=== PATIENT | male | born 1945 | race Caucasian/White ===

== ENCOUNTER 2019-07-22 08:51 | Outpatient (RCR) | payer MEDICARE, SELFPAY ==
[2019-07-22 08:59] VITALS: BP 160/81; PULSE 59; RESP 18; TEMP 37; BMI 25.6
--- NOTE | 2019-07-22 11:23 | PCM.WC.HP ---
(1) Peripheral vascular occlusive disease Status: Acute Current Visit: Yes Code(s): I73.9 - Peripheral vascular disease, unspecified (2) Nonhealing nonsurgical wound with fat layer exposed Status: Acute Current Visit: Yes Code(s): T14.8XXA - Other injury of unspecified body region, initial encounter (3) Pain of right leg Status: Acute Current Visit: Yes Code(s): M79.604 - Pain in right leg History of Present Illness Date of Service: 07/22/19 Chief Complaint: Follow-up on a chronic open area since April right lower leg at the ankle History of Wound: 73-year-old white male who is his chronic smoker with no other basic history of anything. Has been followed by vascular surgery at the [facility] was sent here to close his ankle wound has been using [id number] antibiotic ointment on it. Complains of severe pain in the area and is been receiving [place] from his family doctor. I believe he was referred from his family doctor here. Past Medical History Past Medical History: Peripheral vascular occlusive disease. Longtime smoker addiction Lives: Alone Smoking Status: Heavy Smoker (>10/day) Review of Systems Constitutional: Denies: Chills, Fever Eyes: Denies: Blurred vision, Drainage, Pain HEENT: Denies: Difficulty Hearing, Difficulty Swallowing, Sore Throat, Visual Changes Cardiovascular: Denies: Chest Pain, Palpitations, Syncope Respiratory: Denies: Cough, Shortness of Breath Gastrointestinal: Denies: Abdominal Pain, Nausea, Vomiting Genitourinary: Denies: Dysuria, Frequency Musculoskeletal: Denies: Joint Pain, Muscle pain Skin: Reports: - - Ulcer in the medial ankle area. Denies: Jaundice, Rash Neurological: Denies: Balance problems, Change in Speech, Difficulty swallowing, Focal weakness Psychiatric: Denies: Anxiety, Depression Endocrine: Denies: Change in Body Habitus Hematologic/ Lymphatic: Denies: Adenopathy - Physical Exam Vital Signs Temp Pulse Resp BP 98.6 F 59 L 18 160/81 H 07/22/19 08:59 07/22/19 08:59 07/22/19 08:59 07/22/19 08:59 General: Oriented x3, Cooperative, Well developed HEENT: Atraumatic, PERRLA Oral: Moist Mucosa Neck: Supple, No JVD Lungs: Clear to auscultation, Normal air movement Cardiovascular: Regular rate, Regular Rhythm Abdomen: Bowel Sounds Present, Soft, Non Tender, No Hepato-splenomegaly Extremities: No clubbing, No edema Skin: Ulcer/ Wound - Ulcer right medial ankle cobblestone edging irregularity Wound Measurements and Assessment WC - Nurse 1 - General Ulcer Measurement Start: 07/22/19 08:58 Freq: Status: Active Protocol: Activity Type Activity Date Activity User E-Sign Co-Sign Detail Recorded Client Recorded Date Recorded By Document 07/22/19 08:59 DL [id number] 07/22/19 09:26 DL 07/22/19 08:59 Wound Center Nurse 1 [Ulcer Assessment] #1 R Med Ankle -Current Size (cm) - Length 0.7 -Current Size (cm) - Width 1 -Current Size (cm) - Depth 0.5 -Total Square Cm 0.7 -Photo Taken Yes -Exudate Amt Small -Exudate Type Serosanguineous -Wound Margin Thickened & Rolled Under -Granulation Amt None Present (0 %) -Necrosis Amt Large (67-100%) -Necrotic Tissue Type Adherent Slough -Structure Exposed N/A -Texture (Sharmin-wound Skin Appearance) Localized Edema ,Scarring -Moisture (Sharmin-wound Skin Appearance Dry/Scaly ) -Color (Sharmin-wound Skin Appearance) Hemosiderin Staining -Temperature (Sharmin-wound Skin No Abnormality Appearance) (Pt Warm) -Tenderness on Palpation (Sharmin-wound Yes Skin Appearance) -Ulcer Cleansing Rinsed/ Irrigated with Saline -Foul Odor after Cleansing No -Anesthetic Used 5% Lidocaine Gel WC - Nurse 2 - General Ulcer CM Notes Start: 07/22/19 08:58 Freq: Status: Active Protocol: Activity Type Activity Date Activity User E-Sign Co-Sign Detail Recorded Client Recorded Date Recorded By Document 07/22/19 09:49 MW [id number] 07/22/19 09:54 MW 07/22/19 09:49 Wound Center Nurse 2 [Procedure/Treatment] -Time 09:50 -Correct Patient Yes -Correct Side, Site, Position Yes -Correct Procedure Yes -Procedure Performed Yes -Type of Procedure Debridement -Clinical Debridement Subcutaneous -Post Debridement Size (cm) - Length 1.0 -Post Debridement Size (cm) - Width 1.2 -Post Debridement Size (cm) - Depth 0.4 -Total Square Cm 1.20 -Wound/Ulcer Outcome Not Healed -Ulcer Cleansing Rinsed/ Irrigated with Saline -Foul Odor after Cleansing No -Bioengineered Tissue No -Bleeding Controlled with Pressure -Offloading No -Treatment Response Procedure Tolerated Well [See Physician Procedure note for Specifics] Pain Scale: 0-10 Numeric [Pain] -Is Patient Pain Free? Yes Musculoskeletal: No Tenderness to Palpation of Joints or Extremities Lymphatic: No Cervical, Supraclavicular, or Inguinal Adenopathy Neurological: Cranial nerves II-XII grossly intact, Neuro grossly intact Psych/Mental Status: Normal Affect, Appropriate Debridement Note Post-Debridement Measurements/Treatment WC - Nurse 2 - General Ulcer CM Notes Start: 07/22/19 08:58 Freq: Status: Active Protocol: Activity Type Activity Date Activity User E-Sign Co-Sign Detail Recorded Client Recorded Date Recorded By Document 07/22/19 09:49 MW [id number] 07/22/19 09:54 MW 07/22/19 09:49 Wound Center Nurse 2 #1 R Med Ankle -Time 09:50 -Correct Patient Yes -Correct Side, Site, Position Yes -Correct Procedure Yes -Procedure Performed Yes -Type of Procedure Debridement -Clinical Debridement Subcutaneous -Post Debridement Size (cm) - Length 1.0 -Post Debridement Size (cm) - Width 1.2 -Post Debridement Size (cm) - Depth 0.4 -Total Square Cm 1.20 -Wound/Ulcer Outcome Not Healed -Ulcer Cleansing Rinsed/ Irrigated with Saline -Foul Odor after Cleansing No -Bioengineered Tissue No -Bleeding Controlled with Pressure -Offloading No -Treatment Response Procedure Tolerated Well Pain Scale: 0-10 Numeric Is Patient Pain Free? Yes Wound debrided: Right medial ankle Type of Debridement: Excisional debridement Anesthesia Used: 5% Lidocaine Gel Depth: Down to and including healthy tissue, in the subcutaneous layer Percentage of wound debrided: 100 Instrument Used: 5mm curette Tissue Removed: Devitalized tissue and slough Severity: Fat Layer Exposed Amount of bleeding with debridement: None Bleeding Controlled with: Compression and gauze Patient tolerated procedure well Assessment/Plan Active Problems Peripheral vascular occlusive disease (Acute) Nonhealing nonsurgical wound with fat layer exposed (Acute) Pain of right leg (Acute) Assessment: Peripheral vascular occlusive disease. Smoking addiction. Stasis dermatitis Plan: Wash leg with an antibacterial soap. Apply Santyl nickel thickness to base of ulcer on right ankle cover with Adaptic gauze tape. Single layer Tubigrip. Up in 1 week
== END 2019-07-25 23:59 ==
LOC: WC 08:51
PROVIDERS: Family Provider Family Medicine; PCP Family Medicine; Visit Provider Nurse Practitioner
DX: I73.9 Peripheral vascular disease, unspecified (principal); M79.604 Pain in right leg; F17.200 Nicotine dependence, unspecified, uncomplicated; L97.312 Non-pressure chronic ulcer of right ankle with fat layer exposed
CPT/HCPCS: 11042; 99203; G0463

== ENCOUNTER 2019-08-12 08:30 | Outpatient (RCR) | payer MEDICARE, SELFPAY ==
[2019-07-26 01:23] VITALS: BP 160/81; PULSE 59; RESP 18; TEMP 37
[2019-07-29 09:11] VITALS: BP 148/80; PULSE 69; RESP 16; TEMP 36.9; BMI 25.6
--- NOTE | 2019-07-29 11:10 | PN.PCM_ITS ---
(1) Nonhealing nonsurgical wound with fat layer exposed Status: Acute Current Visit: Yes Code(s): T14.8XXA - Other injury of unspecified body region, initial encounter (2) Pain of right leg Status: Acute Current Visit: Yes Code(s): M79.604 - Pain in right leg (3) Peripheral vascular occlusive disease Status: Acute Current Visit: Yes Code(s): I73.9 - Peripheral vascular disease, unspecified Type of Wound Date of Service: 07/29/19 Chief Complaint: Follow-up on a chronic open area since April right lower leg at the ankle History of Wound: 73-year-old white male who is his chronic smoker with no other basic history of anything. Has been followed by vascular surgery at the [facility] was sent here to close his ankle wound has been using [id number] antibiotic ointment on it. Complains of severe pain in the area and is been receiving [place] from his family doctor. I believe he was referred from his family doctor here. Progress of Wound: The wound today using Santyl is actually improved dramatically smaller. Patient is happy with the outcome still has slough and base though will use 1 more week of Santyl. They need to inject with lidocaine to numb the area to get a good debridement next week patient has been approved for skin subset epi fix. - Physical Exam Vital Signs Temp Pulse Resp BP 98.4 F 69 16 148/80 H 07/29/19 09:11 07/29/19 09:11 07/29/19 09:11 07/29/19 09:11 General: Oriented x3, Cooperative, Well developed HEENT: Atraumatic, PERRLA Oral: Moist Mucosa Neck: Supple, No JVD Lungs: Clear to auscultation, Normal air movement Cardiovascular: Regular rate, Regular Rhythm Abdomen: Bowel Sounds Present, Soft, Non Tender, No Hepato-splenomegaly Extremities: No clubbing, No edema Skin: Ulcer/ Wound - Right medial ankle Wound Measurements and Assessment WC - Nurse 1 - General Ulcer Measurement Start: 07/29/19 09:10 Freq: Status: Active Protocol: Activity Type Activity Date Activity User E-Sign Co-Sign Detail Recorded Client Recorded Date Recorded By Document 07/29/19 09:11 [email or web address] [id number] 07/29/19 09:16 [email or web address] 07/29/19 09:11 Wound Center Nurse 1 [Ulcer Assessment] #1 R Med Ankle -Combined with other wound No -Current Size (cm) - Length 0.5 -Current Size (cm) - Width 1.2 -Current Size (cm) - Depth 0.4 -Total Square Cm 0.60 -Photo Taken No -Epithelialization None Present -Tunneling No -Undermining/Tunneling No -Circular Undermining No -Exudate Amt Small -Exudate Type Serous -Wound Margin Distinct, Outline Attached -Granulation Amt None Present (0 %) -Slough/Fibrin Yes -Necrosis Amt Large (67-100%) -Necrotic Tissue Type Adherent Slough -Texture (Sharmin-wound Skin Appearance) Assessed, Scarring -Moisture (Sharmin-wound Skin Appearance Assessed,Dry/ ) Scaly -Color (Shamrin-wound Skin Appearance) Assessed -Temperature (Sharmin-wound Skin No Abnormality Appearance) (Pt Warm) -Tenderness on Palpation (Sharmin-wound Yes Skin Appearance) -Ulcer Cleansing Rinsed/ Irrigated with Saline -Foul Odor after Cleansing No -Anesthetic Used 5% Lidocaine Gel [Edema Assessment] -Lower Limb Edema Present Yes -Right Calf (cm) 38.4 -Right Ankle (cm) 23.6 WC - Nurse 2 - General Ulcer CM Notes Start: 07/29/19 09:10 Freq: Status: Active Protocol: Activity Type Activity Date Activity User E-Sign Co-Sign Detail Recorded Client Recorded Date Recorded By Document 07/29/19 09:40 MW [id number] 07/29/19 09:45 MW 07/29/19 09:40 Wound Center Nurse 2 [Procedure/Treatment] #1 R [place] Ankle -Time 09:40 -Correct Patient Yes -Correct Side, Site, Position Yes -Correct Procedure Yes -Procedure Performed Yes -Type of Procedure Debridement -Clinical Debridement Subcutaneous -Post Debridement Size (cm) - Length 0.4 -Post Debridement Size (cm) - Width 0.9 -Post Debridement Size (cm) - Depth 0.3 -Total Square Cm 0.36 -Wound/Ulcer Outcome Not Healed -Ulcer Cleansing Rinsed/ Irrigated with Saline -Foul Odor after Cleansing No -Bioengineered Tissue No -Bleeding Controlled with Pressure -Offloading No -Treatment Response Procedure Tolerated Well [See Physician Procedure note for Specifics] Pain Scale: 0-10 Numeric [Pain] -Is Patient Pain Free? Yes Musculoskeletal: No Tenderness to Palpation of Joints or Extremities Lymphatic: No Cervical, Supraclavicular, or Inguinal Adenopathy Neurological: Cranial nerves II-XII grossly intact, Neuro grossly intact Psych/Mental Status: Normal Affect, Appropriate Debridement Note Post-Debridement Measurements/Treatment WC - Nurse 2 - General Ulcer CM Notes Start: 07/29/19 09:10 Freq: Status: Active Protocol: Activity Type Activity Date Activity User E-Sign Co-Sign Detail Recorded Client Recorded Date Recorded By Document 07/29/19 09:40 MW [id number] 07/29/19 09:45 MW 07/29/19 09:40 Wound Center Nurse 2 #1 R Med Ankle -Time 09:40 -Correct Patient Yes -Correct Side, Site, Position Yes -Correct Procedure Yes -Procedure Performed Yes -Type of Procedure Debridement -Clinical Debridement Subcutaneous -Post Debridement Size (cm) - Length 0.4 -Post Debridement Size (cm) - Width 0.9 -Post Debridement Size (cm) - Depth 0.3 -Total Square Cm 0.36 -Wound/Ulcer Outcome Not Healed -Ulcer Cleansing Rinsed/ Irrigated with Saline -Foul Odor after Cleansing No -Bioengineered Tissue No -Bleeding Controlled with Pressure -Offloading No -Treatment Response Procedure Tolerated Well Pain Scale: 0-10 Numeric Is Patient Pain Free? Yes Wound debrided: Right medial ankle Type of Debridement: Excisional debridement Anesthesia Used: 4% Lidocaine Solution Depth: Down to and including healthy tissue, in the subcutaneous layer Percentage of wound debrided: 100 Instrument Used: 3mm curette Tissue Removed: Slough Severity: Limited To Skin Breakdown Amount of bleeding with debridement: None Bleeding Controlled with: Compression and gauze Patient tolerated procedure well Assessment/Plan Active Problems Peripheral vascular occlusive disease (Acute) Nonhealing nonsurgical wound with fat layer exposed (Acute) Pain of right leg (Acute) Assessment: Peripheral vascular occlusive disease. Smoking addiction. Stasis dermatitis Plan: Wash leg with an antibacterial soap. Apply Santyl nickel thickness to base of ulcer on right ankle cover with Adaptic gauze tape. Single layer Tubigrip. Up in 1 week
[2019-08-05 08:34] VITALS: BP 140/86; PULSE 62; RESP 18; TEMP 36.7; BMI 25.6
--- NOTE | 2019-08-05 09:17 | PCM.WC.PN ---
(1) Nonhealing nonsurgical wound with fat layer exposed Status: Acute Current Visit: Yes Code(s): T14.8XXA - Other injury of unspecified body region, initial encounter (2) Pain of right leg Status: Acute Current Visit: Yes Code(s): M79.604 - Pain in right leg (3) Peripheral vascular occlusive disease Status: Acute Current Visit: Yes Code(s): I73.9 - Peripheral vascular disease, unspecified Type of Wound Date of Service: 08/05/19 Chief Complaint: Follow-up on a chronic open area since April right lower leg at the ankle History of Wound: 73-year-old white male who is his chronic smoker with no other basic history of anything. Has been followed by vascular surgery at the [facility] was sent here to close his ankle wound has been using [id number] antibiotic ointment on it. Complains of severe pain in the area and is been receiving [place] from his family doctor. I believe he was referred from his family doctor here. Progress of Wound: The wound today we injected lidocaine with epi to numb the area to do some aggressive debridement today. I was able to get all of the slough and clean it up pretty good make it bleed. We will stop the Santyl and start Promogran this week and follow-up next week and see how he is doing patient is to call his insurance company and find out if he has met his deductible or not. Has been approved for skin substitute but there is a co-pay. - Physical Exam Vital Signs Temp Pulse Resp BP 98.0 F 62 18 140/86 H 08/05/19 08:34 08/05/19 08:34 08/05/19 08:34 08/05/19 08:34 General: Oriented x3, Cooperative, Well developed HEENT: Atraumatic, PERRLA Oral: Moist Mucosa Neck: Supple, No JVD Lungs: Clear to auscultation, Normal air movement Cardiovascular: Regular rate, Regular Rhythm Abdomen: Bowel Sounds Present, Soft, Non Tender, No Hepato-splenomegaly Extremities: No clubbing, No edema Skin: Ulcer/ Wound Wound Measurements and Assessment WC - Nurse 1 - General Ulcer Measurement Start: 07/29/19 09:10 Freq: Status: Active Protocol: Activity Type Activity Date Activity User E-Sign Co-Sign Detail Recorded Client Recorded Date Recorded By Document 08/05/19 08:34 DV [id number] 08/05/19 08:36 DV 08/05/19 08:34 Wound Center Nurse 1 [Ulcer Assessment] #1 R Med Ankle -Combined with other wound No -Current Size (cm) - Length 0.6 -Current Size (cm) - Width 1.0 -Current Size (cm) - Depth 0.3 -Total Square Cm 0.60 -Photo Taken No -Epithelialization None Present -Tunneling No -Undermining/Tunneling No -Circular Undermining No -Classification - Thickness Full Thickness without Exposed Support Structure -Exudate Amt Medium -Exudate Type Yellow/Green -Wound Margin Thickened -Granulation Amt None Present (0 %) -Granulation Quality N/A -Slough/Fibrin Yes -Necrosis Amt Large (67-100%) -Necrotic Tissue Type Adherent Slough -Structure Exposed None/Limited to Skin Breakdown -Texture (Sharmin-wound Skin Appearance) Assessed, Scarring -Moisture (Sharmin-wound Skin Appearance Assessed, ) Weeping -Color (Sharmin-wound Skin Appearance) Assessed, Mottled,Palor -Temperature (Sharmin-wound Skin No Abnormality Appearance) (Pt Warm) -Tenderness on Palpation (Sharmin-wound No Skin Appearance) -Ulcer Cleansing Rinsed/ Irrigated with Saline -Foul Odor after Cleansing No -Anesthetic Used 4% Lidocaine Solution WC - Nurse 2 - General Ulcer CM Notes Start: 07/29/19 09:10 Freq: Status: Active Protocol: Activity Type Activity Date Activity User E-Sign Co-Sign Detail Recorded Client Recorded Date Recorded By Document 08/05/19 08:54 MW [id number] 08/05/19 09:04 MW 08/05/19 08:54 Wound Center Nurse 2 [Procedure/Treatment] -Time 08:54 -Correct Patient Yes -Correct Side, Site, Position Yes -Correct Procedure Yes -Procedure Performed Yes -Type of Procedure Debridement -Clinical Debridement Subcutaneous -Post Debridement Size (cm) - Length 0.5 -Post Debridement Size (cm) - Width 1.0 -Post Debridement Size (cm) - Depth 0.3 -Total Square Cm 0.50 -Wound/Ulcer Outcome Not Healed -Ulcer Cleansing Rinsed/ Irrigated with Saline -Foul Odor after Cleansing No -Bioengineered Tissue No -Injectable Lidocaine w/ Epi (%) 1 -Injectable Lidocaine w/ Epi (mls) 6 -Bleeding Controlled with Pressure -Offloading No -Treatment Response Procedure Tolerated Well [See Physician Procedure note for Specifics] Pain Scale: 0-10 Numeric [Pain] -Is Patient Pain Free? Yes Musculoskeletal: No Tenderness to Palpation of Joints or Extremities Lymphatic: No Cervical, Supraclavicular, or Inguinal Adenopathy Neurological: Cranial nerves II-XII grossly intact, Neuro grossly intact Psych/Mental Status: Normal Affect, Appropriate, Alert and oriented to time, place, person, mood and affect Debridement Note Post-Debridement Measurements/Treatment WC - Nurse 2 - General Ulcer CM Notes Start: 07/29/19 09:10 Freq: Status: Active Protocol: Activity Type Activity Date Activity User E-Sign Co-Sign Detail Recorded Client Recorded Date Recorded By Document 07/29/19 09:40 MW [id number] 07/29/19 09:45 MW Document 08/05/19 08:54 MW [id number] 08/05/19 09:04 MW 07/29/19 08/05/19 09:40 08:54 Wound Center Nurse 2 #1 R Med Ankle -Time 09:40 08:54 -Correct Patient Yes Yes -Correct Side, Site, Position Yes Yes -Correct Procedure Yes Yes -Procedure Performed Yes Yes -Type of Procedure Debridement Debridement -Clinical Debridement Subcutaneous Subcutaneous -Post Debridement Size (cm) - Length 0.4 0.5 -Post Debridement Size (cm) - Width 0.9 1.0 -Post Debridement Size (cm) - Depth 0.3 0.3 -Total Square Cm 0.36 0.50 -Wound/Ulcer Outcome Not Healed Not Healed -Ulcer Cleansing Rinsed/ Rinsed/ Irrigated with Irrigated with Saline Saline -Foul Odor after Cleansing No No -Bioengineered Tissue No No -Injectable Lidocaine w/ Epi (%) 1 -Injectable Lidocaine w/ Epi (mls) 6 -Bleeding Controlled with Pressure Pressure -Offloading No No -Treatment Response Procedure Procedure Tolerated Well Tolerated Well Pain Scale: 0-10 Numeric Is Patient Pain Free? Yes Yes Wound debrided: Right medial ankle ulcer Type of Debridement: Excisional debridement Anesthesia Used: 5% Lidocaine Gel, - - 1% lidocaine with epi Depth: Down to and including healthy tissue, in the subcutaneous layer Percentage of wound debrided: 100 Instrument Used: 3mm curette Tissue Removed: Slough Severity: Fat Layer Exposed Amount of bleeding with debridement: Mild Bleeding Controlled with: Compression and gauze Patient tolerated procedure well Assessment/Plan Active Problems Peripheral vascular occlusive disease (Acute) Nonhealing nonsurgical wound with fat layer exposed (Acute) Pain of right leg (Acute) Assessment: Peripheral vascular occlusive disease. Smoking addiction. Stasis dermatitis Plan: Wash leg with an antibacterial soap. Apply Promogran to base of ulcer on right ankle cover with Adaptic gauze tape. Single layer Tubigrip. Up in 1 week
[2019-08-12 08:49] VITALS: BP 145/87; PULSE 67; RESP 18; TEMP 36.3; BMI 25.6
--- NOTE | 2019-08-12 09:35 | PN.PCM_ITS ---
(1) Nonhealing nonsurgical wound with fat layer exposed Status: Acute Current Visit: Yes Code(s): T14.8XXA - Other injury of unspecified body region, initial encounter (2) Pain of right leg Status: Acute Current Visit: Yes Code(s): M79.604 - Pain in right leg (3) Peripheral vascular occlusive disease Status: Acute Current Visit: Yes Code(s): I73.9 - Peripheral vascular disease, unspecified Type of Wound Date of Service: 08/12/19 Chief Complaint: Follow-up on a chronic open area since April right lower leg at the ankle History of Wound: 73-year-old white male who is his chronic smoker with no other basic history of anything. Has been followed by vascular surgery at the [facility] was sent here to close his ankle wound has been using [id number] antibiotic ointment on it. Complains of severe pain in the area and is been receiving [place] from his family doctor. I believe he was referred from his family doctor here. Progress of Wound: The wound today is smaller and seems to be improving on the Promogran. Has been approved for skin substitute but there is a co-pay. Patient has refused skin substitute because of the co-pay. Pain in the posterior ankle area behind the wound. Obtained cultures today and start him on metronidazole 250 3 times daily x10 days to we get results. - Physical Exam Vital Signs Temp Pulse Resp BP 97.3 F L 67 18 145/87 H 08/12/19 08:49 08/12/19 08:49 08/12/19 08:49 08/12/19 08:49 General: Oriented x3, Cooperative, Well developed HEENT: Atraumatic, PERRLA Oral: Moist Mucosa Neck: Supple, No JVD Lungs: Clear to auscultation, Normal air movement Cardiovascular: Regular rate, Regular Rhythm Abdomen: Bowel Sounds Present, Soft, Non Tender, No Hepato-splenomegaly Extremities: No clubbing, No edema Skin: Ulcer/ Wound - Right medial ankle Wound Measurements and Assessment WC - Nurse 1 - General Ulcer Measurement Start: 07/29/19 09:10 Freq: Status: Active Protocol: Activity Type Activity Date Activity User E-Sign Co-Sign Detail Recorded Client Recorded Date Recorded By Document 08/12/19 08:49 RB [id number] 08/12/19 08:51 RB 08/12/19 08:49 Wound Center Nurse 1 [Ulcer Assessment] #1 R Med Ankle -Combined with other wound No -Current Size (cm) - Length 0.7 -Current Size (cm) - Width 1.2 -Current Size (cm) - Depth 0.5 -Total Square Cm 0.84 -Tunneling No -Undermining/Tunneling No -Circular Undermining No -Exudate Amt Medium -Exudate Type Serosanguineous -Wound Margin Thickened & Rolled Under -Granulation Amt Medium (34-66%) -Granulation Quality [place] -Slough/Fibrin Yes -Necrosis Amt Small (1-33%) -Structure Exposed N/A -Texture (Sharmin-wound Skin Appearance) Assessed, Scarring -Moisture (Sharmin-wound Skin Appearance Assessed ) -Color (Sharmin-wound Skin Appearance) Hemosiderin Staining -Temperature (Sharmin-wound Skin No Abnormality Appearance) (Pt Warm) -Ulcer Cleansing Wound Cleanser -Foul Odor after Cleansing No -Anesthetic Used 5% Lidocaine Gel WC - Nurse 2 - General Ulcer CM Notes Start: 07/29/19 09:10 Freq: Status: Active Protocol: Activity Type Activity Date Activity User E-Sign Co-Sign Detail Recorded Client Recorded Date Recorded By Document 08/12/19 09:09 MW [id number] 08/12/19 09:17 MW 08/12/19 09:09 Wound Center Nurse 2 [Procedure/Treatment] -Time 09:09 -Correct Patient Yes -Correct Side, Site, Position Yes -Correct Procedure Yes -Procedure Performed Yes -Type of Procedure Debridement -Clinical Debridement Subcutaneous -Post Debridement Size (cm) - Length 0.4 -Post Debridement Size (cm) - Width 0.8 -Post Debridement Size (cm) - Depth 0.3 -Total Square Cm 0.32 -Wound/Ulcer Outcome Not Healed -Ulcer Cleansing Rinsed/ Irrigated with Saline -Foul Odor after Cleansing No -Bioengineered Tissue No -Bleeding Controlled with Pressure -Offloading No -Treatment Response Procedure Tolerated Well [See Physician Procedure note for Specifics] Pain Scale: 0-10 Numeric [Pain] -Is Patient Pain Free? Yes Musculoskeletal: No Tenderness to Palpation of Joints or Extremities Lymphatic: No Cervical, Supraclavicular, or Inguinal Adenopathy Neurological: Cranial nerves II-XII grossly intact, Neuro grossly intact Psych/Mental Status: Normal Affect, Appropriate Debridement Note Post-Debridement Measurements/Treatment WC - Nurse 2 - General Ulcer CM Notes Start: 07/29/19 09:10 Freq: Status: Active Protocol: Activity Type Activity Date Activity User E-Sign Co-Sign Detail Recorded Client Recorded Date Recorded By Document 07/29/19 09:40 MW [id number] 07/29/19 09:45 MW Document 08/05/19 08:54 MW [id number] 08/05/19 09:04 MW Document 08/12/19 09:09 MW [id number] 08/12/19 09:17 MW 07/29/19 08/05/19 08/12/19 09:40 08:54 09:09 Wound Center Nurse 2 #1 R Med Ankle -Time 09:40 08:54 09:09 -Correct Patient Yes Yes Yes -Correct Side, Site, Position Yes Yes Yes -Correct Procedure Yes Yes Yes -Procedure Performed Yes Yes Yes -Type of Procedure Debridement Debridement Debridement -Clinical Debridement Subcutaneous Subcutaneous Subcutaneous -Post Debridement Size (cm) - Length 0.4 0.5 0.4 -Post Debridement Size (cm) - Width 0.9 1.0 0.8 -Post Debridement Size (cm) - Depth 0.3 0.3 0.3 -Total Square Cm 0.36 0.50 0.32 -Wound/Ulcer Outcome Not Healed Not Healed Not Healed -Ulcer Cleansing Rinsed/ Rinsed/ Rinsed/ Irrigated with Irrigated with Irrigated with Saline Saline Saline -Foul Odor after Cleansing No No No -Bioengineered Tissue No No No -Injectable Lidocaine w/ Epi (%) 1 -Injectable Lidocaine w/ Epi (mls) 6 -Bleeding Controlled with Pressure Pressure Pressure -Offloading No No No -Treatment Response Procedure Procedure Procedure Tolerated Well Tolerated Well Tolerated Well Pain Scale: 0-10 Numeric Is Patient Pain Free? Yes Yes Yes Wound debrided: Medial ankle Laterality: Right Type of Debridement: Excisional debridement Anesthesia Used: 5% Lidocaine Gel Depth: Down to and including healthy tissue, in the subcutaneous layer Percentage of wound debrided: 100 Instrument Used: 3mm curette Tissue Removed: Slough and fibrin Severity: Limited To Skin Breakdown Amount of bleeding with debridement: None Bleeding Controlled with: Compression and gauze Patient tolerated procedure well Assessment/Plan Active Problems Peripheral vascular occlusive disease (Acute) Nonhealing nonsurgical wound with fat layer exposed (Acute) Pain of right leg (Acute) Assessment: Peripheral vascular occlusive disease. Smoking addiction. Stasis dermatitis Plan: Wash leg with an antibacterial soap. Apply Promogran to base of ulcer on right ankle cover with Adaptic gauze tape. Single layer Tubigrip. Follow-up August 27
== END 2019-08-25 23:59 ==
LOC: WC 08:30
PROVIDERS: Family Provider Family Medicine; PCP Family Medicine; Referring Provider Nurse Practitioner; Visit Provider Nurse Practitioner
DX: I73.9 Peripheral vascular disease, unspecified (principal); L97.311 Non-pressure chronic ulcer of right ankle limited to breakdown of skin; I87.2 Venous insufficiency (chronic) (peripheral); L97.312 Non-pressure chronic ulcer of right ankle with fat layer exposed; F17.200 Nicotine dependence, unspecified, uncomplicated
CPT/HCPCS: 11042; 87070; 87075; 87077; 87186; 87205

== ENCOUNTER 2019-09-09 10:48 | Emergency (ER) | payer MEDICARE, SELFPAY ==
[2019-09-09 08:34] VITALS: BMI 25.6
[2019-09-09 10:52] VITALS: BP 143/88; PULSE 70; RESP 18; TEMP 36.6; O2SAT 96; BMI 25.2
--- NOTE | 2019-09-09 11:05 | ED.DCSUM_ITS ---
- ER Visit Summary Date of Service: 09/09/19 Chief Complaint: Right leg DVT History of Present Illness: The patient is a 73 M who presents with right leg DVT. He went to the wound clinic today and had a dressing change. He was complaining of some pain in his right calf so the provider at the wound clinic ordered an outpatient ultrasound. It returned with a DVT in the right leg. He has a history of a DVT in the left leg about 20 years ago. He is not on any blood thinning medications now. He denies any shortness of breath or chest pain at this time. Physical Examination: Vital signs are reviewed. Right leg exam reveals tenderness of the right medial calf. There is no swelling. No erythema. He has a bandage on the right ankle from a chronic wound. His strength and sensation are normal throughout. Test Results: Patient ultrasound reveals acute DVT in the right peroneal, right posterior tibial and right soleus vein. He has a superficial vein thrombosis in the right [facility] Emergency Department Course and Treatment: Patient will be treated with Xarelto. I discussed with Ashlie Corona at the wound clinic. She will follow with this patient. She did note that he did have some bleeding during the de bridement today. The bleeding is now controlled. I feel that this is not a contraindication to anticoagulation at this time. Treatment Plan: [] Disposition: Discharge Impression: Leg DVT, right This note was generated with Portable Internet dictation software. It may contain incorrect words, spelling, and punctuation that were not noted in review of the chart prior to signing ED Disposition - Plan for ED Patient: Disposition: Home or Assisted Living Instructions: Dvt Prescriptions: Rivaroxaban [Xarelto] 15 mg PO BID #42 tab Prescription Printed Referrals: Christopher Sebastian MD [Primary Care Provider] -
[2019-09-09 11:23] LABS: Absolute Lymphocyte Count 1.13 X10^3/uL (0.83-4.51); Basophil# 0.08 X10^3/uL; Basophil% 1.6 % (0-1); Eosinophil# 0.34 X10^3/uL; Eosinophils% 6.9 % (0-5); Hematocrit 45.7 % (40-54); Lymphocyte # 1.13 X10^3/ul (4.0); Lymphocyte % 22.9 % (19-41); Mean Corp Hgb Conc 32.8 g/dL (32-36); Mean Corpuscular Hgb 32.8 pg (27.0-32.0); Mean Corpuscular Volume 99.8 fL (80-94); Mean Platelet Vol. 9.8 fl (6.2-12.0); Monocyte# 0.37 X10^3/uL; Monocyte% 7.5 % (0-10); NRBC Flagged by Analyzer 0 % (0-5); Neutrophil # 2.98 X10^3/uL (2.7-7.7); Neutrophil % 60.5 % (47-70); Platelet Count 159 K/mm3 (150-450); RBC Distribution Width CV 13.4 % (11.6-14.6); RBC Distribution Width SD 49.8 fl (35.1-43.9); Red Blood Count 4.58 M/mm3 (4.6-6.2); White Blood Count 4.9 K/mm3 (4.4-11.0)
[2019-09-09 11:41] LABS: Prealbumin 22.5 mg/dL (20.0-40.0)
[2019-09-09] MEDS: Rivaroxaban 15 MG Tablet PO (11:59)
--- NOTE | 2019-09-09 12:03 | ED.RN ---
DISCHARGE INSTRUCTIONS GIVEN TO AND REVIEWED WITH PATIENT, PATIENT DENIES QUESTIONS OR CONCERNS AND VOICES UNDERSTANDING OF DISCHARGE INSTRUCTIONS. PT AMBULATES OUT OF ROOM WITHOUT ISSUE.
== END 2019-09-09 12:04 | disposition home or self-care (01) ==
LOC: ED 11:27
PROVIDERS: Emergency Provider Emergency Medicine; Family Provider Family Medicine; PCP Family Medicine
DX: I82.451 Acute embolism and thrombosis of right peroneal vein (principal); I82.441 Acute embolism and thrombosis of right tibial vein; I82.461 Acute embolism and thrombosis of right calf muscular vein; Z86.718 Personal history of other venous thrombosis and embolism; I73.9 Peripheral vascular disease, unspecified; F17.200 Nicotine dependence, unspecified, uncomplicated; I87.2 Venous insufficiency (chronic) (peripheral); I82.491 Acute embolism and thrombosis of other specified deep vein of right lower extremity; L08.9 Local infection of the skin and subcutaneous tissue, unspecified; T14.8XXA Other injury of unspecified body region, initial encounter; Y83.8 Other surgical procedures as the cause of abnormal reaction of the patient, or of later complication, without mention of misadventure at the time of the procedure; R60.0 Localized edema; L97.312 Non-pressure chronic ulcer of right ankle with fat layer exposed
CPT/HCPCS: 11042; 84134; 85025; 93971; 99283

== ENCOUNTER 2019-09-23 08:00 | Outpatient (RCR) | payer MEDICARE, SELFPAY ==
[2019-08-26 00:58] VITALS: BP 145/87; PULSE 67; RESP 18; TEMP 36.3
[2019-08-27 08:30] VITALS: BP 153/79; PULSE 70; RESP 18; TEMP 36.4; BMI 25.6
--- NOTE | 2019-08-27 09:01 | PCM.WC.PN ---
(1) Infected open wound Status: Acute Current Visit: Yes Code(s): T14.8XXA - Other injury of unspecified body region, initial encounter; L08.9 - Local infection of the skin and subcutaneous tissue, unspecified (2) Nonhealing nonsurgical wound with fat layer exposed Status: Acute Current Visit: No Code(s): T14.8XXA - Other injury of unspecified body region, initial encounter (3) Pain of right leg Status: Acute Current Visit: No Code(s): M79.604 - Pain in right leg (4) Peripheral vascular occlusive disease Status: Acute Current Visit: No Code(s): I73.9 - Peripheral vascular disease, unspecified Type of Wound Date of Service: 08/27/19 Chief Complaint: Follow-up on a chronic open area since April right lower leg at the ankle History of Wound: 73-year-old white male who is his chronic smoker with no other basic history of anything. Has been followed by vascular surgery at the [facility] was sent here to close his ankle wound has been using [id number] antibiotic ointment on it. Complains of severe pain in the area and is been receiving [place] from his family doctor. I believe he was referred from his family doctor here. Progress of Wound: The wound, grew 5 bacteria with 2 anaerobic bugs. The wound still grows a lot of slough patient states pain is much improved since being on all the antibiotic and metronidazole. Has been approved for skin substitute but there is a co-pay. Patient has refused skin substitute because of the co-pay. Pain in the posterior ankle area behind the wound. We will continue with the [place] to the wound base follow-up in 2 weeks. Obtained cultures today and start him on metronidazole 250 3 times daily x10 days to we get results. - Physical Exam Vital Signs Temp Pulse Resp BP 97.5 F L 70 18 153/79 H 08/27/19 08:30 08/27/19 08:30 08/27/19 08:30 08/27/19 08:30 General: Oriented x3, Cooperative, Well developed HEENT: Atraumatic, PERRLA Oral: Moist Mucosa Neck: Supple, No JVD Lungs: Clear to auscultation, Normal air movement Cardiovascular: Regular rate, Regular Rhythm Abdomen: Bowel Sounds Present, Soft, Non Tender, No Hepato-splenomegaly Extremities: No clubbing, No edema Skin: Ulcer/ Wound - Right medial ankle Wound Measurements and Assessment WC - Nurse 1 - General Ulcer Measurement Start: 08/27/19 08:29 Freq: Status: Active Protocol: Activity Type Activity Date Activity User E-Sign Co-Sign Detail Recorded Client Recorded Date Recorded By Document 08/27/19 08:30 RB [id number] 08/27/19 08:32 RB 08/27/19 08:30 Wound Center Nurse 1 [Ulcer Assessment] #1 R Med Ankle -Combined with other wound No -Current Size (cm) - Length 0.5 -Current Size (cm) - Width 1 -Current Size (cm) - Depth 0.3 -Total Square Cm 0.5 -Tunneling No -Undermining/Tunneling No -Circular Undermining No -Exudate Amt Small -Exudate Type Serosanguineous -Wound Margin Thickened & Rolled Under -Granulation Amt Medium (34-66%) -Granulation Quality [place] -Slough/Fibrin Yes -Necrosis Amt Small (1-33%) -Necrotic Tissue Type Adherent Slough -Structure Exposed N/A -Texture (Sharmin-wound Skin Appearance) Assessed -Moisture (Sharmin-wound Skin Appearance Assessed ) -Color (Sharmin-wound Skin Appearance) Assessed, Hemosiderin Staining -Temperature (Sharmin-wound Skin No Abnormality Appearance) (Pt Warm) -Tenderness on Palpation (Sharmin-wound No Skin Appearance) -Ulcer Cleansing Wound Cleanser -Foul Odor after Cleansing No -Anesthetic Used 5% Lidocaine Gel WC - Nurse 2 - General Ulcer CM Notes Start: 08/27/19 08:29 Freq: Status: Active Protocol: Activity Type Activity Date Activity User E-Sign Co-Sign Detail Recorded Client Recorded Date Recorded By Document 08/27/19 08:47 MW [id number] 08/27/19 08:51 MW 08/27/19 08:47 Wound Center Nurse 2 [Procedure/Treatment] -Time 08:47 -Correct Patient Yes -Correct Side, Site, Position Yes -Correct Procedure Yes -Procedure Performed Yes -Type of Procedure Debridement -Clinical Debridement Subcutaneous -Post Debridement Size (cm) - Length 0.4 -Post Debridement Size (cm) - Width 1.0 -Post Debridement Size (cm) - Depth 0.3 -Total Square Cm 0.40 -Wound/Ulcer Outcome Not Healed -Ulcer Cleansing Rinsed/ Irrigated with Saline -Foul Odor after Cleansing No -Bioengineered Tissue No -Bleeding Controlled with Pressure -Offloading No -Treatment Response Procedure Tolerated Well [See Physician Procedure note for Specifics] Pain Scale: 0-10 Numeric [Pain] -Is Patient Pain Free? Yes Musculoskeletal: No Tenderness to Palpation of Joints or Extremities Lymphatic: No Cervical, Supraclavicular, or Inguinal Adenopathy Neurological: Cranial nerves II-XII grossly intact, Neuro grossly intact Psych/Mental Status: Normal Affect, Appropriate Debridement Note Post-Debridement Measurements/Treatment WC - Nurse 2 - General Ulcer CM Notes Start: 08/27/19 08:29 Freq: Status: Active Protocol: Activity Type Activity Date Activity User E-Sign Co-Sign Detail Recorded Client Recorded Date Recorded By Document 08/27/19 08:47 MW [id number] 08/27/19 08:51 MW 08/27/19 08:47 Wound Center Nurse 2 #1 R Med Ankle -Time 08:47 -Correct Patient Yes -Correct Side, Site, Position Yes -Correct Procedure Yes -Procedure Performed Yes -Type of Procedure Debridement -Clinical Debridement Subcutaneous -Post Debridement Size (cm) - Length 0.4 -Post Debridement Size (cm) - Width 1.0 -Post Debridement Size (cm) - Depth 0.3 -Total Square Cm 0.40 -Wound/Ulcer Outcome Not Healed -Ulcer Cleansing Rinsed/ Irrigated with Saline -Foul Odor after Cleansing No -Bioengineered Tissue No -Bleeding Controlled with Pressure -Offloading No -Treatment Response Procedure Tolerated Well Pain Scale: 0-10 Numeric Is Patient Pain Free? Yes Wound debrided: Medial ankle Type of Debridement: Excisional debridement Anesthesia Used: 5% Lidocaine Gel Depth: Down to and including healthy tissue, in the subcutaneous layer Percentage of wound debrided: 100 Instrument Used: 3mm curette Tissue Removed: Slough and fibrin Severity: Limited To Skin Breakdown Amount of bleeding with debridement: Mild Bleeding Controlled with: Compression and gauze Patient tolerated procedure well Assessment/Plan Active Problems Infected open wound (Acute) Assessment: Peripheral vascular occlusive disease. Smoking addiction. Stasis dermatitis Plan: Wash leg with an antibacterial soap. Apply Promogran to base of ulcer on right ankle cover with Adaptic gauze tape. Single layer Tubigrip. Follow-up 2 weeks
[2019-09-09 08:34] VITALS: BP 142/74; PULSE 62; RESP 16; TEMP 36.1
--- NOTE | 2019-09-09 09:52 | PCM.WC.PN ---
(1) Infected open wound Status: Acute Current Visit: Yes Code(s): T14.8XXA - Other injury of unspecified body region, initial encounter; L08.9 - Local infection of the skin and subcutaneous tissue, unspecified (2) Nonhealing nonsurgical wound with fat layer exposed Status: Acute Current Visit: Yes Code(s): T14.8XXA - Other injury of unspecified body region, initial encounter (3) Pain of right leg Status: Acute Current Visit: Yes Code(s): M79.604 - Pain in right leg (4) Peripheral vascular occlusive disease Status: Acute Current Visit: Yes Code(s): I73.9 - Peripheral vascular disease, unspecified (5) Leg edema, right Status: Acute Current Visit: Yes Code(s): R60.0 - Localized edema (6) Acute deep vein thrombosis (DVT) of calf muscle vein of right lower extremity Status: Acute Current Visit: Yes Code(s): I82.461 - Acute embolism and thrombosis of right calf muscular vein Type of Wound Date of Service: 09/09/19 Chief Complaint: Follow-up on a chronic open area since April right lower leg at the ankle History of Wound: 73-year-old white male who is his chronic smoker with no other basic history of anything. Has been followed by vascular surgery at the [facility] was sent here to close his ankle wound has been using [id number] antibiotic ointment on it. Complains of severe pain in the area and is been receiving [place] from his family doctor. I believe he was referred from his family doctor here. Progress of Wound: The wound, grew 5 bacteria with 2 anaerobic bugs. The slough has improved did get down to good new skin still extremely painful but on this last debridement had a major bleeder had to use surgical foam to stop the bleeding and hold pressure for 5 minutes to 10 minutes. He is currently finishing his antibiotics and antimicrobials has been approved for skin substitute but there is a co-pay. Patient has refused skin substitute because of the co-pay. Will try getting a pre-albumin on him to see what is the causing us to slow up on his progression I will have him not start his wound care till tomorrow and leave the pressure dressing with the Surgifoam and for 24 hours. He is also complaining of a lump on his right calf medial side and some redness so we will get an ultrasound stat today and see if that is just a superficial thrombophlebitis or if it is actually something more. - Physical Exam Vital Signs Temp Pulse Resp BP 97.0 F L 62 16 142/74 H 09/09/19 08:34 09/09/19 08:34 09/09/19 08:34 09/09/19 08:34 General: Oriented x3, Cooperative, Well developed HEENT: Atraumatic, PERRLA Oral: Moist Mucosa Neck: Supple, No JVD Lungs: Clear to auscultation, Normal air movement Cardiovascular: Regular rate, Regular Rhythm Abdomen: Bowel Sounds Present, Soft, Non Tender, No Hepato-splenomegaly Extremities: No clubbing, Edema, - - Open nonhealing area on the right medial ankle Skin: Rash Present - Redness and lump on right medial calf Wound Measurements and Assessment WC - Nurse 1 - General Ulcer Measurement Start: 08/27/19 08:29 Freq: Status: Active Protocol: Activity Type Activity Date Activity User E-Sign Co-Sign Detail Recorded Client Recorded Date Recorded By Document 09/09/19 08:34 MW [id number] 09/09/19 08:38 MW 09/09/19 08:34 Wound Center Nurse 1 [Ulcer Assessment] #1 R Med Ankle -Combined with other wound No -Current Size (cm) - Length 0.7 -Current Size (cm) - Width 0.8 -Current Size (cm) - Depth 0.2 -Total Square Cm 0.56 -Photo Taken No -Epithelialization None Present -Tunneling No -Undermining/Tunneling No -Circular Undermining No -Exudate Amt None Present -Wound Margin Flat & Intact -Granulation Amt None Present (0 %) -Granulation Quality N/A -Slough/Fibrin Yes -Necrosis Amt Large (67-100%) -Necrotic Tissue Type Adherent Slough -Structure Exposed N/A -Texture (Sharmin-wound Skin Appearance) Assessed, Localized Edema -Moisture (Sharmin-wound Skin Appearance No Abnormality, ) Assessed -Color (Sharmin-wound Skin Appearance) Assessed, Hemosiderin Staining -Temperature (Sharmin-wound Skin No Abnormality Appearance) (Pt Warm) -Tenderness on Palpation (Sharmin-wound Yes Skin Appearance) -Ulcer Cleansing Rinsed/ Irrigated with Saline -Foul Odor after Cleansing No -Anesthetic Used 4% Lidocaine Solution [Edema Assessment] -Lower Limb Edema Present Yes -Right Calf (cm) 39.0 -Right Ankle (cm) 24.6 - Nurse 2 - General Ulcer CM Notes Start: 08/27/19 08:29 Freq: Status: Active Protocol: Activity Type Activity Date Activity User E-Sign Co-Sign Detail Recorded Client Recorded Date Recorded By Document 09/09/19 08:43 MW [id number] 09/09/19 08:55 MW 09/09/19 08:43 Wound Center Nurse 2 [Procedure/Treatment] #1 R Med Ankle -Time 08:44 -Correct Patient Yes -Correct Side, Site, Position Yes -Correct Procedure Yes -Procedure Performed Yes -Type of Procedure Debridement -Clinical Debridement Subcutaneous -Post Debridement Size (cm) - Length 0.8 -Post Debridement Size (cm) - Width 0.8 -Post Debridement Size (cm) - Depth 0.2 -Total Square Cm 0.64 -Wound/Ulcer Outcome Not Healed -Ulcer Cleansing Rinsed/ Irrigated with Saline -Foul Odor after Cleansing No -Bioengineered Tissue No -Bleeding Controlled with Pressure, SURGIFOAM -Offloading No -Treatment Response Procedure Tolerated Well [See Physician Procedure note for Specifics] Pain Scale: 0-10 Numeric [Pain] -Is Patient Pain Free? Yes Musculoskeletal: No Tenderness to Palpation of Joints or Extremities Lymphatic: No Cervical, Supraclavicular, or Inguinal Adenopathy Neurological: Cranial nerves II-XII grossly intact, Neuro grossly intact Psych/Mental Status: Normal Affect, Appropriate Debridement Note Post-Debridement Measurements/Treatment - Nurse 2 - General Ulcer CM Notes Start: 08/27/19 08:29 Freq: Status: Active Protocol: Activity Type Activity Date Activity User E-Sign Co-Sign Detail Recorded Client Recorded Date Recorded By Document 08/27/19 08:47 MW [id number] 08/27/19 08:51 MW Document 09/09/19 08:43 MW [id number] 09/09/19 08:55 MW 08/27/19 09/09/19 08:47 08:43 Wound Center Nurse 2 #1 R Med Ankle -Time 08:47 08:44 -Correct Patient Yes Yes -Correct Side, Site, Position Yes Yes -Correct Procedure Yes Yes -Procedure Performed Yes Yes -Type of Procedure Debridement Debridement -Clinical Debridement Subcutaneous Subcutaneous -Post Debridement Size (cm) - Length 0.4 0.8 -Post Debridement Size (cm) - Width 1.0 0.8 -Post Debridement Size (cm) - Depth 0.3 0.2 -Total Square Cm 0.40 0.64 -Wound/Ulcer Outcome Not Healed Not Healed -Ulcer Cleansing Rinsed/ Rinsed/ Irrigated with Irrigated with Saline Saline -Foul Odor after Cleansing No No -Bioengineered Tissue No No -Bleeding Controlled with Pressure Pressure, SURGIFOAM -Offloading No No -Treatment Response Procedure Procedure Tolerated Well Tolerated Well Pain Scale: 0-10 Numeric Is Patient Pain Free? Yes Yes Wound debrided: Right medial ankle Type of Debridement: Excisional debridement Anesthesia Used: 5% Lidocaine Gel Depth: Down to and including healthy tissue, in the subcutaneous layer Percentage of wound debrided: 100 Instrument Used: 3mm curette Tissue Removed: Fibrin and some slough Severity: Fat Layer Exposed Amount of bleeding with debridement: Moderate Bleeding Controlled with: Pressure, Gel Foam Patient tolerated procedure well Assessment/Plan Ultrasound right lower extremity for DVT and also checking for CBC and a prealbumin Active Problems Peripheral vascular occlusive disease (Acute) Nonhealing nonsurgical wound with fat layer exposed (Acute) Pain of right leg (Acute) Infected open wound (Acute) Leg edema, right (Acute) Acute deep vein thrombosis (DVT) of calf muscle vein of right lower extremity (Acute) Assessment: Peripheral vascular occlusive disease. Smoking addiction. Stasis dermatitis Plan: Leave the Surgifoam in for 24 hours then start dressing changes as before. Stat DVT. Will call with the lab work results. Wash leg with an antibacterial soap. Apply Promogran to base of ulcer on right ankle cover with Adaptic gauze tape. Single layer Tubigrip. Follow-up 2 weeks
--- NOTE | 2019-09-09 10:04 | VDLE_ITS ---
Reason For Study: Edema RIGHT LEFT CFV is compressible, spontaneous, phasic, CFV is compressible, spontaneous, phasic, competent and demonstrates normal competent, and demonstrates normal augmentation. augmentation. FV is compressible, spontaneous, phasic, competent and demonstrates normal augmentation. POP V is compressible, spontaneous, phasic, competent and demonstrates normal augmentation. T/P Trunk is compressible. Acute deep vein thrombosis is noted in the right peroneal vein. Acute deep vein thrombosis is noted in the right posterior tibial vein. Acute deep vein thrombosis is noted in the right soleus vein. Acute superficial vein thrombosis is noted in the right GSV from distal thigh to ankle. Thrombus filled varicose veins noted in the mid medial calf. Procedure Exam performed in department. A preliminary report was called and/or faxed to Ashlie. Pt sent to ED. Interpretation Summary Acute deep vein thrombosis is noted in the right peroneal vein. Acute deep vein thrombosis is noted in the right posterior tibial vein. Acute deep vein thrombosis is noted in the right soleus vein. The remainder of the right lower extremity deep venous system is patent and compressible. Valvular competence appears intact within the proximal deep venous system on the right . Acute superficial thrombophlebitis is noted in the right great saphenous vein from the right distal thigh to the ankle, and involving superficial varicosities in the right mid-medial calf. Ordering Physician: Ashlie Corona Referring Physician: Christopher Sebastian Performed By: Renetta Pozo RVT
[2019-09-16 08:06] VITALS: BP 139/60; PULSE 58; RESP 18; TEMP 36.3
--- NOTE | 2019-09-16 09:01 | PN.PCM_ITS ---
(1) Infected open wound Status: Acute Current Visit: Yes Code(s): T14.8XXA - Other injury of un specified body region, initial encounter; L08.9 - Local infection of the skin and subcutaneous tissue, unspecified (2) Nonhealing nonsurgical wound with fat layer exposed Status: Acute Current Visit: Yes Code(s): T14.8XXA - Other injury of unspecified body region, initial encounter (3) Pain of right leg Status: Acute Current Visit: Yes Code(s): M79.604 - Pain in right leg (4) Peripheral vascular occlusive disease Status: Acute Current Visit: Yes Code(s): I73.9 - Peripheral vascular disease, unspecified (5) Leg edema, right Status: Acute Current Visit: Yes Code(s): R60.0 - Localized edema (6) Acute deep vein thrombosis (DVT) of calf muscle vein of right lower extremity Status: Acute Current Visit: Yes Code(s): I82.461 - Acute embolism and thrombosis of right calf muscular vein Type of Wound Date of Service: 09/16/19 Chief Complaint: Follow-up on a chronic open area since April right lower leg at the ankle History of Wound: 73-year-old white male who is his chronic smoker with no other basic history of anything. Has been followed by vascular surgery at the [facility] was sent here to close his ankle wound has been using [id number] antibiotic ointment on it. Complains of severe pain in the are a and is been receiving [place] from his family doctor. I believe he was referred from his family doctor here. Progress of Wound: The wound, grew 5 bacteria with 2 anaerobic bugs. His antibiotic and antimicrobial therapy is done. The slough has improved and is easily debrided out now. His prealbumin was 22.5 which is good. He is also complaining of a lump on his right calf medial side and some redness so we will get an ultrasound stat today and see if that is just a superficial thrombophlebitis or if it is actually something more. He ended up with 3 blood clots in the right leg and is on Xarelto at this point and needs to follow-up with his vascular or get a new family physician that he can get a hold of. - Physical Exam Vital Signs Temp Pulse Resp BP 97.4 F L 58 L 18 139/60 H 09/16/19 08:06 09/16/19 08:06 09/16/19 08:06 09/16/19 08:06 General: Oriented x3, Cooperative, Well developed HEENT: Atraumatic, PERRLA Oral: Moist Mucosa Neck: Supple, No JVD Lungs: Clear to auscultation, Normal air movement Cardiovascular: Regular rate, Regular Rhythm Abdomen: Bowel Sounds Present, Soft, Non Tender, No Hepato-splenomegaly Extremities: No clubbing, No edema Skin: Ulcer/ Wound - Right medial ankle Wound Measurements and Assessment WC - Nurse 1 - General Ulcer Measurement Start: 08/27/19 08:29 Freq: Status: Active Protocol: Activity Type Activity Date Activity User E-Sign Co-Sign Detail Recorded Client Recorded Date Recorded By Document 09/16/19 08:06 DL [id number] 09/16/19 08:08 DL 09/16/19 08:06 Wound Center Nurse 1 [Ulcer Assessment] #1 R Med Ankle -Current Size (cm) - Length 0.4 -Current Size (cm) - Width 0.8 -Current Size (cm) - Depth 0.3 -Total Square Cm 0.32 -Photo Taken No -Exudate Amt Small -Exudate Type Serosanguineous -Wound Margin Distinct, Outline Attached -Granulation Amt Small (1-33%) -Granulation Quality [place] -Necrosis Amt Large (67-100%) -Necrotic Tissue Type Adherent Slough -Structure Exposed N/A -Texture (Sharmin-wound Skin Appearance) Scarring -Moisture (Sharmin-wound Skin Appearance No Abnormality ) -Color (Sharmin-wound Skin Appearance) Hemosiderin Staining -Temperature (Sharmin-wound Skin No Abnormality Appearance) (Pt Warm) -Tenderness on Palpation (Sharmin-wound No Skin Appearance) -Ulcer Cleansing Rinsed/ Irrigated with Saline -Foul Odor after Cleansing No -Anesthetic Used 5% Lidocaine Gel WC - Nurse 2 - General Ulcer CM Notes Start: 08/27/19 08:29 Freq: Status: Active Protocol: Activity Type Activity Date Activity User E-Sign Co-Sign Detail Recorded Client Recorded Date Recorded By Document 09/16/19 08:19 MW [id number] 09/16/19 08:24 MW 09/16/19 08:19 Wound Center Nurse 2 [Procedure/Treatment] -Time 08:20 -Correct Patient Yes -Correct Side, Site, Position Yes -Correct Procedure Yes -Procedure Performed Yes -Type of Procedure Debridement -Clinical Debridement Subcutaneous -Post Debridement Size (cm) - Length 0.4 -Post Debridement Size (cm) - Width 0.8 -Post Debridement Size (cm) - Depth 0.3 -Total Square Cm 0.32 -Wound/Ulcer Outcome Not Healed -Ulcer Cleansing Rinsed/ Irrigated with Saline -Foul Odor after Cleansing No -Bioengineered Tissue No -Bleeding Controlled with Pressure -Offloading No -Treatment Response Procedure Tolerated Well [See Physician Procedure note for Specifics] Pain Scale: 0-10 Numeric [Pain] -Is Patient Pain Free? Yes Musculoskeletal: No Tenderness to Palpation of Joints or Extremities Lymphatic: No Cervical, Supraclavicular, or Inguinal Adenopathy Neurological: Cranial nerves II-XII grossly intact, Neuro grossly intact Psych/Mental Status: Normal Affect, Appropriate, Alert and oriented to time, place, person, mood and affect Debridement Note Post-Debridement Measurements/Treatment WC - Nurse 2 - General Ulcer CM Notes Start: 08/27/19 08:29 Freq: Status: Active Protocol: Activity Type Activity Date Activity User E-Sign Co-Sign Detail Recorded Client Recorded Date Recorded By Document 08/27/19 08:47 MW [id number] 08/27/19 08:51 MW Document 09/09/19 08:43 MW [id number] 09/09/19 08:55 MW Document 09/16/19 08:19 MW [id number] 09/16/19 08:24 MW 08/27/19 09/09/19 09/16/19 08:47 08:43 08:19 Wound Center Nurse 2 #1 R Med Ankle -Time 08:47 08:44 08:20 -Correct Patient Yes Yes Yes -Correct Side, Site, Position Yes Yes Yes -Correct Procedure Yes Yes Yes -Procedure Performed Yes Yes Yes -Type of Procedure Debridement Debridement Debridement -Clinical Debridement Subcutaneous Subcutaneous Subcutaneous -Post Debridement Size (cm) - Length 0.4 0.8 0.4 -Post Debridement Size (cm) - Width 1.0 0.8 0.8 -Post Debridement Size (cm) - Depth 0.3 0.2 0.3 -Total Square Cm 0.40 0.64 0.32 -Wound/Ulcer Outcome Not Healed Not Healed Not Healed -Ulcer Cleansing Rinsed/ Rinsed/ Rinsed/ Irrigated with Irrigated with Irrigated with Saline Saline Saline -Foul Odor after Cleansing No No No -Bioengineered Tissue No No No -Bleeding Controlled with Pressure Pressure, Pressure SURGIFOAM -Offloading No No No -Treatment Response Procedure Procedure Procedure Tolerated Well Tolerated Well Tolerated Well Pain Scale: 0-10 Numeric Is Patient Pain Free? Yes Yes Yes Wound debrided: Right medial ankle Type of Debridement: Excisional debridement Anesthesia Used: 5% Lidocaine Gel Depth: Down to and including healthy tissue, in the subcutaneous layer Percentage of wound debrided: 100 Instrument Used: 3mm curette Tissue Removed: Slough and fibrin Severity: Limited To Skin Breakdown Amount of bleeding with debridement: Mild Bleeding Controlled with: Compression and gauze Patient tolerated procedure well Assessment/Plan Active Problems Peripheral vascular occlusive disease (Acute) Nonhealing nonsurgical wound with fat layer exposed (Acute) Pain of right leg (Acute) Infected open wound (Acute) Leg edema, right (Acute) Acute deep vein thrombosis (DVT) of calf muscle vein of right lower extremity (Acute) Assessment: Peripheral vascular occlusive disease. Smoking addiction. Stasis dermatitis. DVT x3 right leg Plan: Wash leg with Hibiclens. Apply Promogran to base of ulcer on right ankle cover with Adaptic gauze tape. Single layer Tubigrip. Follow-up 1 weeks. Needs to follow-up with his regular doctor or find a new doctor gave him a list of [facility] practices to follow-up on the [place]
[2019-09-23 08:32] VITALS: BP 128/77; PULSE 64; RESP 18; TEMP 36.1; BMI 25.6
--- NOTE | 2019-09-23 08:43 | PCM.WC.PN ---
(1) Infected open wound Status: Acute Current Visit: Yes Code(s): T14.8XXA - Other injury of unspecified body region, initial encounter; L08.9 - Local infection of the skin and subcutaneous tissue, unspecified (2) Nonhealing nonsurgical wound with fat layer exposed Status: Acute Current Visit: Yes Code(s): T14.8XXA - Other injury of unspecified body region, initial encounter (3) Pain of right leg Status: Acute Current Visit: Yes Code(s): M79.604 - Pain in right leg (4) Peripheral vascular occlusive disease Status: Acute Current Visit: Yes Code(s): I73.9 - Peripheral vascular disease, unspecified (5) Leg edema, right Status: Acute Current Visit: Yes Code(s): R60.0 - Localized edema (6) Acute deep vein thrombosis (DVT) of calf muscle vein of right lower extremity Status: Acute Current Visit: Yes Code(s): I82.461 - Acute embolism and thrombosis of right calf muscular vein (7) Peripheral vascular disease of lower extremity with ulceration Status: Acute Current Visit: Yes Code(s): I73.9 - Peripheral vascular disease, unspecified; L97.909 - Non-pressure chronic ulcer of unspecified part of unspecified lower leg with unspecified severity Type of Wound Date of Service: 09/23/19 Chief Complaint: Follow-up on a chronic open area since April right lower leg at the ankle History of Wound: 73-year-old white male who is his chronic smoker with no other basic history of anything. Has been followed by vascular surgery at the [facility] was sent here to close his ankle ulcer has been using [id number] antibiotic ointment on it. Complains of severe pain in the area and is been receiving [place] from his family doctor. I believe he was referred from his family doctor here. Progress of Wound: The ulcer , grew 5 bacteria with 2 anaerobic bugs. His antibiotic and antimicrobial therapy is done. The slough has improved and is easily debrided out now. His prealbumin was 22.5 which is good. He is also complaining of a lump on his right calf medial side and some redness so we will get an ultrasound stat today and see if that is just a superficial thrombophlebitis or if it is actually something more. He ended up with 3 blood clots in the right leg and is on Xarelto at this point and needs to follow-up with his vascular or get a new family physician that he can get a hold of. Today the ulcer is not moving will re-culture the area . He still has some pain during the night around the ulcer area - Physical Exam Vital Signs Temp Pulse Resp BP 97.0 F L 64 18 128/77 H 09/23/19 08:32 09/23/19 08:32 09/23/19 08:32 09/23/19 08:32 General: Oriented x3, Cooperative, Well developed HEENT: Atraumatic, PERRLA Oral: Moist Mucosa Neck: Supple, No JVD Lungs: Clear to auscultation, Normal air movement Cardiovascular: Regular rate, Regular Rhythm Abdomen: Bowel Sounds Present, Soft, Non Tender, No Hepato-splenomegaly Extremities: No clubbing, No edema Skin: Ulcer/ Wound - Right ankle ulcer Wound Measurements and Assessment WC - Nurse 1 - General Ulcer Measurement Start: 08/27/19 08:29 Freq: Status: Active Protocol: Activity Type Activity Date Activity User E-Sign Co-Sign Detail Recorded Client Recorded Date Recorded By Document 09/23/19 08:32 DV [id number] 09/23/19 08:34 DV 09/23/19 08:32 Wound Center Nurse 1 [Ulcer Assessment] #1 R Med Ankle -Combined with other wound No -Current Size (cm) - Length 0.4 -Current Size (cm) - Width 0.7 -Current Size (cm) - Depth 0.2 -Total Square Cm 0.28 -Date of Last Picture (Recall this 09/23/19 field) -Photo Taken Yes -Epithelialization None Present -Tunneling No -Undermining/Tunneling No -Circular Undermining No -Classification - Thickness Full Thickness without Exposed Support Structure -Wound Margin Flat & Intact -Granulation Amt None Present (0 %) -Granulation Quality N/A -Slough/Fibrin Yes -Necrosis Amt Large (67-100%) -Necrotic Tissue Type Adherent Slough -Structure Exposed None/Limited to Skin Breakdown -Texture (Sharmin-wound Skin Appearance) Assessed, Scarring -Moisture (Sharmin-wound Skin Appearance No Abnormality, ) Assessed -Color (Sharmin-wound Skin Appearance) Assessed, Erythema -Temperature (Sharmin-wound Skin No Abnormality Appearance) (Pt Warm) -Tenderness on Palpation (Sharmin-wound Yes Skin Appearance) -Ulcer Cleansing Rinsed/ Irrigated with Saline -Foul Odor after Cleansing No -Anesthetic Used 4% Lidocaine Solution WC - Nurse 2 - General Ulcer CM Notes Start: 08/27/19 08:29 Freq: Status: Active Protocol: Activity Type Activity Date Activity User E-Sign Co-Sign Detail Recorded Client Recorded Date Recorded By Document 09/23/19 08:32 MW [id number] 09/23/19 08:35 MW 09/23/19 08:32 Wound Center Nurse 2 [Procedure/Treatment] -Time 08:32 -Correct Patient Yes -Correct Side, Site, Position Yes -Correct Procedure Yes -Procedure Performed Yes -Type of Procedure Debridement -Clinical Debridement Subcutaneous -Post Debridement Size (cm) - Length 0.4 -Post Debridement Size (cm) - Width 1.0 -Post Debridement Size (cm) - Depth 0.3 -Total Square Cm 0.40 -Wound/Ulcer Outcome Not Healed -Ulcer Cleansing Rinsed/ Irrigated with Saline -Foul Odor after Cleansing No -Bioengineered Tissue No -Bleeding Controlled with Pressure -Offloading No -Treatment Response Procedure Tolerated Well [See Physician Procedure note for Specifics] Pain Scale: 0-10 Numeric [Pain] -Is Patient Pain Free? Yes Musculoskeletal: No Tenderness to Palpation of Joints or Extremities Lymphatic: No Cervical, Supraclavicular, or Inguinal Adenopathy Neurological: Cranial nerves II-XII grossly intact, Neuro grossly intact Psych/Mental Status: Normal Affect, Appropriate Debridement Note Post-Debridement Measurements/Treatment WC - Nurse 2 - General Ulcer CM Notes Start: 08/27/19 08:29 Freq: Status: Active Protocol: Activity Type Activity Date Activity User E-Sign Co-Sign Detail Recorded Client Recorded Date Recorded By Document 08/27/19 08:47 MW [id number] 08/27/19 08:51 MW Document 09/09/19 08:43 MW [id number] 09/09/19 08:55 MW Document 09/16/19 08:19 MW [id number] 09/16/19 08:24 MW Document 09/23/19 08:32 MW [id number] 09/23/19 08:35 MW 08/27/19 09/09/19 09/16/19 08:47 08:43 08:19 Wound Center Nurse 2 #1 R Med Ankle -Time 08:47 08:44 08:20 -Correct Patient Yes Yes Yes -Correct Side, Site, Position Yes Yes Yes -Correct Procedure Yes Yes Yes -Procedure Performed Yes Yes Yes -Type of Procedure Debridement Debridement Debridement -Clinical Debridement Subcutaneous Subcutaneous Subcutaneous -Post Debridement Size (cm) - Length 0.4 0.8 0.4 -Post Debridement Size (cm) - Width 1.0 0.8 0.8 -Post Debridement Size (cm) - Depth 0.3 0.2 0.3 -Total Square Cm 0.40 0.64 0.32 -Wound/Ulcer Outcome Not Healed Not Healed Not Healed -Ulcer Cleansing Rinsed/ Rinsed/ Rinsed/ Irrigated with Irrigated with Irrigated with Saline Saline Saline -Foul Odor after Cleansing No No No -Bioengineered Tissue No No No -Bleeding Controlled with Pressure Pressure, Pressure SURGIFOAM -Offloading No No No -Treatment Response Procedure Procedure Procedure Tolerated Well Tolerated Well Tolerated Well Pain Scale: 0-10 Numeric Is Patient Pain Free? Yes Yes Yes 09/23/19 08:32 Wound Center Nurse 2 #1 R Med Ankle -Time 08:32 -Correct Patient Yes -Correct Side, Site, Position Yes -Correct Procedure Yes -Procedure Performed Yes -Type of Procedure Debridement -Clinical Debridement Subcutaneous -Post Debridement Size (cm) - Length 0.4 -Post Debridement Size (cm) - Width 1.0 -Post Debridement Size (cm) - Depth 0.3 -Total Square Cm 0.40 -Wound/Ulcer Outcome Not Healed -Ulcer Cleansing Rinsed/ Irrigated with Saline -Foul Odor after Cleansing No -Bioengineered Tissue No -Bleeding Controlled with Pressure -Offloading No -Treatment Response Procedure Tolerated Well Pain Scale: 0-10 Numeric Is Patient Pain Free? Yes Wound debrided: Right ankle ulcer Type of Debridement: Excisional debridement Anesthesia Used: 5% Lidocaine Gel Depth: Down to and including healthy tissue Percentage of wound debrided: 100 Instrument Used: 3mm curette Tissue Removed: Fibrin Severity: Limited To Skin Breakdown Amount of bleeding with debridement: None Bleeding Controlled with: Pressure Patient tolerated procedure well Assessment/Plan Aerobic and anaerobic cultures obtained Active Problems Peripheral vascular occlusive disease (Acute) Nonhealing nonsurgical wound with fat layer exposed (Acute) Pain of right leg (Acute) Infected open wound (Acute) Leg edema, right (Acute) Acute deep vein thrombosis (DVT) of calf muscle vein of right lower extremity (Acute) Peripheral vascular disease of lower extremity with ulceration (Acute) Assessment: Peripheral vascular occlusive disease. Peripheral vascular disease with ulcer. Smoking addiction. Stasis dermatitis. DVT x3 right leg Plan: Wash leg with Hibiclens. Apply Promogran to base of ulcer on right ankle cover with Adaptic gauze tape. Single layer Tubigrip. Follow-up 1 weeks. Needs to follow-up with his regular doctor or find a new doctor [facility] to follow-up on the Xarelto. Has an appointment not till October 10 with new doctor. Patient will run out of Xarelto rewritten Xarelto 15 mg twice daily for 30 days 1 refill
== END 2019-09-25 23:59 ==
LOC: WC 08:00
PROVIDERS: Family Provider Family Medicine; PCP Family Medicine; Referring Provider Nurse Practitioner; Visit Provider Nurse Practitioner
DX: I73.9 Peripheral vascular disease, unspecified (principal); F17.200 Nicotine dependence, unspecified, uncomplicated; I87.2 Venous insufficiency (chronic) (peripheral); I82.451 Acute embolism and thrombosis of right peroneal vein; I82.441 Acute embolism and thrombosis of right tibial vein; I82.491 Acute embolism and thrombosis of other specified deep vein of right lower extremity; L08.9 Local infection of the skin and subcutaneous tissue, unspecified; T14.8XXA Other injury of unspecified body region, initial encounter; Y83.8 Other surgical procedures as the cause of abnormal reaction of the patient, or of later complication, without mention of misadventure at the time of the procedure; R60.0 Localized edema; L97.312 Non-pressure chronic ulcer of right ankle with fat layer exposed
CPT/HCPCS: 11042; 87070; 87075; 87077; 87186; 87205; 93971

== ENCOUNTER 2019-10-21 08:00 | Outpatient (RCR) | payer MEDICARE, SELFPAY ==
[2019-09-26 00:52] VITALS: BP 128/77; PULSE 64; RESP 18; TEMP 36.1; BMI 25.2
[2019-09-30 08:18] VITALS: BP 116/83; PULSE 67; RESP 18; TEMP 37; BMI 25.2
--- NOTE | 2019-09-30 08:39 | PN.PCM_ITS ---
(1) Acute deep vein thrombosis (DVT) of calf muscle vein of right lower extremity Status: Acute Current Visit: No Code(s): I82.461 - Acute embolism and thrombosis of right calf muscular vein (2) Infected open wound Status: Acute Current Visit: No Code(s): T14.8XXA - Other injury of unspecified body region, initial encounter; L08.9 - Local infection of the skin and subcutaneous tissue, unspecified (3) Leg edema, right Status: Acute Current Visit: No Code(s): R60.0 - Localized edema (4) Pain of right leg Status: Acute Current Visit: No Code(s): M79.604 - Pain in right leg (5) Peripheral vascular disease of lower extremity with ulceration Status: Acute Current Visit: No Code(s): I73.9 - Peripheral vascular disease, unspecified; L97.909 - Non-pressure chronic ulcer of unspecified part of unspecified lower leg with unspecified severity (6) Peripheral vascular occlusive disease Status: Acute Current Visit: No Code(s): I73.9 - Peripheral vascular disease, unspecified Type of Wound Date of Service: 09/30/19 Chief Complaint: Follow-up on a chronic open area since April right lower leg at the ankle History of Wound: 73-year-old white male who is his chronic smoker with no other basic history of anything. Has been followed by vascular surgery at the [facility] was sent here to close his ankle ulcer has been using [id number] antibiotic ointment on it. Complains of severe pain in the area and is been receiving [place] from his family doctor. I believe he was referred from his family doctor here. Progress of Wound: The ulcer , grew 5 bacteria with 2 anaerobic bugs. His antibiotic and antimicrobial therapy is done. The slough has improved and is easily debrided out now. His prealbumin was 22.5 which is good. He is also complaining of a lump on his right calf medial side and some redness so we will get an ultrasound stat found 3 blood clots in his right calf area. Finding his ulcer not healing again we recultured him for 2 more bugs and an anaerobe bug now on antibiotics again and antimicrobial currently. Ulcer is stagnant until the antibiotic started to kick in we will continue Promogran it seems to be working the best to keeping it clean. Today the ulcer is not moving will re- culture the area . He still has some pain during the night around the ulcer area - Physical Exam Vital Signs Temp Pulse Resp BP 98.6 F 67 18 116/83 H 09/30/19 08:18 09/30/19 08:18 09/30/19 08:18 09/30/19 08:18 General: Oriented x3, Cooperative, Well developed HEENT: Atraumatic, PERRLA Oral: Moist Mucosa Neck: Supple, No JVD Lungs: Clear to auscultation, Normal air movement Cardiovascular: Regular rate, Regular Rhythm Abdomen: Bowel Sounds Present, Soft, Non Tender, No Hepato-splenomegaly Extremities: No clubbing, No edema Skin: Ulcer/ Wound - Right medial ankle ulcer Wound Measurements and Assessment WC - Nurse 1 - General Ulcer Measurement Start: 09/30/19 08:18 Freq: Status: Active Protocol: Activity Type Activity Date Activity User E-Sign Co-Sign Detail Recorded Client Recorded Date Recorded By Document 09/30/19 08:18 DL [id number] 09/30/19 08:23 DL 09/30/19 08:18 Wound Center Nurse 1 [Ulcer Assessment] #1 R Med Ankle -Current Size (cm) - Length 0.7 -Current Size (cm) - Width 1.1 -Current Size (cm) - Depth 0.3 -Total Square Cm 0.77 -Photo Taken No -Exudate Amt Small -Exudate Type Serosanguineous -Wound Margin Distinct, Outline Attached -Granulation Amt Small (1-33%) -Granulation Quality [place] -Necrosis Amt Small (1-33%) -Necrotic Tissue Type Adherent Slough -Structure Exposed N/A -Texture (Sharmin-wound Skin Appearance) Localized Edema ,Scarring -Moisture (Sharmin-wound Skin Appearance No Abnormality ) -Color (Sharmin-wound Skin Appearance) Hemosiderin Staining -Temperature (Sharmin-wound Skin No Abnormality Appearance) (Pt Warm) -Tenderness on Palpation (Sharmin-wound No Skin Appearance) -Ulcer Cleansing Rinsed/ Irrigated with Saline -Foul Odor after Cleansing No -Anesthetic Used 5% Lidocaine Gel [Edema Assessment] -Right Calf (cm) 36.6 -Right Ankle (cm) 23.7 WC - Nurse 2 - General Ulcer CM Notes Start: 09/30/19 08:18 Freq: Status: Active Protocol: Activity Type Activity Date Activity User E-Sign Co-Sign Detail Recorded Client Recorded Date Recorded By Document 09/30/19 08:35 MW [id number] 09/30/19 08:36 MW 09/30/19 08:35 Wound Center Nurse 2 [Procedure/Treatment] #1 R Med Ankle -Time 08:35 -Correct Patient Yes -Correct Side, Site, Position Yes -Correct Procedure Yes -Procedure Performed Yes -Type of Procedure Debridement -Clinical Debridement Subcutaneous -Post Debridement Size (cm) - Length 0.4 -Post Debridement Size (cm) - Width 0.8 -Post Debridement Size (cm) - Depth 0.3 -Total Square Cm 0.32 -Wound/Ulcer Outcome Not Healed -Ulcer Cleansing Rinsed/ Irrigated with Saline -Foul Odor after Cleansing No -Bioengineered Tissue No -Bleeding Controlled with Pressure -Offloading No -Treatment Response Procedure Tolerated Well [See Physician Procedure note for Specifics] Pain Scale: 0-10 Numeric [Pain] -Is Patient Pain Free? Yes Musculoskeletal: No Tenderness to Palpation of Joints or Extremities Lymphatic: No Cervical, Supraclavicular, or Inguinal Adenopathy Neurological: Cranial nerves II-XII grossly intact, Neuro grossly intact Psych/Mental Status: Normal Affect, Appropriate Debridement Note Post-Debridement Measurements/Treatment WC - Nurse 2 - General Ulcer CM Notes Start: 09/30/19 08:18 Freq: Status: Active Protocol: Activity Type Activity Date Activity User E-Sign Co-Sign Detail Recorded Client Recorded Date Recorded By Document 09/30/19 08:35 MW [id number] 09/30/19 08:36 MW 09/30/19 08:35 Wound Center Nurse 2 #1 R [facility] Ankle -Time 08:35 -Correct Patient Yes -Correct Side, Site, Position Yes -Correct Procedure Yes -Procedure Performed Yes -Type of Procedure Debridement -Clinical Debridement Subcutaneous -Post Debridement Size (cm) - Length 0.4 -Post Debridement Size (cm) - Width 0.8 -Post Debridement Size (cm) - Depth 0.3 -Total Square Cm 0.32 -Wound/Ulcer Outcome Not Healed -Ulcer Cleansing Rinsed/ Irrigated with Saline -Foul Odor after Cleansing No -Bioengineered Tissue No -Bleeding Controlled with Pressure -Offloading No -Treatment Response Procedure Tolerated Well Pain Scale: 0-10 Numeric Is Patient Pain Free? Yes Wound debrided: Right medial ankle ulcer Type of Debridement: Excisional debridement Anesthesia Used: 4% Lidocaine Solution Depth: Down to and including healthy tissue, in the subcutaneous layer Percentage of wound debrided: 100 Instrument Used: 3mm curette Tissue Removed: Slough and fibrin Severity: Fat Layer Exposed Amount of bleeding with debridement: None Bleeding Controlled with: Compression and gauze Patient tolerated procedure well Assessment/Plan Assessment: Peripheral vascular occlusive disease. Peripheral vascular disease with ulcer. Smoking addiction. Stasis dermatitis. DVT x3 right leg Plan: Wash leg with Hibiclens. Apply Promogran to base of ulcer on right ankle cover with Adaptic gauze tape. Single layer Tubigrip. Continue antibiotic therapy and antimicrobial therapy. Follow-up 1 weeks
[2019-10-07 08:31] VITALS: BP 128/73; PULSE 63; RESP 18; TEMP 36.6; BMI 25.2
--- NOTE | 2019-10-07 09:59 | PCM.WC.PN ---
(1) Acute deep vein thrombosis (DVT) of calf muscle vein of right lower extremity Status: Acute Current Visit: Yes Code(s): I82.461 - Acute embolism and thrombosis of right calf muscular vein (2) Infected open wound Status: Acute Current Visit: Yes Code(s): T14.8XXA - Other injury of unspecified body region, initial encounter; L08.9 - Local infection of the skin and subcutaneous tissue, unspecified (3) Leg edema, right Status: Acute Current Visit: Yes Code(s): R60.0 - Localized edema (4) Pain of right leg Status: Acute Current Visit: Yes Code(s): M79.604 - Pain in right leg (5) Peripheral vascular disease of lower extremity with ulceration Status: Acute Current Visit: Yes Code(s): I73.9 - Peripheral vascular disease, unspecified; L97.909 - Non-pressure chronic ulcer of unspecified part of unspecified lower leg with unspecified severity (6) Peripheral vascular occlusive disease Status: Acute Current Visit: Yes Code(s): I73.9 - Peripheral vascular disease, unspecified Type of Wound Date of Service: 10/07/19 Chief Complaint: Follow-up on a chronic open area since April right lower leg at the ankle History of Wound: 73-year-old white male who is his chronic smoker with no other basic history of anything. Has been followed by vascular surgery at the [facility] was sent here to close his ankle ulcer has been using [id number] antibiotic ointment on it. Complains of severe pain in the area and is been receiving [place] from his family doctor. I believe he was referred from his family doctor here. Progress of Wound: The ulcer , grew 5 bacteria with 2 anaerobic bugs. His antibiotic and antimicrobial therapy is done. The slough has improved and is easily debrided out now. His prealbumin was 22.5 which is good. He is also complaining of a lump on his right calf medial side and some redness so we will get an ultrasound stat found 3 blood clots in his right calf area. Finding his ulcer not healing again we recultured him for 2 more bugs and an anaerobe bug now on antibiotics again and antimicrobial currently. Ulcer is stagnant we will try using Aquacel extra this week and see if there is an improvement he is still not moving on his healing base looks clean new cells developing but will not fill in. - Physical Exam Vital Signs Temp Pulse Resp BP 97.8 F 63 18 128/73 H 10/07/19 08:31 10/07/19 08:31 10/07/19 08:31 10/07/19 08:31 General: Oriented x3, Cooperative, Well developed HEENT: Atraumatic, PERRLA Oral: Moist Mucosa Neck: Supple, No JVD Lungs: Clear to auscultation, Normal air movement Cardiovascular: Regular rate, Regular Rhythm Abdomen: Bowel Sounds Present, Soft, Non Tender, No Hepato-splenomegaly Extremities: No clubbing, No edema, Edema Skin: Ulcer/ Wound - Ulcer right medial ankle Wound Measurements and Assessment WC - Nurse 1 - General Ulcer Measurement Start: 09/30/19 08:18 Freq: Status: Active Protocol: Activity Type Activity Date Activity User E-Sign Co-Sign Detail Recorded Client Recorded Date Recorded By Document 10/07/19 08:31 DV [id number] 10/07/19 08:35 DV 10/07/19 08:31 Wound Center Nurse 1 [Ulcer Assessment] #1 R Med Ankle -Combined with other wound No -Current Size (cm) - Length 0.4 -Current Size (cm) - Width 0.8 -Current Size (cm) - Depth 0.2 -Total Square Cm 0.32 -Photo Taken No -Epithelialization None Present -Tunneling No -Undermining/Tunneling No -Circular Undermining No -Classification - Thickness Full Thickness without Exposed Support Structure -Exudate Amt Small -Exudate Type Serosanguineous -Wound Margin Flat & Intact -Granulation Amt None Present (0 %) -Granulation Quality N/A -Slough/Fibrin Yes -Necrosis Amt Large (67-100%) -Necrotic Tissue Type Adherent Slough -Structure Exposed None/Limited to Skin Breakdown -Texture (Sharmin-wound Skin Appearance) Assessed, Scarring,Rash -Moisture (Sharmin-wound Skin Appearance Assessed, ) Weeping -Color (Sharmin-wound Skin Appearance) Assessed,Rubor -Temperature (Sharmin-wound Skin No Abnormality Appearance) (Pt Warm) -Foul Odor after Cleansing No -Anesthetic Used 4% Lidocaine Solution WC - Nurse 2 - General Ulcer CM Notes Start: 09/30/19 08:18 Freq: Status: Active Protocol: Activity Type Activity Date Activity User E-Sign Co-Sign Detail Recorded Client Recorded Date Recorded By Document 10/07/19 08:34 MW [id number] 10/07/19 08:37 MW 10/07/19 08:34 Wound Center Nurse 2 [Procedure/Treatment] -Time 08:36 -Correct Patient Yes -Correct Side, Site, Position Yes -Correct Procedure Yes -Procedure Performed Yes -Type of Procedure Debridement -Clinical Debridement Subcutaneous -Post Debridement Size (cm) - Length 0.4 -Post Debridement Size (cm) - Width 0.8 -Post Debridement Size (cm) - Depth 0.3 -Total Square Cm 0.32 -Wound/Ulcer Outcome Not Healed -Ulcer Cleansing Rinsed/ Irrigated with Saline -Foul Odor after Cleansing No -Bioengineered Tissue No -Bleeding Controlled with Pressure -Offloading No -Treatment Response Procedure Tolerated Well [See Physician Procedure note for Specifics] Pain Scale: 0-10 Numeric [Pain] -Is Patient Pain Free? Yes Musculoskeletal: No Tenderness to Palpation of Joints or Extremities Lymphatic: No Cervical, Supraclavicular, or Inguinal Adenopathy Neurological: Cranial nerves II-XII grossly intact, Neuro grossly intact Psych/Mental Status: Normal Affect, Appropriate Debridement Note Post-Debridement Measurements/Treatment WC - Nurse 2 - General Ulcer CM Notes Start: 09/30/19 08:18 Freq: Status: Active Protocol: Activity Type Activity Date Activity User E-Sign Co-Sign Detail Recorded Client Recorded Date Recorded By Document 09/30/19 08:35 MW [id number] 09/30/19 08:36 MW Document 10/07/19 08:34 MW [id number] 10/07/19 08:37 MW 09/30/19 10/07/19 08:35 08:34 Wound Center Nurse 2 #1 R Med Ankle -Time 08:35 08:36 -Correct Patient Yes Yes -Correct Side, Site, Position Yes Yes -Correct Procedure Yes Yes -Procedure Performed Yes Yes -Type of Procedure Debridement Debridement -Clinical Debridement Subcutaneous Subcutaneous -Post Debridement Size (cm) - Length 0.4 0.4 -Post Debridement Size (cm) - Width 0.8 0.8 -Post Debridement Size (cm) - Depth 0.3 0.3 -Total Square Cm 0.32 0.32 -Wound/Ulcer Outcome Not Healed Not Healed -Ulcer Cleansing Rinsed/ Rinsed/ Irrigated with Irrigated with Saline Saline -Foul Odor after Cleansing No No -Bioengineered Tissue No No -Bleeding Controlled with Pressure Pressure -Offloading No No -Treatment Response Procedure Procedure Tolerated Well Tolerated Well Pain Scale: 0-10 Numeric Is Patient Pain Free? Yes Yes Wound debrided: Medial ankle ulcer Type of Debridement: Excisional debridement Depth: Down to and including healthy tissue Instrument Used: 3mm curette Tissue Removed: Fibrin devitalized tissue Severity: Limited To Skin Breakdown Amount of bleeding with debridement: None Bleeding Controlled with: Compression and gauze Patient tolerated procedure well Assessment/Plan Active Problems (Last Updated 10/02/19 @ 10:48 by Nany David) Peripheral vascular occlusive disease (Acute) Pain of right leg (Acute) Infected open wound (Acute) Leg edema, right (Acute) Acute deep vein thrombosis (DVT) of calf muscle vein of right lower extremity (Acute) Peripheral vascular disease of lower extremity with ulceration (Acute) Assessment: Peripheral vascular occlusive disease. Peripheral vascular disease with ulcer. Smoking addiction. Stasis dermatitis. DVT x3 right leg Plan: Wash leg with Hibiclens. Apply Aquacel extra to base of ulcer on right ankle cover with Adaptic gauze tape. Single layer Tubigrip. Continue antibiotic therapy and antimicrobial therapy. Follow-up 1 weeks
--- NOTE | 2019-10-14 08:59 | PCM.WC.PN ---
(1) Acute deep vein thrombosis (DVT) of calf muscle vein of right lower extremity Status: Acute Current Visit: Yes Code(s): I82.461 - Acute embolism and thrombosis of right calf muscular vein (2) Infected open wound Status: Acute Current Visit: Yes Code(s): T14.8XXA - Other injury of unspecified body region, initial encounter; L08.9 - Local infection of the skin and subcutaneous tissue, unspecified (3) Leg edema, right Status: Acute Current Visit: Yes Code(s): R60.0 - Localized edema (4) Pain of right leg Status: Acute Current Visit: Yes Code(s): M79.604 - Pain in right leg (5) Peripheral vascular disease of lower extremity with ulceration Status: Acute Current Visit: Yes Code(s): I73.9 - Peripheral vascular disease, unspecified; L97.909 - Non-pressure chronic ulcer of unspecified part of unspecified lower leg with unspecified severity (6) Peripheral vascular occlusive disease Status: Acute Current Visit: Yes Code(s): I73.9 - Peripheral vascular disease, unspecified Type of Wound Date of Service: 10/14/19 Chief Complaint: Follow-up on a chronic open area since April right lower leg at the ankle History of Wound: 73-year-old white male who is his chronic smoker with no other basic history of anything. Has been followed by vascular surgery at the [facility] was sent here to close his ankle ulcer has been using [id number] antibiotic ointment on it. Complains of severe pain in the area and is been receiving [place] from his family doctor. I believe he was referred from his family doctor here. Progress of Wound: The ulcer , grew 5 bacteria with 2 anaerobic bugs. His antibiotic and antimicrobial therapy is done. The slough has improved and is easily debrided out now. His prealbumin was 22.5 which is good. He is also complaining of a lump on his right calf medial side and some redness so we will get an ultrasound stat found 3 blood clots in his right calf area. Finding his ulcer not healing again we recultured him for 2 more bugs and an anaerobe bug now on antibiotics again and antimicrobial currently. Ulcer is stagnant we will try using Aquacel extra this week and see if there is an improvement he is still not moving on his healing base looks clean new cells developing but will not fill in. Today is ulcer is actually growing new cell buds and base is actually slightly smaller and he is complaining less of pain but still has shooting pains every once in a while. We will continue with the [employer] extra seems to be working well. - Physical Exam Vital Signs Temp Pulse Resp BP 97.8 F 63 18 128/73 H 10/07/19 08:31 10/07/19 08:31 10/07/19 08:31 10/07/19 08:31 General: Oriented x3, Cooperative, Well developed HEENT: Atraumatic, PERRLA Oral: Moist Mucosa Neck: Supple, No JVD Lungs: Clear to auscultation, Normal air movement Cardiovascular: Regular rate, Regular Rhythm Abdomen: Bowel Sounds Present, Soft, Non Tender, No Hepato-splenomegaly Extremities: No clubbing, No edema Skin: Ulcer/ Wound - Right medial ankle ulcer Wound Measurements and Assessment WC - Nurse 2 - General Ulcer CM Notes Start: 09/30/19 08:18 Freq: Status: Active Protocol: Activity Type Activity Date Activity User E-Sign Co-Sign Detail Recorded Client Recorded Date Recorded By Document 10/14/19 08:31 MW [id number] 10/14/19 08:32 MW 10/14/19 08:31 Wound Center Nurse 2 [Procedure/Treatment] #1 R Med Ankle -Time 08:31 -Correct Patient Yes -Correct Side, Site, Position Yes -Correct Procedure Yes -Procedure Performed Yes -Type of Procedure Debridement -Clinical Debridement Subcutaneous -Post Debridement Size (cm) - Length 0.3 -Post Debridement Size (cm) - Width 0.8 -Post Debridement Size (cm) - Depth 0.2 -Total Square Cm 0.24 -Wound/Ulcer Outcome Not Healed -Ulcer Cleansing Rinsed/ Irrigated with Saline -Foul Odor after Cleansing No -Bioengineered Tissue No -Bleeding Controlled with Pressure -Offloading No -Treatment Response Procedure Tolerated Well [See Physician Procedure note for Specifics] Pain Scale: 0-10 Numeric [Pain] -Is Patient Pain Free? Yes Musculoskeletal: No Tenderness to Palpation of Joints or Extremities Lymphatic: No Cervical, Supraclavicular, or Inguinal Adenopathy Neurological: Cranial nerves II-XII grossly intact, Neuro grossly intact Psych/Mental Status: Normal Affect, Appropriate Debridement Note Post-Debridement Measurements/Treatment WC - Nurse 2 - General Ulcer CM Notes Start: 09/30/19 08:18 Freq: Status: Active Protocol: Activity Type Activity Date Activity User E-Sign Co-Sign Detail Recorded Client Recorded Date Recorded By Document 09/30/19 08:35 MW [id number] 09/30/19 08:36 MW Document 10/07/19 08:34 MW [id number] 10/07/19 08:37 MW Document 10/14/19 08:31 MW [id number] 10/14/19 08:32 MW 09/30/19 10/07/19 10/14/19 08:35 08:34 08:31 Wound Center Nurse 2 #1 R Med Ankle -Time 08:35 08:36 08:31 -Correct Patient Yes Yes Yes -Correct Side, Site, Position Yes Yes Yes -Correct Procedure Yes Yes Yes -Procedure Performed Yes Yes Yes -Type of Procedure Debridement Debridement Debridement -Clinical Debridement Subcutaneous Subcutaneous Subcutaneous -Post Debridement Size (cm) - Length 0.4 0.4 0.3 -Post Debridement Size (cm) - Width 0.8 0.8 0.8 -Post Debridement Size (cm) - Depth 0.3 0.3 0.2 -Total Square Cm 0.32 0.32 0.24 -Wound/Ulcer Outcome Not Healed Not Healed Not Healed -Ulcer Cleansing Rinsed/ Rinsed/ Rinsed/ Irrigated with Irrigated with Irrigated with Saline Saline Saline -Foul Odor after Cleansing No No No -Bioengineered Tissue No No No -Bleeding Controlled with Pressure Pressure Pressure -Offloading No No No -Treatment Response Procedure Procedure Procedure Tolerated Well Tolerated Well Tolerated Well Pain Scale: 0-10 Numeric Is Patient Pain Free? Yes Yes Yes Wound debrided: Medial ankle ulcer Laterality: Right Type of Debridement: Excisional debridement Anesthesia Used: 5% Lidocaine Gel Depth: Down to and including healthy tissue, in the subcutaneous layer Percentage of wound debrided: 100 Instrument Used: 3mm curette Tissue Removed: Slough and fibrin Severity: Limited To Skin Breakdown Amount of bleeding with debridement: None Bleeding Controlled with: Compression and gauze Patient tolerated procedure well Assessment/Plan Active Problems (Last Updated 10/02/19 @ 10:48 by Nany David) Peripheral vascular occlusive disease (Acute) Pain of right leg (Acute) Infected open wound (Acute) Leg edema, right (Acute) Acute deep vein thrombosis (DVT) of calf muscle vein of right lower extremity (Acute) Peripheral vascular disease of lower extremity with ulceration (Acute) Assessment: Peripheral vascular occlusive disease. Peripheral vascular disease with ulcer. Smoking addiction. Stasis dermatitis. DVT x3 right leg Plan: Wash leg with Hibiclens. Apply Aquacel extra to base of ulcer on right ankle cover with Adaptic gauze tape. Single layer Tubigrip. Continue antibiotic therapy and antimicrobial therapy. Follow-up 1 weeks
[2019-10-21 08:17] VITALS: BP 132/55; PULSE 74; RESP 18; TEMP 36.4; BMI 25.2
--- NOTE | 2019-10-21 08:40 | PCM.WC.PN ---
(1) Acute deep vein thrombosis (DVT) of calf muscle vein of right lower extremity Status: Acute Current Visit: Yes Code(s): I82.461 - Acute embolism and thrombosis of right calf muscular vein (2) Infected open wound Status: Acute Current Visit: Yes Code(s): T14.8XXA - Other injury of unspecified body region, initial encounter; L08.9 - Local infection of the skin and subcutaneous tissue, unspecified (3) Leg edema, right Status: Acute Current Visit: Yes Code(s): R60.0 - Localized edema (4) Pain of right leg Status: Acute Current Visit: Yes Code(s): M79.604 - Pain in right leg (5) Peripheral vascular disease of lower extremity with ulceration Status: Acute Current Visit: Yes Code(s): I73.9 - Peripheral vascular disease, unspecified; L97.909 - Non-pressure chronic ulcer of unspecified part of unspecified lower leg with unspecified severity (6) Peripheral vascular occlusive disease Status: Acute Current Visit: Yes Code(s): I73.9 - Peripheral vascular disease, unspecified Type of Wound Date of Service: 10/21/19 Chief Complaint: Follow-up on a chronic open area since April right lower leg at the ankle History of Wound: 73-year-old white male who is his chronic smoker with no other basic history of anything. Has been followed by vascular surgery at the [facility] was sent here to close his ankle ulcer has been using [id number] antibiotic ointment on it. Complains of severe pain in the area and is been receiving [place] from his family doctor. I believe he was referred from his family doctor here. Progress of Wound: The ulcer , grew 5 bacteria with 2 anaerobic bugs. His antibiotic and antimicrobial therapy is done. The slough has improved and is easily debrided out now. His prealbumin was 22.5 which is good. He is also complaining of a lump on his right calf medial side and some redness so we will get an ultrasound stat found 3 blood clots in his right calf area. Finding his ulcer not healing again we recultured him for 2 more bugs and an anaerobe bug now on antibiotics again and antimicrobial currently. Ulcer is stagnant we will try using Aquacel extra this week and see if there is an improvement he is still not moving on his healing base looks clean new cells developing but will not fill in. Today is ulcer is actually growing new cell buds and base is actually slightly smaller and he is complaining less of pain but still has shooting pains every once in a while. We will continue with the ElasticDot extra seems to be working well. - Physical Exam Vital Signs Temp Pulse Resp BP 97.6 F L 74 18 132/55 H 10/21/19 08:17 10/21/19 08:17 10/21/19 08:17 10/21/19 08:17 General: Oriented x3, Cooperative, Well developed HEENT: Atraumatic, PERRLA Oral: Moist Mucosa Neck: Supple, No JVD Lungs: Clear to auscultation, Normal air movement Cardiovascular: Regular rate, Regular Rhythm Abdomen: Bowel Sounds Present, Soft, Non Tender, No Hepato-splenomegaly Extremities: No clubbing, No edema Skin: Ulcer/ Wound - Right ankle ulcer nonhealing Wound Measurements and Assessment WC - Nurse 1 - General Ulcer Measurement Start: 09/30/19 08:18 Freq: Status: Active Protocol: Activity Type Activity Date Activity User E-Sign Co-Sign Detail Recorded Client Recorded Date Recorded By Document 10/21/19 08:17 RB [id number] 10/21/19 08:18 RB 10/21/19 08:17 Wound Center Nurse 1 [Ulcer Assessment] #1 R Med Ankle -Combined with other wound No -Current Size (cm) - Length 0.4 -Current Size (cm) - Width 0.8 -Current Size (cm) - Depth 0.2 -Total Square Cm 0.32 -Tunneling No -Undermining/Tunneling No -Circular Undermining No -Exudate Amt Small -Exudate Type Serosanguineous -Wound Margin Thickened & Rolled Under -Granulation Amt Medium (34-66%) -Granulation Quality [place] -Slough/Fibrin Yes -Necrosis Amt Small (1-33%) -Necrotic Tissue Type Adherent Slough -Structure Exposed N/A -Texture (Sharmin-wound Skin Appearance) Assessed, Scarring -Moisture (Sharmin-wound Skin Appearance Assessed ) -Color (Sharmin-wound Skin Appearance) Hemosiderin Staining -Temperature (Sharmin-wound Skin No Abnormality Appearance) (Pt Warm) -Tenderness on Palpation (Sharmin-wound No Skin Appearance) -Ulcer Cleansing Wound Cleanser -Foul Odor after Cleansing No -Anesthetic Used 5% Lidocaine Gel - Nurse 2 - General Ulcer CM Notes Start: 09/30/19 08:18 Freq: Status: Active Protocol: Activity Type Activity Date Activity User E-Sign Co-Sign Detail Recorded Client Recorded Date Recorded By Document 10/21/19 08:32 MW [id number] 10/21/19 08:33 MW 10/21/19 08:32 Wound Center Nurse 2 [Procedure/Treatment] -Time 08:33 -Correct Patient Yes -Correct Side, Site, Position Yes -Correct Procedure Yes -Procedure Performed Yes -Type of Procedure Debridement -Clinical Debridement Subcutaneous -Post Debridement Size (cm) - Length 0.3 -Post Debridement Size (cm) - Width 0.5 -Post Debridement Size (cm) - Depth 0.2 -Total Square Cm 0.15 -Wound/Ulcer Outcome Not Healed -Ulcer Cleansing Rinsed/ Irrigated with Saline -Foul Odor after Cleansing No -Bioengineered Tissue No -Bleeding Controlled with Pressure -Offloading No -Treatment Response Procedure Tolerated Well [See Physician Procedure note for Specifics] Pain Scale: 0-10 Numeric [Pain] -Is Patient Pain Free? Yes Musculoskeletal: No Tenderness to Palpation of Joints or Extremities Lymphatic: No Cervical, Supraclavicular, or Inguinal Adenopathy Neurological: Cranial nerves II-XII grossly intact, Neuro grossly intact Psych/Mental Status: Normal Affect, Appropriate, Alert and oriented to time, place, person, mood and affect Debridement Note Post-Debridement Measurements/Treatment - Nurse 2 - General Ulcer CM Notes Start: 09/30/19 08:18 Freq: Status: Active Protocol: Activity Type Activity Date Activity User E-Sign Co-Sign Detail Recorded Client Recorded Date Recorded By Document 09/30/19 08:35 MW [id number] 09/30/19 08:36 MW Document 10/07/19 08:34 MW [id number] 10/07/19 08:37 MW Document 10/14/19 08:31 MW [id number] 10/14/19 08:32 MW Document 10/21/19 08:32 MW [id number] 10/21/19 08:33 MW 09/30/19 10/07/19 10/14/19 08:35 08:34 08:31 Wound Center Nurse 2 #1 R Med Ankle -Time 08:35 08:36 08:31 -Correct Patient Yes Yes Yes -Correct Side, Site, Position Yes Yes Yes -Correct Procedure Yes Yes Yes -Procedure Performed Yes Yes Yes -Type of Procedure Debridement Debridement Debridement -Clinical Debridement Subcutaneous Subcutaneous Subcutaneous -Post Debridement Size (cm) - Length 0.4 0.4 0.3 -Post Debridement Size (cm) - Width 0.8 0.8 0.8 -Post Debridement Size (cm) - Depth 0.3 0.3 0.2 -Total Square Cm 0.32 0.32 0.24 -Wound/Ulcer Outcome Not Healed Not Healed Not Healed -Ulcer Cleansing Rinsed/ Rinsed/ Rinsed/ Irrigated with Irrigated with Irrigated with Saline Saline Saline -Foul Odor after Cleansing No No No -Bioengineered Tissue No No No -Bleeding Controlled with Pressure Pressure Pressure -Offloading No No No -Treatment Response Procedure Procedure Procedure Tolerated Well Tolerated Well Tolerated Well Pain Scale: 0-10 Numeric Is Patient Pain Free? Yes Yes Yes 10/21/19 08:32 Wound Center Nurse 2 #1 R Med Ankle -Time 08:33 -Correct Patient Yes -Correct Side, Site, Position Yes -Correct Procedure Yes -Procedure Performed Yes -Type of Procedure Debridement -Clinical Debridement Subcutaneous -Post Debridement Size (cm) - Length 0.3 -Post Debridement Size (cm) - Width 0.5 -Post Debridement Size (cm) - Depth 0.2 -Total Square Cm 0.15 -Wound/Ulcer Outcome Not Healed -Ulcer Cleansing Rinsed/ Irrigated with Saline -Foul Odor after Cleansing No -Bioengineered Tissue No -Bleeding Controlled with Pressure -Offloading No -Treatment Response Procedure Tolerated Well Pain Scale: 0-10 Numeric Is Patient Pain Free? Yes Wound debrided: Right medial ankle ulcer Laterality: Right Type of Debridement: Excisional debridement Anesthesia Used: 5% Lidocaine Gel Depth: Down to and including healthy tissue, in the subcutaneous layer Percentage of wound debrided: 100 Instrument Used: 3mm curette Tissue Removed: Fibrin and slough Severity: Limited To Skin Breakdown Amount of bleeding with debridement: None Bleeding Controlled with: Compression and gauze Patient tolerated procedure well Assessment/Plan Active Problems (Last Reviewed 10/14/19 @ 09:14 by Jenise Timmons) Peripheral vascular occlusive disease (Acute) Pain of right leg (Acute) Infected open wound (Acute) Leg edema, right (Acute) Acute deep vein thrombosis (DVT) of calf muscle vein of right lower extremity (Acute) Peripheral vascular disease of lower extremity with ulceration (Acute) Assessment: Peripheral vascular occlusive disease. Peripheral vascular disease with ulcer. Smoking addiction. Stasis dermatitis. DVT x3 right leg Plan: Wash leg with Hibiclens. Apply Aquacel extra to base of ulcer on right ankle cover with Adaptic gauze tape. Single layer Tubigrip. Continue antibiotic therapy and antimicrobial therapy. Follow-up 1 weeks
== END 2019-10-24 23:59 ==
LOC: WC 08:00
PROVIDERS: Family Provider Family Medicine; PCP Family Medicine; Referring Provider Nurse Practitioner; Visit Provider Nurse Practitioner
DX: I73.9 Peripheral vascular disease, unspecified (principal); F17.200 Nicotine dependence, unspecified, uncomplicated; I87.2 Venous insufficiency (chronic) (peripheral); I82.451 Acute embolism and thrombosis of right peroneal vein; I82.441 Acute embolism and thrombosis of right tibial vein; I82.491 Acute embolism and thrombosis of other specified deep vein of right lower extremity; L08.9 Local infection of the skin and subcutaneous tissue, unspecified; T14.8XXA Other injury of unspecified body region, initial encounter; Y83.8 Other surgical procedures as the cause of abnormal reaction of the patient, or of later complication, without mention of misadventure at the time of the procedure; L97.312 Non-pressure chronic ulcer of right ankle with fat layer exposed; L97.311 Non-pressure chronic ulcer of right ankle limited to breakdown of skin
CPT/HCPCS: 11042; 11045

== ENCOUNTER 2019-11-04 08:00 | Outpatient (RCR) | payer MEDICARE, SELFPAY ==
[2019-10-25 00:39] VITALS: BP 132/55; PULSE 74; RESP 18; TEMP 36.4
[2019-10-28 08:10] VITALS: BP 145/88; PULSE 74; RESP 18; TEMP 36.1; BMI 25.2
--- NOTE | 2019-10-28 08:30 | PN.PCM_ITS ---
(1) Acute deep vein thrombosis (DVT) of calf muscle vein of right lower extremity Status: Acute Current Visit: Yes Code(s): I82.461 - Acute embolism and thrombosis of right calf muscular vein (2) Infected open wound Status: Acute Current Visit: No Code(s): T14.8XXA - Other injury of unspecified body region, initial encounter; L08.9 - Local infection of the skin and subcutaneous tissue, unspecified (3) Leg edema, right Status: Acute Current Visit: Yes Code(s): R60.0 - Localized edema (4) Nonhealing nonsurgical wound with fat layer exposed Status: Acute Current Visit: Yes Code(s): T14.8XXA - Other injury of unspecified body region, initial encounter (5) Pain of right leg Status: Acute Current Visit: Yes Code(s): M79.604 - Pain in right leg (6) Peripheral vascular disease of lower extremity with ulceration Status: Acute Current Visit: Yes Code(s): I73.9 - Peripheral vascular disease, unspecified; L97.909 - Non-pressure chronic ulcer of unspecified part of unspecified lower leg with unspecified severity (7) Peripheral vascular occlusive disease Status: Acute Current Visit: Yes Code(s): I73.9 - Peripheral vascular disease, unspecified Type of Wound Date of Service: 10/28/19 Chief Complaint: Follow-up on a chronic open area since April right lower leg at the ankle History of Wound: 73-year-old white male who is his chronic smoker with no other basic history of anything. Has been followed by vascular surgery at the [facility] was sent here to close his ankle ulcer has been using [id number] antibiotic ointment on it. Complains of severe pain in the area and is been receiving [place] from his family doctor. I believe he was referred from his family doctor here. Progress of Wound: The ulcer , grew 5 bacteria with 2 anaerobic bugs. His antibiotic and antimicrobial therapy is done. The slough has improved and is easily debrided out now. His prealbumin was 22.5 which is good. He is also complaining of a lump on his right calf medial side and some redness so we will get an ultrasound stat found 3 blood clots in his right calf area. Finding his ulcer not healing again we recultured him for 2 more bugs and an anaerobe bug now on antibiotics again and antimicrobial currently. Ulcer is stagnant we will try using Aquacel extra this week and see if there is an improvement he is still not moving on his healing base looks clean new cells developing but will not fill in. Today is ulcer is actually growing new cell buds check a pre-albumin and see if there is an issue with his protein intake. We will continue with the Aquacel extra seems to be working well. Patient stated he had an incident on 22 October lying in bed during the night that he felt itching and went down it was squirting blood so he is a very surface vessel in the right lateral wound base that bleeds easily. - Physical Exam Vital Signs Temp Pulse Resp BP 97 F L 74 18 145/88 H 10/28/19 08:10 10/28/19 08:10 10/28/19 08:10 10/28/19 08:10 General: Oriented x3, Cooperative, Well developed HEENT: Atraumatic, PERRLA Oral: Moist Mucosa Neck: Supple, No JVD Lungs: Clear to auscultation, Normal air movement Cardiovascular: Regular rate, Regular Rhythm Abdomen: Bowel Sounds Present, Soft, Non Tender, No Hepato-splenomegaly Extremities: No clubbing, No edema Wound Measurements and Assessment WC - Nurse 1 - General Ulcer Measurement Start: 10/28/19 08:09 Freq: Status: Active Protocol: Activity Type Activity Date Activity User E-Sign Co-Sign Detail Recorded Client Recorded Date Recorded By Document 10/28/19 08:10 RB [id number] 10/28/19 08:12 RB 10/28/19 08:10 Wound Center Nurse 1 [Ulcer Assessment] #1 R Med Ankle -Combined with other wound No -Current Size (cm) - Length 0.5 -Current Size (cm) - Width 1 -Current Size (cm) - Depth 0.2 -Total Square Cm 0.5 -Tunneling No -Undermining/Tunneling No -Circular Undermining No -Exudate Amt Small -Exudate Type Serosanguineous -Wound Margin Thickened & Rolled Under -Granulation Amt Medium (34-66%) -Granulation Quality [place] -Slough/Fibrin Yes -Necrosis Amt Small (1-33%) -Necrotic Tissue Type Adherent Slough -Structure Exposed N/A -Texture (Sharmin-wound Skin Appearance) Scarring -Moisture (Sharmin-wound Skin Appearance Assessed ) -Color (Sharmin-wound Skin Appearance) Assessed -Temperature (Sharmin-wound Skin No Abnormality Appearance) (Pt Warm) -Tenderness on Palpation (Sharmin-wound No Skin Appearance) -Ulcer Cleansing Wound Cleanser -Foul Odor after Cleansing No -Anesthetic Used 4% Lidocaine Solution [Edema Assessment] -Lower Limb Edema Present Yes -Right Calf (cm) 37 -Right Ankle (cm) 24.5 WC - Nurse 2 - General Ulcer CM Notes Start: 10/28/19 08:09 Freq: Status: Active Protocol: Activity Type Activity Date Activity User E-Sign Co-Sign Detail Recorded Client Recorded Date Recorded By Document 10/28/19 08:21 MW [id number] 10/28/19 08:23 MW 10/28/19 08:21 Wound Center Nurse 2 [Procedure/Treatment] #1 R Med Ankle -Time 08:22 -Correct Patient Yes -Correct Side, Site, Position Yes -Correct Procedure Yes -Procedure Performed Yes -Type of Procedure Debridement -Clinical Debridement Subcutaneous -Post Debridement Size (cm) - Length 0.3 -Post Debridement Size (cm) - Width 0.8 -Post Debridement Size (cm) - Depth 0.2 -Total Square Cm 0.24 -Wound/Ulcer Outcome Not Healed -Ulcer Cleansing Rinsed/ Irrigated with Saline -Foul Odor after Cleansing No -Bioengineered Tissue No -Bleeding Controlled with Pressure -Offloading No -Treatment Response Procedure Tolerated Well [See Physician Procedure note for Specifics] Pain Scale: 0-10 Numeric [Pain] -Is Patient Pain Free? Yes Musculoskeletal: No Tenderness to Palpation of Joints or Extremities Lymphatic: No Cervical, Supraclavicular, or Inguinal Adenopathy Neurological: Cranial nerves II-XII grossly intact, Neuro grossly intact Psych/Mental Status: Normal Affect, Appropriate, Alert and oriented to time, place, person, mood and affect Debridement Note Post-Debridement Measurements/Treatment WC - Nurse 2 - General Ulcer CM Notes Start: 10/28/19 08:09 Freq: Status: Active Protocol: Activity Type Activity Date Activity User E-Sign Co-Sign Detail Recorded Client Recorded Date Recorded By Document 10/28/19 08:21 MW [id number] 10/28/19 08:23 MW 10/28/19 08:21 Wound Center Nurse 2 #1 R Med Ankle -Time 08:22 -Correct Patient Yes -Correct Side, Site, Position Yes -Correct Procedure Yes -Procedure Performed Yes -Type of Procedure Debridement -Clinical Debridement Subcutaneous -Post Debridement Size (cm) - Length 0.3 -Post Debridement Size (cm) - Width 0.8 -Post Debridement Size (cm) - Depth 0.2 -Total Square Cm 0.24 -Wound/Ulcer Outcome Not Healed -Ulcer Cleansing Rinsed/ Irrigated with Saline -Foul Odor after Cleansing No -Bioengineered Tissue No -Bleeding Controlled with Pressure -Offloading No -Treatment Response Procedure Tolerated Well Pain Scale: 0-10 Numeric Is Patient Pain Free? Yes Wound debrided: Right lateral medial ankle ulcer Type of Debridement: Excisional debridement Anesthesia Used: 5% Lidocaine Gel Depth: Down to and including healthy tissue Percentage of wound debrided: 100 Instrument Used: 3mm curette Tissue Removed: Fibrin Severity: Limited To Skin Breakdown Amount of bleeding with debridement: None Bleeding Controlled with: Pressure Patient tolerated procedure well Assessment/Plan Active Problems (Last Reviewed 10/14/19 @ 09:14 by Jenise Timmons) Peripheral vascular occlusive disease (Acute) Nonhealing nonsurgical wound with fat layer exposed (Acute) Pain of right leg (Acute) Leg edema, right (Acute) Acute deep vein thrombosis (DVT) of calf muscle vein of right lower extremity (Acute) Peripheral vascular disease of lower extremity with ulceration (Acute) Assessment: Peripheral vascular occlusive disease. Peripheral vascular disease with ulcer. Smoking addiction. Stasis dermatitis. DVT x3 right leg Plan: Wash leg with Hibiclens. Apply Aquacel extra to base of ulcer on right ankle cover with Adaptic gauze tape developing a allergy to paper tape. Single layer Tubigrip. Follow-up 1 weeks
[2019-11-02 11:47] LABS: Prealbumin 23.3 mg/dL (20.0-40.0)
[2019-11-04 08:20] VITALS: BP 146/71; PULSE 64; RESP 18; TEMP 37; BMI 25.2
--- NOTE | 2019-11-04 09:07 | PCM.WC.PN ---
(1) Acute deep vein thrombosis (DVT) of calf muscle vein of right lower extremity Status: Acute Current Visit: Yes Code(s): I82.461 - Acute embolism and thrombosis of right calf muscular vein (2) Infected open wound Status: Acute Current Visit: No Code(s): T14.8XXA - Other injury of unspecified body region, initial encounter; L08.9 - Local infection of the skin and subcutaneous tissue, unspecified (3) Leg edema, right Status: Acute Current Visit: Yes Code(s): R60.0 - Localized edema (4) Nonhealing nonsurgical wound with fat layer exposed Status: Acute Current Visit: Yes Code(s): T14.8XXA - Other injury of unspecified body region, initial encounter (5) Pain of right leg Status: Acute Current Visit: Yes Code(s): M79.604 - Pain in right leg (6) Peripheral vascular disease of lower extremity with ulceration Status: Acute Current Visit: Yes Code(s): I73.9 - Peripheral vascular disease, unspecified; L97.909 - Non-pressure chronic ulcer of unspecified part of unspecified lower leg with unspecified severity (7) Peripheral vascular occlusive disease Status: Acute Current Visit: Yes Code(s): I73.9 - Peripheral vascular disease, unspecified (8) Venous bleed Status: Acute Current Visit: Yes Code(s): R58 - Hemorrhage, not elsewhere classified Type of Wound Date of Service: 11/04/19 Chief Complaint: Follow-up on a chronic open area since April right lower leg at the ankle History of Wound: 73-year-old white male who is his chronic smoker with no other basic history of anything. Has been followed by vascular surgery at the [facility] was sent here to close his ankle ulcer has been using [id number] antibiotic ointment on it. Complains of severe pain in the area and is been receiving [place] from his family doctor. I believe he was referred from his family doctor here. Progress of Wound: Since the start of taking care of Mr. Estrada's right ankle in July the wound size has not been changing. He has had several anaerobic and aerobic bugs that have been treated well.He has a pre-albumin that is now 23.3 that is normal. He complains that he gets weekly bleeds where the blood just squirts out of the ulcer for no reason about 4 feet he is wearing his compression sock and he is having severe pain around the area of the ulcer .he has become intolerant to debridement even with topical pain meds. We will reculture him but needed is a vascular surgeon to evaluate right ankle for possible cauterization. This will make it possible to close the wound. An ultrasound stat found 3 blood clots in his right calf area. Finding his ulcer not healing again we recultured him for 2 more bugs and an anaerobe bug now on antibiotics again and antimicrobial currently. Ulcer is stagnant we will try using Aquacel extra this week and see if there is an improvement he is still not moving on his healing base looks clean new cells developing but will not fill in. Today is ulcer is actually growing new cell buds We will continue with the Aquacel extra seems to be working well. - Physical Exam Vital Signs Temp Pulse Resp BP 98.6 F 64 18 146/71 H 11/04/19 08:20 11/04/19 08:20 11/04/19 08:20 11/04/19 08:20 General: Oriented x3, Cooperative, Well developed HEENT: Atraumatic, PERRLA Oral: Moist Mucosa Neck: Supple, No JVD Lungs: Clear to auscultation, Normal air movement Cardiovascular: Regular rate, Regular Rhythm Abdomen: Bowel Sounds Present, Soft, Non Tender, No Hepato-splenomegaly Extremities: No clubbing, No edema Skin: No breakdown - Right ankle ulcer, Ulcer/ Wound Wound Measurements and Assessment WC - Nurse 1 - General Ulcer Measurement Start: 10/28/19 08:09 Freq: Status: Active Protocol: Activity Type Activity Date Activity User E-Sign Co-Sign Detail Recorded Client Recorded Date Recorded By Document 11/04/19 08:20 [id number] 11/04/19 08:22 RB 11/04/19 08:20 Wound Center Nurse 1 [Ulcer Assessment] #1 R Med Ankle -Combined with other wound No -Current Size (cm) - Length 0.7 -Current Size (cm) - Width 1.3 -Current Size (cm) - Depth 0.2 -Total Square Cm 0.91 -Photo Taken Yes -Tunneling No -Undermining/Tunneling No -Circular Undermining No -Exudate Amt Small -Exudate Type Serosanguineous -Wound Margin Thickened & Rolled Under -Granulation Amt Medium (34-66%) -Granulation Quality [place] -Slough/Fibrin Yes -Necrosis Amt Small (1-33%) -Necrotic Tissue Type Adherent Slough -Structure Exposed N/A -Texture (Sharmin-wound Skin Appearance) Assessed, Scarring -Moisture (Sharmin-wound Skin Appearance Assessed ) -Color (Sharmin-wound Skin Appearance) Assessed -Temperature (Sharmin-wound Skin No Abnormality Appearance) (Pt Warm) -Tenderness on Palpation (Sharmin-wound No Skin Appearance) -Ulcer Cleansing Wound Cleanser -Foul Odor after Cleansing No -Anesthetic Used 5% Lidocaine Gel - Nurse 2 - General Ulcer CM Notes Start: 10/28/19 08:09 Freq: Status: Active Protocol: Activity Type Activity Date Activity User E-Sign Co-Sign Detail Recorded Client Recorded Date Recorded By Document 11/04/19 08:29 MW [id number] 11/04/19 08:38 MW 11/04/19 08:29 Wound Center Nurse 2 [Procedure/Treatment] -Time 08:30 -Correct Patient Yes -Correct Side, Site, Position Yes -Correct Procedure Yes -Procedure Performed No -Wound/Ulcer Outcome Not Healed -Ulcer Cleansing Rinsed/ Irrigated with Saline -Foul Odor after Cleansing No -Bioengineered Tissue No -Bleeding Controlled with Pressure -Offloading No -Treatment Response Procedure Tolerated Well [See Physician Procedure note for Specifics] Pain Scale: 0-10 Numeric [Pain] -Is Patient Pain Free? Yes Musculoskeletal: No Tenderness to Palpation of Joints or Extremities Lymphatic: No Cervical, Supraclavicular, or Inguinal Adenopathy Neurological: Cranial nerves II-XII grossly intact, Neuro grossly intact Psych/Mental Status: Normal Affect, Appropriate Debridement Note Post-Debridement Measurements/Treatment - Nurse 2 - General Ulcer CM Notes Start: 10/28/19 08:09 Freq: Status: Active Protocol: Activity Type Activity Date Activity User E-Sign Co-Sign Detail Recorded Client Recorded Date Recorded By Document 10/28/19 08:21 MW [id number] 10/28/19 08:23 MW Document 11/04/19 08:29 MW [id number] 11/04/19 08:38 MW 10/28/19 11/04/19 08:21 08:29 Wound Center Nurse 2 #1 R Med Ankle -Time 08:22 08:30 -Correct Patient Yes Yes -Correct Side, Site, Position Yes Yes -Correct Procedure Yes Yes -Procedure Performed Yes No -Type of Procedure Debridement -Clinical Debridement Subcutaneous -Post Debridement Size (cm) - Length 0.3 -Post Debridement Size (cm) - Width 0.8 -Post Debridement Size (cm) - Depth 0.2 -Total Square Cm 0.24 -Wound/Ulcer Outcome Not Healed Not Healed -Ulcer Cleansing Rinsed/ Rinsed/ Irrigated with Irrigated with Saline Saline -Foul Odor after Cleansing No No -Bioengineered Tissue No No -Bleeding Controlled with Pressure Pressure -Offloading No No -Treatment Response Procedure Procedure Tolerated Well Tolerated Well Pain Scale: 0-10 Numeric Is Patient Pain Free? Yes Yes No debridement was completed today Assessment/Plan Active Problems (Last Reviewed 10/14/19 @ 09:14 by Jenise Timmons) Venous bleed (Acute) Peripheral vascular occlusive disease (Acute) Nonhealing nonsurgical wound with fat layer exposed (Acute) Pain of right leg (Acute) Leg edema, right (Acute) Acute deep vein thrombosis (DVT) of calf muscle vein of right lower extremity (Acute) Peripheral vascular disease of lower extremity with ulceration (Acute) Assessment: Peripheral vascular occlusive disease. Peripheral vascular disease with ulcer. Smoking addiction. Stasis dermatitis. Venous bleed. DVT x3 right leg Plan: Wash leg with Hibiclens. Apply Aquacel extra to base of ulcer on right ankle cover with Adaptic gauze tape developing a allergy to paper tape. Single layer Tubigrip. Follow-up 2 weeks
== END 2019-11-24 23:59 ==
LOC: WC 08:00
PROVIDERS: Family Provider Family Medicine; PCP Internal Medicine; Referring Provider Nurse Practitioner; Visit Provider Nurse Practitioner
DX: I73.9 Peripheral vascular disease, unspecified (principal); F17.200 Nicotine dependence, unspecified, uncomplicated; I87.2 Venous insufficiency (chronic) (peripheral); L97.311 Non-pressure chronic ulcer of right ankle limited to breakdown of skin; R60.0 Localized edema; I82.461 Acute embolism and thrombosis of right calf muscular vein
CPT/HCPCS: 11042; 36415; 84134; 87070; 87075; 87077; 87186; 87205; 99213; G0463

== ENCOUNTER 2019-11-25 06:21 | Day surgery (SDC) | payer MEDICARE, SELFPAY ==
[2019-11-24 09:56] VITALS: BMI 25.0
[2019-11-25 06:41] LABS: Hematocrit 45.7 % (40-54); Hemoglobin 15.3 g/dL (13.0-16.5); Mean Corp Hgb Conc 33.5 g/dL (32-36); Mean Corpuscular Hgb 34.5 pg (27.0-32.0); Mean Corpuscular Volume 102.9 fL (80-94); Mean Platelet Vol. 9.3 fl (6.2-12.0); Platelet Count 180 K/mm3 (150-450); RBC Distribution Width CV 13.4 % (11.6-14.6); RBC Distribution Width SD 51.4 fl (35.1-43.9); Red Blood Count 4.44 M/mm3 (4.6-6.2); White Blood Count 4.7 K/mm3 (4.4-11.0)
[2019-11-25 06:51] LABS: Albumin, Serum 3.8 g/dL (3.2-5.0); BUN 13 mg/dL (7-18); BUN/Creat Ratio 13.6 RATIO (10-20); Calcium,Total 9.2 mg/dL (8.5-10.1); Chloride 108 mmol/L (98-107); Creatinine, Serum 0.96 mg/dL (0.70-1.30); EST Glomerular Filtration Rate 81 mL/min (>60); Est Glom Filt Rate - Afr Amer 98 mL/min (>60); Estimated Creatinine Clearance 63.33 ml/min; Glucose 89 mg/dL (74-106); Phosphorus 3.5 mg/dL (2.5-4.9); Potassium 4.1 mmol/L (3.5-5.1); Sodium Level 140 mmol/L (136-145)
--- NOTE | 2019-11-25 08:42 | PCM.OPRPT ---
Problem List (1) Pain of right leg Status: Acute (2) Infected open wound Status: Acute (3) Peripheral vascular disease of lower extremity with ulceration Status: Acute Report of Operation Date of Procedure: 11/25/19 Pre-Operative Diagnosis: Right leg PAD with nonhealing wound Post-Operative Diagnosis: Same Surgery/Procedure Performed:: 1. Ultrasound-guided access retrograde left common femoral artery. 2. Right lower extremity angiogram with catheter placed into the below-knee popliteal artery. For third order cannulation. 3. Balloon angioplasty entire popliteal with a 5 x 200 balloon. 4. Balloon angioplasty mid popliteal through the adductor with a 5 x 150 drug-coated balloon. 5. Closure with Star close Type of Anesthesia:: Sedation,Conscious Description of Procedure: Patient brought to the [facility]. Underwent the appropriate timeout consent. Underwent sedation. Was prepped and draped in a sterile fashion. We did ultrasound-guided access retrograde in the left common femoral artery put in a 5 [place] sheath. We gave 5000 units of heparin. We got up and over the bifurcation and then imaged from the right external iliac artery. This showed some plaque in the common femoral artery but otherwise this was patent, the profunda and femoral artery were widely patent. Switched to a quick cross that we put to the distal SFA. Did an angiogram from there. This showed just past the adductor the popliteal artery was occluded throughout its length with recanalized flow at the distal popliteal filling all 3 tibials. We brought in a long 6 [place] sheath and using a quick cross got through the occlusion. We confirm that we are back into the craig popliteal artery. We then balloon from the entire popliteal artery through the adductor with a 5 x 200 balloon for over 3-1/2 to 4 minutes. Completion showed some better flow with some irregularities around right behind the knee joint. We then balloon from this again to the adductor with a 5 x 150 drug-coated balloon for 3 minutes. Completion was improved with good flow down through here with some area of the dissection but appeared adequate flow. Wanted to avoid put in a stent in this area at this point. We imaged down from there and it showed all 3 tibials with good flow into the foot with the posterior tibial being the largest. We then removed the sheath and deployed a Star close with good hemostasis. He was brought to recovery in stable condition. Sedation: This 74-year-old gentleman underwent moderate sedation given by Dr. Дмитрий Beatty. He was monitored with EKG blood pressure and pulse ox for over the 30 minutes of the procedure. See the EMR for the complete record.
== END 2019-11-25 12:59 | disposition home or self-care (01) ==
PROVIDERS: PCP Internal Medicine; Referring Provider Surgery Vascular Surgery; Visit Provider Surgery Vascular Surgery
DX: I70.238 Atherosclerosis of native arteries of right leg with ulceration of other part of lower leg (principal); L97.519 Non-pressure chronic ulcer of other part of right foot with unspecified severity; I83.891 Varicose veins of right lower extremity with other complications; Z86.718 Personal history of other venous thrombosis and embolism; Z79.01 Long term (current) use of anticoagulants; F17.200 Nicotine dependence, unspecified, uncomplicated
CPT/HCPCS: 36245; 36415; 37224; 75710; 76937; 80069; 85027; 99152; 99153; J7040; Q9967; C1725; C1760; C1769; C1887; C1894

== ENCOUNTER 2019-12-16 09:00 | Outpatient (RCR) | payer MEDICARE, SELFPAY ==
[2019-11-24 09:56] VITALS: BMI 25.0
[2019-11-25 00:32] VITALS: BP 146/71; PULSE 64; RESP 18; TEMP 37
[2019-12-09 08:34] VITALS: RESP 18; BMI 25.0
[2019-12-09 08:46] VITALS: BP 150/71; PULSE 64; RESP 18; TEMP 36.6; O2SAT 99; BMI 25.0
--- NOTE | 2019-12-09 09:14 | PCM.WC.PN ---
(1) Acute deep vein thrombosis (DVT) of calf muscle vein of right lower extremity Status: Acute Current Visit: Yes Code(s): I82.461 - Acute embolism and thrombosis of right calf muscular vein (2) Infected open wound Status: Acute Current Visit: Yes Code(s): T14.8XXA - Other injury of unspecified body region, initial encounter; L08.9 - Local infection of the skin and subcutaneous tissue, unspecified (3) Leg edema, right Status: Acute Current Visit: Yes Code(s): R60.0 - Localized edema (4) Pain of right leg Status: Acute Current Visit: Yes Code(s): M79.604 - Pain in right leg (5) Peripheral vascular disease of lower extremity with ulceration Status: Acute Current Visit: Yes Code(s): I73.9 - Peripheral vascular disease, unspecified; L97.909 - Non-pressure chronic ulcer of unspecified part of unspecified lower leg with unspecified severity (6) Peripheral vascular occlusive disease Status: Acute Current Visit: Yes Code(s): I73.9 - Peripheral vascular disease, unspecified (7) Venous bleed Status: Acute Current Visit: Yes Code(s): R58 - Hemorrhage, not elsewhere classified Type of Wound Date of Service: 12/09/19 Chief Complaint: Follow-up on a chronic open area since April right lower leg at the ankle History of Wound: 73-year-old white male who is his chronic smoker with no other basic history of anything. Has been followed by vascular surgery at the [facility] was sent here to close his ankle ulcer has been using [id number] antibiotic ointment on it. Complains of severe pain in the area and is been receiving [place] from his family doctor. I believe he was referred from his family doctor here. After unable to close the wound and patient having increased severe pain with vascular bleeding while walking, we sent him to Dr. Beatty early. Dr. Beatty performed November 24 a sclerotherapy on the upper thigh patient states his ankle was almost closed and now has reopened and is in severe pain again. Patient states he thinks he has another infection and would like to have cultures obtained and pain medications. Progress of Wound: Patient has not been seen since early October when he was referred to Dr. Beatty. Patient returns with the ulceration again on the right medial ankle from his peripheral vascular disease with ulceration. The pain is unbearable patient states he cannot lay in bed with his leg out flat he has to lay in a lounge chair with his leg down for comfort. Patient is suffering from claudication of the right lower leg. We will try starting him on gabapentin for the burning pain he complains of 1 million needles being shot into that right ankle. They we had to numb the area before he could even touch it with 1% with epi to the periphery of the ulcer. Debrided it easily with a #3 curette and took cultures no bleeding noted. We will again try aqua cell extra to the wound base. He does have a follow-up appoint with Dr. Beatty December 29 - Physical Exam Vital Signs Temp Pulse Resp BP Pulse Ox 97.9 F 64 18 150/71 H 99 12/09/19 08:46 12/09/19 08:46 12/09/19 08:46 12/09/19 08:46 12/09/19 08:46 General: Oriented x3, Cooperative, Well developed HEENT: Atraumatic, PERRLA Oral: Moist Mucosa Neck: Supple, No JVD Lungs: Clear to auscultation, Normal air movement Cardiovascular: Regular rate, Regular Rhythm Abdomen: Bowel Sounds Present, Soft, Non Tender, No Hepato-splenomegaly Extremities: No clubbing, No edema, - - Right medial ankle ulcer from his peripheral vascular and PAD Wound Measurements and Assessment WC - Nurse 1 - General Ulcer Measurement Start: 12/09/19 08:33 Freq: Status: Active Protocol: Activity Type Activity Date Activity User E-Sign Co-Sign Detail Recorded Client Recorded Date Recorded By Document 12/09/19 08:34 NM [id number] 12/09/19 08:44 NM 12/09/19 08:34 Wound Center Nurse 1 [Ulcer Assessment] #1 R Med Ankle -Current Size (cm) - Length 0.5 -Current Size (cm) - Width 1 -Current Size (cm) - Depth 0.2 -Total Square Cm 0.5 -Photo Taken Yes -Exudate Amt Small -Exudate Type Purulent -Wound Margin Thickened & Rolled Under -Granulation Amt Small (1-33%) -Granulation Quality Pale,[place] -Necrosis Amt Large (67-100%) -Necrotic Tissue Type Adherent Slough -Texture (Sharmin-wound Skin Appearance) Assessed, Localized Edema -Moisture (Sharmin-wound Skin Appearance Assessed ) -Color (Sharmin-wound Skin Appearance) Assessed, Erythema -Temperature (Sharmin-wound Skin No Abnormality Appearance) (Pt Warm) -Tenderness on Palpation (Sharmin-wound Yes Skin Appearance) -Ulcer Cleansing Rinsed/ Irrigated with Saline -Foul Odor after Cleansing No -Anesthetic Used 5% Lidocaine Gel WC - Nurse 2 - General Ulcer CM Notes Start: 12/09/19 08:33 Freq: Status: Active Protocol: Activity Type Activity Date Activity User E-Sign Co-Sign Detail Recorded Client Recorded Date Recorded By Document 12/09/19 08:56 MW [id number] 12/09/19 09:04 MW 12/09/19 08:56 Wound Center Nurse 2 [Procedure/Treatment] -Time 08:57 -Correct Patient Yes -Correct Side, Site, Position Yes -Correct Procedure Yes -Procedure Performed Yes -Type of Procedure Debridement -Clinical Debridement Subcutaneous -Post Debridement Size (cm) - Length 0.6 -Post Debridement Size (cm) - Width 1.0 -Post Debridement Size (cm) - Depth 0.3 -Total Square Cm 0.60 -Wound/Ulcer Outcome Not Healed -Ulcer Cleansing Rinsed/ Irrigated with Saline -Foul Odor after Cleansing No -Bioengineered Tissue No -Injectable Lidocaine w/ Epi (%) 1 -Injectable Lidocaine w/ Epi (mls) 5 -Bleeding Controlled with Pressure -Offloading No -Treatment Response Procedure Tolerated Well [See Physician Procedure note for Specifics] Pain Scale: 0-10 Numeric [Pain] -Is Patient Pain Free? Yes Musculoskeletal: No Tenderness to Palpation of Joints or Extremities Lymphatic: No Cervical, Supraclavicular, or Inguinal Adenopathy Neurological: Cranial nerves II-XII grossly intact, Neuro grossly intact Psych/Mental Status: Normal Affect, Appropriate Debridement Note Post-Debridement Measurements/Treatment WC - Nurse 2 - General Ulcer CM Notes Start: 12/09/19 08:33 Freq: Status: Active Protocol: Activity Type Activity Date Activity User E-Sign Co-Sign Detail Recorded Client Recorded Date Recorded By Document 12/09/19 08:56 MW [id number] 12/09/19 09:04 MW 12/09/19 08:56 Wound Center Nurse 2 #1 R Med Ankle -Time 08:57 -Correct Patient Yes -Correct Side, Site, Position Yes -Correct Procedure Yes -Procedure Performed Yes -Type of Procedure Debridement -Clinical Debridement Subcutaneous -Post Debridement Size (cm) - Length 0.6 -Post Debridement Size (cm) - Width 1.0 -Post Debridement Size (cm) - Depth 0.3 -Total Square Cm 0.60 -Wound/Ulcer Outcome Not Healed -Ulcer Cleansing Rinsed/ Irrigated with Saline -Foul Odor after Cleansing No -Bioengineered Tissue No -Injectable Lidocaine w/ Epi (%) 1 -Injectable Lidocaine w/ Epi (mls) 5 -Bleeding Controlled with Pressure -Offloading No -Treatment Response Procedure Tolerated Well Pain Scale: 0-10 Numeric Is Patient Pain Free? Yes Wound debrided: Right medial ankle ulcer Type of Debridement: Excisional debridement Anesthesia Used: 5% Lidocaine Gel, - - 1% with epi Depth: Down to and including healthy tissue, in the subcutaneous layer Percentage of wound debrided: 100 Instrument Used: 3mm curette Tissue Removed: Slough and fibrin Severity: Limited To Skin Breakdown Amount of bleeding with debridement: None Bleeding Controlled with: Compression and gauze Patient tolerated procedure well Assessment/Plan Aerobic and anaerobic cultures obtained from right ankle Active Problems (Last Reviewed 10/14/19 @ 09:14 by Jenise Timmons) Venous bleed (Acute) Peripheral vascular occlusive disease (Acute) Pain of right leg (Acute) Infected open wound (Acute) Leg edema, right (Acute) Acute deep vein thrombosis (DVT) of calf muscle vein of right lower extremity (Acute) Peripheral vascular disease of lower extremity with ulceration (Acute) Assessment: Peripheral vascular occlusive disease. Peripheral vascular disease with ulcer. Smoking addiction. Stasis dermatitis. Venous bleed. DVT x3 right leg Plan: Wash leg with Hibiclens. Apply Aquacel extra to base of ulcer on right ankle cover with Adaptic gauze tape developing a allergy to paper tape. Double layer Tubigrip. Try gabapentin 300 mg 3 times daily as needed for the pain. Call with results of the cultures this week if need antibiotic therapy. Follow-up 1 weeks
[2019-12-16 09:01] VITALS: BP 130/46; PULSE 64; RESP 16; TEMP 36.3; BMI 25.0
--- NOTE | 2019-12-16 09:28 | PN.PCM_ITS ---
(1) Acute deep vein thrombosis (DVT) of calf muscle vein of right lower extremity Status: Acute Current Visit: Yes Code(s): I82.461 - Acute embolism and thrombosis of right calf muscular vein (2) Infected open wound Status: Acute Current Visit: Yes Code(s): T14.8XXA - Other injury of unspecified body region, initial encounter; L08.9 - Local infection of the skin and subcutaneous tissue, unspecified (3) Leg edema, right Status: Acute Current Visit: Yes Code(s): R60.0 - Localized edema (4) Pain of right leg Status: Acute Current Visit: Yes Code(s): M79.604 - Pain in right leg (5) Peripheral vascular disease of lower extremity with ulceration Status: Acute Current Visit: Yes Code(s): I73.9 - Peripheral vascular disease, unspecified; L97.909 - Non-pressure chronic ulcer of unspecified part of unspecified lower leg with unspecified severity (6) Peripheral vascular occlusive disease Status: Acute Current Visit: Yes Code(s): I73.9 - Peripheral vascular disease, unspecified (7) Venous bleed Status: Acute Current Visit: Yes Code(s): R58 - Hemorrhage, not elsewhere classified Type of Wound Date of Service: 12/16/19 Chief Complaint: Follow-up on a chronic open area since April right lower leg at the ankle History of Wound: 73-year-old white male who is his chronic smoker with no other basic history of anything. Has been followed by vascular surgery at the [facility] was sent here to close his ankle ulcer has been using [id number] antibiotic ointment on it. Complains of severe pain in the area and is been receiving [place] from his family doctor. I believe he was referred from his family doctor here. After unable to close the wound and patient having increased severe pain with vascular bleeding while walking, we sent him to Dr. Beatty early. Dr. Beatty performed November 24 a sclerotherapy on the upper thigh patient states his ankle was almost closed and now has reopened and is in severe pain again. Patient states he thinks he has another infection and would like to have cultures obtained and pain medications. Progress of Wound: Patient is suffering from claudication of the right lower leg. The gabapentin is helping him with the burning pain in his lower leg and his back laying in his bed he is averaging 600 mg at bedtime and 300-600 during the day. e. They we had to numb the area before he could even touch it with 2% lidocaine to the periphery of the ulcer. Debrided it easily with a #3 curette and blood profusely to use Surgifoam to stop and chemical cauterizing to stop the bleeding applied pressure dressing on and patient will start dressing padilla ges tomorrow. Patient will be referred to Dr. Hernandez for a follow-up surgical consult for the friable peripheral vein. There is came back with at least 3 bacteria is we will start him on 2 antibiotics orally this week. He does have a follow-up appoint with Dr. Beatty December 29. And we have an appointment with Dr. Hernandez January 10. We will have the patient continue the Aquacel extra to the wound base. - Physical Exam Vital Signs Temp Pulse Resp BP Pulse Ox 97.3 F L 64 16 130/46 H 99 12/16/19 09:01 12/16/19 09:01 12/16/19 09:01 12/16/19 09:01 12/09/19 08:46 General: Oriented x3, Cooperative, Well developed HEENT: Atraumatic, PERRLA Oral: Moist Mucosa Neck: Supple, No JVD Lungs: Clear to auscultation, Normal air movement Cardiovascular: Regular rate, Regular Rhythm Abdomen: Bowel Sounds Present, Soft, Non Tender, No Hepato-splenomegaly Extremities: No clubbing, Edema Skin: Ulcer/ Wound - Peripheral vascular disease with ulceration pain and bleeding Wound Measurements and Assessment WC - Nurse 1 - General Ulcer Measurement Start: 12/09/19 08:33 Freq: Status: Active Protocol: Activity Type Activity Date Activity User E-Sign Co-Sign Detail Recorded Client Recorded Date Recorded By Document 12/16/19 09:01 CP [id number] 12/16/19 09:03 CP 12/16/19 09:01 Wound Center Nurse 1 [Ulcer Assessment] #1 R Med Ankle -Current Size (cm) - Length 0.8 -Current Size (cm) - Width 1.5 -Current Size (cm) - Depth 0.3 -Total Square Cm 1.20 -Epithelialization None Present -Tunneling No -Undermining/Tunneling No -Circular Undermining No -Classification - Thickness Full Thickness without Exposed Support Structure -Exudate Amt Small -Exudate Type Sanguineous -Wound Margin Flat & Intact -Granulation Amt Small (1-33%) -Granulation Quality Pale -Slough/Fibrin Yes -Necrosis Amt Large (67-100%) -Necrotic Tissue Type Adherent Slough -Structure Exposed N/A -Texture (Sharmin-wound Skin Appearance) No Abnormality -Moisture (Sharmin-wound Skin Appearance No Abnormality ) -Color (Sharmin-wound Skin Appearance) Erythema -Temperature (Sharmin-wound Skin No Abnormality Appearance) (Pt Warm) -Tenderness on Palpation (Sharmin-wound Yes Skin Appearance) -Ulcer Cleansing Rinsed/ Irrigated with Saline -Foul Odor after Cleansing No -Anesthetic Used 4% Lidocaine Solution WC - Nurse 2 - General Ulcer CM Notes Start: 12/09/19 08:33 Freq: Status: Active Protocol: Activity Type Activity Date Activity User E-Sign Co-Sign Detail Recorded Client Recorded Date Recorded By Document 12/16/19 09:14 MW [id number] 12/16/19 09:25 MW 12/16/19 09:14 Wound Center Nurse 2 [Procedure/Treatment] -Time 09:14 -Correct Patient Yes -Correct Side, Site, Position Yes -Correct Procedure Yes -Procedure Performed Yes -Type of Procedure Debridement -Clinical Debridement Subcutaneous -Post Debridement Size (cm) - Length 0.5 -Post Debridement Size (cm) - Width 1.0 -Post Debridement Size (cm) - Depth 0.3 -Total Square Cm 0.50 -Wound/Ulcer Outcome Not Healed -Ulcer Cleansing Rinsed/ Irrigated with Saline -Foul Odor after Cleansing No -Bioengineered Tissue No -Injectable Lidocaine (%) 2 -Lidocaine (ml) 5 -Bleeding Controlled with Pressure,Silver Nitrate, SURGIFOAM -Offloading No -Treatment Response Procedure Tolerated Well [See Physician Procedure note for Specifics] Pain Scale: 0-10 Numeric [Pain] -Is Patient Pain Free? Yes Musculoskeletal: No Tenderness to Palpation of Joints or Extremities Lymphatic: No Cervical, Supraclavicular, or Inguinal Adenopathy Neurological: Cranial nerves II-XII grossly intact, Neuro grossly intact Psych/Mental Status: Normal Affect, Appropriate Debridement Note Post-Debridement Measurements/Treatment WC - Nurse 2 - General Ulcer CM Notes Start: 12/09/19 08:33 Freq: Status: Active Protocol: Activity Type Activity Date Activity User E-Sign Co-Sign Detail Recorded Client Recorded Date Recorded By Document 04/15/20 08:56 MW [id number] 12/09/19 09:04 MW Document 12/16/19 09:14 MW [id number] 12/16/19 09:25 MW 12/09/19 12/16/19 08:56 09:14 Wound Center Nurse 2 #1 R Med Ankle -Time 08:57 09:14 -Correct Patient Yes Yes -Correct Side, Site, Position Yes Yes -Correct Procedure Yes Yes -Procedure Performed Yes Yes -Type of Procedure Debridement Debridement -Clinical Debridement Subcutaneous Subcutaneous -Post Debridement Size (cm) - Length 0.6 0.5 -Post Debridement Size (cm) - Width 1.0 1.0 -Post Debridement Size (cm) - Depth 0.3 0.3 -Total Square Cm 0.60 0.50 -Wound/Ulcer Outcome Not Healed Not Healed -Ulcer Cleansing Rinsed/ Rinsed/ Irrigated with Irrigated with Saline Saline -Foul Odor after Cleansing No No -Bioengineered Tissue No No -Injectable Lidocaine (%) 2 -Lidocaine (ml) 5 -Injectable Lidocaine w/ Epi (%) 1 -Injectable Lidocaine w/ Epi (mls) 5 -Bleeding Controlled with Pressure Pressure,Silver Nitrate, SURGIFOAM -Offloading No No -Treatment Response Procedure Procedure Tolerated Well Tolerated Well Pain Scale: 0-10 Numeric Is Patient Pain Free? Yes Yes Wound debrided: Right medial ankle ulcer Type of Debridement: Excisional debridement Anesthesia Used: 5% Lidocaine Gel, - - 2% lidocaine injected periphery of wound Depth: Down to and including healthy tissue, in the subcutaneous layer Instrument Used: 3mm curette Tissue Removed: Slough and bleeding Severity: Limited To Skin Breakdown Amount of bleeding with debridement: Moderate Bleeding Controlled with: Compression and gauze, Silver Nitrate, Gel Foam Patient tolerated procedure well Assessment/Plan Active Problems (Last Reviewed 10/14/19 @ 09:14 by Jenise Timmons) Venous bleed (Acute) Peripheral vascular occlusive disease (Acute) Pain of right leg (Acute) Infected open wound (Acute) Leg edema, right (Acute) Acute deep vein thrombosis (DVT) of calf muscle vein of right lower extremity (Acute) Peripheral vascular disease of lower extremity with ulceration (Acute) Assessment: Peripheral vascular occlusive disease. Peripheral vascular disease with ulcer. Smoking addiction. Stasis dermatitis. Venous bleed. DVT x3 right leg Plan: Start dressing changes tomorrow today leave compression dressing on with Gelfoam. Wash leg with Hibiclens. Apply Aquacel extra to base of ulcer on right ankle cover with Adaptic gauze tape developing a allergy to paper tape. Double layer Tubigrip. Try gabapentin 300 mg 3 times daily as needed for the pain. Start levofloxacin 500 mg p.o. daily x14 days. Start Augmentin 875 1 p.o. twice daily x14 days. Appointment with Dr. Hernandez January 10. Appointment with Dr. Beatty December 29. Call with results of the cultures this week if need antibiotic therapy. Follow-up 1 weeks
== END 2019-12-24 23:59 ==
LOC: WC 09:00
PROVIDERS: Family Provider Family Medicine; PCP Internal Medicine; Referring Provider Nurse Practitioner; Visit Provider Nurse Practitioner
DX: I73.9 Peripheral vascular disease, unspecified (principal); Z86.718 Personal history of other venous thrombosis and embolism; R60.0 Localized edema; M79.604 Pain in right leg; L97.311 Non-pressure chronic ulcer of right ankle limited to breakdown of skin; F17.200 Nicotine dependence, unspecified, uncomplicated
CPT/HCPCS: 11042; 17250; 87070; 87075; 87077; 87186; 87205; 99213; G0463

== ENCOUNTER 2019-12-20 08:15 | Emergency (ER) | payer MEDICARE, SELFPAY ==
[2019-12-20 08:18] VITALS: BP 137/86; PULSE 89; RESP 18; TEMP 36.8; O2SAT 99; BMI 25.7
--- NOTE | 2019-12-20 08:45 | ED.DCSUM_ITS ---
- ER Visit Summary Date of Service: 12/20/19 Chief Complaint: Bleeding from chronic right medial ankle wound History of Present Illness: The patient is a 74 M 3 of arterial and venous clots in his right leg. Currently on both Plavix and Xarelto. He has had a chronic wound in his right medial ankle for 2 months. He sees the wound care center for this. He has had 2 prior episodes where it bleeds. He denies any trauma. He states that today he was at home and then start pulsatile bleeding again. Para medics applied direct pressure and brought him in the ER. He denies any other complaints. He did have a prior catheter procedure to remove arterial clots done by the vascular surgeon Dr. Beatty. He denies any pain in the leg. Physical Examination: Older male no acute distress vital signs are stable afebrile. H EENT exam unremarkable. Lungs are clear to auscultation bilat erally. Heart regular rhythm rate about 90 no murmur. Abdomen soft nontender normal bowel sounds no peritoneal signs. Patient is moving all 4 extremities. Neurovascularly intact. His right ankle medially is about 2 cm chronic wound. With mild superficial arterial pulsatile bleeding. There is no signs of infection. He has normal touch sensation in his right foot. He has present but delayed capillary refill. He is able to wiggle his toes. He has normal dorsi and plantar flexion. There is no signs of infection. No cellulitis. No red streaks. No pus. Neurologically is awake and alert. He has normal touch sensation to his feet. Test Results: None Emergency Department Course and Treatment: Patient has acute bleeding to his right ankle chronic wound. It will be clean. Let will be applied. A pressure dressing. And reassess. Currently of the bleeding is not too bad. Repeat exam at 9:32 AM he is doing well. Bleeding is resolved. Only with dressed. To be discharged home to follow-up with wound care. Treatment Plan: Wound care follow-up. Return if worse. Disposition: Discharge Impression: Acute bleeding from chronic right ankle wound Anticoagulated on both Plavix and Xarelto History of right lower extremity arterial and venous clots. This note was generated with [employer] dictation software. It may contain incorrect words, spelling, and punctuation that were not noted in review of the chart prior to signing ED Disposition - Plan for ED Patient: Disposition: Home or Assisted Living Instructions: Pressure Ulcer Referrals: Reynold Hernandez MD [Primary Care Provider] - As Needed Additional Instructions: Keep the wound clean and dry. As long as our dressing stays dry and clean I will leave it on the next several days. Obviously if bleeding restarts apply direct pressure. And if you are unable to stop it return to the emergency department. I would hold your Xarelto and Plavix today only. Restart tomorrow. Follow-up with the wound care center on Saturday.
[2019-12-20] MEDS: Lidocaine/Epi/Tetracaine 50 ML 1 APPLIC TOPICAL (08:48)
--- NOTE | 2019-12-20 08:48 | ED.DEP ---
ED Disposition - Plan for ED Patient: Disposition: Home or Assisted Living Instructions: Pressure Ulcer Referrals: Reynold Hernandez MD [Primary Care Provider] - As Needed Additional Instructions: Keep the wound clean and dry. As long as our dressing stays dry and clean I will leave it on the next several days. Obviously if bleeding restarts apply direct pressure. And if you are unable to stop it return to the emergency department. I would hold your Xarelto and Plavix today only. Restart tomorrow. Follow-up with the wound care center on Saturday.
[2019-12-20] MEDS: oxyCODONE 5 MG Tablet PO (09:18)
[2019-12-20 09:19] VITALS: BP 143/77; PULSE 74; RESP 18; O2SAT 99
[2019-12-20 09:52] VITALS: BP 140/76; PULSE 78; RESP 18; O2SAT 100
== END 2019-12-20 09:53 | disposition home or self-care (01) ==
LOC: ED 09:03
PROVIDERS: Emergency Provider Emergency Medicine; PCP Internal Medicine
DX: S91.001A Unspecified open wound, right ankle, initial encounter (principal); R19.7 Diarrhea, unspecified; X58.XXXA Exposure to other specified factors, initial encounter; Y93.9 Activity, unspecified; Y92.9 Unspecified place or not applicable; I73.9 Peripheral vascular disease, unspecified; Z86.718 Personal history of other venous thrombosis and embolism; Z79.02 Long term (current) use of antithrombotics/antiplatelets; Z79.01 Long term (current) use of anticoagulants; Z79.899 Other long term (current) drug therapy; Z72.0 Tobacco use
CPT/HCPCS: 99284; J7030

== ENCOUNTER 2020-01-04 15:55 | Emergency (ER) | payer MEDICARE, SELFPAY ==
[2019-12-24 09:13] VITALS: BMI 25.7
[2020-01-04 15:57] VITALS: BP 146/72; PULSE 81; RESP 18; TEMP 36.9; O2SAT 98; BMI 25.2
--- NOTE | 2020-01-04 16:38 | ED.DCSUM_ITS ---
History of Present Illness Chief Complaint: Wound Check Detail of Chief Complaint: Bleeding right ankle wound Informant: Patient Onset: Today Narrative: Patient presents secondary to bleeding from a chronic right ankle wound. 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 Neal, this morning. He states she did do a slight debridement of the area. Around 10:00 this morning wound started bleeding. EMS was called but they were able to get the bleeding stopped on scene and patient was not transported. Around 330 this afternoon ankle started bleeding again. He was transferred to the ER with ice pack and dressing in place. Patient is on Plavix as well as Xarelto. He is also a drinker. He states he is had problems with his ankle wound bleeding in the past but usually can stop it with pressure and an ice pack. - Past Medical History (1) Peripheral vascular disease of lower extremity with ulceration Status: Chronic (2) Peripheral vascular occlusive disease Status: Chronic Past Medical History - Allergies and Home Meds Allergies/Adverse Reactions: Allergies Penicillins Allergy (Verified 12/24/19 09:11) Anaphylaxis Primary Care Physician: Reynold Hernandez MD [Primary Care Provider] - Doctors: Dr. Neal Prior records reviewed: Yes Smoking Status: Current every day smoker Review of Systems General: Denies: Chills, Fever Eyes: Denies: Visual changes - bilaterally ENT: Denies: Bilateral ear pain Cardiovascular: Denies: Chest pain Respiratory: Denies: Dyspnea, Cough Gastrointestinal: Denies: Abdominal pain, Nausea, Vomiting, Diarrhea Genitourinary: Denies: Dysuria Musculoskeletal: Denies: Extremity Pain Skin: Reports: Wounds Neurological: Denies: Headache Allergy: Denies: Uticaria Physical Exam Vital Signs/Narrative: Vital Signs Temp Pulse Resp BP Pulse Ox 01/04/20 15:57 98.5 F 81 18 146/72 H 98 Inital Vital Signs reviewed: Yes General: Well nourished, Well developed Head: Normocephalic ENT: Moist mucous membranes Neck: Supple Cardiovascular: Regular rate, Regular rhythm Respiratory: No distress, CTA bilaterally Abdomen: Soft, Nontender Extremities: - - Patient has a 4 x 2 cm shallow ulceration to the medial right ankle. No active bleeding at this time. Neurological: Alert, Oriented x3 Psychological: Normal affect Diagnostic/Tx/Re-eval - Medical Decision Making Wound is cleansed. Surgifoam was placed across the wound and a strep dressing is applied. On repeat exam patient had no further bleeding. Surgifoam is still clean. He is complaining of pain through his foot. 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 He also stopped gabapentin 3 or 4 days ago, but states he was not on it very long. He will be given a dose of [place] here and discharged home. ED Disposition - Plan for ED Patient: Disposition: Home or Assisted Living Diagnosis: Visit for wound check Instructions: ED Wound Check Post Op Bleeding Referrals: Reynold Hernandez MD [Primary Care Provider] - Elizabeth Yanes [STAFF PHYSICIAN] -
[2020-01-04] MEDS: HYDROcodone Bitartrate/Apap 5/325 Tablet PO (17:57)
== END 2020-01-04 18:19 | disposition home or self-care (01) ==
PROVIDERS: Emergency Provider Emergency Medicine; PCP Internal Medicine
DX: Z48.00 Encounter for change or removal of nonsurgical wound dressing (principal); L97.319 Non-pressure chronic ulcer of right ankle with unspecified severity; I73.9 Peripheral vascular disease, unspecified; Z79.02 Long term (current) use of antithrombotics/antiplatelets; Z79.01 Long term (current) use of anticoagulants; F10.99 Alcohol use, unspecified with unspecified alcohol-induced disorder; F17.200 Nicotine dependence, unspecified, uncomplicated
CPT/HCPCS: 99284

== ENCOUNTER → 2020-10-20 08:30 | Outpatient (CLI) | payer MEDICARE, SELFPAY ==
--- NOTE | 2020-10-20 08:32 | ART_ITS ---
Reason For Study: atherosclerosis Procedure A bilateral lower extremity continuous wave Doppler with analog waveform analysis and ankle brachial indexes. Left Segmental Pressures Left brachial= 152mmHg. Left posterior tibial artery = 155mmHg. Left dorsalis pedis artery = 161mmHg. The left posterior tibial artery waveforms are triphasic. The left dorsalis pedis waveforms are biphasic. Right Segmental Pressures Right brachial= 157mmHg. Right posterior tibial artery = 70mmHg. Right dorsalis pedis artery = 67mmHg. The right dorsalis pedis waveforms are monophasic. The right posterior tibial artery waveforms are monophasic. Indices The right ankle brachial index by the dorsalis pedis is .43. The right ankle brachial index by the posterior tibial artery is .45. The left ankle brachial index by the dorsalis pedis is 1.03. The left ankle brachial index by the posterior tibial artery is .99. Interpretation Summary Right moderate occlussive disease with EMILE 0.45. Left normal at 1.03 and triphasic flow. Ordering Physician: Дмитрий Beatty Performed By: TIMO COSTELLO RVT
--- NOTE | 2020-10-20 08:32 | ADUL_ITS ---
Reason For Study: atherosclerosis Right Velocities Ext. Iliac Artery, dist = 296.4 cm./sec. Common Femoral Artery, mid = 237.4 cm./sec. Supf Femoral Artery, prox = 123.4 cm./sec. Supf Femoral Artery, mid = 34.7 cm./sec. Unable to demonstrate flow in the Distal SFA or Prox POP Art. Large branch noted coming off of the Distal SFA with a velocity of 92.9 cm/s. Profunda Femoral Artery = 107 cm./sec. Popliteal Artery, mid = 42.4 cm./sec. Popliteal Artery, dist = 32.5 cm./sec. Post. Tibial Artery, prox = 72.0 cm./sec. Post. Tibial Artery, mid = 45.7 cm./sec. Post. Tibial Artery, dist = 44.6 cm./sec. Peroneal Artery, prox = 23.7 cm./sec. Peroneal Artery, mid = 28.1 cm./sec. Peroneal Artery,dist = 32.5 cm./sec. Ant. Tibial Artery, prox = 21.5 cm./sec. Ant. Tibial Artery, mid = 23.7 cm./sec. Ant. Tibial Artery, dist = 27.0 cm./sec. Interpretation Summary Right distal femoral to proximal popliteal occluded with large collateral noted. Ordering Physician: Дмитрий Beatty Performed By: Luis A Gonzalez RVT
== END ==
PROVIDERS: PCP Internal Medicine; Visit Provider Surgery Vascular Surgery
DX: I70.238 Atherosclerosis of native arteries of right leg with ulceration of other part of lower leg (principal); Z48.812 Encounter for surgical aftercare following surgery on the circulatory system; Z72.0 Tobacco use
CPT/HCPCS: 93922; 93926

== ENCOUNTER 2020-12-21 06:56 | Day surgery (SDC) | payer MEDICARE, SELFPAY ==
[2020-12-20 08:42] LABS: Hematocrit 48.4 % (40-54); Hemoglobin 15.7 g/dL (13.0-16.5); Mean Corp Hgb Conc 32.4 g/dL (32-36); Mean Corpuscular Hgb 32.6 pg (27.0-32.0); Mean Corpuscular Volume 100.4 fL (80-94); Mean Platelet Vol. 10.1 fl (6.2-12.0); Platelet Count 179 K/mm3 (150-450); RBC Distribution Width CV 13.6 % (11.6-14.6); RBC Distribution Width SD 50.9 fl (35.1-43.9); Red Blood Count 4.82 M/mm3 (4.6-6.2); White Blood Count 5.3 K/mm3 (4.4-11.0)
[2020-12-20 08:51] VITALS: BMI 25.5
[2020-12-20 09:05] LABS: Albumin, Serum 3.8 g/dL (3.2-5.0); BUN 19 mg/dL (7-18); BUN/Creat Ratio 18.3 RATIO (10-20); Chloride 107 mmol/L (98-107); Creatinine, Serum 1.04 mg/dL (0.70-1.30); EST Glomerular Filtration Rate 74 mL/min (>60); Est Glom Filt Rate - Afr Amer 89 mL/min (>60); Estimated Creatinine Clearance 57.55 ml/min; Glucose 84 mg/dL (74-106); Phosphorus 2.8 mg/dL (2.5-4.9); Sodium Level 139 mmol/L (136-145)
--- NOTE | 2020-12-21 08:33 | PCM.OPRPT ---
Problems Associated Problem List Diagnoses (1) Peripheral vascular occlusive disease: Report of Operation Date of Procedure: 12/21/20 Pre-Operative Diagnosis: pad ulcer Post-Operative Diagnosis: same Surgery/Procedure Performed:: 1. Ultrasound-guided access retrograde left common femoral artery. 2. Right lower extremity angiogram. We did order cannulation into the posterior tibial artery. 3. Balloon angioplasty the right femoral through popliteal artery into the tibial peroneal trunk with a 4 x 3.5 balloon and a 3 x 3.5 balloon. 4. Closure with Star close. Type of Anesthesia: Sedation,Conscious Description of Procedure: Patient brought to the Provider Relations Specialist. Underwent appropriate timeout consent. Underwent sedation. Prepped and draped in a sterile fashion. We did ultrasound access retrograde right common femoral artery. Put a Glidewire up and then 5 [place] sheath. Get 5000 units heparin. Got up and over the bifurcation. Did an angiogram from the right femoral artery. This showed the femoral artery with some plaque noted in the common femoral artery. Otherwise the femoral popliteal widely patent. Area the adductor there is an occlusion throughout the entire popliteal artery and tibial peroneal trunk. Distal collateral filling mostly the posterior tibial artery which is main runoff into the foot. Brought in a long 6 [place] sheath. Using a quick cross catheter and Glidewire got through the occlusion. We got this into the tibioperoneal trunk and did an angiogram from there. This did show some flow in the peroneal and the posterior tibial artery. We got the wire down the posterior tibial artery and switched to an 014 wire. We then ballooned from the tibioperoneal trunk through the popliteal with a 3 x 3.5 balloon for over 3 minutes. We then ballooned this from the popliteal up through the adductor with a 4 x 3.5 balloon for over 3 minutes. Completion was markedly improved with good flow through this. Now also seen some flow to the anterior tibial and peroneal artery. We then removed out the sheath put in a shorter sheath with a Star close deployed with good hemostasis. Patient brought to recovery stable condition. Sedation: This 75-year-old gentleman underwent moderate sedation given by Dr. Дмитрий Beatty. He was monitored with EKG blood pressure and pulse ox for over the 30 minutes of the procedure. See the EMR for the complete record.
== END 2020-12-21 12:45 | disposition home or self-care (01) ==
PROVIDERS: PCP Internal Medicine; Referring Provider Surgery Vascular Surgery; Visit Provider Surgery Vascular Surgery
DX: I70.213 Atherosclerosis of native arteries of extremities with intermittent claudication, bilateral legs (principal); I70.238 Atherosclerosis of native arteries of right leg with ulceration of other part of lower leg; L97.919 Non-pressure chronic ulcer of unspecified part of right lower leg with unspecified severity; I83.891 Varicose veins of right lower extremity with other complications; Z86.718 Personal history of other venous thrombosis and embolism; F17.200 Nicotine dependence, unspecified, uncomplicated
CPT/HCPCS: 36245; 36415; 37224; 75710; 76937; 80069; 85027; 99152; 99153; J7040; Q9967; C1725; C1760; C1769; C1887; C1894

== ENCOUNTER 2024-06-11 09:44 | Emergency (ER) | payer MEDICARE, SELFPAY ==
[2024-06-11 09:45] VITALS: BP 149/77; PULSE 93; RESP 18; TEMP 37; O2SAT 93; BMI 25.3
--- NOTE | 2024-06-11 10:59 | ART_ITS ---
Reason For Study: Pain, Ulceration Procedure A bilateral lower extremity continuous wave Doppler with analog waveform analysis and ankle brachial indexes. Left Segmental Pressures Left brachial= 173mmHg. Left posterior tibial artery = 175mmHg. Left dorsalis pedis artery = 166mmHg. The left dorsalis pedis waveforms are triphasic. The left posterior tibial artery waveforms are triphasic. Right Segmental Pressures Right brachial= 177mmHg. Right posterior tibial artery = 110mmHg. Right dorsalis pedis artery = 109mmHg. The right dorsalis pedis waveforms are monophasic. The right posterior tibial artery waveforms are monophasic. Indices The right ankle brachial index by the dorsalis pedis is 0.62. The right ankle brachial index by the posterior tibial artery is 0.62. The left ankle brachial index by the dorsalis pedis is 0.94. The left ankle brachial index by the posterior tibial artery is 0.99. VL/Ankle Brachial Index Interpretation Summary Monophasic Doppler waveforms are noted at ankle level on the right. Triphasic D oppler waveforms are noted at ankle level on the left. Pulse-volume recordings appear diminished at ankle and digital level on the right, and at digital level on the left. The resting right ankle-b rachial index is moderately diminished. The resting left ankle-brachial index is minimally dimin ished. There is evidence of moderate arterial occlusive disease at ankle level on the right. There is evidence of minimal arterial occlusive disease at ankle level on the left. Ordering Physician: Larry Rosenbaum Referring Physician: Reynold Hernandez Performed By: Renetta Pozo RVT
--- NOTE | 2024-06-11 10:59 | RAD_ITS ---
HISTORY: pain/infection. TECHNIQUE: XR Tibia/Fibula 2 Views. COMPARISON: None. FINDINGS: BONES : No acute fracture identified. No cortical erosion seen. JOINTS: No dislocation. Mild degenerative change. SOFT TISSUES: Peripheral vascular disease present. Soft tissue swelling of the lateral leg and medial ankle with air. RAD/Tibia & Fibula 2 Views IMPRESSION: No acute osseous abnormality identified in the right leg. Soft tissue swelling with mild air from ulceration or necrotizing infection. Electronically Signed: Brandie Gee MD at 12:25 EDT ,
[2024-06-11 11:36] LABS: Erythrocyte Sedimentation Rate 6 mm/hr (0-20)
[2024-06-11 11:38] LABS: Absolute Lymphocyte Count 0.95 X10^3/uL (0.83-4.51); Absolute Neutrophil Count 5.9 X10^3/uL (2.0-7.7); Basophil# 0.05 X10^3/uL; Basophil% 0.7 % (0-1); Eosinophil# 0.19 X10^3/uL; Eosinophils% 2.5 % (0-5); Hematocrit 43.2 % (40-54); Hemoglobin 14.3 g/dL (13.0-16.5); Lymphocyte # 0.95 X10^3/ul (0.83-4.51); Lymphocyte % 12.6 % (19-41); Mean Corp Hgb Conc 33.1 g/dL (32-36); Mean Corpuscular Hgb 32.4 pg (27.0-32.0); Mean Corpuscular Volume 97.7 fL (80-94); Mean Platelet Vol. 9.6 fl (6.2-12.0); Monocyte% 5.3 % (0-10); NRBC Flagged by Analyzer 0 % (0-5); Neutrophil # 5.86 X10^3/uL (2.7-7.7); Platelet Count 239 K/mm3 (150-450); RBC Distribution Width CV 13.9 % (11.6-14.6); RBC Distribution Width SD 50.4 fl (35.1-43.9); Red Blood Count 4.42 M/mm3 (4.6-6.2); White Blood Count 7.5 K/mm3 (4.4-11.0)
[2024-06-11 11:42] LABS: Anion Gap 5 (5-15); BUN 16 mg/dL (7-18); Calcium,Total 9.5 mg/dL (8.5-10.1); Chloride 107 mmol/L (98-107); Creatinine, Serum 0.89 mg/dL (0.70-1.30); EST Glomerular Filtration Rate 87 mL/min (>60); Est Glom Filt Rate - Afr Amer 105 mL/min (>60); Estimated Creatinine Clearance 64.04 ml/min; Glucose 90 mg/dL (74-106); Potassium 4.1 mmol/L (3.5-5.1); Sodium Level 137 mmol/L (136-145)
[2024-06-11 11:44] VITALS: BP 146/81; PULSE 97; O2SAT 99
[2024-06-11] MEDS: Vancomycin HCl 1,250 MG in 0.9% Normal Saline (250mL Bag) 250 ML 167 MG IV (12:03)
--- NOTE | 2024-06-11 12:03 | EDS_ITS ---
HPI History of Present Illness Chief Complaint: Cellulitis Informant: patient Narrative Narrative: 78-year-old male presents saying he has had pain and infection in his right ankle and leg for the past month. He was seen 3 weeks ago at an urgent care and placed on doxycycline, he states it did not do anything he took it for about a week and he has been on nothing for the past 2 weeks and this has been worsening. His next provider encounter was this morning at a different urgent care, which he states he saw the same provider that he saw initially at the other urgent care, and he said there is nothing I can do for you here, go to the ER. The patient denies any systemic symptoms or fevers. States is not a diabetic. He sees Dr. Orellana because of peripheral vascular disease in his legs for which he is on clopidogrel. He states he has had several wounds on the lateral aspect of his right lower leg and at the medial aspect of his right ankle, they have been seeping but the one at the medial aspect of the ankle has been sleeping more. He has no pain or numbness in his foot. He states he saw Dr. Orellana in the past couple weeks while all this was going on, states he had a recurrent ultrasound as an outpatient that he was told was fine it was scheduled as a routine follow-up because he had some arterial clots that were operated on in his right leg by Dr. Orellana in the past. [facility] Medical History Leg wound, left Left leg cellulitis Dermatitis History of skin cancer Hx of blood clots Frequent infections Home Medications ?Medication ?Instructions ?Recorded ?Last Taken ?Type aspirin 81 mg chewable tablet 81 mg PO DAILY 12/21/20 12/20/20 History clopidogrel 75 mg tablet (Plavix) 75 mg PO DAILY 11/06/21 Unknown History cephalexin 500 mg capsule 500 mg PO Q6 #40 CAPSULES 06/11/24 Unknown Rx ciprofloxacin HCl 500 mg tablet 500 mg PO BID #20 TABLETS 06/11/24 Unknown Rx oxycodone-acetaminophen 5 mg-325 1 tab PO Q6H PRN PRN Pain 3 days 06/11/24 Unknown Rx mg tablet #12 TABLETS Allergy/AdvReac Type Severity Reaction Status Date / Time Penicillins Allergy Anaphylaxis Verified 06/11/24 09:45 Surgical History History of appendectomy Social History Smoking Status: Current every day smoker tobacco type: cigarettes alcohol intake: current alcohol intake frequency: a few times a month substance use type: does not use ROS ROS ED Constitutional Constitutional ED: Denies chills or fever(s) Musculoskeletal Musculoskeletal: Reports extremity pain; Denies neck pain Integumentary Reports rash and wounds; Denies Abrasions Neurologic Neurologic: Denies paresthesias or weakness EXAM Physical Exam Const Vital Signs: 06/11/24 09:45 06/11/24 11:44 06/11/24 13:00 Temperature 98.6 F Temperature Source Oral Pulse Rate 93 97 86 Respiratory Rate 18 Blood Pressure 149/77 H 146/81 H 139/75 H Blood Pressure Mean 101 102 96 Pulse Ox 93 99 97 Oxygen Delivery Method Room Air Room Air Room Air Positive well nourished and well developed General Appearance ED: well developed and NAD Neck full ROM and supple Chest Wall inspection of chest normal and palpation of chest normal Resp normal respiratory effort and clear to auscultation bilaterally Cardio regular rate, regular rhythm and no murmurs Rate: Negative for tachycardic Back/Spine normal ROM and normal to inspection Extremity Extremity Narrative: All compartment soft and nondistended, full range of motion throughout all joints, see below for more regarding the right lower extremity. Neuro oriented x3, no focal motor deficits and no sensory deficits noted Sensorium / Orientation: alert Psych mental status grossly normal and thought process normal Skin Skin Narrative: 3 ulcerated relatively superficial wounds without any muscle involvement or beyond fascial planes lateral aspect of the right lower leg, very tender around this with some mild erythema, although the erythema does not extend distally before the ankle all of that area is tender as well. There is no subcutaneous emphysema. There is no active discharge. There is small amount granulation tissue within them. There is erythema around the ankle, he is able to move it without significant difficulty, and there is a wound that has some granulation tissue and is seeping but not with active discharge at the medial malleolus. All of this area is tender. There are more superficial wounds on the lateral aspect of the ankle that are not draining. There is a scab posterior to the medial malleoli are wound without any active bleeding and there is a dry scaly rash and a larger area around the medial aspect of the ankle and lower leg. There is a similar dry scaly rash at the medial aspect of the left ankle but there is no tenderness or wounds on the left lower extremity nor is there any tenderness throughout there or to the right foot. Difficult to palpate both pulses but he has brisk cap refill 2 seconds or less both feet and toes symmetrically. Rashes: no rashes MDM MDM MDM Narrative Medical decision making narrative: I advised the patient that he may benefit from admission. He understands the risks of not being admitted here, but refuses and wants to do antibiotics and pain medication for home. Initially obtained 2 view x-ray of the right tibia- fibula, on my interpretation they are negative for bone involvement or subcutaneous emphysema/fascial plane tracking. Clinically are not concerned about necrotizing fasciitis is much and the supports that. His white count is not elevated, CRP is elevated but his ESR is normal. Clinically he is not septic. I swabbed the medial ankle wound with chlorhexidine and then try to express some fresh seeping discharge, which barely any came out and sent to culture of this and give him a dose of IV vancomycin here. On reevaluation he still wants to be treated as an outpatient. Because I was concerned about the possibility of these being ischemic ulcers, I did ankle-brachial indices. It is 0.99 on the left, and 0.62 on the right. I spoke with Dr. Orellana the patient's vascular surgeon about this. He knows the patient and had his records available, states that he does not need to be admitted for the ABIs, and if the patient chooses to go home, he would see him in follow-up and plan on a repeat angiogram in order to evaluate the patency of the arterial vasculature of his right lower extremity. Patient is comfortable with that plan, and still wants to be treated as an outpatient. He received a dose of IV vancomycin 50 mg/kg here, nurses to do some dressings and teach the patient on home wound care for now, and will prescribe him cephalexin and ciprofloxacin for this apparent i nfection to cover skin organisms in addition to Pseudomonas. Lab Data Attestation: I reviewed the patient's lab results. Labs: Laboratory Results - last 24 hr 06/11/24 11:24 WBC 7.5 RBC 4.42 L Hgb 14.3 Hct 43.2 MCV 97.7 H MCH 32.4 H MCHC 33.1 RDW Std Deviation 50.4 H RDW Coeff of Johanna 13.9 Plt Count 239 MPV 9.6 Immature Gran % (Auto) 0.900 Neut % (Auto) 78.0 H Lymph % (Auto) 12.6 L Barren % (Auto) 5.3 Eos % (Auto) 2.5 Baso % (Auto) 0.7 Absolute Neuts (auto) 5.9 Absolute Lymphs (auto) 0.95 Nucleated RBC % 0 ESR 6 Sodium 137 Potassium 4.1 Chloride 107 Carbon Dioxide 25.0 Anion Gap 5 BUN 16 Creatinine 0.89 Estim Creat Clear Calc 64.04 Est GFR (MDRD) Af Amer 105 Est GFR (MDRD) Non-Af 87 BUN/Creatinine Ratio 18.0 Glucose 90 Calcium 9.5 C-React Prot Ext Range 32.30 H Radiography Diagnostic Testing: Clinical Impression(s) from Imaging Studies Tibia/Fibula X-Ray 06/11/24 10:59 IMPRESSION: No acute osseous abnormality identified in the right leg. Soft tissue swelling with mild air from ulceration or necrotizing infection. Electronically Signed: Brandie Gee MD at 12:25 EDT Reading Location ID and State: [facility] / [place] Tel , Service support , Management Discussion w/another healthcare provider: Credit Manager Discharge Plan Triage Chief Complaint: Cellulitis ED Provider: Larry Rosenbaum Dx/Rx/DC Orders Clinical Impression: Cellulitis of right leg without foot, Peripheral vascular disease of lower extremity with ulceration Instructions: PAD, Cellulitis Dc Prescriptions: New ciprofloxacin HCl 500 mg tablet 500 mg PO BID Qty: 20 0RF oxycodone-acetaminophen 5-325 mg tablet 1 tab PO Q6H PRN PRN (Reason: Pain) 3 Days Qty: 12 0RF cephalexin 500 mg capsule 500 mg PO Q6 Qty: 40 0RF No Action clopidogrel [Plavix] 75 mg tablet 75 mg PO DAILY aspirin 81 mg Tablet,Chewable 81 mg PO DAILY Primary Care Provider: Reynold Hernandez Referrals: Дмитрий Orellana MD [Med Staff - Active Staff] - (office to contact you) Reynold Hernandez MD [Primary Care Provider] - LEONELA ORELLANA NP-C [Non-Staff] - 3-5 Days Activity Restrictions/Additional Instructions: You have a higher chance of having diarrhea and/or C. difficile infection being on 2 antibiotics. To help mitigate this risk, take either a twice daily probiotic or eat yogurt every day while you are on the antibiotics. Print Language: Spanish Disposition Disposition: Home, Self Care
[2024-06-11 13:00] VITALS: BP 139/75; PULSE 86; O2SAT 97
[2024-06-11 13:45] VITALS: BP 139/75; PULSE 86; RESP 17; TEMP 36.6; O2SAT 99
== END 2024-06-11 13:55 | disposition home or self-care (01) ==
PROVIDERS: Emergency Provider Emergency Medicine; PCP Internal Medicine; Visit Provider Emergency Medicine
DX: I70.238 Atherosclerosis of native arteries of right leg with ulceration of other part of lower leg (principal); L97.811 Non-pressure chronic ulcer of other part of right lower leg limited to breakdown of skin; L03.115 Cellulitis of right lower limb; R79.82 Elevated C-reactive protein (CRP); F17.210 Nicotine dependence, cigarettes, uncomplicated; Z79.02 Long term (current) use of antithrombotics/antiplatelets; Z79.82 Long term (current) use of aspirin; Z79.899 Other long term (current) drug therapy
CPT/HCPCS: 73590; 80048; 85025; 85652; 86140; 87070; 87077; 87186; 87205; 93922; 96365; 96366; 99283; J7050; A4216

== ENCOUNTER 2024-07-13 10:56 | Emergency (ER) | payer MEDICARE, SELFPAY ==
[2024-07-13 10:56] VITALS: BP 167/84; PULSE 103; RESP 18; TEMP 36.9; O2SAT 97; BMI 25.1
--- NOTE | 2024-07-13 11:15 | EX.ED.DYSGE1 ---
HPI <MARY Qiu - Last Filed: 07/13/24 13:55> History of Present Illness Chief Complaint: Lower Extremity Injury Narrative Narrative: Patient presenting today with concerns for infection to his right lower extremity. He reports that he has had small ulcerative wounds to the lateral aspect of his right leg over the past 2 months. He reports that he has had worsening pain and swelling to his right leg over the last several days, prompting him to come in. He has been on multiple different antibiotics for these wounds including doxycycline, ciprofloxacin, Keflex, and most recently doxycycline again 2 weeks ago. He reports that none of the antibiotics have improved his symptoms. He does follow with a vascular surgeon at [place] and is scheduled to have a angiography on . He denies any fevers, chills, or history of diabetes. He does have a PMH of PAD. PFSH <MARY Qiu - Last Filed: 07/13/24 13:55> PFSH Medical History Leg wound, left Left leg cellulitis Dermatitis History of skin cancer Hx of blood clots Frequent infections Home Medications ?Medication ?Instructions ?Recorded ?Last Taken ?Type clopidogrel 75 mg tablet (Plavix) 75 mg PO DAILY 11/06/21 Unknown History cephalexin 500 mg capsule 500 mg PO Q6 #40 CAPSULES 06/11/24 Unknown Rx doxycycline hyclate 100 mg capsule 100 mg PO BID #10 caps 06/25/24 Unknown Rx sodium chloride 0.9 % irrigation 1 irrig irrigation QDAY wound care 06/25/24 Unknown Rx solution #8,000 mL Allergy/AdvReac Type Severity Reaction Status Date / Time Penicillins Allergy Anaphylaxis Verified 06/25/24 08:46 Surgical History History of appendectomy Social History Smoking Status: Current every day smoker tobacco type: cigarettes alcohol intake: current alcohol intake frequency: a few times a month substance use type: does not use ROS <MARY Qiu - Last Filed: 07/13/24 13:55> ROS ED Constitutional Constitutional ED: Denies chills or fever(s) Cardiovascular Cardiovascular: Denies chest pain Respiratory/Chest Respiratory/Chest: Denies dyspnea Gastrointestinal Gastrointestinal: Denies abdominal pain, nausea or vomiting Musculoskeletal Musculoskeletal: Reports other Details: RLE pain Integumentary Reports other Details: Chronic leg wounds Neurologic Neurologic: Denies paresthesias or weakness EXAM <MARY Qiu - Last Filed: 07/13/24 13:55> Physical Exam Const Vital Signs: 07/13/24 10:56 07/13/24 11:58 07/13/24 12:48 Temperature 98.4 F 98.4 F Temperature Source Oral Temporal Pulse Rate 103 H 103 H Respiratory Rate 18 18 Blood Pressure 167/84 H 167/84 H 137/78 H Blood Pressure Mean 111 111 97 Pulse Ox 97 97 Oxygen Delivery Method Room Air Positive well nourished, well developed and no apparent distress General Appearance ED: well developed HEENT Reports normocephalic and head/scalp atraumatic Mouth ED: Yes moist mucous membranes normal Eyes PERRL and EOMs intact bilaterally Neck full ROM and supple Chest Wall inspection of chest normal Resp normal respiratory effort and clear to auscultation bilaterally Cardio regular rate and regular rhythm GI soft to palpation, non-tender, non-distended and no masses Back/Spine normal ROM and normal to inspection Extremity full ROM Extremity Narrative: 3 small tender dime sized ulcerative superficial wounds to the lateral right lower extremity with minimal surrounding erythema, no active purulent discharge, chronic venous stasis dermatitis to the bilateral anterior lower extremities. Mild equal peripheral edema to the bilateral feet and ankles. Slight seeping of fluid to the right lower extremity. No crepitus. Monophasic bilateral DP pulses, biphasic bilateral PT pulses using the Doppler. Brisk capillary refill. No leg ischemia bilaterally, compartments are soft, no palpable cords. Neuro oriented x3, CN's II-XII intact bilaterally, moves all extremities, no focal motor deficits and no sensory deficits noted Sensorium / Orientation: awake and alert Psych mental status grossly normal and thought process normal Skin Rashes: No rashes noted <Dr. Kevin Phoenix MD - Last Filed: 07/13/24 14:38> Physical Exam Const Vital Signs: 07/13/24 10:56 07/13/24 11:58 07/13/24 12:48 Temperature 98.4 F 98.4 F Temperature Source Oral Temporal Pulse Rate 103 H 103 H Respiratory Rate 18 18 Blood Pressure 167/84 H 167/84 H 137/78 H Blood Pressure Mean 111 111 97 Pulse Ox 97 97 Oxygen Delivery Method Room Air [facility] <MARY Qiu - Last Filed: 07/13/24 13:55> [facility] Narrative Medical decision making narrative: Patient presenting today with 3 chronic symptoms small superficial ulcerative wounds to his right lower extremity that he has had for over 2 months. He has been seen in the ED previously for these and was treated with vancomycin here and prescriptions for Keflex and ciprofloxacin. He has been on 2 rounds of doxycycline. His symptoms are not improving despite the antibiotics. Low suspicion for acute infection at this time, he does have findings consistent with PAD on exam and has a previous history of this. He has no acute ischemia on exam. Labs were obtained, his CBC and BMP overall are unremarkable. He is following up with his vascular doctor for any angiography. I recommended he follow-up with his PCP as well. I do not feel antibiotics are indicated at this time. He will be discharged home in stable condition. I have personally performed a face to face assessment of the patient and have reviewed the RASHAUN Note. I performed a substantive portion of the visit including all aspects of the following. My flowers findings include: History is remarkable for diagnosis of cellulitis of his leg. He scheduled for arterial studies this coming Saturday. He denies fever, chills night sweats. He was seen in the emergency room approximate month ago. Started on antibiotics. He has since been seen by practitioner urgent care and his PCP. He was placed on doxycycline by the urgent care and the PCP extended the prescription of doxycycline. There is concern he has an infection. Nurse was concerned there was drainage. Exam is is remarkable for bilateral lymphedema. He has venous stasis dermatitis noted. He has nonhealing circular ulcers lateral aspect of the right calf. There is no warmth, induration or fluctuance. He does have pain near the medial malleolus. DP and PT pulse are not palpable. Flow noted DP and PT with Doppler. Flow was monophasic DP biphasic PT. There is no warmth, lymphangitis or popliteal lymphadenopathy. Medical Decision Making patient has a nonhealing wound due to peripheral vascular disease. His pain may be due to neuropathy. Since patient has flow his pain is not due to acute ischemia. Furthermore his foot is not pale and he does not have altered sensation from baseline CBC was obtained to assess white count as well as H&H. BMP to assess glucose, CO2 anion gap and renal function. Prior records were reviewed Other additions or changes: [None] Lab Data Labs: Laboratory Results - last 24 hr 07/13/24 11:16 WBC 6.4 RBC 3.98 L Hgb 12.7 L Hct 39.9 L MCV 100.3 H MCH 31.9 MCHC 31.8 L RDW Std Deviation 55.0 H RDW Coeff of Johanna 14.7 H Plt Count 262 MPV 9.5 Immature Gran % (Auto) 0.800 Neut % (Auto) 71.4 H Lymph % (Auto) 17.3 L Eagle % (Auto) 7.6 Eos % (Auto) 2.0 Baso % (Auto) 0.9 Absolute Neuts (auto) 4.5 Absolute Lymphs (auto) 1.10 Nucleated RBC % 0 Sodium 137 Potassium 4.1 Chloride 106 Carbon Dioxide 20.0 L Anion Gap 11 BUN 16 Creatinine 1.09 Estim Creat Clear Calc 52.29 Est GFR (MDRD) Af Amer 84 Est GFR (MDRD) Non-Af 69 BUN/Creatinine Ratio 14.7 Glucose 86 Calcium 9.3 <Dr. Kevin Phoenix MD - Last Filed: 07/13/24 14:38> MDM MDM Narrative Medical decision making narrative: Patient presenting today with 3 chronic symptoms small superficial ulcerative wounds to his right lower extremity that he has had for over 2 months. He has been seen in the ED previously for these. Treated with vancomycin here and prescriptions for Keflex and ciprofloxacin. He has been on 2 rounds of doxycycline. His symptoms are not improving despite the antibiotics. Low suspicion for acute infection at this time, he does have findings consistent with PAD on exam and has a previous history of this. I have personally performed a face to face assessment of the patient and have reviewed the RASHAUN Note. I performed a substantive portion of the visit including all aspects of the following. My flowers findings include: History is remarkable for diagnosis of cellulitis of his leg. He scheduled for arterial studies this coming Saturday. He denies fever, chills night sweats. He was seen in the emergency room approximate month ago. Started on antibiotics. He has since been seen by practitioner urgent care and his PCP. He was placed on doxycycline by the urgent care and the PCP extended the prescription of doxycycline. There is concern he has an infection. Nurse was concerned there was drainage. Exam is is remarkable for bilateral lymphedema. He has venous stasis dermatitis noted. He has nonhealing circular ulcers lateral aspect of the right calf. There is no warmth, induration or fluctuance. He does have pain near the medial malleolus. DP and PT pulse are not palpable. Flow noted DP and PT with Doppler. Flow was monophasic DP biphasic PT. There is no warmth, lymphangitis or popliteal lymphadenopathy. Medical Decision Making patient has a nonhealing wound due to peripheral vascular disease. His pain may be due to neuropathy. Since patient has flow his pain is not due to acute ischemia. Furthermore his foot is not pale and he does not have altered sensation from baseline CBC was obtained to assess white count as well as H&H. BMP to assess glucose, CO2 anion gap and renal function. Prior records were reviewed Other additions or changes: [None] History & Record Review Additional record(s) reviewed:: Prior ED visit and Prior labs Lab Data Attestation: I reviewed the patient's lab results. Labs: Laboratory Results - last 24 hr 07/13/24 11:16 WBC 6.4 RBC 3.98 L Hgb 12.7 L Hct 39.9 L MCV 100.3 H MCH 31.9 MCHC 31.8 L RDW Std Deviation 55.0 H RDW Coeff of Johanna 14.7 H Plt Count 262 MPV 9.5 Immature Gran % (Auto) 0.800 Neut % (Auto) 71.4 H Lymph % (Auto) 17.3 L Eagle % (Auto) 7.6 Eos % (Auto) 2.0 Baso % (Auto) 0.9 Absolute Neuts (auto) 4.5 Absolute Lymphs (auto) 1.10 Nucleated RBC % 0 Sodium 137 Potassium 4.1 Chloride 106 Carbon Dioxide 20.0 L Anion Gap 11 BUN 16 Creatinine 1.09 Estim Creat Clear Calc 52.29 Est GFR (MDRD) Af Amer 84 Est GFR (MDRD) Non-Af 69 BUN/Creatinine Ratio 14.7 Glucose 86 Calcium 9.3 Discharge Plan Triage Chief Complaint: Lower Extremity Injury ED Midlevel Provider: Meghan Figueroa ED Provider: Kevin Phoenix Dx/Rx/DC Orders Clinical Impression: Peripheral vascular occlusive disease, Leg edema, Chronic wound, Nonhealing nonsurgical wound with fat layer exposed, Elevated blood pressure reading with diagnosis of hypertension Instructions: ED Peripheral Artery Disease (PAD), ED Wound Check (No Infection) Prescriptions: No Action clopidogrel [Plavix] 75 mg tablet 75 mg PO DAILY doxycycline hyclate 100 mg capsule 100 mg PO BID Qty: 10 0RF Rx Instructions: Take with food sodium chloride 0.9 % solution 1 irrig irrigation QDAY Qty: 8000 0RF cephalexin 500 mg capsule 500 mg PO Q6 Qty: 40 0RF Primary Care Provider: Reynold Hernandez Referrals: Reynold Hernandez MD [Primary Care Provider] - 3-5 Days Activity Restrictions/Additional Instructions: Please follow-up with your vascular surgeon and your primary care doctor. Return for any worsening of your symptoms. Start keeping your legs elevated and wearing compression socks. Print Language: Danish Disposition Disposition: Home, Self Care Discharge Date/Time: 07/13/24 12:48
[2024-07-13 11:31] LABS: Absolute Neutrophil Count 4.5 X10^3/uL (2.0-7.7); Basophil# 0.06 X10^3/uL; Basophil% 0.9 % (0-1); Eosinophil# 0.13 X10^3/uL; Hematocrit 39.9 % (40-54); Hemoglobin 12.7 g/dL (13.0-16.5); Lymphocyte % 17.3 % (19-41); Mean Corp Hgb Conc 31.8 g/dL (32-36); Mean Corpuscular Hgb 31.9 pg (27.0-32.0); Mean Corpuscular Volume 100.3 fL (80-94); Mean Platelet Vol. 9.5 fl (6.2-12.0); Monocyte# 0.48 X10^3/uL; Monocyte% 7.6 % (0-10); NRBC Flagged by Analyzer 0 % (0-5); Neutrophil # 4.53 X10^3/uL (2.7-7.7); Neutrophil % 71.4 % (47-70); Platelet Count 262 K/mm3 (150-450); RBC Distribution Width CV 14.7 % (11.6-14.6); Red Blood Count 3.98 M/mm3 (4.6-6.2); White Blood Count 6.4 K/mm3 (4.4-11.0)
[2024-07-13 11:40] LABS: Anion Gap 11 (5-15); BUN 16 mg/dL (7-18); BUN/Creat Ratio 14.7 RATIO (10-20); Calcium,Total 9.3 mg/dL (8.5-10.1); Chloride 106 mmol/L (98-107); Creatinine, Serum 1.09 mg/dL (0.70-1.30); EST Glomerular Filtration Rate 69 mL/min (>60); Est Glom Filt Rate - Afr Amer 84 mL/min (>60); Estimated Creatinine Clearance 52.29 ml/min; Glucose 86 mg/dL (74-106); Potassium 4.1 mmol/L (3.5-5.1); Sodium Level 137 mmol/L (136-145)
[2024-07-13 11:58] VITALS: BP 167/84; PULSE 103; RESP 18; TEMP 36.9; O2SAT 97
[2024-07-13 12:48] VITALS: BP 137/78
== END 2024-07-13 12:48 | disposition home or self-care (01) ==
PROVIDERS: Physician Assistant; Emergency Provider Emergency Medicine; PCP Internal Medicine; Visit Provider Emergency Medicine
DX: I70.232 Atherosclerosis of native arteries of right leg with ulceration of calf (principal); L97.212 Non-pressure chronic ulcer of right calf with fat layer exposed; R60.0 Localized edema; R03.0 Elevated blood-pressure reading, without diagnosis of hypertension; I89.0 Lymphedema, not elsewhere classified; F17.210 Nicotine dependence, cigarettes, uncomplicated; Z79.02 Long term (current) use of antithrombotics/antiplatelets; Z79.899 Other long term (current) drug therapy
CPT/HCPCS: 80048; 85025; 99282; A4216

== ENCOUNTER 2024-07-24 08:28 | Inpatient (IN) | payer MEDICARE, SELFPAY ==
[2024-07-24] VITALS (7 sets, daily range): BP systolic 123–138; BP diastolic 64–100; PULSE 80–95; RESP 14–18; TEMP 36.4–36.8; O2SAT 94–98; BMI 25.0
[2024-07-24] MEDS: levoFLOXacin IV 750 MG/150 ML BAG 100 MG IV (09:23)
[2024-07-24 09:27] LABS: Absolute Lymphocyte Count 0.56 X10^3/uL (0.83-4.51); Absolute Neutrophil Count 4.8 X10^3/uL (2.0-7.7); Basophil# 0.06 X10^3/uL; Eosinophil# 0.14 X10^3/uL; Eosinophils% 2.2 % (0-5); Hematocrit 39.2 % (40-54); Hemoglobin 13.1 g/dL (13.0-16.5); Lymphocyte # 0.56 X10^3/ul (0.83-4.51); Mean Corp Hgb Conc 33.4 g/dL (32-36); Mean Corpuscular Hgb 32.9 pg (27.0-32.0); Mean Corpuscular Volume 98.5 fL (80-94); Monocyte# 0.59 X10^3/uL; Monocyte% 9.5 % (0-10); NRBC Flagged by Analyzer 0 % (0-5); Neutrophil # 4.84 X10^3/uL (2.7-7.7); Neutrophil % 77.5 % (47-70); POSITIVE DIFFERENTIAL YES; Platelet Count 301 K/mm3 (150-450); RBC Distribution Width CV 14.7 % (11.6-14.6); RBC Distribution Width SD 53.5 fl (35.1-43.9); Red Blood Count 3.98 M/mm3 (4.6-6.2); White Blood Count 6.2 K/mm3 (4.4-11.0)
[2024-07-24 09:46] LABS: Lactic Acid 1.7 mmol/L (0.4-1.9)
[2024-07-24] MEDS: Morphine 4 MG/ML Syringe IV ×5 (09:48→22:20)
[2024-07-24] MEDS: Ondansetron 4 MG/2 ML Vial IV (09:48)
[2024-07-24 09:59] LABS: Anion Gap 4 (5-15); BUN 13 mg/dL (7-18); BUN/Creat Ratio 13.8 RATIO (10-20); Calcium,Total 9.2 mg/dL (8.5-10.1); Chloride 103 mmol/L (98-107); Creatinine, Serum 0.94 mg/dL (0.70-1.30); EST Glomerular Filtration Rate 82 mL/min (>60); Est Glom Filt Rate - Afr Amer 99 mL/min (>60); Estimated Creatinine Clearance 60.64 ml/min; Glucose 98 mg/dL (74-106); Potassium 4.6 mmol/L (3.5-5.1); Sodium Level 133 mmol/L (136-145)
[2024-07-24] MEDS: Vancomycin IV 1,000 MG/200 ML BAG 200 MG IV (11:14)
[2024-07-24] MEDS: oxyCODONE 5 MG Tablet PO ×2 (12:36→20:33)
[2024-07-24] MEDS: Furosemide 40 MG/4 ML Vial IV (12:36)
[2024-07-24] MEDS: Acetaminophen 500 MG Tablet 1000 MG PO ×2 (13:51→22:20)
[2024-07-24] MEDS: 0.9% Saline Lock 10 ML Syringe IV ×2 (18:46→20:33)
[2024-07-24] MEDS: Vancomycin IV 500 MG/100 ML BAG 100 MG IV (22:21)
[2024-07-25 02:20] VITALS: BP 128/74; PULSE 83; RESP 16; TEMP 36.5; O2SAT 94
[2024-07-25] MEDS: Morphine 4 MG/ML Syringe IV (02:20)
[2024-07-25] MEDS: 0.9% Saline Lock 10 ML Syringe IV ×2 (02:21→09:39)
[2024-07-25] MEDS: Acetaminophen 500 MG Tablet 1000 MG PO ×3 (05:24→21:34)
[2024-07-25] MEDS: oxyCODONE 5 MG Tablet PO (05:24)
[2024-07-25 07:18] LABS: Absolute Lymphocyte Count 0.65 X10^3/uL (0.83-4.51); Absolute Neutrophil Count 4.7 X10^3/uL (2.0-7.7); Basophil# 0.04 X10^3/uL; Basophil% 0.6 % (0-1); Eosinophil# 0.13 X10^3/uL; Eosinophils% 2.1 % (0-5); Hematocrit 38.1 % (40-54); Hemoglobin 12.3 g/dL (13.0-16.5); Lymphocyte # 0.65 X10^3/ul (0.83-4.51); Lymphocyte % 10.4 % (19-41); Mean Corp Hgb Conc 32.3 g/dL (32-36); Mean Corpuscular Hgb 31.9 pg (27.0-32.0); Mean Platelet Vol. 9.2 fl (6.2-12.0); Monocyte# 0.74 X10^3/uL; Monocyte% 11.8 % (0-10); NRBC Flagged by Analyzer 0 % (0-5); Neutrophil % 74.8 % (47-70); Platelet Count 300 K/mm3 (150-450); RBC Distribution Width CV 14.7 % (11.6-14.6); RBC Distribution Width SD 53.6 fl (35.1-43.9); Red Blood Count 3.85 M/mm3 (4.6-6.2); White Blood Count 6.3 K/mm3 (4.4-11.0)
[2024-07-25 08:11] LABS: Anion Gap 6 (5-15); BUN 12 mg/dL (7-18); BUN/Creat Ratio 15.8 RATIO (10-20); Calcium,Total 9.2 mg/dL (8.5-10.1); Chloride 106 mmol/L (98-107); Creatinine, Serum 0.76 mg/dL (0.70-1.30); EST Glomerular Filtration Rate 105 mL/min (>60); Est Glom Filt Rate - Afr Amer 127 mL/min (>60); Estimated Creatinine Clearance 71.25 ml/min; Glucose 87 mg/dL (74-106); Sodium Level 137 mmol/L (136-145)
[2024-07-25] MEDS: Ondansetron 4 MG/2 ML Vial IV (09:32)
[2024-07-25] MEDS: Enoxaparin 40 MG/0.4 ML Syringe SC (09:34)
[2024-07-25] MEDS: oxyCODONE 5 MG Tablet 10 MG PO ×3 (09:35→21:33)
[2024-07-25] MEDS: Clopidogrel Bisulfate 75 MG Tablet PO (09:35)
[2024-07-25] MEDS: levoFLOXacin IV 750 MG/150 ML BAG 100 MG IV (09:47)
[2024-07-25 10:00] VITALS: BP 137/65; PULSE 99; RESP 16; TEMP 36.5; O2SAT 93
[2024-07-25] MEDS: Vancomycin IV 500 MG/100 ML BAG 100 MG IV (12:28)
[2024-07-25 16:00] VITALS: BP 140/83; PULSE 81; RESP 16; TEMP 36.6; O2SAT 94
[2024-07-25 21:20] VITALS: BP 123/89; PULSE 85; RESP 16; TEMP 36.5; O2SAT 94
[2024-07-25 23:39] LABS: Vancomycin, Trough Level 8.5 ug/mL (5.0-15.0)
[2024-07-26] MEDS: Vancomycin HCl 750 MG in 0.9% Normal Saline (250mL Bag) 250 ML 250 MG IV ×3 (00:08→23:45)
[2024-07-26 03:30] VITALS: BP 141/90; PULSE 90; RESP 16; TEMP 36.5; O2SAT 95
[2024-07-26] MEDS: Acetaminophen 500 MG Tablet 1000 MG PO ×3 (05:07→21:26)
[2024-07-26] MEDS: oxyCODONE 5 MG Tablet 10 MG PO ×3 (05:07→21:26)
[2024-07-26] MEDS: Enoxaparin 40 MG/0.4 ML Syringe SC (09:18)
[2024-07-26] MEDS: levoFLOXacin IV 750 MG/150 ML BAG 100 MG IV (09:18)
[2024-07-26] MEDS: Clopidogrel Bisulfate 75 MG Tablet PO (09:18)
[2024-07-26 09:45] VITALS: BP 119/73; PULSE 83; RESP 16; TEMP 36.7; O2SAT 96
[2024-07-26 15:40] VITALS: BP 136/82; PULSE 81; RESP 16; TEMP 36.8; O2SAT 96
[2024-07-26 21:32] VITALS: BP 151/78; PULSE 65; RESP 16; TEMP 36.4; O2SAT 95
[2024-07-27] MEDS: oxyCODONE 5 MG Tablet 10 MG PO ×3 (02:43→22:18)
[2024-07-27 02:49] VITALS: BP 141/79; PULSE 80; RESP 16; TEMP 36.7; O2SAT 94
[2024-07-27] MEDS: Acetaminophen 500 MG Tablet 1000 MG PO ×3 (05:10→22:16)
[2024-07-27 09:02] VITALS: BP 106/67; PULSE 82; RESP 16; TEMP 36.7; O2SAT 95
[2024-07-27] MEDS: levoFLOXacin IV 750 MG/150 ML BAG 100 MG IV (09:27)
[2024-07-27] MEDS: Enoxaparin 40 MG/0.4 ML Syringe SC (09:30)
[2024-07-27] MEDS: Clopidogrel Bisulfate 75 MG Tablet PO (09:30)
[2024-07-27 11:39] LABS: Vancomycin, Trough Level 12.4 ug/mL (5.0-15.0)
[2024-07-27] MEDS: Vancomycin HCl 750 MG in 0.9% Normal Saline (250mL Bag) 250 ML 250 MG IV ×2 (12:08→22:16)
[2024-07-27] MEDS: Vancomycin Trough/Random Due 1 LAB MC (13:19)
[2024-07-27 14:08] VITALS: BP 132/80; PULSE 80; RESP 16; TEMP 37.2; O2SAT 96
[2024-07-27] MEDS: 0.9% Saline Lock 10 ML Syringe IV (22:16)
[2024-07-27 22:34] VITALS: BP 128/79; PULSE 78; RESP 16; TEMP 36.2; O2SAT 94
[2024-07-28] MEDS: oxyCODONE 5 MG Tablet 10 MG PO ×2 (05:25→09:51)
[2024-07-28] MEDS: Acetaminophen 500 MG Tablet 1000 MG PO (05:26)
[2024-07-28 05:31] VITALS: BP 141/81; PULSE 73; RESP 16; TEMP 36.9; O2SAT 95
[2024-07-28 09:45] VITALS: BP 123/75; PULSE 74; RESP 16; TEMP 36.8; O2SAT 97
[2024-07-28] MEDS: Clopidogrel Bisulfate 75 MG Tablet PO (09:48)
== END 2024-07-28 12:20 | disposition home health service (06) | DRG 603 ==
LOC: ED 11:32 → MS3 11:48
PROVIDERS: Emergency Provider Emergency Medicine; PCP Internal Medicine; Visit Provider Internal Medicine
DX: L03.115 Cellulitis of right lower limb (principal); T82.856A Stenosis of peripheral vascular stent, initial encounter; B95.2 Enterococcus as the cause of diseases classified elsewhere; I73.9 Peripheral vascular disease, unspecified; I87.2 Venous insufficiency (chronic) (peripheral); F17.210 Nicotine dependence, cigarettes, uncomplicated; S80.811A Abrasion, right lower leg, initial encounter; X58.XXXA Exposure to other specified factors, initial encounter; B96.89 Other specified bacterial agents as the cause of diseases classified elsewhere; B95.61 Methicillin susceptible Staphylococcus aureus infection as the cause of diseases classified elsewhere; Y71.2 Prosthetic and other implants, materials and accessory cardiovascular devices associated with adverse incidents; R60.0 Localized edema; Z79.02 Long term (current) use of antithrombotics/antiplatelets; Z86.718 Personal history of other venous thrombosis and embolism; Z95.820 Peripheral vascular angioplasty status with implants and grafts
CPT/HCPCS: 36415; 73701; 80048; 80202; 83605; 85025; 87040; 87070; 87077; 87186; 87205; 87640; 93970; 99285; J7050; Q9967; A4216; J1940; J2405

== ENCOUNTER 2024-08-17 08:00 | Inpatient (IN) | payer MEDICARE, SELFPAY ==
[2024-08-17] VITALS (8 sets, daily range): BP systolic 109–168; BP diastolic 62–92; PULSE 60–98; RESP 15–20; TEMP 36.6–37; O2SAT 92–98; BMI 23.8; BMI 24.3
--- NOTE | 2024-08-17 08:16 | EKG12_ITS ---
Test Reason : GENERAL Blood Pressure : */* mmHG Vent. Rate : 90 BPM Atrial Rate : 90 BPM P-R Int : 156 ms QRS Dur : 86 ms QT Int : 372 ms P-R-T Axes : 72 62 70 degrees QTcB Int : 455 ms Sinus rhythm with Premature supraventricular complexes and with occasional Premature ventricular comp lexes Nonspecific ST abnormality Abnormal ECG Confirmed by KIARA NIETO, BRAIN ([id number]), design editor JESSICA QUINTERO ([id number] on 08/20/2024 2:21:00 PM Referred By: Confirmed By: BRAIN CRAIG MD
[2024-08-17 08:35] LABS: Absolute Lymphocyte Count 0.74 X10^3/uL (0.83-4.51); Absolute Neutrophil Count 5.4 X10^3/uL (2.0-7.7); Basophil# 0.04 X10^3/uL; Basophil% 0.6 % (0-1); Eosinophil# 0.04 X10^3/uL; Eosinophils% 0.6 % (0-5); Hematocrit 39.4 % (40-54); Hemoglobin 12.7 g/dL (13.0-16.5); Lymphocyte # 0.74 X10^3/ul (0.83-4.51); Lymphocyte % 10.9 % (19-41); Mean Corp Hgb Conc 32.2 g/dL (32-36); Mean Corpuscular Hgb 32.6 pg (27.0-32.0); Mean Platelet Vol. 8.7 fl (6.2-12.0); Monocyte% 7.4 % (0-10); NRBC Flagged by Analyzer 0 % (0-5); Neutrophil # 5.44 X10^3/uL (2.7-7.7); Neutrophil % 80.1 % (47-70); Platelet Count 345 K/mm3 (150-450); RBC Distribution Width CV 15.7 % (11.6-14.6); RBC Distribution Width SD 57.3 fl (35.1-43.9); White Blood Count 6.8 K/mm3 (4.4-11.0)
[2024-08-17] MEDS: Ondansetron 4 MG/2 ML Vial IV (08:37)
[2024-08-17] MEDS: Morphine 4 MG/ML Syringe IV ×2 (08:37→15:25)
[2024-08-17] MEDS: levoFLOXacin IV 750 MG/150 ML BAG 100 MG IV (08:39)
[2024-08-17] MEDS: 0.9% Normal Saline (1000mL) 1,000 ML 250 ML IV (08:39)
[2024-08-17 08:49] LABS: Prothrombin Time (Protime)PT. 13.1 SECONDS (11.7-14.9)
[2024-08-17 08:50] LABS: Partial Thromboplast Time 27.8 Seconds (24.1-36.2)
--- NOTE | 2024-08-17 08:52 | EDS_ITS ---
HPI History of Present Illness Chief Complaint: Wound Detail of Chief Complaint: Weeping wound right leg and foot with pain and redness Informant: patient and family Onset/Context/Timing Onset: Days (Onset approximately 3 days ago) Context: Sudden Onset Timing: Continuous Quality: Pain, redness, swelling and drainage Location: Right leg and foot including toes Current Severity: Severe Maximum Severity: Severe Worsened by: Open wounds Relieved by: Nothing Associated Symptoms Associated Symptoms: Denies fever or chills. Denies history medic fever, heart murmur, mitral v Narrative Narrative: Patient is an 78-year-old male. He was recently admitted to the hospital.He was treated with levofloxacin and vancomycin because of his allergy to penicillin. Culture grew MSSA, Enterococcus, Enterobacter, alcalgenes and gram-negative rods. he was seen by infectious disease. Patient has had scheduled to follow- up with wound clinic for some time. Patient denies fever, chills night sweats. Patient denies cardiac or respiratory symptoms. Patient denies GI symptoms. Patient denies urologic symptoms. Patient does have history of peripheral arterial disease. He does intermittently get calf pain with walking. He could not tell me how far he could walk before he gets pain. Most recent admission, consult notes and outpatient notes were reviewed. Prior similar symptoms: Yes Recent Illness/Hospitalization: Yes PFSH PFSH Medical History Cellulitis of right leg Ulcer of right leg Leg wound, left Left leg cellulitis Dermatitis History of skin cancer Hx of blood clots Frequent infections Home Medications ?Medication ?Instructions ?Recorded ?Last Taken ?Type clopidogrel 75 mg tablet (Plavix) 75 mg PO DAILY 11/06/21 08/17/24 History acetaminophen 500 mg capsule 1,000 mg PO Q6H PRN fever or pain 08/17/24 08/17/24 History Allergy/AdvReac Type Severity Reaction Status Date / Time Penicillins Allergy Anaphylaxis Verified 08/17/24 08:01 Surgical History History of appendectomy Social History Smoking Status: Current every day smoker tobacco type: cigarettes alcohol intake: current alcohol intake frequency: a few times a month substance use type: does not use ROS ROS ED Constitutional Constitutional ED: Denies chills, fever(s), subjective, sweats or weight loss Eyes Eyes: Denies blurry vision or change in vision ENT ENT ED: Denies ear pain or rhinorrhea Cardiovascular Cardiovascular: Denies chest pain or palpitations Respiratory/Chest Respiratory/Chest: Denies cough, dyspnea or dyspnea on exertion Gastrointestinal Gastrointestinal: Denies abdominal pain, nausea or vomiting Genitourinary Genitourinary ED: Denies dysuria, hematuria or urinary frequency Musculoskeletal Musculoskeletal: Denies arthralgias, back pain or myalgias Integumentary Reports rash Neurologic Neurologic: Denies paresthesias or weakness Endocrine Endocrinology: Denies cold intolerance or heat intolerance Hematologic/Lymphatic Hematologic/Lymphatic: Reports systems reviewed and no addt'l complaints, except as documented EXAM Physical Exam Const Vital Signs: 08/17/24 08:00 08/17/24 08:25 08/17/24 09:03 Temperature 98 F 98 F Temperature Source Temporal Oral Pulse Rate 60 80 Respiratory Rate 16 16 Blood Pressure 147/81 H 168/62 H Blood Pressure Mean 103 97 Pulse Ox 92 96 Oxygen Delivery Method Room Air Room Air Positive well nourished and well developed General Appearance ED: well developed and pallor; Negative for NAD HEENT Reports moist mucous membranes HEENT Narrative: Head is atraumatic normocephalic. Patient wears glasses. Nares patent. Mucosa moist. Eyes PERRL and EOMs intact bilaterally General Eye ED: Negative for scleral icterus Neck no lymphadenopathy, supple and no JVD Chest Wall inspection of chest normal and palpation of chest normal Resp normal respiratory effort and clear to auscultation bilaterally Cardio regular rate, regular rhythm, S1 normal heart sound, S2 normal heart sound and no murmurs GI normal to inspection, nondistended, normoactive bowel sounds, non-tender, non- distended and no masses; Negative for hepatosplenomegaly Back/Spine no CVA tenderness General Back: Negative for CVA tenderness Extremity Negative for normal to inspection Extremity Narrative: Patient has venous stasis dermatitis with pitting edema left leg and foot. The right leg, foot and toes are cellulitic. There are multiple open wounds. 1 area may have colored drainage. There is no lymphangitis. Patient complains of pain in the popliteal fossa but there is no palpable lymph nodes. There is no inguinal lymphadenopathy. Patient has marked edema of the right lower extremity. Neuro oriented x3 and CN's II-XII intact bilaterally Sensorium / Orientation: alert Psych mental status grossly normal Skin No no rashes or lesions noted and No no wounds General Skin Exam: pallor; Negative for jaundice Sepsis Attestation Sepsis Alert: Yes Date exam was performed: 08/17/24 Time exam was performed: 08:07 Possible Source of Sepsis: Skin/soft tissue Supportive Findings: Patient has no SIRS criteria. Patient does have an elevated lactate. MDM MDM MDM Narrative Medical decision making narrative: Based on patient's allergy prior culture results patient was treated with vancomycin and levofloxacin. He has anaphylaxis to penicillin. Sepsis workup was undertaken to assess for endorgan dysfunction. Patient will require admission to the hospital. History & Record Review Additional record(s) reviewed:: Prior inpatient record, Prior outpatient record (Outpatient wound note was reviewed as well.), Prior ED visit and Prior labs Lab Data Attestation: I reviewed the patient's lab results. Lab results narrative: White count is unremarkable. Patient has mild anemia with a hemoglobin 12.7. Coags are normal. Lactate is elevated 2.5. CO2 is 20 with a normal anion gap. There is no evidence of endorgan dysfunction. Labs: Laboratory Results - last 24 hr 08/17/24 08:11 WBC 6.8 RBC 3.90 L Hgb 12.7 L Hct 39.4 L MCV 101.0 H MCH 32.6 H MCHC 32.2 RDW Std Deviation 57.3 H RDW Coeff of Johanna 15.7 H Plt Count 345 MPV 8.7 Immature Gran % (Auto) 0.400 Neut % (Auto) 80.1 H Lymph % (Auto) 10.9 L [place] % (Auto) 7.4 Eos % (Auto) 0.6 Baso % (Auto) 0.6 Absolute Neuts (auto) 5.4 Absolute Lymphs (auto) 0.74 L Nucleated RBC % 0 PT 13.1 INR 1.0 APTT 27.8 Sodium 135 L Potassium 4.2 Chloride 107 Carbon Dioxide 20.0 L Anion Gap 8 BUN 16 Creatinine 1.03 Estim Creat Clear Calc 55.34 Est GFR (MDRD) Af Amer 89 Est GFR (MDRD) Non-Af 74 BUN/Creatinine Ratio 15.5 Glucose 99 Lactic Acid 2.5 H* Calcium 9.4 Total Bilirubin 0.80 AST 17 ALT 25 Alkaline Phosphatase 36 L Total Protein 7.4 Albumin 3.2 Globulin 4.2 Albumin/Globulin Ratio 0.8 L EKG Initial EKG: Attestation: I personally reviewed and interpreted this EKG as follows: Interpretation: Sinus Rhythm (Rate is 90. Parables 156 ms Rickers duration 86 ms. QT duration 172 ms. Magee is normal. There is artifact. There are premature beats noted. The premature beats are ventricular in origin. There is nonseptic changes as well as artifact.) Management Discussion w/another healthcare provider: Hospitalist (Case was discussed with Dr. Caterina Parrish. Patient be admitted [facility]. CT of the leg was obtained to evaluate for abscess.) Discharge Plan Triage Chief Complaint: Wound ED Provider: Kevin Phoenix Dx/Rx/DC Orders Clinical Impression: Cellulitis of right lower extremity, Peripheral vascular occlusive disease, Chele matitis, Nonhealing nonsurgical wound with fat layer exposed Prescriptions: No Action clopidogrel [Plavix] 75 mg tablet 75 mg PO DAILY acetaminophen 500 mg capsule 1,000 mg PO Q6H PRN (Reason: fever or pain) Primary Care Provider: Reynold Hernandez Referrals: Reynold Hernandez MD [Primary Care Provider] - Print Language: Greenlandic Disposition Disposition: Acute Care Hospital [facility]
[2024-08-17 09:04] LABS: Lactic Acid 2.5 mmol/L (0.4-1.9)
--- NOTE | 2024-08-17 09:04 | ED.RN ---
LAB CALLED [facility]ACTIC OF 2.5. DR PRETTY
[2024-08-17 09:06] LABS: ALB/GLOB Ratio 0.8 RATIO (0.9-2.4); AST(SGOT) 17 U/L (15-37); Alanine Aminotransfer ALT/SGPT 25 U/L (16-61); Albumin, Serum 3.2 g/dL (3.2-5.0); Alkaline Phosphatase 36 U/L (45-117); Anion Gap 8 (5-15); BUN 16 mg/dL (7-18); BUN/Creat Ratio 15.5 RATIO (10-20); Calcium,Total 9.4 mg/dL (8.5-10.1); Chloride 107 mmol/L (98-107); Creatinine, Serum 1.03 mg/dL (0.70-1.30); EST Glomerular Filtration Rate 74 mL/min (>60); Est Glom Filt Rate - Afr Amer 89 mL/min (>60); Estimated Creatinine Clearance 55.34 ml/min; Globulin 4.2 g/dL (2.2-4.2); Glucose 99 mg/dL (74-106); Potassium 4.2 mmol/L (3.5-5.1); Protein, Total 7.4 g/dL (6.4-8.2); Sodium Level 135 mmol/L (136-145)
--- NOTE | 2024-08-17 10:20 | CT_ITS ---
CT RIGHT LOWER EXTREMITY WITH 3-D IMAGING CLINICAL INDICATION: right leg wound TECHNIQUE: Axial CT images of the RIGHT lower extremity was performed IV contrast material. Coronal and sagittal reformats were provided. The protocol utilizes one or more of the following dose reduction techniques: automated exposure control, adjustment of mA and/or kV according to patient size,and/or use of iterative reconstruction technique. RADIATION DOSAGE (If Supplied By Facility): CTDIvol = ( 15.35 ) mGy, DLP = ( 967.81 ) mGycm COMPARISON: July 25, 2024 FINDINGS: Bones: Osseous structures are normal without evidence of fracture or dislocation. No lytic or blastic osseous masses. Soft Tissues: There is few subcutaneous edema within the superficial soft tissues without evidence of hematoma, or foreign body. There is There are vascular calcifications. There appears to be a stable occluded stent. CT/Extremity Lower without Contra IMPRESSION: Diffuse subcutaneous edema. Atherosclerosis. Electronically Signed: Erica Buck MD at 11:42 EST ,
[2024-08-17] MEDS: Vancomycin HCl 2,000 MG in 0.9% Normal Saline (500mL Bag) 500 ML 250 MG IV (10:34)
[2024-08-17] MEDS: Clopidogrel Bisulfate 75 MG Tablet PO (11:44)
[2024-08-17] MEDS: oxyCODONE 5 MG Tablet PO ×2 (11:44→19:59)
[2024-08-17] MEDS: Gabapentin 100 MG Capsule PO ×2 (11:44→17:14)
--- NOTE | 2024-08-17 11:49 | PCM.RX.CS ---
Consult Antibiotic Management Pharmacy has been consulted to manage selected antibiotic: Vancomycin Type of Intervention Type of Consult: New start Suspected Infection Suspected Infection: Skin/Soft tissue Prior Doses of Antibiotics Prior Doses of Antibiotics Received/Current Regimen: Vancomycin 2000 mg IV x 1 given 08/17/24 @ 1034 Labs Labs: Sodium 135 mmol/L (136-145) L 08/17/24 08:11 Potassium 4.2 mmol/L (3.5-5.1) 08/17/24 08:11 Chloride 107 mmol/L (98-107) 08/17/24 08:11 Carbon Dioxide 20.0 mmol/L (21.0-32.0) L 08/17/24 08:11 Anion Gap 8 (5-15) 08/17/24 08:11 BUN 16 mg/dL (7-18) 08/17/24 08:11 Creatinine 1.03 mg/dL (0.70-1.30) 08/17/24 08:11 Est GFR (MDRD) Af Amer 89 mL/min (>60) 08/17/24 08:11 Est GFR (MDRD) Non-Af 74 mL/min (>60) 08/17/24 08:11 BUN/Creatinine Ratio 15.5 RATIO (10-20) 08/17/24 08:11 Glucose 99 mg/dL (74-106) 08/17/24 08:11 Dosing Weight Weight used for dosin kg Estimated Creatinine Clearance Estimated Creatinine Clearance: ~ 55 Goal Trough Goal Trough: 10-15 mcg/mL Pharmacy Plan for Drug Dosing Pharmacy Plan for Drug Dosing: Vancomycin 2000 mg IV x 1 followed by 500 mg Q12H Pharmacy Service will continue to monitor and adjust dosing as required. Follow-Up Labs Follow-Up Labs: Trough: Vancomycin Date/Time Labs Ordered Labs to be done on [date and time ordered]: 08/18/24 @ 2552
[2024-08-17 12:31] LABS: Reflex Lactate? Y
[2024-08-17 13:25] LABS: Lactic Acid 1.7 mmol/L (0.4-1.9)
[2024-08-17] MEDS: Acetaminophen 500 MG Tablet 1000 MG PO ×2 (14:44→23:01)
--- NOTE | 2024-08-17 15:30 | CT_ITS ---
CT angiogram of the abdominal aorta with bilateral lower extremity runoff with 3-dimensional reconstructions, with MIP reconstructions Clinical history: PVD Technique: Multiple helical CT images were obtained from the domes the diaphragms to level of feet after intravenous administration of 100 cc Isovue-370 iodinated contrast with transaxial, coronal and sagittal multiplanar reconstructions. On a separate workstation, 3-dimensional reconstructions were obtained of the arterial vasculature using volume rendering technique and maximal intensity projection technique as per departmental protocol. The protocol utilizes one or more of the following dose reduction techniques: automated exposure control, adjustment of mA and/or kV according to patient size,and/or use of iterative reconstruction technique. RADIATION DOSAGE (If Supplied By Facility): CTDIvol = ( 6.41 ) mGy, DLP = ( 1238.31 ) mGycm COMPARISON: No relevant prior comparison study available FINDINGS: ABDOMEN / PELVIS: The visualized portions of the liver are unremarkable. The visualized portions of the spleen and pancreas appear to be within normal limits. The gallbladder is unremarkable. The kidneys are unremarkable. No abnormally distended bowel loops.. The pelvic structures appear normal. Right middle lobe soft tissue mass measures 2.3 x 1.6 x 2.0 cm. VASCULAR STRUCTURES: There appears to be good opacification and patency of the visualized abdominal aorta. There appears to be good opacification and patency of the celiac trunk, superior mesenteric artery. There appears to be good opacification and patency noted of the RIGHT and LEFT renal arteries. There appears to be good opacification and patency noted of the inferior mesenteric artery. ARTERIAL STRUCTURES OF THE RIGHT LOWER EXTREMITY: Common iliac artery: Atherosclerotic irregularity without occlusion or high-grade stenosis. External iliac artery: Atherosclerotic irregularity without occlusion or high-grade stenosis. Internal iliac arteries: Atherosclerotic irregularity without occlusion or high-grade stenosis. Common femoral artery: Atherosclerotic irregularity without occlusion or high-grade stenosis. Superficial femoral arteries: Atherosclerotic irregularity with distal occlusion. Popliteal artery: Occluded with distal flow reestablished. Anterior tibial artery: Appears patent with good opacification. Posterior tibial artery: Appears patent with good opacification. Peroneal artery: Appears patent with opacification. ARTERIAL STRUCTURES OF THE LEFT LOWER EXTREMITY: Common iliac artery: Atherosclerotic irregularity without occlusion or high-grade stenosis. External iliac artery: Atherosclerotic irregularity without occlusion or high-grade stenosis. Internal iliac arteries: Atherosclerotic irregularity with early occlusion and reestablishment of distal flow. Common femoral artery: Atherosclerotic irregularity without occlusion or high-grade stenosis. Superficial femoral arteries: Atherosclerotic irregularity without occlusion or high-grade stenosis. Popliteal artery: Atherosclerotic irregularity without occlusion or high-grade stenosis. Anterior tibial artery: Appears patent with good opacification. Posterior tibial artery: Appears patent with good opacification. Peroneal artery: Appears patent with opacification. Diffuse subcutaneous soft tissue edema of the right lower extremity below the knee. No gas formations. No acute bony abnormality. CT/CTA Abd w/Runoff W/WO Contrast IMPRESSION: Significant atherosclerotic irregularity of the arterial supply to the bilateral lower extremities. Distal occlusion of the right superficial femoral and popliteal arteries with distal flow reestablished above the trifurcation. Intact bilateral runoff to the ankles. Electronically Signed: Ede Carty MD at 19:34 EST ,
[2024-08-17] MEDS: Ensure Plus High Protein 120 ML LIQUID PO (17:14)
--- NOTE | 2024-08-17 18:31 | HP.PCM.HOS_ITS ---
HPI - General General Date of Admission: 08/17/24 Date of Service: 08/17/24 Chief Complaint: Right lower extremity pain and swelling and redness HPI Narrative BROOKE REYNOLDS, is a 78 M who presented to the emergency department at [facility] [place] on 08/17/2024 with weeping wounds in his right leg, redness and pain that has been ongoing for about 3 days now. He has a history of lower extremity vascular disease and reports he had previous intervention with Dr. Beatty in June 2020 for to what sounds like the posterior tibial artery. He states in the last 3 days the pain in his legs has significantly worsened as has the redness and he started to have some draining. The pain is quite intense and hypersensitive to the touch. He has had no fever or chills but has had some intermittent nausea and vomiting. Denies any chest pain or shortness of breath. He does get intermittent calf pain with walking but is not quite clear how long he can walk until he gets pain. He was just admitted here about 20 days ago with similar symptoms and was discharged home on antibiotics with 1 week of linezolid and Levaquin. He stated that symptoms did improve but then worsened again after he completed antibiotics. He still smokes cigarettes about 1 pack/day. Vital signs on presentation demonstrates a temperature of 98, heart rate 60, respiratory rate 16, blood pressure 147/81 and pulse ox was 92% on room air. CBC showed a normal white count however he did have a significant left shift with an 80.1% neutrophilia. Mild anemia with a hemoglobin of 12.7 which appears to be stable when compared. This is macrocytic. Coags were normal. Chemistry panel was overtly unremarkable. Initial lactate was 2.5 but resolved quickly with 1 L of IV fluids with a repeat lactate of 1.7. Liver functions were unremarkable. Blood cultures were obtained in the emergency department prior to antibiotics being initiated and I obtained a CT of the lower extremity rule out any deep abscesses given recurrence. CT of the lower extremity showed subcutaneous edema that was diffuse and atherosclerosis with no evidence of deep infection. [facility] Medical History Cellulitis of right leg Ulcer of right leg Leg wound, left Left leg cellulitis Dermatitis History of skin cancer Hx of blood clots Frequent infections Home Medications ?Medication ?Instructions ?Recorded ?Last Taken ?Type clopidogrel 75 mg tablet (Plavix) 75 mg PO DAILY 11/06/21 08/17/24 History acetaminophen 500 mg capsule 1,000 mg PO Q6H PRN fever or pain 08/17/24 08/17/24 History Allergy/AdvReac Type Severity Reaction Status Date / Time Penicillins Allergy Anaphylaxis Verified 08/17/24 08:01 Surgical History History of appendectomy Social History (Updated 08/17/24 @ 18:[address] Caterina Parrish DO) current occupational status: retired Smoking Status: Current every day smoker tobacco type: cigarettes Smoking packs per day: 1 Smoking cigarettes per day: 20.0 alcohol intake: current alcohol intake frequency: a few times a month substance use type: does not use ROS Constitutional Constitutional: Denies anorexia, change in weight, chills, fatigue, fever(s), malaise, night sweats, weakness or other Eyes Eyes: Denies blurry vision, change in eye color, change in vision, discharge from eye(s), double vision, erythema, eye pain, loss of vision or other ENT HEENT: Denies abnormal hearing, dysphagia, ear pain, epistaxis, headache(s), hearing loss, nasal congestion, nasal discharge, post nasal drip, sinus pressure, sore throat or other Cardiovascular Cardiovascular: Denies chest pain, claudication, dyspnea on exertion, edema, lightheadedness, orthopnea, palpitations, paroxysmal nocturnal dyspnea, rapid heart rate, syncope or other Respiratory/Chest Respiratory/Chest: Denies cough, dyspnea, excessive phlegm production, hemoptysis, productive cough, shortness of breath at rest, shortness of breath with exertion, wheezing or other Gastrointestinal Gastrointestinal: Reports nausea and vomiting; Denies abdominal pain, coffee ground emesis, constipation, diarrhea, dyspepsia, hematemesis, hematochezia, loose stools, melena or other Genitourinary Genitourinary: Denies burning urination, difficulty urinating, dysuria, hematuria, nocturia, urinary frequency, urinary hesitancy, urinary incontinence, urinary urgency or other Musculoskeletal Musculoskeletal: Reports other Details: Right lower extremity pain Integumentary Integumentary: Reports wounds and other Details: Pain and erythema right lower extremity greater than left Neurologic Neurologic: Denies abnormal gait, abnormal speech, confusion, disequilibrium, dizziness, focal weakness, headache(s), numbness, paresthesias, seizure-like activity, seizures, syncope, tingling, tremor(s) or other Psychiatric Psychiatric: Denies anxiety, depression, homicidal ideation, suicidal ideation or other Endocrine Endocrinology: Denies change in body appearance, cold intolerance, excessive sweating, heat intolerance, polydipsia, polyuria or other Hematologic/Lymphatic Hematologic/Lymphatic: Denies anemia, easy bleeding, easy bruising, lymphadenopathy or other Allergic/Immunologic Allergic/Immunologic: Denies rhinitis, hives, eczemia, asthma or other Vital Signs Vital Signs Vital Signs: 08/17/24 08:00 08/17/24 08:25 08/17/24 09:03 Temperature 98 F 98 F Temperature Source Temporal Oral Pulse Rate 60 80 Respiratory Rate 16 16 Blood Pressure 147/81 H 168/62 H Blood Pressure Mean 103 97 Blood Pressure Source Blood Pressure Position Blood Pressure Location Pulse Ox 92 96 Oxygen Delivery Method Room Air Room Air 08/17/24 10:00 08/17/24 10:40 08/17/24 10:57 Temperature 98 F 98 F Temperature Source Oral Pulse Rate 80 84 85 Respiratory Rate 16 18 20 H Blood Pressure 127/77 H 111/71 156/92 H Blood Pressure Mean 93 84 113 Blood Pressure Source Blood Pressure Position Blood Pressure Location Pulse Ox 96 96 98 Oxygen Delivery Method Room Air 08/17/24 11:28 08/17/24 11:56 08/17/24 13:45 Temperature 97.9 F Temperature Source Oral Pulse Rate 93 Respiratory Rate 18 Blood Pressure 150/63 H Blood Pressure Mean 92 Blood Pressure Source Monitor Blood Pressure Position Semi-Fowlers Blood Pressure Location Right Arm Pulse Ox 94 Oxygen Delivery Method Room Air Room Air Room Air 08/17/24 17:51 Temperature 98.6 F Temperature Source Oral Pulse Rate 98 Respiratory Rate 15 Blood Pressure 109/81 H Blood Pressure Mean 90 Blood Pressure Source Monitor Blood Pressure Position Sitting Blood Pressure Location Right Arm Pulse Ox 95 Oxygen Delivery Method Room Air Weight Weight: 72.5 kg Body Mass Index (BMI) 24.3 Physical Exam Const alert, oriented x3, no apparent distress and average body habitus; Negative for healthy appearing or well nourished Constitutional Narrative: Thin, malnourished appearing, elderly, white male, sitting up in bed, appears mildly uncomfortable due to pain in his leg, does not appear toxic, pleasant General Appearance: cooperative HEENT normocephalic, head/scalp atraumatic and moist oral mucous membranes HEENT Narrative: Dentition is poor, Mallampati is 1, no thrush Resp normal respiratory effort, no retractions, no use of accessory muscles and clear to auscultation bilaterally Resp Narrative: Severely diminished diffusely but no adventitious sounds noted Auscultation: Negative for rales, rhonchi or wheezes Cardio regular rate, regular rhythm, S1 normal heart sound, S2 normal heart sound, no murmurs, no rub, no gallops and no clicks GI normal to inspection, nondistended, normoactive bowel sounds, soft to palpation and non-tender GI Narrative: Scaphoid abdomen Extremity Extremity Narrative: Right lower extremity erythematous up to the proximal lower leg, it is hot, multiple lesions and scabs are noted, skin appears to be dry, very hypersensitive bilateral lower extremities, mild erythema on the left lower extremity but not as notable, pedal pulses are diminished, cap refill clears to be appropriate, radial pulses are 2+, no cyanosis or clubbing Neuro oriented x3, moves all extremities and no focal motor deficits Psych affect normal Psych Narrative: Very pleasant, interacts appropriately Results Medical Records Data Medical Nutrition Assessment Dietitian: Malnutrition Criteria Met Start: 08/17/24 14:01 Freq: Status: Active Protocol: Document 08/17/24 14:01 [facility] (Rec: 08/17/24 14:01 [facility] [id number]) Nutrition Malnutrition Evidence of Malnutrition Exists Yes Malnutrition (severe): Acute Illness/Injury Evidenced By Suboptimal Energy Intake ( Severe),Weight Loss (Severe) Intake Problem Increased Nutrient Needs (specify) Etiology related to skin status Signs/Symptoms as evidenced by RLE wound w/ cellulitis Status Active Problem Clinical Problem Acute Disease or Injury Related Malnutrition Etiology related to acute illness and inadequate energy intake Signs/Symptoms as evidenced by 6% unintended wt loss x 1 mo and po intake meeting <75% of est nutritional needs x 2 wks Status Active Problem Recommendation Dietitian Recommendations/Changes Will liberalize diet to regular d/t signs and symptoms of malnutrition Will continue 120 ml ensure plus high protein tid w/ medpass Will order tracy bid w/ meals to help w/ wound healing Rec consider appetite stimulant if continued poor po intake. Lab / Micro Data 08/17/24 08:11 08/17/24 08:11 Labs: Laboratory Results - last 24 hr 08/17/24 08:11: WBC 6.8, RBC 3.90 L, Hgb 12.7 L, Hct 39.4 L, MCV 101.0 H, MCH 32.6 H, MCHC 32.2, RDW Std Deviation 57.3 H, RDW Coeff of Johanna 15.7 H, Plt Count 345, MPV 8.7, Immature Gran % (Auto) 0.400, Neut % (Auto) 80.1 H, Lymph % (Auto) 10.9 L, Douglas % (Auto) 7.4, Eos % (Auto) 0.6, Baso % (Auto) 0.6, Absolute Neuts (auto) 5.4, Absolute Lymphs (auto) 0.74 L, Nucleated RBC % 0, PT 13.1, INR 1.0, APTT 27.8, Sodium 135 L, Potassium 4.2, Chloride 107, Carbon Dioxide 20.0 L, Anion Gap 8, BUN 16, Creatinine 1.03, Estim Creat Clear Calc 55.34, Est GFR (MDRD) Af Amer 89, Est GFR (MDRD) Non-Af 74, BUN/Creatinine Ratio 15.5, Glucose 99, Lactic Acid 2.5 H*, Calcium 9.4, Total Bilirubin 0.80, AST 17, ALT 25, A lkaline Phosphatase 36 L, Total Protein 7.4, Albumin 3.2, Globulin 4.2, A lbumin/Globulin Ratio 0.8 L 08/17/24 12:25: Lactic Acid 1.7 Imaging Radiology Impression Lower Extremity CT 08/17/24 10:20 IMPRESSION: Diffuse subcutaneous edema. Atherosclerosis. Electronically Signed: Erica Buck MD at 11:42 EST , Assessment & Plan Assessment/Plan (1) Cellulitis of right lower extremity: PLAN: Plan Right lower extremity cellulitis with vascular appearing wounds -Recent admission here with cultures positive for MRSA/Enterococcus/Enterobacter/Acinetobacter -Went home on Levaquin and linezolid for 7 days -Culture wounds as able -Start Levaquin and vancomycin -Blood cultures are pending however doubt bacteremia -Wound care nursing consulted -Consult podiatry -Attempted ABIs however patient did not tolerate due to pain in his legs -CT abdomen pelvis with runoff is pending -May need vascular consultation depending on results Severe peripheral vascular disease -Patient with ongoing tobacco abuse -Continue Plavix -Has been following with Dr. Beatty and sounds like he had right lower extremity intervention to possibly the posterior tibial artery in June 2024 -CT of the abdomen pelvis with runoff pending -Patient not able to tolerate ABIs due to pain -Gabapentin scheduled 100 mg 3 times daily from right now could consider up titration -Scheduled Tylenol 1 g every 8 -As needed oxycodone 5 every 4 -Morphine 4 mg every 3 hours for breakthrough -May need vascular surgery consultation here depending on imaging studies Suspected malnutrition -Start dietary supplements -Dietary consultation Tobacco abuse -Patient with ongoing tobacco abuse of 1 pack/day -Counseled on cessation -Nicotine patch available if needed -Patient does not have diagnosis of COPD however highly suspect COPD based on exam and tobacco abuse history -As needed albuterol available if needed DVT prophylaxis -Enoxaparin 40 daily CODE STATUS -DNR CCA okay for short-term intubation per discussion on admission Charges/Coding Visit Charges Inpatient E&M: 52548 Init Hosp L2
[2024-08-17] MEDS: 0.9% Saline Lock 10 ML Syringe IV (22:57)
[2024-08-17] MEDS: Vancomycin IV 500 MG/100 ML BAG 100 MG IV (23:00)
[2024-08-18] VITALS (7 sets, daily range): BP systolic 118–146; BP diastolic 56–106; PULSE 79–98; RESP 16–18; TEMP 36.6–37; O2SAT 93–98
[2024-08-18] MEDS: oxyCODONE 5 MG Tablet PO ×4 (02:54→22:03)
[2024-08-18 06:14] LABS: Absolute Lymphocyte Count 0.56 X10^3/uL (0.83-4.51); Basophil# 0.05 X10^3/uL; Basophil% 0.8 % (0-1); Eosinophil# 0.13 X10^3/uL; Eosinophils% 2.1 % (0-5); Hematocrit 32.7 % (40-54); Hemoglobin 10.9 g/dL (13.0-16.5); Lymphocyte # 0.56 X10^3/ul (0.83-4.51); Lymphocyte % 8.9 % (19-41); Mean Corp Hgb Conc 33.3 g/dL (32-36); Mean Corpuscular Volume 99.1 fL (80-94); Mean Platelet Vol. 9.2 fl (6.2-12.0); Monocyte# 0.47 X10^3/uL; Monocyte% 7.5 % (0-10); NRBC Flagged by Analyzer 0 % (0-5); Neutrophil % 79.7 % (47-70); POSITIVE DIFFERENTIAL YES; Platelet Count 300 K/mm3 (150-450); RBC Distribution Width CV 15.6 % (11.6-14.6); RBC Distribution Width SD 55.6 fl (35.1-43.9); White Blood Count 6.3 K/mm3 (4.4-11.0)
[2024-08-18 06:37] LABS: Anion Gap 5 (5-15); BUN 9 mg/dL (7-18); BUN/Creat Ratio 13.2 RATIO (10-20); Calcium,Total 8.8 mg/dL (8.5-10.1); Chloride 110 mmol/L (98-107); Creatinine, Serum 0.68 mg/dL (0.70-1.30); EST Glomerular Filtration Rate 119 mL/min (>60); Est Glom Filt Rate - Afr Amer 144 mL/min (>60); Estimated Creatinine Clearance 71.25 ml/min; Glucose 85 mg/dL (74-106); Magnesium 2.1 mg/dL (1.6-2.6); Phosphorus 2.2 mg/dL (2.5-4.9); Potassium 3.7 mmol/L (3.5-5.1); Sodium Level 137 mmol/L (136-145)
[2024-08-18] MEDS: Acetaminophen 500 MG Tablet 1000 MG PO ×3 (06:55→22:03)
[2024-08-18] MEDS: 0.9% Saline Lock 10 ML Syringe IV ×2 (06:56→17:21)
--- NOTE | 2024-08-18 07:52 | PCM.CONS.GEN ---
Assessment & Plan Assessment/Plan (1) Cellulitis of right lower extremity: PLAN: IV antibiotics are helpful right now but patient has still severe pain (2) Ulcer of right leg: PLAN: Recommend debridement under anesthesia with biopsy and/or grafting. Plan for this on . Continue IV antibiotic therapy will write dressing orders for now. (3) Peripheral vascular disease: (4) Leg edema: (5) Tobacco abuse: PLAN: Plan Dressing changes, possible consult vascular follow-up then. HPI Consult Data Date of Consult: 08/18/24 HPI Narrative Reason for Consultation: Cellulitis right lower extremity versus arterial ischemic ulceration HPI Narrative: BROOKE REYNOLDS, is a 78 M who presents patient presents with significant pain redness, warmth and very hypersensitive right lower extremity. Patient states that Dr. Beatty performed a stent I did know when at this point it appears that it was in 2019. The patient since then thinks that the leg has gotten worse patient recently had another bout of cellulitis in which she was back in the hospital seems as though he goes on antibiotics for 3 to 5 days things resolve leg gets better and then gets worse again. He has a high chance of recurrence as the patient continues to be a pack-a-day smoker. Patient this point does not see anyone for his legs nor wound care center. Uncertain if he is just not wrapping his legs allowing wounds to heal he states he had home care at some point. Said he is laying in bed in obvious pain. Is taking pain medication orally as well as IV. Currently did not want me to touch the leg. [facility] Medical History Cellulitis of right leg Ulcer of right leg Leg wound, left Left leg cellulitis Dermatitis History of skin cancer Hx of blood clots Frequent infections Home Medications ?Medication ?Instructions ?Recorded ?Last Taken ?Type clopidogrel 75 mg tablet (Plavix) 75 mg PO DAILY 11/06/21 08/17/24 History acetaminophen 500 mg capsule 1,000 mg PO Q6H PRN fever or pain 08/17/24 08/17/24 History Allergy/AdvReac Type Severity Reaction Status Date / Time Penicillins Allergy Anaphylaxis Verified 08/17/24 08:01 Surgical History History of appendectomy Social History (Updated 08/17/24 @ 18:[address] Caterina Parrish, DO) current occupational status: retired Smoking Status: Current every day smoker tobacco type: cigarettes Smoking packs per day: 1 Smoking cigarettes per day: 20.0 alcohol intake: current alcohol intake frequency: a few times a month substance use type: does not use Physical Exam Const alert, oriented x3, no apparent distress, average body habitus, no limitations, healthy appearing and well nourished HEENT normocephalic, head/scalp atraumatic, hearing grossly normal bilaterally, external ears normal, EAC's normal, TM's normal bilaterally, external nose normal, nasal mucous membranes and turbinates normal, moist oral mucous membranes, oropharynx normal, dentition normal and gingiva normal Eyes PERRL, EOMs intact bilaterally, conjunctivae normal, no scleral icterus, no papilledema, normal visual tirado by confrontation and fundi normal bilaterally Neck full ROM, nuchal rigidity, no lymphadenopathy, supple, no meningeal signs, no JVD, thyroid normal, nodes and no carotid bruits Chest inspection of chest normal, palpation of chest normal, inspection of breasts normal and palpation of breasts normal Resp normal respiratory effort, normal air movement, no retractions, no use of accessory muscles, clear to auscultation bilaterally and percussion normal Extremity Extremity Narrative: On exam the patient does have barely palpable pedal pulses DP and PT bilateral. I am uncertain able to ascertain any type of pulse in the right lower extremity that was warm to palpation there is multiple areas of cyanotic changes or bruising areas to the top and lateral side of the leg. He does hold his leg in an external rotated position. He has dystrophic nails also on exam he has 3 punched-out lesions that appear to be ischemic ulcerations ulcer localized directly along the lateral side of the peroneal artery which seem to be arterial ulcerations they are located along the lateral lower leg uncertain if at this point they need to be debrided he would not feel to tolerate debridement in the bed he would have to be under anesthesia therefore we consider possibly debriding and grafting in the operating setting. Patient may need biopsy. Uncertain what is causing it this is something more than just ulcerations. Cultures were really only mildly able to be obtained but a good deep culture after debridement would be beneficial I think the patient does need debridement with then anesthesia. He does have increased pain redness warmth he would let me even touch the leg I wanted to evaluate I was able to palpate at some but is very painful to palpation. Recent CT scan of the lower extremity shows subcutaneous edema and atherosclerosis Patient may have small vessel disease pain He also has a CTA which does show SFA occlusion distally but it does reconstitute and has trifurcation reconstitution down the lower leg which could be relatively normal for collateralization. Uncertain if vascular needs to see him but a consult would not be a bad thing. Long-term I think the patient is going to need debridement, wound care for right now if possible. Even with his continued small vessel disease or vascular peripheral changes may or may not need something is bad as a BKA. Peripheral Pulses: Negative for pulses 2+ throughout, brachial pulses present, radial pulses present, ulnar pulses present, femoral pulses present, popliteal pulses present, posterior tibial pulses present or dorsalis pedis pulses present Skin Nails: dystrophic Medical Records Data Medical Nutrition Assessment Dietitian: Malnutrition Criteria Met Start: 08/17/24 14:01 Freq: Status: Active Protocol: Document 08/17/24 14:01 [facility] (Rec: 08/17/24 14:01 [facility] [email or web address]) Nutrition Malnutrition Evidence of Malnutrition Exists Yes Malnutrition (severe): Acute Illness/Injury Evidenced By Suboptimal Energy Intake ( Severe),Weight Loss (Severe) Intake Problem Increased Nutrient Needs (specify) Etiology related to skin status Signs/Symptoms as evidenced by RLE wound w/ cellulitis Status Active Problem Clinical Problem Acute Disease or Injury Related Malnutrition Etiology related to acute illness and inadequate energy intake Signs/Symptoms as evidenced by 6% unintended wt loss x 1 mo and po intake meeting <75% of est nutritional needs x 2 wks Status Active Problem Recommendation Dietitian Recommendations/Changes Will liberalize diet to regular d/t signs and symptoms of malnutrition Will continue 120 ml ensure plus high protein tid w/ medpass Will order tracy bid w/ meals to help w/ wound healing Rec consider appetite stimulant if continued poor po intake. Lab / Micro Data 08/18/24 05:45 08/18/24 05:45 Labs: Laboratory Results - last 24 hr 08/17/24 08:11: WBC 6.8, RBC 3.90 L, Hgb 12.7 L, Hct 39.4 L, MCV 101.0 H, MCH 32.6 H, MCHC 32.2, RDW Std Deviation 57.3 H, RDW Coeff of Johanna 15.7 H, Plt Count 345, MPV 8.7, Immature Gran % (Auto) 0.400, Neut % (Auto) 80.1 H, Lymph % (Auto) 10.9 L, [place] % (Auto) 7.4, Eos % (Auto) 0.6, Baso % (Auto) 0.6, Absolute Neuts (auto) 5.4, Absolute Lymphs (auto) 0.74 L, Nucleated RBC % 0, PT 13.1, INR 1.0, APTT 27.8, Sodium 135 L, Potassium 4.2, Chloride 107, Carbon Dioxide 20.0 L, Anion Gap 8, BUN 16, Creatinine 1.03, Estim Creat Clear Calc 55.34, Est GFR (MDRD) Af Amer 89, Est GFR (MDRD) Non-Af 74, BUN/Creatinine Ratio 15.5, Glucose 99, Lactic Acid 2.5 H*, Calcium 9.4, Total Bilirubin 0.80, AST 17, ALT 25, Alkaline Phosphatase 36 L, Total Protein 7.4, Albumin 3.2, Globulin 4.2, Albumin/Globulin Ratio 0.8 L 08/17/24 12:25: Lactic Acid 1.7 08/18/24 05:45: WBC 6.3, RBC 3.30 L, Hgb 10.9 L, Hct 32.7 L, MCV 99.1 H, MCH 33.0 H, MCHC 33.3, RDW Std Deviation 55.6 H, RDW Coeff of Johanna 15.6 H, Plt Count 300, MPV 9.2, Immature Gran % (Auto) 1.000 H, Neut % (Auto) 79.7 H, Lymph % (Auto) 8.9 L, [place]gett % (Auto) 7.5, Eos % (Auto) 2.1, Baso % (Auto) 0.8, Absolute Neuts (auto) 5.0, Absolute Lymphs (auto) 0.56 L, Nucleated RBC % 0, Sodium 137, Potassium 3.7, Chloride 110 H, Carbon Dioxide 22.0, Anion Gap 5, BUN 9, Creatinine 0.68 L, Estim Creat Clear Calc 71.25, Est GFR (MDRD) Af Amer 144, Est GFR (MDRD) Non-Af 119, BUN/Creatinine Ratio 13.2, Glucose 85, Calcium 8.8, Phosphorus 2.2 L, Magnesium 2.1 Imaging Radiology Impression Lower Extremity CT 08/17/24 10:20 IMPRESSION: Diffuse subcutaneous edema. Atherosclerosis. Electronically Signed: Erica Buck MD at 11:42 EST , Abdomen/Pelvis CTA 08/17/24 15:30 IMPRESSION: Significant atherosclerotic irregularity of the arterial supply to the bilateral lower extremities. Distal occlusion of the right superficial femoral and popliteal arteries with distal flow reestablished above the trifurcation. Intact bilateral runoff to the ankles. Electronically Signed: Ede Carty MD at 19:34 EST ,
--- NOTE | 2024-08-18 07:59 | PN.HOSP_ITS ---
Reason for Visit Reason for Visit: Diagnoses Peripheral vascular disease, unspecified (08/17/24) Cellulitis of right lower limb (08/17/24) Non-pressure chronic ulcer of unspecified part of right lower leg with unspecified severity (08/17/24) Localized edema (08/17/24) Tobacco use (08/17/24) Subjective Subjective Patient with no acute events overnight per self and per nursing report. He currently notes pain to his right lower extremity 5 out of 10 in severity however he did have recent dressing change per wound care. Discussed plan of care which included involvement of vascular surgery as well as ID per podiatry request with likely operative intervention on to which patient is amenable. Patient denies fevers, chills, nausea, emesis, abdominal pain, chest pain or dyspnea. Objective Data Objective Data Vital Signs: Vital Signs Temp Pulse Resp BP Pulse Ox O2 Del Method 97.8 F 79 18 125/87 H 96 Room Air 08/18/24 02:57 08/18/24 02:57 08/18/24 02:57 08/18/24 02:57 08/18/24 02:57 08/18/24 03:00 Oxygen Delivery Method Room Air Weight: 159 lb 13.362 oz Body Mass Index (BMI) 24.3 Intake & Output: Intake and Output for Last 24 Hours 08/16/24 08/17/24 08/18/24 23:59 23:59 23:59 Intake Total 2290 / 2390 220 / 220 Output Total 1850 / 1850 400 / 400 Balance 440 / 540 -180 / -180 Medical Nutrition Assessment Dietitian: Malnutrition Criteria Met Start: 08/17/24 14:01 Freq: Status: Active Protocol: Document 08/17/24 14:01 FRED (Rec: 08/17/24 14:01 FRED [id number]) Nutrition Malnutrition Evidence of Malnutrition Exists Yes Malnutrition (severe): Acute Illness/Injury Evidenced By Suboptimal Energy Intake ( Severe),Weight Loss (Severe) Intake Problem Increased Nutrient Needs (specify) Etiology related to skin status Signs/Symptoms as evidenced by RLE wound w/ cellulitis Status Active Problem Clinical Problem Acute Disease or Injury Related Malnutrition Etiology related to acute illness and inadequate energy intake Signs/Symptoms as evidenced by 6% unintended wt loss x 1 mo and po intake meeting <75% of est nutritional needs x 2 wks Status Active Problem Recommendation Dietitian Recommendations/Changes Will liberalize diet to regular d/t signs and symptoms of malnutrition Will continue 120 ml ensure plus high protein tid w/ medpass Will order tracy bid w/ meals to help w/ wound healing Rec consider appetite stimulant if continued poor po intake. Lab / Micro Data 08/18/24 05:45 08/18/24 05:45 Labs: Laboratory Results - last 24 hr 08/17/24 08:11: WBC 6.8, RBC 3.90 L, Hgb 12.7 L, Hct 39.4 L, MCV 101.0 H, MCH 32.6 H, MCHC 32.2, RDW Std Deviation 57.3 H, RDW Coeff of Johanna 15.7 H, Plt Count 345, MPV 8.7, Immature Gran % (Auto) 0.400, Neut % (Auto) 80.1 H, Lymph % (Auto) 10.9 L, [place] % (Auto) 7.4, Eos % (Auto) 0.6, Baso % (Auto) 0.6, Absolute Neuts (auto) 5.4, Absolute Lymphs (auto) 0.74 L, Nucleated RBC % 0, PT 13.1, INR 1.0, APTT 27.8, Sodium 135 L, Potassium 4.2, Chloride 107, Carbon Dioxide 20.0 L, Anion Gap 8, BUN 16, Creatinine 1.03, Estim Creat Clear Calc 55.34, Est GFR (MDRD) Af Amer 89, Est GFR (MDRD) Non-Af 74, BUN/Creatinine Ratio 15.5, Glucose 99, Lactic Acid 2.5 H*, Calcium 9.4, Total Bilirubin 0.80, AST 17, ALT 25, A lkaline Phosphatase 36 L, Total Protein 7.4, Albumin 3.2, Globulin 4.2, A lbumin/Globulin Ratio 0.8 L 08/17/24 12:25: Lactic Acid 1.7 08/18/24 05:45: WBC 6.3, RBC 3.30 L, Hgb 10.9 L, Hct 32.7 L, MCV 99.1 H, MCH 33.0 H, MCHC 33.3, RDW Std Deviation 55.6 H, RDW Coeff of Johanna 15.6 H, Plt Count 300, MPV 9.2, Immature Gran % (Auto) 1.000 H, Neut % (Auto) 79.7 H, Lymph % (Auto) 8.9 L, [place] % (Auto) 7.5, Eos % (Auto) 2.1, Baso % (Auto) 0.8, Absolute Neuts (auto) 5.0, Absolute Lymphs (auto) 0.56 L, Nucleated RBC % 0, Sodium 137, Potassium 3.7, Chloride 110 H, Carbon Dioxide 22.0, Anion Gap 5, BUN 9, C reatinine 0.68 L, Estim Creat Clear Calc 71.25, Est GFR (MDRD) Af Amer 144, Est GFR (MDRD) Non-Af 119, BUN/Creatinine Ratio 13.2, Glucose 85, Calcium 8.8, P hosphorus 2.2 L, Magnesium 2.1 Radiography Diagnostic Testing: Radiology Impression Lower Extremity CT 08/17/24 10:20 IMPRESSION: Diffuse subcutaneous edema. Atherosclerosis. Electronically Signed: Erica Buck MD at 11:42 EST , Abdomen/Pelvis CTA 08/17/24 15:30 IMPRESSION: Significant atherosclerotic irregularity of the arterial supply to the bilateral lower extremities. Distal occlusion of the right superficial femoral and popliteal arteries with distal flow reestablished above the trifurcation. Intact bilateral runoff to the ankles. Electronically Signed: Ede Carty MD at 19:34 EST , Physical Exam Narrative Physical Examination: General: Awake, alert, oriented x 3 and cooperative, seated upright in bed in no apparent distres but is uncomfortable, rating discomfort to the right lower extremity 5 out of 10 in severity s. Skin: Normal color, normal turgor, no icterus, no cyanosis except for significant right lower extremity with foot to knee erythematous skin changes with venous stasis disease evident concurrently, multiple lesions scabbed over, dry skin in addition to left lower extremity with venous stasis skin changes concurrently, diminished pulses bilaterally/difficulty with palpation. HEENT: AT/NC, EOMI, PERRLA, MMM. Lungs: Diminished, greater bases, appropriate effort, no rales, ronchi or wheezing. Heart: Regular rate and rhythm; no gallop, rub audible. Abdomen: Soft, NTTP, ND, mildly hyperactive BS. Extremities: No cyanosis, no clubbing, no marked peripheral edema, see skin. Neurological: Patient awake, alert, oriented as, cognitive function intact; pupils equally reactive to light and accommodation, cranial nerves grossly normal, moving all 4 extremities, no focal deficits, strength moderately to severely globally decreased. Psychiatric: Affect appears flat, fatigued, mildly uncomfortable appearing, no acute evidence of depressive or anxiety feelings. Assessment & Plan Assessment/Plan (1) Cellulitis of right lower extremity: PLAN: Plan The patient is an 78 y/o M w/ PMHx: Suspected underlying COPD, Chronic anemia, CKD stage II suspected based on GFR trending, Chronic severe protein calorie malnutrition, Severe PVD, Tobacco use, Hx VTE who presents to the [facility] ED on 08/17/24 with history of chronic right lower extremity wound with recent admission with significant infection with MRSA/Enterococcus/Enterobacter/Acinetobacter discharged at that time on Levaquin and linezolid for 7 days now re-presenting with worsening appearing right lower extremity. #1. Right lower extremity cellulitis with vascular appearing wounds with associated mild lactic acidosis, now resolved: Admitted to PCU, initiated and continued on IV Levaquin and vancomycin given previous wounds, blood cultures pending, wound RN consulted, podiatry consulted, CT right lower extremity with runoff with diffuse subcutaneous edema without sclerosis, CTA abdomen and pelvis with runoff with significant atherosclerotic irregularity arterial supply to the bilateral lower extremities, distal occlusion right superficial femoral and popliteal arteries with distal flow reestablished above the trifurcation, intact bilateral runoff to the ankles, unfortunately was unable to tolerate EMILE/PVR assessments, admission lactic acid initially 2.5 with improvement to 1.7 following hydration, podiatry consulted and following with current recommendation for debridement under anesthesia with biopsy and/or grafting with likely plan for upcoming , will request vascular consult per podiatry recommendation, infectious disease also consulted given recent involvement. #2. Severe peripheral vascular disease: Strongly encourage continued tobacco cessation, continue Plavix therapy, following with Dr. Beatty status post previous right lower extremity intervention possibly to posterior tibial artery 06/2024, CT right lower extremity with runoff with diffuse subcutaneous edema without sclerosis, CTA abdomen and pelvis with runoff with significant atherosclerotic irregularity arterial supply to the bilateral lower extremities, distal occlusion right superficial femoral and popliteal arteries with distal flow reestablished above the trifurcation, intact bilateral runoff to the ankles, unfortunately was unable to tolerate EMILE/PVR assessments, continue gabapentin regimen however may consider titration as needed, continue Tylenol, as needed as needed morphine and oxycodone, vascular surgery consulted for podiatry request. #3. Hyponatremia, suspected mild hypokalemia: Admission sodium 135, chloride 107, suspected likely mild hypovolemia, judiciously hydrated, repeat 08/18/2024 sodium 137, continue to trend. #4. Chronic Kidney Disease suspected, possibly stage II based on previous GFR trending although has vacillated GFR: Admission BUN/Cr 16/1.03, GFR 74, baseline renal function primarily 0.8-1.0, 08/18/2024 BUN/creatinine 9/0.68, repeat BMP in AM. #5. Severe protein calorie malnutrition: Evidenced by habitus, obvious muscle and fat loss, nutrition consulted, dietary supplements per their discretion. #6. Suspected underlying COPD: Not on the regimen, no formal diagnosis but highly suspected based on exam, tobacco use history and previous imaging, continue as needed albuterol, encourage head of bed and I-S #7. Chronic macrocytic anemia: Admission hemoglobin 12.7, MCV 101.1, baseline hemoglobin more recently has primarily been 12 but previous to this had been 14- 15 range, 08/18/2024 hemoglobin 10.9, MCV 99.1, continue to trend. #8. Tobacco Abuse: Encouraged cessation, inpatient consultation per RT, NR if desired. #9. DVT prophylaxis: Lovenox #10. CODE status: DNR-CCA, amenable for short term intubation only. Charges/Coding Visit Charges Inpatient E&M: 77660 Subs Hosp L3
[2024-08-18 08:55] LABS: Magnesium 2.2 mg/dL (1.6-2.6)
--- NOTE | 2024-08-18 09:34 | VDLE_ITS ---
Reason For Study: Preop evaluation RIGHT LEFT GSV is absent, previous ablation. GSV prox thigh, 0.72 x 0.78 cm. SSV prox, 0.41 x 0.35 cm. GSV mid thigh, 0.50 x 0.58 cm. SSV mid, 0.47 x 0.47 cm. GSV distal thigh, 0.50 x 0.55 cm. GSV knee, 0.43 x 0.53 cm. SSV is compressible. GSV prox calf, 0.40 x 0.45 cm. Procedure GSV mid calf, 0.43 x 0.50 cm. This is a venous duplex using B-mode, color SSV prox, 0.43 x 0.43 cm. flow and spectral Doppler. SSV mid, 0.35 x 0.31 cm. Exam performed portable in patient room. GSV and SSV are compressible. VL/Saphenous Vein Mapping, Bilat Interpretation Summary Left great saphenous vein patent with measurements above. Left small saphenous vein patent with measurements above. Right small saphenous vein patent with measurements above. Right great saphenous prior ablation Ordering Physician: Kaleigh Perrin Referring Physician: Reynold Hernandez Performed By: Renetta Pozo RVT and Student
--- NOTE | 2024-08-18 09:41 | EX.PCM.CON.S ---
Assessment & Plan Assessment/Plan (1) Peripheral vascular disease: PLAN: His wounds are in more typically venous distribution. His CTA did show reocclusion of his SFA/pop where he had recent intervention by Dr. Beatty, however runoff into the foot is intact and his vascular exam appears overall stable from his last ABIs in May which showed sufficient perfusion to expect to heal. Do not think that his arterial insufficiency is contributing significantly to his current presentation, feel this can likely be managed on an outpatient basis. Would also consider adding high-intensity statin to his regimen as tolerated. If there is inadequate bleeding at the time of his operative debridement would reconsider. Would recommend further venous evaluation on an outpatient basis as well to see if there may be a material damage appraiser or other reflux which could be contributing to his persistent wounds despite prior saphenous ablations. Patient was also strongly advised to stop smoking. Will continue to follow. HPI Consult Data Date of Consult: 08/18/24 HPI Narrative HPI Narrative: BROOKE REYNOLDS, is a 78 M who presented to the [facility] ER last night with increasing erythema, weeping and pain associated with chronic RLE wounds. He was admitted for IV antibiotics. He reports he has had recurrent RLE wounds for years. The current wounds have been present for a few months. About 3-4 days ago he started noticing increasing redness and pain which just continued to get progressively worse. He reports the pain is localized to the area of his wounds on his ankles, not into his feet. The pain is not necessarily worse with activity. He does not have any numbness/paresthesias. He had CTA runoff which showed R SFA and popliteal occlusion with distal popliteal reconstitution and then intact runoff into the foot. Due to his RLE pain/sensitivity he was unable to tolerate EMILE test. His last EMILE was in May and showed R EMILE 0.62. Considered reflux studies, but again due to his pain could not tolerate the pressure/compression for that, did obtain vein mapping which showed saphenous vein ablations of the RLE. He follows with Dr. Beatty as an outpatient. [facility], he had recent R SFA angioplasty and R popliteal stenting by Dr. Beatty at the end of June; a few years ago also had R PT stent and prior R SFA/pop angioplasty. He takes Plavix, no ASA or statin. He has been seen by podiatry with plans for operative debridement on 08/20. [facility] Medical History Cellulitis of right leg Ulcer of right leg Leg wound, left Left leg cellulitis Dermatitis History of skin cancer Hx of blood clots Frequent infections Home Medications ?Medication ?Instructions ?Recorded ?Last Taken ?Type clopidogrel 75 mg tablet (Plavix) 75 mg PO DAILY 11/06/21 08/17/24 History acetaminophen 500 mg capsule 1,000 mg PO Q6H PRN fever or pain 08/17/24 08/17/24 History Allergy/AdvReac Type Severity Reaction Status Date / Time Penicillins Allergy Anaphylaxis Verified 08/17/24 08:01 Surgical History History of appendectomy Social History (Updated 08/17/24 @ 18:[address] Caterina Parrish DO) current occupational status: retired Smoking Status: Current every day smoker tobacco type: cigarettes alcohol intake: current alcohol intake frequency: a few times a month substance use type: does not use Physical Exam Const alert, oriented x3 and no apparent distress General Appearance: cooperative HEENT normocephalic, head/scalp atraumatic, hearing grossly normal bilaterally, external ears normal and external nose normal Eyes General Eye: normal appearance of both eyes Neck General: normal visual inspection and trachea midline Resp normal respiratory effort, normal air movement, no retractions and no use of accessory muscles Effort and Inspection: able to speak in complete sentences Cardio regular rate and regular rhythm Extremity Extremity Narrative: Several superficial wounds noted along the medial aspect of his ankle, and a few on the lateral aspect as well. Significant crusting overlying the wounds. Significant associated edema and warmth. No wounds on his foot or toes. DP, PT, and AT doppler signals are strong. PT sounds multiphasic, DP monophasic. Skin no rashes or lesions noted Wounds: wounds noted Neuro oriented x3, CN's II-XII intact bilaterally, moves all extremities, no focal motor deficits and no sensory deficits noted Speech: speech normal Psych mental status grossly normal Appearance: grossly normal Attitude: calm and engaged Activity / Motor Behavior: appropriate eye contact Speech: normal speech Mood & Affect: euthymic mood Judgement: judgement good Medical Records Data Medical Nutrition Assessment Dietitian: Malnutrition Criteria Met Start: 08/17/24 14:01 Freq: Status: Active Protocol: Document 08/17/24 14:01 [facility] (Rec: 08/17/24 14:01 SLA [id number]) Nutrition Malnutrition Evidence of Malnutrition Exists Yes Malnutrition (severe): Acute Illness/Injury Evidenced By Suboptimal Energy Intake ( Severe),Weight Loss (Severe) Intake Problem Increased Nutrient Needs (specify) Etiology related to skin status Signs/Symptoms as evidenced by RLE wound w/ cellulitis Status Active Problem Clinical Problem Acute Disease or Injury Related Malnutrition Etiology related to acute illness and inadequate energy intake Signs/Symptoms as evidenced by 6% unintended wt loss x 1 mo and po intake meeting <75% of est nutritional needs x 2 wks Status Active Problem Recommendation Dietitian Recommendations/Changes Will liberalize diet to regular d/t signs and symptoms of malnutrition Will continue 120 ml ensure plus high protein tid w/ medpass Will order tracy bid w/ meals to help w/ wound healing Rec consider appetite stimulant if continued poor po intake. Lab / Micro Data 08/18/24 05:45 08/18/24 05:45 Labs: Laboratory Results - last 24 hr 08/17/24 12:25: Lactic Acid 1.7 08/18/24 05:45: WBC 6.3, RBC 3.30 L, Hgb 10.9 L, Hct 32.7 L, MCV 99.1 H, MCH 33.0 H, MCHC 33.3, RDW Std Deviation 55.6 H, RDW Coeff of Johanna 15.6 H, Plt Count 300, MPV 9.2, Immature Gran % (Auto) 1.000 H, Neut % (Auto) 79.7 H, Lymph % (Auto) 8.9 L, [place] % (Auto) 7.5, Eos % (Auto) 2.1, Baso % (Auto) 0.8, Absolute Neuts (auto) 5.0, Absolute Lymphs (auto) 0.56 L, Nucleated RBC % 0, Sodium 137, Potassium 3.7, Chloride 110 H, Carbon Dioxide 22.0, Anion Gap 5, BUN 9, Creatinine 0.68 L, Estim Creat Clear Calc 71.25, Est GFR (MDRD) Af Amer 144, Est GFR (MDRD) Non-Af 119, BUN/Creatinine Ratio 13.2, Glucose 85, Calcium 8.8, Phosphorus 2.2 L, Magnesium 2.1 08/18/24 08:24: Phosphorus 2.0 L, Magnesium 2.2 Micro: Microbiology 08/17/24 18:25 Wound - Leg Wound Culture - Preliminary Staphylococcus aureus Imaging Radiology Impression Lower Extremity CT 08/17/24 10:20 IMPRESSION: Diffuse subcutaneous edema. Atherosclerosis. Electronically Signed: Erica Buck MD at 11:42 EST , Abdomen/Pelvis CTA 08/17/24 15:30 IMPRESSION: Significant atherosclerotic irregularity of the arterial supply to the bilateral lower extremities. Distal occlusion of the right superficial femoral and popliteal arteries with distal flow reestablished above the trifurcation. Intact bilateral runoff to the ankles. Electronically Signed: Ede Carty MD at 19:34 EST , Charges/Coding Visit Charges Inpatient E&M: 33387 Init Hosp L1
--- NOTE | 2024-08-18 10:23 | CON.PCM.ID_ITS ---
Assessment & Plan Assessment/Plan (1) Cellulitis of right lower extremity: PLAN: Wound cx pending, seen by podiatry and vascular. On empiric vanc/levaquin based on recent growth; sx improving. Will follow, thank you (2) Peripheral vascular disease: HPI Consult Data Date of Consult: 08/18/24 HPI Narrative Reason for Consultation: cellulitis HPI Narrative: BROOKE REYNOLDS, is a 78 M with h/o PVD, recurrent cellulitis, presented 08/17 with several days increased R lower leg pain, redness. No fever or chills. Pain is moderate. Admitted on vanc/levaquin, feeling a little better. Podiatry and vascular consulted. No n/v/d. No drainage. Full ROS performed and neg except as noted above. [facility] Medical History Cellulitis of right leg Ulcer of right leg Leg wound, left Left leg cellulitis Dermatitis History of skin cancer Hx of blood clots Frequent infections Home Medications ?Medication ?Instructions ?Recorded ?Last Taken ?Type clopidogrel 75 mg tablet (Plavix) 75 mg PO DAILY 11/06/21 08/17/24 History acetaminophen 500 mg capsule 1,000 mg PO Q6H PRN fever or pain 08/17/24 08/17/24 History Allergy/AdvReac Type Severity Reaction Status Date / Time Penicillins Allergy Anaphylaxis Verified 08/17/24 08:01 Surgical History History of appendectomy Social History (Updated 08/17/24 @ 18:[address] Caterina Parrish DO) current occupational status: retired Smoking Status: Current every day smoker tobacco type: cigarettes alcohol intake: current alcohol intake frequency: a few times a month substance use type: does not use Physical Exam Const alert, oriented x3 and no apparent distress General Appearance: cooperative HEENT normocephalic and head/scalp atraumatic Eyes PERRL and EOMs intact bilaterally Neck supple and No nodes Resp normal air movement and clear to auscultation bilaterally Cardio regular rate and regular rhythm GI soft to palpation, non-tender and non-distended Extremity General Extremity: Negative for edema Skin Skin Narrative: R lower leg with shallow ulcers, some redness and warmth, mild pain Neuro CN's II-XII intact bilaterally Medical Records Data Medical Nutrition Assessment Dietitian: Malnutrition Criteria Met Start: 08/17/24 14:01 Freq: Status: Active Protocol: Document 08/17/24 14:01 [facility] (Rec: 08/17/24 14: [facility] [id number]) Nutrition Malnutrition Evidence of Malnutrition Exists Yes Malnutrition (severe): Acute Illness/Injury Evidenced By Suboptimal Energy Intake ( Severe),Weight Loss (Severe) Intake Problem Increased Nutrient Needs (specify) Etiology related to skin status Signs/Symptoms as evidenced by RLE wound w/ cellulitis Status Active Problem Clinical Problem Acute Disease or Injury Related Malnutrition Etiology related to acute illness and inadequate energy intake Signs/Symptoms as evidenced by 6% unintended wt loss x 1 mo and po intake meeting <75% of est nutritional needs x 2 wks Status Active Problem Recommendation Dietitian Recommendations/Changes Will liberalize diet to regular d/t signs and symptoms of malnutrition Will continue 120 ml ensure plus high protein tid w/ medpass Will order tracy bid w/ meals to help w/ wound healing Rec consider appetite stimulant if continued poor po intake. Lab / Micro Data Attestation: I reviewed the patient's lab results. 08/18/24 05:45 08/18/24 05:45 Labs: Laboratory Results - last 24 hr 08/17/24 12:25: Lactic Acid 1.7 08/18/24 05:45: WBC 6.3, RBC 3.30 L, Hgb 10.9 L, Hct 32.7 L, MCV 99.1 H, MCH 33.0 H, MCHC 33.3, RDW Std Deviation 55.6 H, RDW Coeff of Johanna 15.6 H, Plt Count 300, MPV 9.2, Immature Gran % (Auto) 1.000 H, Neut % (Auto) 79.7 H, Lymph % (Auto) 8.9 L, [place] % (Auto) 7.5, Eos % (Auto) 2.1, Baso % (Auto) 0.8, Absolute Neuts (auto) 5.0, Absolute Lymphs (auto) 0.56 L, Nucleated RBC % 0, Sodium 137, Potassium 3.7, Chloride 110 H, Carbon Dioxide 22.0, Anion Gap 5, BUN 9, C reatinine 0.68 L, Estim Creat Clear Calc 71.25, Est GFR (MDRD) Af Amer 144, Est GFR (MDRD) Non-Af 119, BUN/Creatinine Ratio 13.2, Glucose 85, Calcium 8.8, P hosphorus 2.2 L, Magnesium 2.1 08/18/24 08:24: Phosphorus 2.0 L, Magnesium 2.2 Micro: Microbiology 08/17/24 18:25 Wound - Leg Wound Culture - Preliminary Staphylococcus aureus Imaging Radiology Impression Lower Extremity CT 08/17/24 10:20 IMPRESSION: Diffuse subcutaneous edema. Atherosclerosis. Electronically Signed: Erica Buck MD at 11:42 EST , Abdomen/Pelvis CTA 08/17/24 15:30 IMPRESSION: Significant atherosclerotic irregularity of the arterial supply to the bilateral lower extremities. Distal occlusion of the right superficial femoral and popliteal arteries with distal flow reestablished above the trifurcation. Intact bilateral runoff to the ankles. Electronically Signed: Ede Carty MD at 19:34 EST ,
[2024-08-18] MEDS: Gabapentin 100 MG Capsule PO ×3 (10:36→18:25)
[2024-08-18] MEDS: levoFLOXacin IV 750 MG/150 ML BAG 100 MG IV (10:37)
[2024-08-18] MEDS: Clopidogrel Bisulfate 75 MG Tablet PO (10:43)
[2024-08-18] MEDS: Ensure Plus High Protein 120 ML LIQUID PO (10:43)
[2024-08-18] MEDS: Enoxaparin 40 MG/0.4 ML Syringe SC (10:43)
--- NOTE | 2024-08-18 11:55 | WOUNDNOTE ---
wound photo: right lower leg
--- NOTE | 2024-08-18 11:56 | WOUNDNOTE ---
wound photo: right lower leg
--- NOTE | 2024-08-18 12:43 | CHAPLAIN ---
Type of Pastoral Visit _x__ Initial Visit ___ Follow-up Visit ___ On-call Visit ___ General Patient Visit ___ Spiritual Assessment ___ Family Conference ___ Bereavement ___ Rapid Response ___ Code Blue ___ Other (describe below) Pastoral Care Referral From _x__ Patient ___ Family ___ Nurse ___ Physician ___ Pulp House Supervisor ___ [employer] Breathing Apparatus ___ Other (describe below) Sacrament/Intervention _x__ Active listening ___ Anointing ___ Jain ___ Bereavement ___ Communion ___ Felecia exploration ___ ___ Life review _x__ Prayer ___ Reconciliation ___ Sacrament of Sick _x__ Supportive presence ___ Wedding ___ Other (describe below) Pastoral Comments patient has pain in his leg and explains how he is coping; pt admits to having feelings for the first time about giving up due to his health condition; listened and helped patient process what he is feeling about being ill; pt has limited family members and does live alone; pt has a felecia in God that he says helps him in life; pt welcomes presence and prayer for support today
[2024-08-18] MEDS: Vancomycin IV 500 MG/100 ML BAG 100 MG IV (13:09)
--- NOTE | 2024-08-18 13:30 | CASEMGMT ---
LUZ MARIA LICONA chart review: Patient was admitted 07/24-07/28/24 for RLE Cellulitis. See LUZ MARIA LICONA assessment for 07/24/24. Patient was discharged to home with [facility] HHC, po antibiotics, and follow-up plans in place. Patient returned to [facility] ED on 08/17/24 for continue redness and weeping to RLE. Patient was admitted for RLE wound and cellulitis with podiatry, vascular, and ID consults. Patient is planned to have I&D with podiatry on 08/20. LUZ MARIA LICONA in to discuss readmission and needs at discharge. Patient states he was taking medications as prescribed and had PCP appt scheduled for 08/20/24. Patient states [facility] had been following patient and family assisting with wound care. LUZ MARIA LICONA discuss potential needs for IV ATBS and therapy at discharge pending cultures and progress with therapy after surgery. Patient states he prefers to go home with resumption of HHC but is amendable to SNF if needs. LUZ MARIA LICONA updated patient that we will have to see how patient does with therapy for further recommendations. Patient voiced understanding. Disposition HHC vs SNF pending course of treatment and progress with therapy. CM will continue to follow this patient and plan for a safe discharge.
[2024-08-18] MEDS: Potassium Phosphate 21 MM in 0.9% Normal Saline (250mL Bag) 250 ML 84 MM IV (17:21)
--- NOTE | 2024-08-18 23:27 | PCM.RX.CS ---
Consult Antibiotic Management Pharmacy has been consulted to manage selected antibiotic: Vancomycin Type of Intervention Type of Consult: Follow-up Suspected Infection Suspected Infection: Skin/Soft tissue Labs Labs: Sodium 137 mmol/L (136-145) 08/18/24 05:45 Potassium 3.7 mmol/L (3.5-5.1) 08/18/24 05:45 Chloride 110 mmol/L (98-107) H 08/18/24 05:45 Carbon Dioxide 22.0 mmol/L (21.0-32.0) 08/18/24 05:45 Anion Gap 5 (5-15) 08/18/24 05:45 BUN 9 mg/dL (7-18) 08/18/24 05:45 Creatinine 0.68 mg/dL (0.70-1.30) L 08/18/24 05:45 Est GFR (MDRD) Af Amer 144 mL/min (>60) 08/18/24 05:45 Est GFR (MDRD) Non-Af 119 mL/min (>60) 08/18/24 05:45 BUN/Creatinine Ratio 13.2 RATIO (10-20) 08/18/24 05:45 Glucose 85 mg/dL (74-106) 08/18/24 05:45 Vancomycin Trough 9.0 ug/mL (5.0-15.0) 08/18/24 22:25 Microbiology Microbiology: Microbiology 08/17/24 18:25 Wound - Leg Gram Stain - Final 08/17/24 18:25 Wound - Leg Wound Culture - Preliminary Staphylococcus aureus Dosing Weight Weight used for dosin.5 kg Estimated Creatinine Clearance Estimated Creatinine Clearance: 71 Goal Trough Goal Trough: 10-15 mcg/mL Pharmacy Plan for Drug Dosing Pharmacy Plan for Drug Dosing: Vancomycin trough level of 9.0 was below the target range of 10-15. This was only a 9.25hr level. The dose will be increased to 1000mg q12h, and another trough will be drawn prior to the fourth dose of the new regimen. Pharmacy Service will continue to monitor and adjust dosing as required. Follow-Up Labs Follow-Up Labs: Trough: Vancomycin Date/Time Labs Ordered Labs to be done on [date and time ordered]: 08/20/24 @1100
[2024-08-18] MEDS: Vancomycin IV 1,000 MG/200 ML BAG 200 MG IV (23:32)
[2024-08-19] VITALS (7 sets, daily range): BP systolic 119–143; BP diastolic 56–98; PULSE 88–109; RESP 16–20; TEMP 36.4–37.1; O2SAT 94–100
[2024-08-19] MEDS: oxyCODONE 5 MG Tablet PO (02:30)
[2024-08-19] MEDS: Acetaminophen 500 MG Tablet 1000 MG PO ×3 (05:45→21:57)
[2024-08-19 06:37] LABS: Absolute Lymphocyte Count 0.56 X10^3/uL (0.83-4.51); Absolute Neutrophil Count 4.2 X10^3/uL (2.0-7.7); Basophil# 0.03 X10^3/uL; Basophil% 0.5 % (0-1); Eosinophil# 0.19 X10^3/uL; Eosinophils% 3.5 % (0-5); Hematocrit 35.3 % (40-54); Hemoglobin 11.4 g/dL (13.0-16.5); Lymphocyte # 0.56 X10^3/ul (0.83-4.51); Lymphocyte % 10.3 % (19-41); Mean Corp Hgb Conc 32.3 g/dL (32-36); Mean Corpuscular Volume 99.2 fL (80-94); Mean Platelet Vol. 8.9 fl (6.2-12.0); Monocyte# 0.43 X10^3/uL; Monocyte% 7.9 % (0-10); NRBC Flagged by Analyzer 0 % (0-5); Neutrophil # 4.22 X10^3/uL (2.7-7.7); Neutrophil % 77.3 % (47-70); POSITIVE DIFFERENTIAL YES; Platelet Count 317 K/mm3 (150-450); RBC Distribution Width CV 15.4 % (11.6-14.6); RBC Distribution Width SD 56.5 fl (35.1-43.9); Red Blood Count 3.56 M/mm3 (4.6-6.2); White Blood Count 5.5 K/mm3 (4.4-11.0)
--- NOTE | 2024-08-19 06:39 | PCM.PN.HOSP ---
Reason for Visit Reason for Visit: Diagnoses Peripheral vascular disease, unspecified (08/17/24) Cellulitis of right lower limb (08/17/24) Non-pressure chronic ulcer of unspecified part of right lower leg with unspecified severity (08/17/24) Localized edema (08/17/24) Tobacco use (08/17/24) Subjective Subjective Patient overnight with worsening pain to the right lower extremity with some tears to the very thin skin with some overt bleeding but this is abated with dried blood now. He is rating the pain at 10 out of 10 in severity and notes it is throbbing and sharp. Discussed plan of care still with evaluation ongoing by infectious disease and continue podiatry evaluation with OR . Discussed vascular surgery evaluation with plan to continue to follow-up outpatient but no acute needs. Patient denies fevers, chills, nausea, emesis, abdominal pain, chest pain or dyspnea. Objective Data Objective Data Vital Signs: Vital Signs Temp Pulse Resp BP Pulse Ox O2 Del Method 98.7 F 98 16 140/98 H 98 Room Air 08/19/24 02:00 08/19/24 02:00 08/19/24 02:00 08/19/24 02:00 08/19/24 02:00 08/19/24 02:00 Oxygen Delivery Method Room Air Weight: 159 lb 13.362 oz Body Mass Index (BMI) 24.3 Intake & Output: Intake and Output for Last 24 Hours 08/17/24 08/18/24 08/19/24 23:59 23:59 23:59 Intake Total 2290 / 2390 1527 / 1527 200 / 200 Output Total 1850 / 1850 1900 / 1900 700 / 700 Balance 440 / 540 -373 / -373 -500 / -500 Medical Nutrition Assessment Dietitian: Malnutrition Criteria Met Start: 08/17/24 14:01 Freq: Status: Active Protocol: Document 08/17/24 14:01 FRED (Rec: 08/17/24 14:01 FRED [id number]) Nutrition Malnutrition Evidence of Malnutrition Exists Yes Malnutrition (severe): Acute Illness/Injury Evidenced By Suboptimal Energy Intake ( Severe),Weight Loss (Severe) Intake Problem Increased Nutrient Needs (specify) Etiology related to skin status Signs/Symptoms as evidenced by RLE wound w/ cellulitis Status Active Problem Clinical Problem Acute Disease or Injury Related Malnutrition Etiology related to acute illness and inadequate energy intake Signs/Symptoms as evidenced by 6% unintended wt loss x 1 mo and po intake meeting <75% of est nutritional needs x 2 wks Status Active Problem Recommendation Dietitian Recommendations/Changes Will liberalize diet to regular d/t signs and symptoms of malnutrition Will continue 120 ml ensure plus high protein tid w/ medpass Will order tracy bid w/ meals to help w/ wound healing Rec consider appetite stimulant if continued poor po intake. Lab / Micro Data 08/19/24 05:32 08/19/24 05:32 Labs: Laboratory Results - last 24 hr 08/18/24 08:24: Phosphorus 2.0 L, Magnesium 2.2 08/18/24 22:25: Vancomycin Trough 9.0 Micro: Microbiology 08/17/24 18:25 Wound - Leg Gram Stain - Final 08/17/24 18:25 Wound - Leg Wound Culture - Preliminary Staphylococcus aureus Radiography Diagnostic Testing: Radiology Impression Saphenous Venous Mapping 08/18/24 09:34 Interpretation Summary Left great saphenous vein patent with measurements above. Left small saphenous vein patent with measurements above. Right small saphenous vein patent with measurements above. Right great saphenous prior ablation Ordering Physician: Kaleigh Perrin Referring Physician: Reynold Hernandez Performed By: Renetta Pozo RVT and Student Physical Exam Narrative Physical Examination: General: Awake, alert, oriented x 3 and cooperative, seated upright in the PCU bedside chair, notes severe discomfort to the right lower extremity which continued overnight and rates a 10 out of 10, did have unfortunately some skin tear to the right lower extremity with some bleeding which is since stopped Skin: Normal color, normal turgor, no icterus, no cyanosis except for significant right lower extremity with foot to knee erythematous skin changes with venous stasis disease evident concurrently, multiple lesions scabbed over, dry skin in addition to left lower extremity with venous stasis skin changes concurrently, recent small abrasion/skin tear with dried blood to the right lower extremity but this is abated, diminished pulses bilaterally/difficulty with palpation. HEENT: AT/NC, EOMI, PERRLA, MMM. Lungs: Diminished, greater bases, appropriate effort, no rales, ronchi or wheezing. Heart: Regular rate and rhythm; no gallop, rub audible. Abdomen: Soft, NTTP, ND, normal BS. Extremities: No cyanosis, no clubbing, no marked peripheral edema, see skin. Neurological: Patient awake, alert, oriented as, cognitive function intact; pupils equally reactive to light and accommodation, cranial nerves grossly normal, moving all 4 extremities, no focal deficits, strength moderately to severely globally decreased. Psychiatric: Affect appears fatigued, notes he did not sleep well because of right lower extremity pain, uncomfortable appearing, no acute evidence of depressive or anxiety feelings. Assessment & Plan Assessment/Plan (1) Cellulitis of right lower extremity: PLAN: Plan The patient is an 78 y/o M w/ PMHx: Suspected underlying COPD, Chronic anemia, CKD stage II suspected based on GFR trending, Chronic severe protein calorie malnutrition, Severe PVD, Tobacco use, Hx VTE who presents to the [facility] ED on 08/17/24 with history of chronic right lower extremity wound with recent admission with significant infection with MRSA/Enterococcus/Enterobacter/Acinetobacter discharged at that time on Levaquin and linezolid for 7 days now re-presenting with worsening appearing right lower extremity. #1. Right lower extremity cellulitis with vascular appearing wounds with associated mild lactic acidosis, now resolved: Admitted to PCU, initiated and continued on IV Levaquin and vancomycin given previous wounds, blood cultures pending, wound RN consulted, podiatry consulted, CT right lower extremity with runoff with diffuse subcutaneous edema without sclerosis, CTA abdomen and pelvis with runoff with significant atherosclerotic irregularity arterial supply to the bilateral lower extremities, distal occlusion right superficial femoral and popliteal arteries with distal flow reestablished above the trifurcation, intact bilateral runoff to the ankles, unfortunately was unable to tolerate EMILE/PVR assessments, admission lactic acid initially 2.5 with improvement to 1.7 following hydration, podiatry consulted and following with current recommendation for debridement under anesthesia with biopsy and/or grafting with likely plan for upcoming , requested vascular and infectious disease consult per podiatry recommendation. 08/18/24 Vascular surgery evaluation who reviewed imaging and believes his exam is stable with sufficient perfusion to expect to heal with recommendation for continued outpatient evaluation and consideration of high intensity statin as well as tobacco cessation. 08/18/24 ID evaluation with recommended continued IV levaquin and vanc based on prior Cx at this time. 08/19/24 increased pain to the right lower extremity with increase of his gabapentin and alteration of his oral and IV narcotic therapy. #2. Severe peripheral vascular disease: Strongly encourage continued tobacco cessation, continue Plavix therapy, following with Dr. Beatty status post previous right lower extremity intervention possibly to posterior tibial artery 06/2024, CT right lower extremity with runoff with diffuse subcutaneous edema without sclerosis, CTA abdomen and pelvis with runoff with significant atherosclerotic irregularity arterial supply to the bilateral lower extremities, distal occlusion right superficial femoral and popliteal arteries with distal flow reestablished above the trifurcation, intact bilateral runoff to the ankles, unfortunately was unable to tolerate EMILE/PVR assessments, continue gabapentin regimen however may consider titration as needed, continue Tylenol, as needed as needed morphine and oxycodone, vascular surgery consulted for podiatry request. #3. Hyponatremia, suspected mild hypokalemia: Admission sodium 135, chloride 107, suspected likely mild hypovolemia, judiciously hydrated, repeat 08/19/24 sodium 138, continue to trend. #4. Chronic Kidney Disease suspected, possibly stage II based on previous GFR trending although has vacillated GFR: Admission BUN/Cr 16/1.03, GFR 74, baseline renal function primarily 0.8-1.0, 08/19/24 BUN/Cr 8/0.69, GFR 117, repeat BMP in AM. #5. Severe protein calorie malnutrition: Evidenced by habitus, obvious muscle and fat loss, nutrition consulted, dietary supplements per their discretion. #6. Suspected underlying COPD: Not on the regimen, no formal diagnosis but highly suspected based on exam, tobacco use history and previous imaging, continue as needed albuterol, encourage head of bed and I-S #7. Chronic macrocytic anemia: Admission hemoglobin 12.7, MCV 101.1, baseline hemoglobin more recently has primarily been 12 but previous to this had been 14-15 range, 08/19/24 Hgb 11.4, continue to trend. #8. Tobacco Abuse: Encouraged cessation, inpatient consultation per RT, NR if desired. #9. DVT prophylaxis: Lovenox #10. CODE status: DNR-CCA, amenable for short term intubation only. Charges/Coding Visit Charges Inpatient E&M: 46976 Subs Hosp L3
[2024-08-19 07:16] LABS: ALB/GLOB Ratio 0.7 RATIO (0.9-2.4); AST(SGOT) 17 U/L (15-37); Alanine Aminotransfer ALT/SGPT 13 U/L (16-61); Albumin, Serum 2.5 g/dL (3.2-5.0); Alkaline Phosphatase 28 U/L (45-117); Anion Gap 5 (5-15); BUN 8 mg/dL (7-18); BUN/Creat Ratio 11.6 RATIO (10-20); Chloride 106 mmol/L (98-107); Creatinine, Serum 0.69 mg/dL (0.70-1.30); EST Glomerular Filtration Rate 117 mL/min (>60); Est Glom Filt Rate - Afr Amer 142 mL/min (>60); Estimated Creatinine Clearance 71.25 ml/min; Globulin 3.6 g/dL (2.2-4.2); Glucose 82 mg/dL (74-106); Potassium 3.6 mmol/L (3.5-5.1); Protein, Total 6.1 g/dL (6.4-8.2); Sodium Level 138 mmol/L (136-145)
[2024-08-19 07:23] LABS: Phosphorus 2.8 mg/dL (2.5-4.9)
[2024-08-19] MEDS: Enoxaparin 40 MG/0.4 ML Syringe SC (10:19)
[2024-08-19] MEDS: Clopidogrel Bisulfate 75 MG Tablet PO (10:19)
[2024-08-19] MEDS: Ensure Plus High Protein 120 ML LIQUID PO ×3 (10:24→12:14)
[2024-08-19] MEDS: levoFLOXacin IV 750 MG/150 ML BAG 100 MG IV (10:30)
[2024-08-19] MEDS: HYDROmorphone 0.5 MG/0.5 ML SYRINGE IV ×3 (10:31→22:02)
[2024-08-19] MEDS: Gabapentin 100 MG Capsule PO (10:31)
[2024-08-19] MEDS: 0.9% Saline Lock 10 ML Syringe IV ×3 (10:35→22:07)
[2024-08-19] MEDS: Gabapentin 100 MG Capsule 200 MG PO ×2 (12:13→17:47)
[2024-08-19] MEDS: Vancomycin IV 1,000 MG/200 ML BAG 200 MG IV ×2 (12:50→22:07)
[2024-08-19] MEDS: oxyCODONE 5 MG Tablet 10 MG PO ×2 (17:47→21:58)
[2024-08-19] MEDS: Atorvastatin Calcium 40 MG Tablet PO (21:57)
[2024-08-20] MEDS: 0.9% Saline Lock 10 ML Syringe IV ×5 (03:24→23:22)
[2024-08-20] MEDS: HYDROmorphone 0.5 MG/0.5 ML SYRINGE IV ×4 (03:24→17:14)
[2024-08-20 04:00] VITALS: BP 115/67; PULSE 90; RESP 16; TEMP 35.9; O2SAT 95
[2024-08-20 06:27] LABS: Absolute Lymphocyte Count 0.62 X10^3/uL (0.83-4.51); Absolute Neutrophil Count 3.1 X10^3/uL (2.0-7.7); Basophil# 0.03 X10^3/uL; Basophil% 0.7 % (0-1); Eosinophil# 0.23 X10^3/uL; Eosinophils% 5.2 % (0-5); Hematocrit 33.6 % (40-54); Hemoglobin 10.8 g/dL (13.0-16.5); Lymphocyte # 0.62 X10^3/ul (0.83-4.51); Mean Corp Hgb Conc 32.1 g/dL (32-36); Mean Corpuscular Hgb 32.4 pg (27.0-32.0); Mean Corpuscular Volume 100.9 fL (80-94); Mean Platelet Vol. 8.7 fl (6.2-12.0); Monocyte# 0.41 X10^3/uL; Monocyte% 9.3 % (0-10); NRBC Flagged by Analyzer 0 % (0-5); Neutrophil # 3.11 X10^3/uL (2.7-7.7); Neutrophil % 70.3 % (47-70); Platelet Count 301 K/mm3 (150-450); RBC Distribution Width CV 15.6 % (11.6-14.6); RBC Distribution Width SD 57.2 fl (35.1-43.9); Red Blood Count 3.33 M/mm3 (4.6-6.2); White Blood Count 4.4 K/mm3 (4.4-11.0)
[2024-08-20 06:51] LABS: ALB/GLOB Ratio 0.7 RATIO (0.9-2.4); AST(SGOT) 10 U/L (15-37); Alanine Aminotransfer ALT/SGPT 16 U/L (16-61); Albumin, Serum 2.3 g/dL (3.2-5.0); Alkaline Phosphatase 23 U/L (45-117); Anion Gap 3 (5-15); BUN 6 mg/dL (7-18); Calcium,Total 9.1 mg/dL (8.5-10.1); Chloride 106 mmol/L (98-107); EST Glomerular Filtration Rate 137 mL/min (>60); Est Glom Filt Rate - Afr Amer 166 mL/min (>60); Estimated Creatinine Clearance 71.25 ml/min; Globulin 3.4 g/dL (2.2-4.2); Glucose 84 mg/dL (74-106); Potassium 3.8 mmol/L (3.5-5.1); Protein, Total 5.7 g/dL (6.4-8.2); Sodium Level 136 mmol/L (136-145)
--- NOTE | 2024-08-20 07:40 | PCM.PN.HOSP ---
Reason for Visit Reason for Visit: Diagnoses Peripheral vascular disease, unspecified (08/17/24) Cellulitis of right lower limb (08/17/24) Non-pressure chronic ulcer of unspecified part of right lower leg with unspecified severity (08/17/24) Localized edema (08/17/24) Tobacco use (08/17/24) Personal history of other infectious and parasitic diseases (08/17/24) Subjective Subjective Patient notes significant improvement in pain following regimen alteration the day prior and that fortunately he was able to sleep with no further skin tears or bleeding to the right lower extremity. Patient remains amenable for planned operative intervention per podiatry today. Patient denies fevers, chills, nausea, emesis, abdominal pain, chest pain or dyspnea. Objective Data Objective Data Vital Signs: Vital Signs Temp Pulse Resp BP Pulse Ox O2 Del Method 96.7 F L 90 16 115/67 95 Room Air 08/20/24 04:00 08/20/24 04:00 08/20/24 04:00 08/20/24 04:00 08/20/24 04:00 08/20/24 04:00 Oxygen Delivery Method Room Air Weight: 159 lb 13.362 oz Body Mass Index (BMI) 24.3 Intake & Output: Intake and Output for Last 24 Hours 08/18/24 08/19/24 08/20/24 23:59 23:59 23:59 Intake Total 1527 / 1527 750 / 1250 500 / 500 Output Total 1900 / 1900 1515 / 2315 1350 / 1350 Balance -373 / -373 -765 / -1065 -850 / -850 Medical Nutrition Assessment Dietitian: Malnutrition Criteria Met Start: 08/17/24 14:01 Freq: Status: Active Protocol: Document 08/17/24 14:01 FRED (Rec: 08/17/24 14:01 FRED [id number]) Nutrition Malnutrition Evidence of Malnutrition Exists Yes Malnutrition (severe): Acute Illness/Injury Evidenced By Suboptimal Energy Intake ( Severe),Weight Loss (Severe) Intake Problem Increased Nutrient Needs (specify) Etiology related to skin status Signs/Symptoms as evidenced by RLE wound w/ cellulitis Status Active Problem Clinical Problem Acute Disease or Injury Related Malnutrition Etiology related to acute illness and inadequate energy intake Signs/Symptoms as evidenced by 6% unintended wt loss x 1 mo and po intake meeting <75% of est nutritional needs x 2 wks Status Active Problem Recommendation Dietitian Recommendations/Changes Will liberalize diet to regular d/t signs and symptoms of malnutrition Will continue 120 ml ensure plus high protein tid w/ medpass Will order tracy bid w/ meals to help w/ wound healing Rec consider appetite stimulant if continued poor po intake. Lab / Micro Data 08/20/24 05:32 08/20/24 05:32 Labs: Laboratory Results - last 24 hr 08/20/24 05:32: WBC 4.4, RBC 3.33 L, Hgb 10.8 L, Hct 33.6 L, MCV 100.9 H, MCH 32.4 H, MCHC 32.1, RDW Std Deviation 57.2 H, RDW Coeff of Johanna 15.6 H, Plt Count 301, MPV 8.7, Immature Gran % (Auto) 0.500, Neut % (Auto) 70.3 H, Lymph % (Auto) 14.0 L, [place] % (Auto) 9.3, Eos % (Auto) 5.2 H, Baso % (Auto) 0.7, Absolute Neuts (auto) 3.1, Absolute Lymphs (auto) 0.62 L, Nucleated RBC % 0, Sodium 136, Potassium 3.8, Chloride 106, Carbon Dioxide 27.0, Anion Gap 3 L, BUN 6 L, Creatinine 0.60 L, Estim Creat Clear Calc 71.25, Est GFR (MDRD) Af Amer 166, Est GFR (MDRD) Non-Af 137, BUN/Creatinine Ratio 10.0, Glucose 84, Calcium 9.1, Total Bilirubin 0.40, AST 10 L, ALT 16, Alkaline Phosphatase 23 L, Total Protein 5.7 L, Albumin 2.3 L, Globulin 3.4, Albumin/Globulin Ratio 0.7 L Micro: Microbiology 08/17/24 18:25 Wound - Leg Gram Stain - Final 08/17/24 18:25 Wound - Leg Wound Culture - Final Staphylococcus aureus Acinetobacter baumannii 08/17/24 08:25 Blood Culture (Wb) - Right Hand Blood Culture - Preliminary No growth in 48 hours. 08/17/24 08:25 Blood Culture (Wb) - Anticubital Left Blood Culture - Preliminary No growth in 48 hours. Physical Exam Narrative Physical Examination: General: Awake, alert, oriented x 3 and cooperative, seated upright in PCU, notes feeling significantly proved, denies any current pain, notes the regimen worked well. Skin: Normal color, normal turgor, no icterus, no cyanosis except for significant right lower extremity with foot to knee erythematous skin changes with venous stasis disease evident concurrently, multiple lesions scabbed over, dry skin in addition to left lower extremity with venous stasis skin changes concurrently, no active bleeding from previous abrasions. HEENT: AT/NC, EOMI, PERRLA, MMM. Lungs: Diminished, greater bases, appropriate effort, no rales, ronchi or wheezing. Heart: Regular rate and rhythm; no gallop, rub audible. Abdomen: Soft, NTTP, ND, normal BS. Extremities: No cyanosis, no clubbing, no marked peripheral edema, see skin. Neurological: Patient awake, alert, oriented as, cognitive function intact; pupils equally reactive to light and accommodation, cranial nerves grossly normal, moving all 4 extremities, no focal deficits, strength moderately to severely globally decreased. Psychiatric: Affect appears more interactive, notes pain controlled, no acute evidence of depressive or anxiety feelings. Assessment & Plan Assessment/Plan (1) Cellulitis of right lower extremity: PLAN: Plan The patient is an 78 y/o M w/ PMHx: Suspected underlying COPD, Chronic anemia, CKD stage II suspected based on GFR trending, Chronic severe protein calorie malnutrition, Severe PVD, Tobacco use, Hx VTE who presents to the [facility] ED on 08/17/24 with history of chronic right lower extremity wound with recent admission with significant infection with MRSA/Enterococcus/Enterobacter/Acinetobacter discharged at that time on Levaquin and linezolid for 7 days now re-presenting with worsening appearing right lower extremity. #1. Right lower extremity cellulitis with vascular appearing MSSA and AcB wounds with associated mild lactic acidosis, now resolved: Admitted to PCU, initiated and continued on IV Levaquin and vancomycin given previous wounds, blood cultures pending, wound RN consulted, podiatry consulted, CT right lower extremity with runoff with diffuse subcutaneous edema without sclerosis, CTA abdomen and pelvis with runoff with significant atherosclerotic irregularity arterial supply to the bilateral lower extremities, distal occlusion right superficial femoral and popliteal arteries with distal flow reestablished above the trifurcation, intact bilateral runoff to the ankles, unfortunately was unable to tolerate EMILE/PVR assessments, admission lactic acid initially 2.5 with improvement to 1.7 following hydration. Cultures with MSSA and Acetobacter. Vascular surgery evaluation 08/18/2024 with belief that studies and exam stable with sufficient perfusion to expect to heal with recommended continued follow-up outpatient as well as initiation of high-dose statin which was initiated. Infectious disease following, maintain on empiric Vanco and Levaquin per ID management. Podiatry consulted and following with planned operative intervention. 08/18/24 ID evaluation with recommended continued IV levaquin and vanc based on prior Cx at this time. 08/19/24 increased pain to the right lower extremity with increase of his gabapentin and alteration of his oral and IV narcotic therapy. 08/20/2020 for planned surgical intervention, will wait operative report per podiatry. #2. Severe peripheral vascular disease: Strongly encourage continued tobacco cessation, continue Plavix therapy, following with Dr. Beatty status post previous right lower extremity intervention possibly to posterior tibial artery 06/2024, CT right lower extremity with runoff with diffuse subcutaneous edema without sclerosis, CTA abdomen and pelvis with runoff with significant atherosclerotic irregularity arterial supply to the bilateral lower extremities, distal occlusion right superficial femoral and popliteal arteries with distal flow reestablished above the trifurcation, intact bilateral runoff to the ankles, unfortunately was unable to tolerate EMILE/PVR assessments, continue gabapentin regimen however may consider titration as needed, continue Tylenol, as needed as needed morphine and oxycodone, vascular surgery consulted for podiatry request. 08/18/2024 vascular surgery evaluation with studies and exam stable with sufficient perfusion to expect that he will, recommended high-dose statin which was added and adjusted for patient age. #3. Hyponatremia, suspected mild hypokalemia: Admission sodium 135, chloride 107, suspected likely mild hypovolemia, judiciously hydrated, repeat 08/19/24 sodium 138, continue to trend. #4. Chronic Kidney Disease suspected, possibly stage II based on previous GFR trending although has vacillated GFR: Admission BUN/Cr 16/1.03, GFR 74, baseline renal function primarily 0.8-1.0, 08/20/2024 BUN/creatinine 6/0.60, GFR 137, repeat BMP in AM. #5. Severe protein calorie malnutrition: Evidenced by habitus, obvious muscle and fat loss, nutrition consulted, dietary supplements per their discretion. #6. Suspected underlying COPD: Not on the regimen, no formal diagnosis but highly suspected based on exam, tobacco use history and previous imaging, continue as needed albuterol, encourage head of bed and I-S #7. Chronic macrocytic anemia: Admission hemoglobin 12.7, MCV 101.1, baseline hemoglobin more recently has primarily been 12 but previous to this had been 14-15 range, 08/20/2024 hemoglobin 10.8, MCV 100.9, continue to trend. #8. Tobacco Abuse: Encouraged cessation, inpatient consultation per RT, NR if desired. #9. DVT prophylaxis: Lovenox #10. CODE status: DNR-CCA, amenable for short term intubation only. Charges/Coding Visit Charges Inpatient E&M: 89069 Subs Hosp L2
[2024-08-20 08:03] VITALS: BP 125/79; PULSE 85; RESP 16; TEMP 37.3; O2SAT 100
[2024-08-20] MEDS: Gabapentin 100 MG Capsule 200 MG PO ×3 (08:06→17:12)
[2024-08-20] MEDS: levoFLOXacin IV 750 MG/150 ML BAG 100 MG IV (08:08)
--- NOTE | 2024-08-20 09:09 | WOUNDNOTE ---
In to talk with patient. had planned to change the dressing to the right lower leg. patient informed this nurse that he thinks he is going to surgery today for I&D of the right leg. dressing is dry and intact at this time. will await plan and if no surgery is planned today, will change dressing later this morning. pt agreeable.
--- NOTE | 2024-08-20 10:09 | PCM.PN.ID ---
Physical Exam Narrative Feeling better, leg less sore, no fever, no n/v/d Const alert and no apparent distress General Appearance: cooperative Resp normal air movement and clear to auscultation bilaterally Cardio regular rate and regular rhythm GI soft to palpation, non-tender and non-distended Skin Skin Narrative: RLE wrapped ID ID: Route of nutrition/ use of supplements: [] Nutritional Intake: [] IV Site: [] Pruitt Catheter: [] Assessment & Plan Assessment/Plan (1) Cellulitis of right lower extremity: PLAN: Wound cx MSSA and AcB, seen by podiatry and vascular. On empiric vanc/levaquin based on recent growth; sx improving. OR planned Will follow (2) Peripheral vascular disease:
[2024-08-20 11:30] LABS: Vancomycin, Trough Level 13.9 ug/mL (5.0-15.0)
--- NOTE | 2024-08-20 11:40 | PCM.RX.CS ---
Consult Antibiotic Management Pharmacy has been consulted to manage selected antibiotic: Vancomycin Type of Intervention Type of Consult: Follow-up Labs Labs: Sodium 136 mmol/L (136-145) 08/20/24 05:32 Potassium 3.8 mmol/L (3.5-5.1) 08/20/24 05:32 Chloride 106 mmol/L (98-107) 08/20/24 05:32 Carbon Dioxide 27.0 mmol/L (21.0-32.0) 08/20/24 05:32 Anion Gap 3 (5-15) L 08/20/24 05:32 BUN 6 mg/dL (7-18) L 08/20/24 05:32 Creatinine 0.60 mg/dL (0.70-1.30) L 08/20/24 05:32 Est GFR (MDRD) Af Amer 166 mL/min (>60) 08/20/24 05:32 Est GFR (MDRD) Non-Af 137 mL/min (>60) 08/20/24 05:32 BUN/Creatinine Ratio 10.0 RATIO (10-20) 08/20/24 05:32 Glucose 84 mg/dL (74-106) 08/20/24 05:32 Vancomycin Trough 13.9 ug/mL (5.0-15.0) 08/20/24 11:01 Microbiology Microbiology: Microbiology 08/17/24 18:25 Wound - Leg Gram Stain - Final 08/17/24 18:25 Wound - Leg Wound Culture - Final Staphylococcus aureus Acinetobacter baumannii 08/17/24 08:25 Blood Culture (Wb) - Right Hand Blood Culture - Preliminary No growth in 48 hours. 08/17/24 08:25 Blood Culture (Wb) - Anticubital Left Blood Culture - Preliminary No growth in 48 hours. Pharmacy Plan for Drug Dosing Pharmacy Plan for Drug Dosing: VANCOMYCIN LEVEL RECEIVED Current Vancomycin Dose: 1000MG Q12 Number of Doses Received: 6 Vancomycin Level: 13.9 MG/DL Hours Since Last Dose: 13 Renal Function: SCr 06 mg/dL, CrCl 71 mL/min Renal Function Trend: stable Lab/Micro: MSSA, going to OR Vancomycin Plan/Comments: 13 hour trough is therapeutic (goal 10-15). Will continue current dosing and get a level in 2 days. Pending Level: 08/22/24 @ 1100 Pharmacy Service will continue to monitor and adjust dosing as required.
--- NOTE | 2024-08-20 11:47 | WOUNDNOTE ---
Nursing states plan is still for debridement of the right lower leg today per Dr Price. will leave the dressing in place today since dressing changes are painful. dressing will be changed when I&D is performed today.
[2024-08-20] MEDS: Vancomycin IV 1,000 MG/200 ML BAG 200 MG IV ×2 (12:16→23:23)
--- NOTE | 2024-08-20 16:57 | NURSING ---
Earlier today, LUZ MARIA Gaytandry pan charger nurse informed this RN that Dr. Price would be doing surgery today 08/20/24 but a time was still to be determined when it would happen. This RN called Wade Pond RN in PACU since it is now close to 1700 and not heard anything yet about surgery. Wade informed this RN that pt is on the surgery list for tomorrow 08/21/24 at 1530. This RN talked with LUZ MARIA Gaytandry pan charger about this. Lucila RN looked through the [employer] phone of messages and saw that at approximately 1130 this morning, Dr. Price texted her that surgery would be tomorrow 08/21/24 and to go ahead and feed pt. This RN will go in and tell pt this information.
[2024-08-20 17:22] VITALS: BP 113/70; PULSE 101; RESP 20; TEMP 36.4; O2SAT 98
[2024-08-20 19:49] VITALS: BP 109/67; PULSE 88
[2024-08-20] MEDS: oxyCODONE 5 MG Tablet 10 MG PO (19:52)
--- NOTE | 2024-08-20 19:53 | NURSING ---
pt refusing to have dressing changed tonight.
[2024-08-20 21:09] VITALS: BP 113/67; PULSE 95; RESP 20; TEMP 36.8; O2SAT 97
[2024-08-20] MEDS: Atorvastatin Calcium 40 MG Tablet PO (21:12)
[2024-08-20] MEDS: Acetaminophen 500 MG Tablet 1000 MG PO (21:12)
[2024-08-20] MEDS: Menthol/Lanolin/Calamine/Znox 113 GM Tube 1 APPLIC TOPICAL (21:18)
[2024-08-20] MEDS: MELATONIN 3 MG TABLET PO (21:18)
[2024-08-21] VITALS (15 sets, daily range): BP systolic 103–154; BP diastolic 58–89; PULSE 70–90; RESP 16–18; TEMP 36.3–36.8; O2SAT 94–100; BMI 24.3
[2024-08-21] MEDS: oxyCODONE 5 MG Tablet 10 MG PO ×2 (02:36→20:38)
[2024-08-21 04:03] LABS: Absolute Lymphocyte Count 0.74 X10^3/uL (0.83-4.51); Absolute Neutrophil Count 2.3 X10^3/uL (2.0-7.7); Basophil# 0.03 X10^3/uL; Basophil% 0.8 % (0-1); Eosinophil# 0.16 X10^3/uL; Eosinophils% 4.2 % (0-5); Hematocrit 33.6 % (40-54); Hemoglobin 10.9 g/dL (13.0-16.5); Lymphocyte # 0.74 X10^3/ul (0.83-4.51); Lymphocyte % 19.5 % (19-41); Mean Corp Hgb Conc 32.4 g/dL (32-36); Mean Corpuscular Hgb 33.1 pg (27.0-32.0); Mean Corpuscular Volume 102.1 fL (80-94); Mean Platelet Vol. 8.8 fl (6.2-12.0); Monocyte# 0.54 X10^3/uL; Monocyte% 14.2 % (0-10); NRBC Flagged by Analyzer 0 % (0-5); Neutrophil % 60.5 % (47-70); Platelet Count 308 K/mm3 (150-450); RBC Distribution Width CV 15.8 % (11.6-14.6); RBC Distribution Width SD 58.9 fl (35.1-43.9); Red Blood Count 3.29 M/mm3 (4.6-6.2); White Blood Count 3.8 K/mm3 (4.4-11.0)
[2024-08-21 04:35] LABS: ALB/GLOB Ratio 0.6 RATIO (0.9-2.4); AST(SGOT) 15 U/L (15-37); Alanine Aminotransfer ALT/SGPT 16 U/L (16-61); Albumin, Serum 2.4 g/dL (3.2-5.0); Alkaline Phosphatase 25 U/L (45-117); Anion Gap 1 (5-15); BUN 13 mg/dL (7-18); BUN/Creat Ratio 16.7 RATIO (10-20); Calcium,Total 9.5 mg/dL (8.5-10.1); Chloride 104 mmol/L (98-107); Creatinine, Serum 0.78 mg/dL (0.70-1.30); EST Glomerular Filtration Rate 102 mL/min (>60); Est Glom Filt Rate - Afr Amer 123 mL/min (>60); Estimated Creatinine Clearance 71.25 ml/min; Globulin 3.7 g/dL (2.2-4.2); Glucose 98 mg/dL (74-106); Protein, Total 6.1 g/dL (6.4-8.2); Sodium Level 136 mmol/L (136-145)
[2024-08-21] MEDS: Acetaminophen 500 MG Tablet 1000 MG PO ×2 (06:03→20:38)
--- NOTE | 2024-08-21 06:49 | PN.HOSP_ITS ---
Reason for Visit Reason for Visit: Diagnoses Peripheral vascular disease, unspecified (08/17/24) Cellulitis of right lower limb (08/17/24) Non-pressure chronic ulcer of unspecified part of right lower leg with unspecified severity (08/17/24) Localized edema (08/17/24) Tobacco use (08/17/24) Personal history of other infectious and parasitic diseases (08/17/24) Subjective Subjective Patient with no acute events overnight per self or per nursing report. Unfortunately OR delayed day prior therefore his case was delayed until 08/21/2024 with plan for 2 PM today. Patient notes he has had some intermittent pain through the evening but it is intermittent and seems to correlate when the pain medication is running out. He denies any other acute symptoms. Patient denies fevers, chills, nausea, emesis, abdominal pain, chest pain or dyspnea. Objective Data Objective Data Vital Signs: Vital Signs Temp Pulse Resp BP Pulse Ox O2 Del Method 98.2 F 85 18 121/67 H 95 Room Air 08/21/24 02:31 08/21/24 02:31 08/21/24 02:31 08/21/24 02:31 08/21/24 02:31 08/21/24 02:31 Oxygen Delivery Method Room Air Weight: 159 lb 13.362 oz Body Mass Index (BMI) 24.3 Intake & Output: Intake and Output for Last 24 Hours 08/19/24 08/20/24 08/21/24 23:59 23:59 23:59 Intake Total 750 / 1250 1390 / 1390 200 / 200 Output Total 1515 / 2315 2300 / 2300 250 / 250 Balance -765 / -1065 -910 / -910 -50 / -50 Medical Nutrition Assessment Dietitian: Malnutrition Criteria Met Start: 08/17/24 14:01 Freq: Status: Active Protocol: Document 08/17/24 14:01 FRED (Rec: 08/17/24 14:01 FRED [id number]) Nutrition Malnutrition Evidence of Malnutrition Exists Yes Malnutrition (severe): Acute Illness/Injury Evidenced By Suboptimal Energy Intake ( Severe),Weight Loss (Severe) Intake Problem Increased Nutrient Needs (specify) Etiology related to skin status Signs/Symptoms as evidenced by RLE wound w/ cellulitis Status Active Problem Clinical Problem Acute Disease or Injury Related Malnutrition Etiology related to acute illness and inadequate energy intake Signs/Symptoms as evidenced by 6% unintended wt loss x 1 mo and po intake meeting <75% of est nutritional needs x 2 wks Status Active Problem Recommendation Dietitian Recommendations/Changes Will liberalize diet to regular d/t signs and symptoms of malnutrition Will continue 120 ml ensure plus high protein tid w/ medpass Will order tracy bid w/ meals to help w/ wound healing Rec consider appetite stimulant if continued poor po intake. Lab / Micro Data 08/21/24 03:10 08/21/24 03:10 Labs: Laboratory Results - last 24 hr 08/20/24 05:32: Sodium 136, Potassium 3.8, Chloride 106, Carbon Dioxide 27.0, A nion Gap 3 L, BUN 6 L, Creatinine 0.60 L, Estim Creat Clear Calc 71.25, Est GFR (MDRD) Af Amer 166, Est GFR (MDRD) Non-Af 137, BUN/Creatinine Ratio 10.0, Glucose 84, Calcium 9.1, Total Bilirubin 0.40, AST 10 L, ALT 16, Alkaline Phosphatase 23 L, Total Protein 5.7 L, Albumin 2.3 L, Globulin 3.4, A lbumin/Globulin Ratio 0.7 L 08/20/24 11:01: Vancomycin Trough 13.9 08/21/24 03:10: WBC 3.8 L, RBC 3.29 L, Hgb 10.9 L, Hct 33.6 L, MCV 102.1 H, MCH 33.1 H, MCHC 32.4, RDW Std Deviation 58.9 H, RDW Coeff of Johanna 15.8 H, Plt Count 308, MPV 8.8, Immature Gran % (Auto) 0.800, Neut % (Auto) 60.5, Lymph % (Auto) 19.5, Deuel % (Auto) 14.2 H, Eos % (Auto) 4.2, Baso % (Auto) 0.8, Absolute Neuts (auto) 2.3, Absolute Lymphs (auto) 0.74 L, Nucleated RBC % 0, Sodium 136, Potassium 4.0, Chloride 104, Carbon Dioxide 31.0, Anion Gap 1 L, BUN 13, Creatinine 0.78, Estim Creat Clear Calc 71.25, Est GFR (MDRD) Af Amer 123, Est GFR (MDRD) Non-Af 102, BUN/Creatinine Ratio 16.7, Glucose 98, Calcium 9.5, Total Bilirubin 0.30, AST 15, ALT 16, Alkaline Phosphatase 25 L, Total Protein 6.1 L, Albumin 2.4 L, Globulin 3.7, Albumin/Globulin Ratio 0.6 L Micro: Microbiology 08/17/24 18:25 Wound - Leg Gram Stain - Final 08/17/24 18:25 Wound - Leg Wound Culture - Final Staphylococcus aureus Acinetobacter baumannii 08/17/24 08:25 Blood Culture (Wb) - Right Hand Blood Culture - Preliminary No growth in 48 hours. 08/17/24 08:25 Blood Culture (Wb) - Anticubital Left Blood Culture - Preliminary No growth in 48 hours. Physical Exam Narrative Physical Examination: General: Awake, alert, oriented x 3 and cooperative, seated upright in PCU, notes feeling significantly proved, denies any current pain, notes the regimen worked well. Skin: Normal color, normal turgor, no icterus, no cyanosis except for significant right lower extremity with foot to knee erythematous skin changes with venous stasis disease evident concurrently, multiple lesions scabbed over, dry skin in addition to left lower extremity with venous stasis skin changes concurrently, no bleeding but some serosanguineous drainage on the dressings. HEENT: AT/NC, EOMI, PERRLA, MMM. Lungs: Diminished, greater bases, appropriate effort, no rales, ronchi or wheezing. Heart: Regular rate and rhythm; no gallop, rub audible. Abdomen: Soft, NTTP, ND, mildly hyperactive BS. Extremities: No cyanosis, no clubbing, no marked peripheral edema, see skin. Neurological: Patient awake, alert, oriented as, cognitive function intact; pupils equally reactive to light and accommodation, cranial nerves grossly normal, moving all 4 extremities, no focal deficits, strength moderately to severely globally decreased. Psychiatric: Affect appears fatigued, notes that he had intermittent pain through the evening primarily when pain medication is wearing off, no acute evidence of depressive or anxiety feelings. Assessment & Plan Assessment/Plan (1) Cellulitis of right lower extremity: PLAN: Plan The patient is an 78 y/o M w/ PMHx: Suspected underlying COPD, Chronic anemia, CKD stage II suspected based on GFR trending, Chronic severe protein calorie malnutrition, Severe PVD, Tobacco use, Hx VTE who presents to the [facility] ED on 08/17/24 with history of chronic right lower extremity wound with recent admission with significant infection with MRSA/Enterococcus/Enterobacter/Acinetobacter discharged at that time on Levaquin and linezolid for 7 days now re-presenting with worsening appearing right lower extremity. #1. Right lower extremity cellulitis with vascular appearing MSSA and AcB wounds with associated mild lactic acidosis, now resolved: Admitted to PCU, initiated and continued on IV Levaquin and vancomycin given previous wounds, blood cultures pending, wound RN consulted, podiatry consulted, CT right lower extremity with runoff with diffuse subcutaneous edema without sclerosis, CTA abdomen and pelvis with runoff with significant atherosclerotic irregularity arterial supply to the bilateral lower extremities, distal occlusion right superficial femoral and popliteal arteries with distal flow reestablished above the trifurcation, intact bilateral runoff to the ankles, unfortunately was unable to tolerate EMILE/PVR assessments, admission lactic acid initially 2.5 with improvement to 1.7 following hydration. Cultures with MSSA and Acetobacter. Vascular surgery evaluation 08/18/2024 with belief that studies and exam stable with sufficient perfusion to expect to heal with recommended continued follow-up outpatient as well as initiation of high-dose statin which was initiated. Infectious disease following, maintain on empiric Vanco and Levaquin per ID management. Podiatry consulted and following with planned operative intervention. 08/18/24 ID evaluation with recommended continued IV levaquin and vanc based on prior Cx at this time. 08/19/24 increased pain to the right lower extremity with increase of his gabapentin and alteration of his oral and IV narcotic therapy. 08/20/2020 for planned surgical intervention unfortunately delayed, plan now for OR 08/21/24. #2. Severe peripheral vascular disease: Strongly encourage continued tobacco cessation, continue Plavix therapy, following with Dr. Beatty status post previous right lower extremity intervention possibly to posterior tibial artery 06/2024, CT right lower extremity with runoff with diffuse subcutaneous edema without sclerosis, CTA abdomen and pelvis with runoff with significant atherosclerotic irregularity arterial supply to the bilateral lower extremities, distal occlusion right superficial femoral and popliteal arteries with distal flow reestablished above the trifurcation, intact bilateral runoff to the ankles, unfortunately was unable to tolerate EMILE/PVR assessments, continue gabapentin regimen however may consider titration as needed, continue Tylenol, as needed as needed morphine and oxycodone, vascular surgery consulted for podiatry request. 08/18/2024 vascular surgery evaluation with studies and exam stable with sufficient perfusion to expect that he will, recommended high-dose statin which was added and adjusted for patient age. #3. Hyponatremia, suspected mild hypokalemia: Admission sodium 135, chloride 107, suspected likely mild hypovolemia, judiciously hydrated, repeat 08/21/2024 sodium 136, continue to trend. #4. Chronic Kidney Disease suspected, possibly stage II based on previous GFR trending although has vacillated GFR: Admission BUN/Cr 16/1.03, GFR 74, baseline renal function primarily 0.8-1.0, 08/21/2024 BUN/creatinine 13/0.78, GFR 102, continue to trend. Given GFR now 102 possibly not stage II but uncertain. #5. Severe protein calorie malnutrition: Evidenced by habitus, obvious muscle and fat loss, nutrition consulted, dietary supplements per their discretion. #6. Suspected underlying COPD: Not on the regimen, no formal diagnosis but highly suspected based on exam, tobacco use history and previous imaging, continue as needed albuterol, encourage head of bed and I-S #7. Chronic macrocytic anemia: Admission hemoglobin 12.7, MCV 101.1, baseline hemoglobin more recently has primarily been 12 but previous to this had been 14- 15 range, 08/21/2024 hemoglobin 10.9, MCV 102.1, continue to trend. #8. Tobacco Abuse: Encouraged cessation, inpatient consultation per RT, NR if desired. #9. DVT prophylaxis: Lovenox held for OR. #10. CODE status: DNR-CCA, amenable for short term intubation only. Charges/Coding Visit Charges Inpatient E&M: 59880 Subs Hosp L2
--- NOTE | 2024-08-21 08:46 | CASEMGMT ---
Discharge Planning A list of SNF providers including quality and resource use data and consistent with the patient's preferred geographic region, medical needs, and insurance network was created in [employer] Guide.? This list was provided to the SW. Maria E Maciel Discharge Planning Asst.
[2024-08-21] MEDS: levoFLOXacin IV 750 MG/150 ML BAG 100 MG IV (09:19)
--- NOTE | 2024-08-21 09:19 | WOUNDNOTE ---
Pt did not end up going to surgery yesterday so the plan is for OR today at 1530. pt aware. consent is on the chart and has been signed. will leave dressing in place since patient is painful with dressing changes. will continue to follow.
[2024-08-21] MEDS: Menthol/Lanolin/Calamine/Znox 113 GM Tube 1 APPLIC TOPICAL ×2 (09:20→20:39)
[2024-08-21] MEDS: 0.9% Saline Lock 10 ML Syringe IV (09:24)
[2024-08-21] MEDS: HYDROmorphone 0.5 MG/0.5 ML SYRINGE IV (09:24)
[2024-08-21] MEDS: Vancomycin IV 1,000 MG/200 ML BAG 200 MG IV ×2 (11:02→23:23)
--- NOTE | 2024-08-21 14:10 | PCM.PN.ID ---
Physical Exam Narrative Feeling ok, some pain in leg, no fever, no n/v/d. Const alert and no apparent distress General Appearance: cooperative Resp normal air movement and clear to auscultation bilaterally Cardio regular rate and regular rhythm GI soft to palpation, non-tender and non-distended Skin Skin Narrative: RLE wrapped ID ID: Route of nutrition/ use of supplements: [] Nutritional Intake: [] IV Site: [] Pruitt Catheter: [] Assessment & Plan Assessment/Plan (1) Cellulitis of right lower extremity: PLAN: Wound cx MSSA and AcB, seen by podiatry and vascular. On empiric vanc/levaquin based on recent growth; sx improving. OR planned for today. Will follow (2) Peripheral vascular disease:
[2024-08-21] MEDS: 0.9% Normal Saline (1000mL) 1,000 ML 15 ML IV (14:42)
--- NOTE | 2024-08-21 15:02 | PRE.ANES_ITS ---
ASA Classification* ASA Classification ASA Classification: 3 Assessment & Plan Anesthesia* Anesthesia Assessment Anesthesia Assessment: Discussed sedation and/or anesthesia options, risks, benefits, and alternatives with patient/parents/legal guardian/POA. Questions invited. The patient/parents/legal guardian/POA seems to understand and agrees to proceed with anesthesia plan. Reviewed the physical assessment, medical history, allergy history and patient home medications list prior to surgery/procedure/anesthetic and documented any changes. Performed airway and anesthesia risk assessments. Anesthesia Type Anesthesia Type: General Anesthesia Focused Assessment* Temperature: 97.4 F Pulse Rate: 84 Blood Pressure: 109/69 Respiratory Rate: 18 Pulse Ox: 100 Airway Assessment Mouth opens: >3 cm Mallampati Score: II Focused Labs Anesthesia Preop lab: CBC WBC 3.8 K/mm3 (4.4-11.0) L 08/21/24 03:10 RBC 3.29 M/mm3 (4.6-6.2) L 08/21/24 03:10 Hgb 10.9 g/dL (13.0-16.5) L 08/21/24 03:10 Hct 33.6 % (40-54) L 08/21/24 03:10 Plt Count 308 K/mm3 (150-450) 08/21/24 03:10 CHEMISTRY Potassium 4.0 mmol/L (3.5-5.1) 08/21/24 03:10 Sodium 136 mmol/L (136-145) 08/21/24 03:10 Magnesium 2.2 mg/dL (1.6-2.6) 08/18/24 08:24 Phosphorus 2.8 mg/dL (2.5-4.9) 08/19/24 05:32 BUN 13 mg/dL (7-18) 08/21/24 03:10 Creatinine 0.78 mg/dL (0.70-1.30) 08/21/24 03:10 Glucose 98 mg/dL (74-106) 08/21/24 03:10 COAG PT 13.1 SECONDS (11.7-14.9) 08/17/24 08:11 Pre-Assessment Diagnosis/Proposed Procedure Planned Operative Procedure(s): I&D RT Lower leg, flap Anesthesia History Anesthesia History - technology instructor: Anesthesia History - technology instructor Hx Hospitalization No 06/11/24 09:14 Any Problems With Anesthesia No 08/20/24 00:16 Cholinesterase deficiency No 08/20/24 00:16 You/Your Family Experience No 08/20/24 00:16 fever (hyperthermia) with Relationship Recent Exposure to Contagious No 08/20/24 00:16 Disease Does patient have nerve No 08/20/24 00:16 stimulator Patient instructed to have No 08/20/24 00:16 device shut off --Does patient have Pacemaker No 08/21/24 08:18 or ICD? When Was Last Pacemaker Check QUESTION #4 FULL TEXT: You/Your Family Experience fever (hyperthermia) with Anesthesia Last Oral Intake Last Oral intake: Last Oral Intake NPO since 00:00 08/21/24 08:18 Meds taken in AM with sips of No 08/21/24 08:18 water? Meds patient instructed to take am of surgery PONV PONV - technology instructor: PONV - technology instructor Female HX of Motion Sickness HX of N/V After Surgery Non-Smoker Duration of Surgery greater than 60 minutes Number of Risk Factors PONV Score Height & Weight Height & Weight: Anesthesia: Height & Weight Height 5 ft 8 in 08/21/24 08:18 Weight: 72.5 kg 08/21/24 08:18 Body Mass Index (BMI) 24.3 08/21/24 08:18 Respiratory Assessment Respiratory Assessment - technology instructor: Respiratory Tract Infection Hx - technology instructor Hx Respiratory Tract Infection No 08/20/24 00:16 STOP Sleep Apnea STOP Sleep Apnea - technology instructor: STOP Sleep Apnea - technology instructor Hx Hypertension No 08/19/24 09:33 Hx Sleep Apnea No 08/17/24 11:18 CPAP BIPAP Do you snore loudly (louder No 08/17/24 11:18 than talking or can be heard Do you often feel tired/ No 08/17/24 11:18 fatigued/ sleepy during daytime? Has anyone observed you stop No 08/17/24 11:18 breathing during sleep? STOP Results Negative 08/17/24 11:18 QUESTION #5 FULL TEXT : Do you snore loudly (louder than talking or can be heard through closed doors)? Tobacco Use History Tobacco Use History - technology instructor: Tobacco Use History - technology instructor Tobacco Use Cigarettes 06/11/24 09:14 Smoking Status Current every day smoker 08/17/24 22:52 Hx Tobacco Use Yes 08/17/24 11:18 Years Smoking Packs Smoked per Day Smoking Cessation Date was within the last 15 years Hx Smoking Cessation Date Hx Smoking Cessation No 08/17/24 11:18 Counseling Hematologic Medial History Hematologic Hx - technology instructor: Hematologic Medical Hx - ergonomics consultant Hx of Blood Transfusion No 08/17/24 11:18 Hx of Transfusion in last 3 No 08/17/24 11:18 Months Date of Last Transfusion (if within last 3 months) Ever experience any problems No 08/17/24 11:18 with transfusion(s)? Specify any problems Hx of Preganancy in last 3 N/A 08/17/24 11:18 Months Nurse Filling Out Transfusion MBARKER 08/17/24 11:18 & Questions: Date: 08/17/24 08/17/24 11:18 Time: 11:19 08/17/24 11:18 Patient unable to answer at this time (ie. confused, unrespo /Reproduction History /Reproductive History - technology instructor: /Reproductive Hx- technology instructor Hx Now No 08/20/24 00:16 Gestational Age (in weeks): EDC: Hx Hx Para Hx Section SAB No 08/20/24 00:16 Active Medications Active Medications: Current Medications Generic Name Dose Route Start Last Admin Trade Name Freq PRN Reason Stop Dose Admin Acetaminophen 1,000 mg 08/17/24 14:00 08/21/24 10:24 Acetaminophen 500 Mg Tablet PO Not Given Q8 [facility] Albuterol Sulfate 2.5 mg 08/17/24 11:13 Albuterol 2.5 Mg/3 Ml Vial.Neb. INHALATION Q2H PRN PRN SOB &/OR WHEEZING Atorvastatin Calcium 40 mg 08/19/24 22:00 08/20/24 21:12 Atorvastatin Calcium 40 Mg Tablet PO 40 mg QHS [facility] Administration Calamine/Phenol 1 applic 08/20/24 22:00 08/21/24 09:20 Menthol/Lanolin/Calamine/Znox 113 Gm Tube TOPICAL 1 applic BID [facility] Administration Protocol Clopidogrel Bisulfate 75 mg 08/17/24 11:13 08/21/24 09:34 Clopidogrel Bisulfate 75 Mg Tablet PO Not Given DAILY [facility] Enoxaparin Sodium 40 mg 08/18/24 10:00 08/21/24 08:11 Enoxaparin 40 Mg/0.4 Ml Syringe SC Not Given DAILY VAL[facility]IE Gabapentin 200 mg 08/19/24 12:00 08/21/24 10:24 Gabapentin 100 Mg Capsule PO Not Given TIDCM [facility] Hydromorphone HCl 0.5 mg 08/19/24 09:40 08/21/24 09:24 Hydromorphone 0.5 Mg/0.5 Ml Syringe IV 0.5 mg Q3H PRN PRN Administration pain 6-10, breakthrough Vancomycin IV-PHARMACY TO DOSE 500 mls @ 250 mls/hr 08/17/24 11:13 1 each/ Sodium Chloride IV PRN PRN Rx to Dose Protocol Levofloxacin 750 mg in 150 mls @ 100 mls/hr 08/18/24 10:00 08/21/24 10:54 Levaquin Iv IV Infused Q24 [facility] Infusion Sodium Chloride 100 mls @ 15 mls/hr 08/18/24 20:32 IV .Q6H40M PRN Saline Flush Sodium Chloride 100 mls @ 15 mls/hr 08/18/24 20:32 IV .Q6H40M PRN Additional IVPB Infusion Vancomycin HCl 1,000 mg in 200 mls @ 200 mls/hr 08/18/24 23:30 08/21/24 12:10 Vancomycin IV Infused Q12H [facility]ARIE Infusion Sodium Chloride 1,000 mls @ 15 mls/hr 08/21/24 14:45 08/21/24 14:42 IV 08/27/24 04:04 15 mls/hr .Q48H [facility] Administration Protocol Melatonin 3 mg 08/17/24 22:00 08/20/24 21:18 Melatonin 3 Mg Tablet PO 3 mg QHS PRN PRN Administration INSOMNIA Nicotine 21 mg 08/17/24 14:57 08/21/24 09:19 Nicotine 21 Mg Patch TD 21 mg DAILY [facility] Administration Nutritional Formula (Lactose Free) 120 ml 08/17/24 12:00 08/21/24 10:24 Ensure Plus High Protein 120 Ml Liquid PO Not Given TIDCM VALARIE Ondansetron HCl 4 mg 08/17/24 11:13 Ondansetron 4 Mg/2 Ml Vial IV Q8H PRN PRN NAUSEA/VOMITING Oxycodone HCl 10 mg 08/19/24 09:41 08/21/24 02:36 Oxycodone 5 Mg Tablet PO 10 mg Q4H PRN PRN Administration Pain Score 4-10 Senna/Docusate Sodium 2 tablet 08/17/24 11:13 Senna/Docusate Sodium 1 Tablet PO BID PRN PRN Constipation Sodium Chloride 10 - 40 ml 08/17/24 11:21 08/21/24 09:24 0.9% Saline Lock 10 Ml Syringe IV 10 ml UD PRN Administration SALINE FLUSH Vancomycin Protocol 1 lab 08/22/24 09:00 Vancomycin Trough/Random Due 08/22/24 13:00 DAILY [facility] Medical History 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 Cellulitis of right leg Ulcer of right leg Leg wound, left Left leg cellulitis Dermatitis History of skin cancer Hx of blood clots Frequent infections Home Medications ?Medication ?Instructions ?Recorded ?Last Taken ?Type clopidogrel 75 mg tablet (Plavix) 75 mg PO DAILY 11/06/21 08/17/24 History acetaminophen 500 mg capsule 1,000 mg PO Q6H PRN fever or pain 08/17/24 08/17/24 History Allergy/AdvReac Type Severity Reaction Status Date / Time Penicillins Allergy Anaphylaxis Verified 08/17/24 08:01 Surgical History History of appendectomy Social History current occupational status: retired Smoking Status: Current every day smoker tobacco type: cigarettes alcohol intake: current alcohol intake frequency: a few times a month substance use type: does not use Review of Systems (Anesthesia) ROS Narrative System reviewed and no additional complaints, except as documented.
[2024-08-21] MEDS: Bupivacaine 0.25% 30 ML Vial (17:42)
--- NOTE | 2024-08-21 18:18 | PCM.POST.ANE ---
Anesthesia: Postop Eval I Current Vital Signs Temperature: 97.3 F Pulse Rate: 90 Blood Pressure: 154/88 Respiratory Rate: 16 Pulse Ox: 100 Oxygen Delivery Method: Room Air Assessment Airway patent: Yes Spontaneous unlabored respirations: Yes Mental status: Awake and Calm nausea: No Vomiting: No Anesthesia Complication: No Fluid Hydration Crystalloid volume administer (ml): 400 Total IV fluid infused: 400 Progress Note Anesthesia document: Postop Eval 1 completed: Yes
--- NOTE | 2024-08-21 18:19 | PCM.POSTANE2 ---
Anesthesia Postop Eval I Sum Postop Eval Completion status Anesthesia document: Postop Eval 1 completed: Yes Anesthesia Postop Eval I Summary Anesthesia Postop Eval I Summary: Anesthesia Postop Eval I: Assessment Summary Airway patent Yes 08/21/24 18:19 Spontaneous unlabored Yes 08/21/24 18:19 respirations Mental status Awake,Calm 08/21/24 18:19 nausea No 08/21/24 18:19 Vomiting No 08/21/24 18:19 Anesthesia Postop Eval I: Fluid Summary Crystalloid volume administer 400 08/21/24 18:19 (ml) Colloids volume administered ( ml) Blood Product volume administered (ml) Total IV fluid infused 400 08/21/24 18:19 Anesthesia Postop Eval I: Summary Notes Anesthesia Complication No 08/21/24 18:19 Anesthesia Complication Comment: Post-operative progress note Anesthesia: Postop Eval II Evaluation Mental status: Awake Pain Level: 0 nausea: No Vomiting: No
--- NOTE | 2024-08-21 18:40 | OP.PCM_ITS ---
Problems Associated Problem List Diagnoses (1) Cellulitis of right lower extremity: (2) Ulcer of right leg: (3) Peripheral vascular disease: (4) Leg edema: (5) Tobacco abuse: Operative Report (Standard) Operative Information Date of Procedure: 08/21/24 Pre-Operative Diagnosis: 1 Cellulitis right lower leg 2. Venous insufficiency with ulcerations x 7 3. Chronic edema 4. Peripheral vascular disease 5. Tobacco abuse Post-Operative Diagnosis: Same as above Surgery/Procedure Performed: 1. Debridement of ulceration into including subcutaneous tissue and situated prepare for skin graft prep site less than 100 cm? 2. Application of bio Parmar graft right lower leg for total of 29 cm of graft material all used 100% were used none was wasted 3. 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 Type of Anesthesia: Local MAC RN Documented Start/Stop Times: Operation Date: 08/21/24 15:30 Case Time Into Pre-Op 08/21/24 14:44 Out of Pre-Op 08/21/24 17:28 Anesthesia Start 08/21/24 17:30 Into Room 08/21/24 17:30 Procedure Start 08/21/24 17:45 Procedure End 08/21/24 18:06 Anesthesia End 08/21/24 18:14 Out of Room 08/21/24 18:14 Into Recovery 08/21/24 18:15 Procedure Start Time: 17:45 Procedure Stop Time: 18:06 Select all DRAINS/GRAFTS/IMPLANTS that apply: Graft Graft details: 2 5x5 grafts and 1 2x2 graft and Tissue Tissue details: biovance Special Medications: None Estimated Blood Loss: 30 cc Specimen collected: No Description of surgery: This patient is a very well-known patient of mine seen at the hospital for nonhealing wounds lower leg cellulitis the patient has had bouts of chronic cellulitis he was in the hospital 5 days about a week ago and then was discharged and then readmitted. Patient continues to have open ulcerations he does not treat his legs properly he does not have the proper care he smokes at this point he has had chronic wounds and recurrent cellulitis back to the hospital at this point he presents today with lower leg wounds I recommended debridement and constant wound care The patient was seen in the preoperative holding her chart reviewed and consent was signed. Patient was then taken back to the operating room placed Table in normal supine position once general anesthetic was then obtained a local block accorded percent Marcaine plain was injected about the right lower leg for total of 10 cc rapidly. It was then scrubbed prepped and draped usual aseptic te chnique using Betadine. Timeout was then performed attention was then directed to the medial aspect of the right lower leg which there was a wound that measured 3 cm x 1 cm which was then excisionally debrided into including subcu subcutaneous tissue in such a way to prepare for skin graft prep site. Next wound of the dorsal foot measured 2 cm x 1 cm also excisional debridement into including subcutaneous tissue to prepare for skin graft prep site Lateral lower leg had wounds on the lateral right ankle that measured 9 cm x 4 cm x 0.2 cm this was a large wound that was then debrided excisionally into including subcutaneous tissue using a curette removing all devitalized necrotic tissue from the lateral leg after prepping it for skin graft prep site then a 5 x 5 cm graft was then applied to the lateral wound at that point then it was applied Steri-Stripped in place and the wound was then covered. This was then flushed prior to applying the graft Then dorsal then most proximally lower leg there were 3 wounds that measured all 2 cm x 1 cm that were located along the proximal lower calf these then were all then excisionally debrided into including subcutaneous tissue therefore that there were 3 wounds all measuring this I then applied another 5 x 5 cm bio Parmar graft was then applied and bolstered in place with Steri-Strips dry dressing Adaptic. Lastly 1 last wound was on the lateral anterior lower leg which measured 2 x 1 and a 2 x 2 cm graft was applied to this wound after he was excisionally debrided into including subcutaneous tissue in such a way to prepare for skin graft prep site after prepping the wounds the grafts were applied Steri-Strip bolster in place and a compression bandage was applied from the toes to the knees using Adaptic ABD Kerlix and Molina. The patient Toller procedure well without complications no biopsy was necessary as I do feel as though these wounds are venous insufficiency wounds. He did have proper circulation and blood normally. I do think the patient at some point may need to go to a nursing facility I recommend the patient for proper care or outside rehabilitation for his pain medicine and proper wound care we had a long discussion with his family afterwards recommending the patient may need to go to a facility but does need proper care at the home which will need to be home care Surgical Findings: Chronic ulcerations of right lower leg. 7 wounds on the lower leg mostly on the lateral side 1 medial ankle 1 dorsal foot Complications Complications: No
[2024-08-21] MEDS: Gabapentin 100 MG Capsule 200 MG PO (20:37)
[2024-08-21] MEDS: Atorvastatin Calcium 40 MG Tablet PO (20:38)
[2024-08-22 02:47] VITALS: BP 119/74; PULSE 79; RESP 16; TEMP 36.7; O2SAT 96
[2024-08-22] MEDS: oxyCODONE 5 MG Tablet 10 MG PO ×3 (02:49→17:40)
[2024-08-22] MEDS: Acetaminophen 500 MG Tablet 1000 MG PO ×3 (05:05→21:31)
--- NOTE | 2024-08-22 06:29 | PN.HOSP_ITS ---
Reason for Visit Reason for Visit: Diagnoses Peripheral vascular disease, unspecified (08/17/24) Cellulitis of right lower limb (08/17/24) Non-pressure chronic ulcer of unspecified part of right lower leg with unspecified severity (08/17/24) Localized edema (08/17/24) Tobacco use (08/17/24) Personal history of other infectious and parasitic diseases (08/17/24) Subjective Subjective Patient with no acute events overnight per self and per nursing report. He notes pain is currently controlled utilizing regimen previously in place. He notes perioperatively he has had no events and currently denies any marked pain. He notes podiatry plan to change dressing 08/23/2024. Discussed likely will need to remain until Saturday to ensure operative cultures are appropriate for current antibiotic therapy with de-escalation of able and repeat ID evaluation to which she is understandable. Patient denies fevers, chills, nausea, emesis, abdominal pain, chest pain or dyspnea. Objective Data Objective Data Vital Signs: Vital Signs Temp Pulse Resp BP Pulse Ox O2 Del Method 98.0 F 79 16 119/74 96 Room Air 08/22/24 02:47 08/22/24 02:47 08/22/24 02:47 08/22/24 02:47 08/22/24 02:47 08/22/24 02:47 Oxygen Delivery Method Room Air Weight: 159 lb 13.362 oz Body Mass Index (BMI) 24.3 Intake & Output: Intake and Output for Last 24 Hours 08/20/24 08/21/24 08/22/24 23:59 23:59 23:59 Intake Total 1390 / 1390 1030 / 1030 800 / 800 Output Total 2300 / 2300 900 / 900 650 / 650 Balance -910 / -910 130 / 130 150 / 150 Medical Nutrition Assessment Dietitian: Malnutrition Criteria Met Start: 08/17/24 14:01 Freq: Status: Active Protocol: Document 08/17/24 14:01 FRED (Rec: 08/17/24 14:01 FRED [id number]) Nutrition Malnutrition Evidence of Malnutrition Exists Yes Malnutrition (severe): Acute Illness/Injury Evidenced By Suboptimal Energy Intake ( Severe),Weight Loss (Severe) Intake Problem Increased Nutrient Needs (specify) Etiology related to skin status Signs/Symptoms as evidenced by RLE wound w/ cellulitis Status Active Problem Clinical Problem Acute Disease or Injury Related Malnutrition Etiology related to acute illness and inadequate energy intake Signs/Symptoms as evidenced by 6% unintended wt loss x 1 mo and po intake meeting <75% of est nutritional needs x 2 wks Status Active Problem Recommendation Dietitian Recommendations/Changes Will liberalize diet to regular d/t signs and symptoms of malnutrition Will continue 120 ml ensure plus high protein tid w/ medpass Will order tracy bid w/ meals to help w/ wound healing Rec consider appetite stimulant if continued poor po intake. Lab / Micro Data 08/22/24 05:52 08/22/24 05:52 Micro: Microbiology 08/17/24 18:25 Wound - Leg Gram Stain - Final 08/17/24 18:25 Wound - Leg Wound Culture - Final Staphylococcus aureus Acinetobacter baumannii 08/17/24 08:25 Blood Culture (Wb) - Right Hand Blood Culture - Preliminary No growth in 48 hours. 08/17/24 08:25 Blood Culture (Wb) - Anticubital Left Blood Culture - Preliminary No growth in 48 hours. Physical Exam Narrative Physical Examination: General: Awake, alert, oriented x 3 and cooperative, seated upright in PCU, denies any pain, notes no perioperative events. Skin: Normal color, normal turgor, no icterus, no cyanosis EXTR bilateral lower extremity venous stasis skin changes, currently right lower extremity with dressing in place postoperatively with no drainage. HEENT: AT/NC, EOMI, PERRLA, MMM. Lungs: Diminished, greater bases, appropriate effort, no rales, ronchi or wheezing. Heart: Regular rate and rhythm; no gallop, rub audible. Abdomen: Soft, NTTP, ND, normal BS. Extremities: No cyanosis, no clubbing, no marked peripheral edema, see skin. Neurological: Patient awake, alert, oriented as, cognitive function intact; pupils equally reactive to light and accommodation, cranial nerves grossly normal, moving all 4 extremities, no focal deficits, strength improved, moderately globally decreased. Psychiatric: Affect appears normal, no acute evidence of depressive or anxiety feelings. Assessment & Plan Assessment/Plan (1) Cellulitis of right lower extremity: PLAN: Plan The patient is an 78 y/o M w/ PMHx: Suspected underlying COPD, Chronic anemia, CKD stage II suspected based on GFR trending, Chronic severe protein calorie malnutrition, Severe PVD, Tobacco use, Hx VTE who presents to the [facility] ED on 08/17/24 with history of chronic right lower extremity wound with recent admission with significant infection with MRSA/Enterococcus/Enterobacter/Acinetobacter discharged at that time on Levaquin and linezolid for 7 days now re-presenting with worsening appearing right lower extremity. #1. Right lower extremity cellulitis with vascular appearing MSSA and AcB wounds with associated mild lactic acidosis: Admitted to PCU, initiated and continued on IV Levaquin and vancomycin given previous wounds, blood cultures pending, wound RN consulted, podiatry consulted, CT right lower extremity with runoff with diffuse subcutaneous edema without sclerosis, CTA abdomen and pelvis with runoff with significant atherosclerotic irregularity arterial supply to the bilateral lower extremities, distal occlusion right superficial femoral and popliteal arteries with distal flow reestablished above the trifurcation, intact bilateral runoff to the ankles, unfortunately was unable to tolerate EMILE/PVR assessments, admission lactic acid initially 2.5 with improvement to 1.7 following hydration. Cultures with MSSA and Acetobacter. Vascular surgery evaluation 08/18/2024 with belief that studies and exam stable with sufficient perfusion to expect to heal with recommended continued follow-up outpatient as well as initiation of high-dose statin which was initiated. Infectious disease following, maintain on empiric Vanco and Levaquin per ID management. Podiatry consulted and following with planned operative intervention. 08/18/24 ID evaluation with recommended continued IV levaquin and vanc based on prior Cx at this time. 08/19/24 increased pain to the right lower extremity with increase of his gabapentin and alteration of his oral and IV narcotic therapy. 08/20/2020 for planned surgical intervention unfortunately delayed with the OR 08/21/2024 with debridement ulceration including subcutaneous tissue with preparation skin graft site, application bio Parmar graft to the right leg per Dr. Price. Plan 08/23/2020 for dressing takedown and change per podiatry. Awaiting OR cultures, likely will remain till Saturday to be able to focus antibiotic therapy with ID. #2. Severe peripheral vascular disease: Strongly encourage continued tobacco cessation, continue Plavix therapy, following with Dr. Beatty status post previous right lower extremity intervention possibly to posterior tibial artery 06/2024, CT right lower extremity with runoff with diffuse subcutaneous edema without sclerosis, CTA abdomen and pelvis with runoff with significant atherosclerotic irregularity arterial supply to the bilateral lower extremities, distal occlusion right superficial femoral and popliteal arteries with distal flow reestablished above the trifurcation, intact bilateral runoff to the ankles, unfortunately was unable to tolerate EMILE/PVR assessments, continue gabapentin regimen however may consider titration as needed, continue Tylenol, as needed as needed morphine and oxycodone, vascular surgery consulted for podiatry request. 08/18/2024 vascular surgery evaluation with studies and exam stable with sufficient perfusion to expect that he will, recommended high-dose statin which was added and adjusted for patient age. #3. Hyponatremia, suspected mild hypovolemia: Admission sodium 135, chloride 107, suspected likely mild hypovolemia, judiciously hydrated, repeat 08/22/2024 sodium 136. #4. Chronic Kidney Disease initially suspected stage II; however, current trending RULING OUT stage II disease with GFR now > 90 suspected, possibly stage II based on previous GFR trending although has vacillated GFR: Admission BUN/Cr 16/1.03, GFR 74, baseline renal function primarily 0.8-1.0, 08/22/2024 BUN/creatinine 11/0.78, GFR 123, continue to trend. #5. Severe protein calorie malnutrition: Evidenced by habitus, obvious muscle and fat loss, nutrition consulted, dietary supplements per their discretion. #6. Suspected underlying COPD: Not on the regimen, no formal diagnosis but highly suspected based on exam, tobacco use history and previous imaging, continue as needed albuterol, encourage head of bed and I-S #7. Chronic macrocytic anemia: Admission hemoglobin 12.7, MCV 101.1, baseline hemoglobin more recently has primarily been 12 but previous to this had been 14- 15 range, 08/22/2024 hemoglobin 10.9, MCV 101.2, continue to trend. #8. Tobacco Abuse: Encouraged cessation, inpatient consultation per RT, NR if desired. #9. DVT prophylaxis: Lovenox held for OR. #10. CODE status: DNR-CCA, amenable for short term intubation only. Charges/Coding Visit Charges Inpatient E&M: 05663 Subs Hosp L2
[2024-08-22 06:53] LABS: Absolute Lymphocyte Count 0.41 X10^3/uL (0.83-4.51); Absolute Neutrophil Count 3.1 X10^3/uL (2.0-7.7); Basophil# 0.01 X10^3/uL; Basophil% 0.3 % (0-1); Hematocrit 34.2 % (40-54); Hemoglobin 10.9 g/dL (13.0-16.5); Lymphocyte # 0.41 X10^3/ul (0.83-4.51); Lymphocyte % 11.3 % (19-41); Mean Corp Hgb Conc 31.9 g/dL (32-36); Mean Corpuscular Hgb 32.2 pg (27.0-32.0); Mean Corpuscular Volume 101.2 fL (80-94); Mean Platelet Vol. 8.9 fl (6.2-12.0); Monocyte# 0.12 X10^3/uL; Monocyte% 3.3 % (0-10); NRBC Flagged by Analyzer 0 % (0-5); Neutrophil # 3.06 X10^3/uL (2.7-7.7); Neutrophil % 84.3 % (47-70); POSITIVE DIFFERENTIAL YES; Platelet Count 292 K/mm3 (150-450); RBC Distribution Width SD 55.8 fl (35.1-43.9); Red Blood Count 3.38 M/mm3 (4.6-6.2); White Blood Count 3.6 K/mm3 (4.4-11.0)
[2024-08-22 07:10] LABS: ALB/GLOB Ratio 0.7 RATIO (0.9-2.4); AST(SGOT) 16 U/L (15-37); Alanine Aminotransfer ALT/SGPT 16 U/L (16-61); Albumin, Serum 2.5 g/dL (3.2-5.0); Alkaline Phosphatase 25 U/L (45-117); Anion Gap 3 (5-15); BUN 11 mg/dL (7-18); BUN/Creat Ratio 14.1 RATIO (10-20); Calcium,Total 9.2 mg/dL (8.5-10.1); Chloride 104 mmol/L (98-107); Creatinine, Serum 0.78 mg/dL (0.70-1.30); EST Glomerular Filtration Rate 102 mL/min (>60); Est Glom Filt Rate - Afr Amer 123 mL/min (>60); Estimated Creatinine Clearance 71.25 ml/min; Globulin 3.7 g/dL (2.2-4.2); Glucose 173 mg/dL (74-106); Protein, Total 6.2 g/dL (6.4-8.2); Sodium Level 136 mmol/L (136-145)
[2024-08-22 08:35] VITALS: BP 121/75; PULSE 71; RESP 16; TEMP 36.4; O2SAT 97
[2024-08-22] MEDS: Ensure Plus High Protein 120 ML LIQUID PO ×2 (08:44→12:50)
[2024-08-22] MEDS: Gabapentin 100 MG Capsule 200 MG PO ×3 (08:44→17:31)
[2024-08-22] MEDS: Menthol/Lanolin/Calamine/Znox 113 GM Tube 1 APPLIC TOPICAL ×2 (08:45→21:31)
[2024-08-22] MEDS: levoFLOXacin IV 750 MG/150 ML BAG 100 MG IV (08:46)
[2024-08-22] MEDS: Clopidogrel Bisulfate 75 MG Tablet PO (08:46)
[2024-08-22] MEDS: 0.9% Saline Lock 10 ML Syringe IV (08:47)
[2024-08-22] MEDS: Enoxaparin 40 MG/0.4 ML Syringe SC (08:48)
[2024-08-22 12:13] LABS: Vancomycin, Trough Level 16.7 ug/mL (5.0-15.0)
[2024-08-22 12:30] VITALS: BP 127/68; PULSE 70; RESP 16; TEMP 36.6; O2SAT 99
[2024-08-22] MEDS: Vancomycin HCl 750 MG in 0.9% Normal Saline (250mL Bag) 250 ML 250 MG IV (14:32)
[2024-08-22 17:36] VITALS: BP 131/71; PULSE 74; RESP 16; TEMP 36.3; O2SAT 99
--- NOTE | 2024-08-22 19:09 | PCM.RX.CS ---
Consult Antibiotic Management Pharmacy has been consulted to manage selected antibiotic: Vancomycin Type of Intervention Type of Consult: Follow-up Suspected Infection Suspected Infection: Skin/Soft tissue Labs Labs: Sodium 136 mmol/L (136-145) 08/22/24 05:52 Potassium 4.0 mmol/L (3.5-5.1) 08/22/24 05:52 Chloride 104 mmol/L (98-107) 08/22/24 05:52 Carbon Dioxide 29.0 mmol/L (21.0-32.0) 08/22/24 05:52 Anion Gap 3 (5-15) L 08/22/24 05:52 BUN 11 mg/dL (7-18) 08/22/24 05:52 Creatinine 0.78 mg/dL (0.70-1.30) 08/22/24 05:52 Est GFR (MDRD) Af Amer 123 mL/min (>60) 08/22/24 05:52 Est GFR (MDRD) Non-Af 102 mL/min (>60) 08/22/24 05:52 BUN/Creatinine Ratio 14.1 RATIO (10-20) 08/22/24 05:52 Glucose 173 mg/dL (74-106) H 08/22/24 05:52 Vancomycin Trough 16.7 ug/mL (5.0-15.0) H 08/22/24 11:20 Microbiology Microbiology: Microbiology 08/17/24 08:25 Blood Culture (Wb) - Right Hand Blood Culture - Final No growth in 5 days. 08/17/24 08:25 Blood Culture (Wb) - Anticubital Left Blood Culture - Final No growth in 5 days. 08/17/24 18:25 Wound - Leg Gram Stain - Final 08/17/24 18:25 Wound - Leg Wound Culture - Final Staphylococcus aureus Acinetobacter baumannii Goal Trough Goal Trough: 10-15 mcg/mL Pharmacy Plan for Drug Dosing Pharmacy Plan for Drug Dosing: VANCOMYCIN LEVEL RECEIVED Current Vancomycin Dose: 1000mg q12h (1130,2330) Number of Doses Received: x7 1000mg doses Vancomycin Level: 16.7 Hours Since Last Dose: 12 hours since last 1000mg dose Renal Function: SrCr 0.78 Renal Function Trend: stable Lab/Micro: Vancomycin Plan/Comments: resulted trough of 16.7 is above the ordered goal trough range of 10-15. recommend reducing vancomycin dose to 750mg q12h and checking a trough prior to the 4th dose Pending Level: 08/24/24 at 0130 Pharmacy Service will continue to monitor and adjust dosing as required. Follow-Up Labs Follow-Up Labs: Trough: Vancomycin (08/24/24 at 0130)
[2024-08-22 20:32] VITALS: BP 136/65; PULSE 78; RESP 18; TEMP 37.1; O2SAT 96
[2024-08-22] MEDS: Atorvastatin Calcium 40 MG Tablet PO (21:31)
[2024-08-23] VITALS (7 sets, daily range): BP systolic 120–131; BP diastolic 75–81; PULSE 59–74; RESP 16–18; TEMP 36.3–37.1; O2SAT 95–98
[2024-08-23] MEDS: Vancomycin HCl 750 MG in 0.9% Normal Saline (250mL Bag) 250 ML 250 MG IV ×2 (02:55→14:27)
[2024-08-23] MEDS: 0.9% Saline Lock 10 ML Syringe IV (02:56)
[2024-08-23] MEDS: oxyCODONE 5 MG Tablet 10 MG PO ×4 (04:36→21:43)
[2024-08-23] MEDS: Acetaminophen 500 MG Tablet 1000 MG PO ×3 (05:48→21:43)
[2024-08-23] MEDS: Senna/Docusate Sodium 1 Tablet 2 TABLET PO ×2 (05:48→21:43)
--- NOTE | 2024-08-23 06:35 | PCM.PN.HOSP ---
Reason for Visit Reason for Visit: Diagnoses Peripheral vascular disease, unspecified (08/17/24) Cellulitis of right lower limb (08/17/24) Non-pressure chronic ulcer of unspecified part of right lower leg with unspecified severity (08/17/24) Localized edema (08/17/24) Tobacco use (08/17/24) Personal history of other infectious and parasitic diseases (08/17/24) Subjective Subjective Patient notes some intermittent discomfort to the right lower extremity more so if he tries to elevate it but otherwise he states his pain is currently controlled with his current pain regimen and declines any adjustment. Discussed plan of care which included dressing change either podiatry or per their direction but awaiting callback from their service is uncertain when this may occur. Patient denies fevers, chills, nausea, emesis, abdominal pain, chest pain or dyspnea. Objective Data Objective Data Vital Signs: Vital Signs Temp Pulse Resp BP Pulse Ox O2 Del Method 97.5 F L 74 16 131/81 H 95 Room Air 08/23/24 04:35 08/23/24 04:35 08/23/24 04:35 08/23/24 04:35 08/23/24 04:35 08/23/24 04:35 Oxygen Delivery Method Room Air Weight: 159 lb 13.362 oz Body Mass Index (BMI) 24.3 Intake & Output: Intake and Output for Last 24 Hours 08/21/24 08/22/24 08/23/24 23:59 23:59 23:59 Intake Total 1030 / 1030 2645.5 / 2645.5 265 / 265 Output Total 900 / 900 1275 / 1275 Balance 130 / 130 1370.5 / 1370.5 265 / 265 Medical Nutrition Assessment Dietitian: Malnutrition Criteria Met Start: 08/17/24 14:01 Freq: Status: Active Protocol: Document 08/17/24 14:01 FRED (Rec: 08/17/24 14:01 FRED [email or web address]) Nutrition Malnutrition Evidence of Malnutrition Exists Yes Malnutrition (severe): Acute Illness/Injury Evidenced By Suboptimal Energy Intake ( Severe),Weight Loss (Severe) Intake Problem Increased Nutrient Needs (specify) Etiology related to skin status Signs/Symptoms as evidenced by RLE wound w/ cellulitis Status Active Problem Clinical Problem Acute Disease or Injury Related Malnutrition Etiology related to acute illness and inadequate energy intake Signs/Symptoms as evidenced by 6% unintended wt loss x 1 mo and po intake meeting <75% of est nutritional needs x 2 wks Status Active Problem Recommendation Dietitian Recommendations/Changes Will liberalize diet to regular d/t signs and symptoms of malnutrition Will continue 120 ml ensure plus high protein tid w/ medpass Will order tracy bid w/ meals to help w/ wound healing Rec consider appetite stimulant if continued poor po intake. Lab / Micro Data 08/23/24 06:43 08/23/24 06:43 Labs: Laboratory Results - last 24 hr 08/22/24 05:52: WBC 3.6 L, RBC 3.38 L, Hgb 10.9 L, Hct 34.2 L, MCV 101.2 H, MCH 32.2 H, MCHC 31.9 L, RDW Std Deviation 55.8 H, RDW Coeff of Johanna 15.0 H, Plt Count 292, MPV 8.9, Immature Gran % (Auto) 0.800, Neut % (Auto) 84.3 H, Lymph % (Auto) 11.3 L, Carter % (Auto) 3.3, Eos % (Auto) 0.0, Baso % (Auto) 0.3, Absolute Neuts (auto) 3.1, Absolute Lymphs (auto) 0.41 L, Nucleated RBC % 0, Sodium 136, Potassium 4.0, Chloride 104, Carbon Dioxide 29.0, Anion Gap 3 L, BUN 11, Creatinine 0.78, Estim Creat Clear Calc 71.25, Est GFR (MDRD) Af Amer 123, Est GFR (MDRD) Non-Af 102, BUN/Creatinine Ratio 14.1, Glucose 173 H, Calcium 9.2, Total Bilirubin 0.40, AST 16, ALT 16, Alkaline Phosphatase 25 L, Total Protein 6.2 L, Albumin 2.5 L, Globulin 3.7, Albumin/Globulin Ratio 0.7 L 08/22/24 11:20: Vancomycin Trough 16.7 H Micro: Microbiology 08/17/24 08:25 Blood Culture (Wb) - Right Hand Blood Culture - Final No growth in 5 days. 08/17/24 08:25 Blood Culture (Wb) - Anticubital Left Blood Culture - Final No growth in 5 days. 08/17/24 18:25 Wound - Leg Gram Stain - Final 08/17/24 18:25 Wound - Leg Wound Culture - Final Staphylococcus aureus Acinetobacter baumannii Physical Exam Narrative Physical Examination: General: Awake, alert, oriented x 3 and cooperative, seated upright in PCU, denies any pain, notes no perioperative events. Skin: Normal color, normal turgor, no icterus, no cyanosis EXTR bilateral lower extremity venous stasis skin changes, currently right lower extremity with dressing in place postoperatively with no drainage. HEENT: AT/NC, EOMI, PERRLA, MMM. Lungs: Diminished, greater bases, appropriate effort, no rales, ronchi or wheezing. Heart: Regular rate and rhythm; no gallop, rub audible. Abdomen: Soft, NTTP, ND, normal BS. Extremities: No cyanosis, no clubbing, no marked peripheral edema, see skin. Neurological: Patient awake, alert, oriented as, cognitive function intact; pupils equally reactive to light and accommodation, cranial nerves grossly normal, moving all 4 extremities, no focal deficits, strength improved, moderately globally decreased. Psychiatric: Affect appears normal, no acute evidence of depressive or anxiety feelings. Assessment & Plan Assessment/Plan (1) Cellulitis of right lower extremity: PLAN: Plan The patient is an 78 y/o M w/ PMHx: Suspected underlying COPD, Chronic anemia, CKD stage II suspected based on GFR trending, Chronic severe protein calorie malnutrition, Severe PVD, Tobacco use, Hx VTE who presents to the [facility] ED on 08/17/24 with history of chronic right lower extremity wound with recent admission with significant infection with MRSA/Enterococcus/Enterobacter/Acinetobacter discharged at that time on Levaquin and linezolid for 7 days now re-presenting with worsening appearing right lower extremity. #1. Right lower extremity cellulitis with vascular appearing MSSA and AcB wounds with associated mild lactic acidosis: Admitted to PCU, initiated and continued on IV Levaquin and vancomycin given previous wounds, blood cultures pending, wound RN consulted, podiatry consulted, CT right lower extremity with runoff with diffuse subcutaneous edema without sclerosis, CTA abdomen and pelvis with runoff with significant atherosclerotic irregularity arterial supply to the bilateral lower extremities, distal occlusion right superficial femoral and popliteal arteries with distal flow reestablished above the trifurcation, intact bilateral runoff to the ankles, unfortunately was unable to tolerate EMILE/PVR assessments, admission lactic acid initially 2.5 with improvement to 1.7 following hydration. Cultures with MSSA and Acetobacter. Vascular surgery evaluation 08/18/2024 with belief that studies and exam stable with sufficient perfusion to expect to heal with recommended continued follow-up outpatient as well as initiation of high-dose statin which was initiated. Infectious disease following, maintain on empiric Vanco and Levaquin per ID management. Podiatry consulted and following with planned operative intervention. 08/18/24 ID evaluation with recommended continued IV levaquin and vanc based on prior Cx at this time. 08/19/24 increased pain to the right lower extremity with increase of his gabapentin and alteration of his oral and IV narcotic therapy. 08/20/2020 for planned surgical intervention unfortunately delayed with the OR 08/21/2024 with debridement ulceration including subcutaneous tissue with preparation skin graft site, application bio Parmar graft to the right leg per Dr. Price. 08/23/2020 for dressing takedown per podiatry direction by nursing staff. Continue dressing changes per podiatry discretion and possibly wound care per their discretion also. 08/23/2024 waiting for finalization of operative cultures in addition to repeat assessment per infectious disease for discharge planning. Current PT/OT assessments with recommended ongoing therapies, will need to be clarified but at this time from review of notes may need skilled placement. #2. Severe peripheral vascular disease: Strongly encourage continued tobacco cessation, continue Plavix therapy, following with Dr. Beatty status post previous right lower extremity intervention possibly to posterior tibial artery 06/2024, CT right lower extremity with runoff with diffuse subcutaneous edema without sclerosis, CTA abdomen and pelvis with runoff with significant atherosclerotic irregularity arterial supply to the bilateral lower extremities, distal occlusion right superficial femoral and popliteal arteries with distal flow reestablished above the trifurcation, intact bilateral runoff to the ankles, unfortunately was unable to tolerate EMILE/PVR assessments, continue gabapentin regimen however may consider titration as needed, continue Tylenol, as needed as needed morphine and oxycodone, vascular surgery consulted for podiatry request. 08/18/2024 vascular surgery evaluation with studies and exam stable with sufficient perfusion to expect that he will, recommended high-dose statin which was added and adjusted for patient age. #3. Hyponatremia, suspected mild hypovolemia: Admission sodium 135, chloride 107, suspected likely mild hypovolemia, judiciously hydrated, repeat 08/23/2024 sodium 138. #4. Chronic Kidney Disease initially suspected stage II; however, current trending RULING OUT stage II disease with GFR now > 90 suspected, possibly stage II based on previous GFR trending although has vacillated GFR: Admission BUN/Cr 16/1.03, GFR 74, baseline renal function primarily 0.8-1.0, 08/23/2024 BUN/creatinine 14/0.79, GFR 100. #5. Severe protein calorie malnutrition: Evidenced by habitus, obvious muscle and fat loss, nutrition consulted, dietary supplements per their discretion. #6. Suspected underlying COPD: Not on the regimen, no formal diagnosis but highly suspected based on exam, tobacco use history and previous imaging, continue as needed albuterol, encourage head of bed and I-S #7. Chronic macrocytic anemia: Admission hemoglobin 12.7, MCV 101.1, baseline hemoglobin more recently has primarily been 12 but previous to this had been 14-15 range, 08/23/2024 hemoglobin 10.6, MCV 100.3, continue to trend. #8. Tobacco Abuse: Encouraged cessation, inpatient consultation per RT, NR if desired. #9. DVT prophylaxis: Lovenox restarted. #10. CODE status: DNR-CCA, amenable for short term intubation only. Charges/Coding Visit Charges Inpatient E&M: 22725 Subs Hosp L3
[2024-08-23 07:22] LABS: Absolute Lymphocyte Count 0.86 X10^3/uL (0.83-4.51); Absolute Neutrophil Count 4.4 X10^3/uL (2.0-7.7); Basophil# 0.01 X10^3/uL; Basophil% 0.2 % (0-1); Eosinophil# 0.06 X10^3/uL; Hemoglobin 10.6 g/dL (13.0-16.5); Lymphocyte # 0.86 X10^3/ul (0.83-4.51); Lymphocyte % 14.4 % (19-41); Mean Corp Hgb Conc 32.1 g/dL (32-36); Mean Corpuscular Hgb 32.2 pg (27.0-32.0); Mean Corpuscular Volume 100.3 fL (80-94); Mean Platelet Vol. 8.9 fl (6.2-12.0); Monocyte# 0.59 X10^3/uL; Monocyte% 9.9 % (0-10); NRBC Flagged by Analyzer 0 % (0-5); Neutrophil # 4.41 X10^3/uL (2.7-7.7); Neutrophil % 73.8 % (47-70); Platelet Count 322 K/mm3 (150-450); RBC Distribution Width CV 14.9 % (11.6-14.6); RBC Distribution Width SD 55.2 fl (35.1-43.9); Red Blood Count 3.29 M/mm3 (4.6-6.2)
[2024-08-23 07:38] LABS: ALB/GLOB Ratio 0.7 RATIO (0.9-2.4); AST(SGOT) 19 U/L (15-37); Alanine Aminotransfer ALT/SGPT 15 U/L (16-61); Albumin, Serum 2.6 g/dL (3.2-5.0); Alkaline Phosphatase 23 U/L (45-117); Anion Gap 6 (5-15); BUN 14 mg/dL (7-18); BUN/Creat Ratio 17.7 RATIO (10-20); Calcium,Total 9.2 mg/dL (8.5-10.1); Chloride 105 mmol/L (98-107); Creatinine, Serum 0.79 mg/dL (0.70-1.30); EST Glomerular Filtration Rate 100 mL/min (>60); Est Glom Filt Rate - Afr Amer 121 mL/min (>60); Estimated Creatinine Clearance 71.25 ml/min; Globulin 3.6 g/dL (2.2-4.2); Glucose 87 mg/dL (74-106); Potassium 3.7 mmol/L (3.5-5.1); Protein, Total 6.2 g/dL (6.4-8.2); Sodium Level 138 mmol/L (136-145)
[2024-08-23] MEDS: Enoxaparin 40 MG/0.4 ML Syringe SC (08:33)
[2024-08-23] MEDS: Clopidogrel Bisulfate 75 MG Tablet PO (08:34)
[2024-08-23] MEDS: Gabapentin 100 MG Capsule 200 MG PO ×3 (08:34→17:26)
[2024-08-23] MEDS: levoFLOXacin IV 750 MG/150 ML BAG 100 MG IV (08:35)
[2024-08-23] MEDS: Menthol/Lanolin/Calamine/Znox 113 GM Tube 1 APPLIC TOPICAL ×2 (08:35→21:43)
[2024-08-23] MEDS: Atorvastatin Calcium 40 MG Tablet PO (21:43)
[2024-08-24 02:24] VITALS: BP 131/79; PULSE 65; RESP 18; TEMP 36.6; O2SAT 95
[2024-08-24] MEDS: oxyCODONE 5 MG Tablet 10 MG PO ×3 (02:27→21:07)
--- NOTE | 2024-08-24 02:36 | PCM.RX.CS ---
Consult Antibiotic Management Pharmacy has been consulted to manage selected antibiotic: Vancomycin Type of Intervention Type of Consult: Follow-up Labs Labs: Sodium 138 mmol/L (136-145) 08/23/24 06:43 Potassium 3.7 mmol/L (3.5-5.1) 08/23/24 06:43 Chloride 105 mmol/L (98-107) 08/23/24 06:43 Carbon Dioxide 27.0 mmol/L (21.0-32.0) 08/23/24 06:43 Anion Gap 6 (5-15) 08/23/24 06:43 BUN 14 mg/dL (7-18) 08/23/24 06:43 Creatinine 0.79 mg/dL (0.70-1.30) 08/23/24 06:43 Est GFR (MDRD) Af Amer 121 mL/min (>60) 08/23/24 06:43 Est GFR (MDRD) Non-Af 100 mL/min (>60) 08/23/24 06:43 BUN/Creatinine Ratio 17.7 RATIO (10-20) 08/23/24 06:43 Glucose 87 mg/dL (74-106) 08/23/24 06:43 Vancomycin Trough 17.0 ug/mL (5.0-15.0) H 08/24/24 01:36 Microbiology Microbiology: Microbiology 08/17/24 08:25 Blood Culture (Wb) - Right Hand Blood Culture - Final No growth in 5 days. 08/17/24 08:25 Blood Culture (Wb) - Anticubital Left Blood Culture - Final No growth in 5 days. 08/17/24 18:25 Wound - Leg Gram Stain - Final 08/17/24 18:25 Wound - Leg Wound Culture - Final Staphylococcus aureus Acinetobacter baumannii Goal Trough Goal Trough: 10-15 mcg/mL Pharmacy Plan for Drug Dosing Pharmacy Plan for Drug Dosing: Pharmacy Service will continue to monitor and adjust dosing as required. TROUGH 17.0 @ 11 HOURS 9GOAL 10-15) HOLD DOSE AND DRAW RANDOM LEVEL IN 8 HOURS Follow-Up Labs Follow-Up Labs: Trough: Vancomycin Date/Time Labs Ordered Labs to be done on [date and time ordered]: 08/24 @ 0930
[2024-08-24] MEDS: Acetaminophen 500 MG Tablet 1000 MG PO ×3 (06:23→21:07)
[2024-08-24 07:29] LABS: Absolute Lymphocyte Count 1.15 X10^3/uL (0.83-4.51); Absolute Neutrophil Count 2.8 X10^3/uL (2.0-7.7); Basophil# 0.04 X10^3/uL; Basophil% 0.8 % (0-1); Eosinophil# 0.16 X10^3/uL; Eosinophils% 3.3 % (0-5); Hematocrit 34.2 % (40-54); Hemoglobin 11.1 g/dL (13.0-16.5); Lymphocyte # 1.15 X10^3/ul (0.83-4.51); Lymphocyte % 23.8 % (19-41); Mean Corp Hgb Conc 32.5 g/dL (32-36); Mean Corpuscular Volume 101.8 fL (80-94); Mean Platelet Vol. 8.9 fl (6.2-12.0); Monocyte# 0.63 X10^3/uL; NRBC Flagged by Analyzer 0 % (0-5); Neutrophil # 2.82 X10^3/uL (2.7-7.7); Neutrophil % 58.5 % (47-70); Platelet Count 308 K/mm3 (150-450); RBC Distribution Width CV 14.9 % (11.6-14.6); RBC Distribution Width SD 55.8 fl (35.1-43.9); Red Blood Count 3.36 M/mm3 (4.6-6.2); White Blood Count 4.8 K/mm3 (4.4-11.0)
[2024-08-24 07:55] LABS: ALB/GLOB Ratio 0.7 RATIO (0.9-2.4); AST(SGOT) 15 U/L (15-37); Alanine Aminotransfer ALT/SGPT 17 U/L (16-61); Albumin, Serum 2.6 g/dL (3.2-5.0); Alkaline Phosphatase 25 U/L (45-117); Anion Gap 5 (5-15); BUN 16 mg/dL (7-18); BUN/Creat Ratio 18.6 RATIO (10-20); Calcium,Total 9.3 mg/dL (8.5-10.1); Chloride 105 mmol/L (98-107); Creatinine, Serum 0.86 mg/dL (0.70-1.30); EST Glomerular Filtration Rate 91 mL/min (>60); Est Glom Filt Rate - Afr Amer 110 mL/min (>60); Estimated Creatinine Clearance 66.28 ml/min; Globulin 3.6 g/dL (2.2-4.2); Glucose 85 mg/dL (74-106); Protein, Total 6.2 g/dL (6.4-8.2); Sodium Level 140 mmol/L (136-145)
[2024-08-24 08:15] VITALS: BP 116/69; PULSE 58; RESP 16; TEMP 36.6; O2SAT 98
[2024-08-24] MEDS: Gabapentin 100 MG Capsule 200 MG PO ×3 (08:34→16:58)
[2024-08-24] MEDS: Enoxaparin 40 MG/0.4 ML Syringe SC (08:34)
[2024-08-24] MEDS: Senna/Docusate Sodium 1 Tablet 2 TABLET PO (08:34)
[2024-08-24] MEDS: Clopidogrel Bisulfate 75 MG Tablet PO (08:34)
[2024-08-24] MEDS: Ensure Plus High Protein 120 ML LIQUID PO ×3 (08:35→16:58)
[2024-08-24] MEDS: Menthol/Lanolin/Calamine/Znox 113 GM Tube 1 APPLIC TOPICAL ×2 (08:35→21:10)
[2024-08-24] MEDS: 0.9% Saline Lock 10 ML Syringe IV (09:37)
[2024-08-24] MEDS: levoFLOXacin IV 750 MG/150 ML BAG 100 MG IV (09:38)
[2024-08-24 10:00] LABS: Vancomycin, Random Level 12.8 ug/mL (0.0-15.0)
--- NOTE | 2024-08-24 10:56 | PCM.RX.CS ---
Consult Antibiotic Management Pharmacy has been consulted to manage selected antibiotic: Vancomycin Type of Intervention Type of Consult: Follow-up Suspected Infection Suspected Infection: Skin/Soft tissue Prior Doses of Antibiotics Prior Doses of Antibiotics Received/Current Regimen: Vancomycin 750 mg Q12H last dose given 08/23/24 @ 1427 Labs Labs: Sodium 140 mmol/L (136-145) 08/24/24 06:55 Potassium 4.0 mmol/L (3.5-5.1) 08/24/24 06:55 Chloride 105 mmol/L (98-107) 08/24/24 06:55 Carbon Dioxide 30.0 mmol/L (21.0-32.0) 08/24/24 06:55 Anion Gap 5 (5-15) 08/24/24 06:55 BUN 16 mg/dL (7-18) 08/24/24 06:55 Creatinine 0.86 mg/dL (0.70-1.30) 08/24/24 06:55 Est GFR (MDRD) Af Amer 110 mL/min (>60) 08/24/24 06:55 Est GFR (MDRD) Non-Af 91 mL/min (>60) 08/24/24 06:55 BUN/Creatinine Ratio 18.6 RATIO (10-20) 08/24/24 06:55 Glucose 85 mg/dL (74-106) 08/24/24 06:55 Vancomycin Trough 17.0 ug/mL (5.0-15.0) H 08/24/24 01:36 Random Vancomycin 12.8 ug/mL (0.0-15.0) 08/24/24 09:20 Microbiology Microbiology: Microbiology 08/17/24 08:25 Blood Culture (Wb) - Right Hand Blood Culture - Final No growth in 5 days. 08/17/24 08:25 Blood Culture (Wb) - Anticubital Left Blood Culture - Final No growth in 5 days. 08/17/24 18:25 Wound - Leg Gram Stain - Final 08/17/24 18:25 Wound - Leg Wound Culture - Final Staphylococcus aureus Acinetobacter baumannii Dosing Weight Weight used for dosin kg Estimated Creatinine Clearance Estimated Creatinine Clearance: ~ 66 Goal Trough Goal Trough: 10-15 mcg/mL Pharmacy Plan for Drug Dosing Pharmacy Plan for Drug Dosing: Vancomycin random this AM = 12.8, resume dosing with 500 mg Q12H Pharmacy Service will continue to monitor and adjust dosing as required. Follow-Up Labs Follow-Up Labs: Trough: Vancomycin Date/Time Labs Ordered Labs to be done on [date and time ordered]: 08/25/24 @ 4492
[2024-08-24] MEDS: Vancomycin IV 500 MG/100 ML BAG 100 MG IV ×2 (11:25→23:01)
--- NOTE | 2024-08-24 11:36 | WOUNDNOTE ---
wound photo: right lateral lower leg
--- NOTE | 2024-08-24 11:37 | WOUNDNOTE ---
wound photo: right lower leg
--- NOTE | 2024-08-24 11:37 | WOUNDNOTE ---
wound photo: right lower leg/foot
[2024-08-24 14:00] VITALS: BP 121/73; PULSE 71; RESP 18; TEMP 36.6; O2SAT 100
--- NOTE | 2024-08-24 14:45 | CASEMGMT ---
Social Work SW met with pt to discuss discharge plan. After discussion of medical care and functional ability, pt is able to state that he will likely need short term placement prior to returning home. A list of SNF providers including quality and resource use data and consistent with the patient?s preferred geographic region, medical needs, and insurance network were provided from the [facility] Guide. After reviewing the list, pt stating preferred providers are 1. Mar[facility] Casanova 2. Angela Damon. Referral sent to Lev Casanova via [facility] at this time. OHRACIO Boo
--- NOTE | 2024-08-24 15:19 | PN.HOSP_ITS ---
Subjective Subjective No issues overnight, little bit weak Objective Data Objective Data Vital Signs: Vital Signs Temp Pulse Resp BP Pulse Ox O2 Del Method 97.8 F 71 18 121/73 H 100 Room Air 08/24/24 14:00 08/24/24 14:00 08/24/24 14:00 08/24/24 14:00 08/24/24 14:00 08/24/24 14:00 Oxygen Delivery Method Room Air Weight: 159 lb 13.362 oz Body Mass Index (BMI) 24.3 Intake & Output: Intake and Output for Last 24 Hours 08/23/24 08/24/24 08/25/24 03:59 03:59 03:59 Intake Total 2445.5 / 2445.5 2680 / 2680 570 / 570 Output Total 1275 / 1275 2250 / 2250 1000 / 1000 Balance 1170.5 / 1170.5 430 / 430 -430 / -430 Medical Nutrition Assessment Dietitian: Malnutrition Criteria Met Start: 08/17/24 14:01 Freq: Status: Active Protocol: Document 08/17/24 14:01 SLA (Rec: 08/17/24 14:01 SLA [email or web address]) Nutrition Malnutrition Evidence of Malnutrition Exists Yes Malnutrition (severe): Acute Illness/Injury Evidenced By Suboptimal Energy Intake ( Severe),Weight Loss (Severe) Intake Problem Increased Nutrient Needs (specify) Etiology related to skin status Signs/Symptoms as evidenced by RLE wound w/ cellulitis Status Active Problem Clinical Problem Acute Disease or Injury Related Malnutrition Etiology related to acute illness and inadequate energy intake Signs/Symptoms as evidenced by 6% unintended wt loss x 1 mo and po intake meeting <75% of est nutritional needs x 2 wks Status Active Problem Recommendation Dietitian Recommendations/Changes Will liberalize diet to regular d/t signs and symptoms of malnutrition Will continue 120 ml ensure plus high protein tid w/ medpass Will order tracy bid w/ meals to help w/ wound healing Rec consider appetite stimulant if continued poor po intake. Lab / Micro Data 08/24/24 06:55 08/24/24 06:55 Labs: Laboratory Results - last 24 hr 08/24/24 01:36: Vancomycin Trough 17.0 H 08/24/24 06:55: WBC 4.8, RBC 3.36 L, Hgb 11.1 L, Hct 34.2 L, MCV 101.8 H, MCH 33.0 H, MCHC 32.5, RDW Std Deviation 55.8 H, RDW Coeff of Johanna 14.9 H, Plt Count 308, MPV 8.9, Immature Gran % (Auto) 0.600, Neut % (Auto) 58.5, Lymph % (Auto) 23.8, Carlton % (Auto) 13.0 H, Eos % (Auto) 3.3, Baso % (Auto) 0.8, Absolute Neuts (auto) 2.8, Absolute Lymphs (auto) 1.15, Nucleated RBC % 0, Sodium 140, Potassium 4.0, Chloride 105, Carbon Dioxide 30.0, Anion Gap 5, BUN 16, Creatinine 0.86, Estim Creat Clear Calc 66.28, Est GFR (MDRD) Af Amer 110, Est GFR (MDRD) Non-Af 91, BUN/Creatinine Ratio 18.6, Glucose 85, Calcium 9.3, Total Bilirubin 0.30, AST 15, ALT 17, Alkaline Phosphatase 25 L, Total Protein 6.2 L, Albumin 2.6 L, Globulin 3.6, Albumin/Globulin Ratio 0.7 L 08/24/24 09:20: Random Vancomycin 12.8 Micro: Microbiology 08/17/24 08:25 Blood Culture (Wb) - Right Hand Blood Culture - Final No growth in 5 days. 08/17/24 08:25 Blood Culture (Wb) - Anticubital Left Blood Culture - Final No growth in 5 days. 08/17/24 18:25 Wound - Leg Gram Stain - Final 08/17/24 18:25 Wound - Leg Wound Culture - Final Staphylococcus aureus Acinetobacter baumannii Physical Exam Narrative General: Alert, Oriented x3, Cooperative, No apparent distress HEENT: Atraumatic, PERRLA, EOMI, Normocephalic Oral: Moist Mucosa Neck: Supple, No JVD Lungs: Clear to auscultation, Normal air movement, No rhonchi, No wheeze, No rales Cardiovascular: Regular rate, Regular Rhythm, Normal S1, Normal S2, No murmurs Abdomen: Soft, Non Tender, Non-Distended, No Hepato-splenomegaly Extremities: No edema, Capillary Refill Less than 3 Seconds Skin: Chronic bilateral venous stasis changes lower extremities, right lower extremity is wrapped Musculoskeletal: No Tenderness to Palpation of Joints or Extremities Neurological: No focal neurological deficits, Motor Exam 5/5 strength throughout, Sensory exam intact to light touch and pain Psych/Mental Status: Normal Affect, Appropriate Assessment & Plan Assessment/Plan (1) Cellulitis of right lower extremity: PLAN: Plan #1. Right lower extremity cellulitis with vascular appearing MSSA and AcB wounds with associated mild lactic acidosis: Admitted to PCU, initiated and continued on IV Levaquin and vancomycin given previous wounds, blood cultures pending, wound RN consulted, podiatry consulted, CT right lower extremity with runoff with diffuse subcutaneous edema without sclerosis, CTA abdomen and pelvis with runoff with significant atherosclerotic irregularity arterial supply to the bilateral lower extremities, distal occlusion right superficial femoral and popliteal arteries with distal flow reestablished above the trifurcation, intact bilateral runoff to the ankles, unfortunately was unable to tolerate EMILE/PVR assessments, admission lactic acid initially 2.5 with improvement to 1.7 following hydration. Cultures with MSSA and Acetobacter. Vascular surgery evaluation 08/18/2024 with belief that studies and exam stable with sufficient perfusion to expect to heal with recommended continued follow-up outpatient as well as initiation of high-dose statin which was initiated. Infectious disease following, maintain on empiric Vanco and Levaquin per ID management. Podiatry consulted and following with planned operative intervention. 08/18/24 ID evaluation with recommended continued IV levaquin and vanc based on prior Cx at this time. 08/19/24 increased pain to the right lower extremity with increase of his gabapentin and alteration of his oral and IV narcotic therapy. 08/20/2020 for planned surgical intervention unfortunately delayed with the OR 08/21/2024 with debridement ulceration including subcutaneous tissue with preparation skin graft site, application bio Parmar graft to the right leg per Dr. Price. 08/23/2020 for dressing takedown per podiatry direction by nursing staff. Continue dressing changes per podiatry discretion and possibly wound care per their discretion also. 08/23/2024 waiting for finalization of operative cultures in addition to repeat assessment per infectious disease for discharge planning. Current PT/OT assessments with recommended ongoing therapies, will need to be clarified but at this time from review of notes may need skilled placement. 08/24/2024: Continue with Levaquin and Vanco, will likely need SNF placement on discharge #2. Severe peripheral vascular disease: Strongly encourage continued tobacco cessation, continue Plavix therapy, following with Dr. Beatty status post previous right lower extremity intervention possibly to posterior tibial artery 06/2024, CT right lower extremity with runoff with diffuse subcutaneous edema without sclerosis, CTA abdomen and pelvis with runoff with significant atherosclerotic irregularity arterial supply to the bilateral lower extremities, distal occlusion right superficial femoral and popliteal arteries with distal flow reestablished above the trifurcation, intact bilateral runoff to the ankles, unfortunately was unable to tolerate EMILE/PVR assessments, continue gabapentin regimen however may consider titration as needed, continue Tylenol, as needed as needed morphine and oxycodone, vascular surgery consulted for podiatry request. 08/18/2024 vascular surgery evaluation with studies and exam stable with sufficient perfusion to expect that he will, recommended high-dose statin which was added and adjusted for patient age. #3. Hyponatremia, suspected mild hypovolemia: Admission sodium 135, chloride 107, suspected likely mild hypovolemia, judiciously hydrated, repeat 08/23/2024 sodium 138. #4. Chronic Kidney Disease initially suspected stage II; however, current trending RULING OUT stage II disease with GFR now > 90 suspected, possibly stage II based on previous GFR trending although has vacillated GFR: Admission BUN/Cr 16/1.03, GFR 74, baseline renal function primarily 0.8-1.0, 08/23/2024 BUN/creatinine 14/0.79, GFR 100. #5. Severe protein calorie malnutrition: Evidenced by habitus, obvious muscle and fat loss, nutrition consulted, dietary supplements per their discretion. #6. Suspected underlying COPD: Not on the regimen, no formal diagnosis but highly suspected based on exam, tobacco use history and previous imaging, continue as needed albuterol, encourage head of bed and I-S #7. Chronic macrocytic anemia: Admission hemoglobin 12.7, MCV 101.1, baseline hemoglobin more recently has primarily been 12 but previous to this had been 14- 15 range, 08/23/2024 hemoglobin 10.6, MCV 100.3, continue to trend. #8. Tobacco Abuse: Encouraged cessation, inpatient consultation per RT, NR if desired. DVT: Lovenox Charges/Coding Visit Charges Inpatient E&M: 88880 Subs Hosp L2
[2024-08-24 20:23] VITALS: BP 115/69; PULSE 77; RESP 16; TEMP 36.7; O2SAT 95
[2024-08-24] MEDS: Atorvastatin Calcium 40 MG Tablet PO (21:07)
[2024-08-24] MEDS: MELATONIN 3 MG TABLET PO (21:07)
[2024-08-24 23:05] VITALS: BP 140/77; PULSE 74; RESP 16; TEMP 36.4; O2SAT 99
[2024-08-25] MEDS: oxyCODONE 5 MG Tablet 10 MG PO ×4 (00:51→19:42)
[2024-08-25 04:36] VITALS: BP 126/71; PULSE 82; RESP 16; TEMP 36.4; O2SAT 97
[2024-08-25] MEDS: Acetaminophen 500 MG Tablet 1000 MG PO ×3 (05:16→21:32)
[2024-08-25 07:30] LABS: Absolute Lymphocyte Count 0.88 X10^3/uL (0.83-4.51); Absolute Neutrophil Count 3.1 X10^3/uL (2.0-7.7); Basophil# 0.05 X10^3/uL; Eosinophil# 0.14 X10^3/uL; Eosinophils% 2.9 % (0-5); Hematocrit 35.5 % (40-54); Hemoglobin 11.7 g/dL (13.0-16.5); Lymphocyte # 0.88 X10^3/ul (0.83-4.51); Lymphocyte % 18.1 % (19-41); Mean Corpuscular Hgb 33.3 pg (27.0-32.0); Mean Corpuscular Volume 101.1 fL (80-94); Monocyte# 0.68 X10^3/uL; NRBC Flagged by Analyzer 0 % (0-5); Neutrophil # 3.06 X10^3/uL (2.7-7.7); Neutrophil % 62.8 % (47-70); Platelet Count 304 K/mm3 (150-450); RBC Distribution Width CV 14.9 % (11.6-14.6); Red Blood Count 3.51 M/mm3 (4.6-6.2); White Blood Count 4.9 K/mm3 (4.4-11.0)
[2024-08-25 08:08] LABS: ALB/GLOB Ratio 0.8 RATIO (0.9-2.4); AST(SGOT) 15 U/L (15-37); Alanine Aminotransfer ALT/SGPT 16 U/L (16-61); Albumin, Serum 2.7 g/dL (3.2-5.0); Alkaline Phosphatase 26 U/L (45-117); Anion Gap 5 (5-15); BUN 20 mg/dL (7-18); BUN/Creat Ratio 24.6 RATIO (10-20); Calcium,Total 9.4 mg/dL (8.5-10.1); Chloride 104 mmol/L (98-107); Creatinine, Serum 0.81 mg/dL (0.70-1.30); EST Glomerular Filtration Rate 97 mL/min (>60); Est Glom Filt Rate - Afr Amer 117 mL/min (>60); Estimated Creatinine Clearance 70.37 ml/min; Globulin 3.5 g/dL (2.2-4.2); Glucose 84 mg/dL (74-106); Potassium 3.9 mmol/L (3.5-5.1); Protein, Total 6.2 g/dL (6.4-8.2); Sodium Level 137 mmol/L (136-145)
[2024-08-25 08:24] VITALS: BP 119/72; PULSE 76; RESP 17; TEMP 36.6; O2SAT 97
[2024-08-25] MEDS: Clopidogrel Bisulfate 75 MG Tablet PO (08:36)
[2024-08-25] MEDS: Gabapentin 100 MG Capsule 200 MG PO ×3 (08:36→17:18)
[2024-08-25] MEDS: Enoxaparin 40 MG/0.4 ML Syringe SC (08:36)
[2024-08-25] MEDS: Ensure Plus High Protein 120 ML LIQUID PO ×3 (08:37→17:18)
[2024-08-25] MEDS: Menthol/Lanolin/Calamine/Znox 113 GM Tube 1 APPLIC TOPICAL ×2 (08:37→21:32)
[2024-08-25] MEDS: levoFLOXacin IV 750 MG/150 ML BAG 100 MG IV (09:41)
--- NOTE | 2024-08-25 10:12 | PN.HOSP_ITS ---
Subjective Subjective Doing well, no issues overnight. Objective Data Objective Data Vital Signs: Vital Signs Temp Pulse Resp BP Pulse Ox O2 Del Method 97.9 F 76 17 119/72 97 Room Air 08/25/24 08:24 08/25/24 08:24 08/25/24 08:24 08/25/24 08:24 08/25/24 08:24 08/25/24 08:24 Oxygen Delivery Method Room Air Weight: 159 lb 13.362 oz Body Mass Index (BMI) 24.3 Intake & Output: Intake and Output for Last 24 Hours 08/24/24 08/25/24 08/26/24 03:59 03:59 03:59 Intake Total 2680 / 2680 1530 / 1530 500 / 500 Output Total 2250 / 2250 2500 / 2500 800 / 800 Balance 430 / 430 -970 / -970 -300 / -300 Medical Nutrition Assessment Dietitian: Malnutrition Criteria Met Start: 08/17/24 14:01 Freq: Status: Active Protocol: Document 08/17/24 14:01 SLA (Rec: 08/17/24 14:01 SLA [email or web address]) Nutrition Malnutrition Evidence of Malnutrition Exists Yes Malnutrition (severe): Acute Illness/Injury Evidenced By Suboptimal Energy Intake ( Severe),Weight Loss (Severe) Intake Problem Increased Nutrient Needs (specify) Etiology related to skin status Signs/Symptoms as evidenced by RLE wound w/ cellulitis Status Active Problem Clinical Problem Acute Disease or Injury Related Malnutrition Etiology related to acute illness and inadequate energy intake Signs/Symptoms as evidenced by 6% unintended wt loss x 1 mo and po intake meeting <75% of est nutritional needs x 2 wks Status Active Problem Recommendation Dietitian Recommendations/Changes Will liberalize diet to regular d/t signs and symptoms of malnutrition Will continue 120 ml ensure plus high protein tid w/ medpass Will order tracy bid w/ meals to help w/ wound healing Rec consider appetite stimulant if continued poor po intake. Lab / Micro Data 08/25/24 06:49 08/25/24 06:49 Labs: Laboratory Results - last 24 hr 08/25/24 06:49: WBC 4.9, RBC 3.51 L, Hgb 11.7 L, Hct 35.5 L, MCV 101.1 H, MCH 33.3 H, MCHC 33.0, RDW Std Deviation 55.0 H, RDW Coeff of Johanna 14.9 H, Plt Count 304, MPV 9.0, Immature Gran % (Auto) 1.200 H, Neut % (Auto) 62.8, Lymph % (Auto) 18.1 L, [place] % (Auto) 14.0 H, Eos % (Auto) 2.9, Baso % (Auto) 1.0, Absolute Neuts (auto) 3.1, Absolute Lymphs (auto) 0.88, Nucleated RBC % 0, Sodium 137, Potassium 3.9, Chloride 104, Carbon Dioxide 28.0, Anion Gap 5, BUN 20 H, Creatinine 0.81, Estim Creat Clear Calc 70.37, Est GFR (MDRD) Af Amer 117, Est GFR (MDRD) Non-Af 97, BUN/Creatinine Ratio 24.6 H, Glucose 84, Calcium 9.4, Total Bilirubin 0.30, AST 15, ALT 16, Alkaline Phosphatase 26 L, Total Protein 6.2 L, Albumin 2.7 L, Globulin 3.5, Albumin/Globulin Ratio 0.8 L Micro: Microbiology 08/17/24 08:25 Blood Culture (Wb) - Right Hand Blood Culture - Final No growth in 5 days. 08/17/24 08:25 Blood Culture (Wb) - Anticubital Left Blood Culture - Final No growth in 5 days. 08/17/24 18:25 Wound - Leg Gram Stain - Final 08/17/24 18:25 Wound - Leg Wound Culture - Final Staphylococcus aureus Acinetobacter baumannii Physical Exam Narrative General: Alert, Oriented x3, Cooperative, No apparent distress HEENT: Atraumatic, PERRLA, EOMI, Normocephalic Oral: Moist Mucosa Neck: Supple, No JVD Lungs: Clear to auscultation, Normal air movement, No rhonchi, No wheeze, No rales Cardiovascular: Regular rate, Regular Rhythm, Normal S1, Normal S2, No murmurs Abdomen: Soft, Non Tender, Non-Distended, No Hepato-splenomegaly Extremities: No edema, Capillary Refill Less than 3 Seconds Skin: Chronic bilateral venous stasis changes lower extremities, right lower extremity is wrapped Musculoskeletal: No Tenderness to Palpation of Joints or Extremities Neurological: No focal neurological deficits, Motor Exam 5/5 strength throughout, Sensory exam intact to light touch and pain Psych/Mental Status: Normal Affect, Appropriate Assessment & Plan Assessment/Plan (1) Cellulitis of right lower extremity: PLAN: Plan #1. Right lower extremity cellulitis with vascular appearing MSSA and AcB wounds with associated mild lactic acidosis: Admitted to PCU, initiated and continued on IV Levaquin and vancomycin given previous wounds, blood cultures pending, wound RN consulted, podiatry consulted, CT right lower extremity with runoff with diffuse subcutaneous edema without sclerosis, CTA abdomen and pelvis with runoff with significant atherosclerotic irregularity arterial supply to the bilateral lower extremities, distal occlusion right superficial femoral and popliteal arteries with distal flow reestablished above the trifurcation, intact bilateral runoff to the ankles, unfortunately was unable to tolerate EMILE/PVR assessments, admission lactic acid initially 2.5 with improvement to 1.7 following hydration. Cultures with MSSA and Acetobacter. Vascular surgery evaluation 08/18/2024 with belief that studies and exam stable with sufficient perfusion to expect to heal with recommended continued follow-up outpatient as well as initiation of high-dose statin which was initiated. Infectious disease following, maintain on empiric Vanco and Levaquin per ID management. Podiatry consulted and following with planned operative intervention. 08/18/24 ID evaluation with recommended continued IV levaquin and vanc based on prior Cx at this time. 08/19/24 increased pain to the right lower extremity with increase of his gabapentin and alteration of his oral and IV narcotic therapy. 08/20/2020 for planned surgical intervention unfortunately delayed with the OR 08/21/2024 with debridement ulceration including subcutaneous tissue with preparation skin graft site, application bio Parmar graft to the right leg per Dr. Price. 08/23/2020 for dressing takedown per podiatry direction by nursing staff. Continue dressing changes per podiatry discretion and possibly wound care per their discretion also. 08/23/2024 waiting for finalization of operative cultures in addition to repeat assessment per infectious disease for discharge planning. Current PT/OT assessments with recommended ongoing therapies, will need to be clarified but at this time from review of notes may need skilled placement. 08/24/2024: Continue with Levaquin and Vanco, will likely need SNF placement on discharge 08/25/2024: Awaiting pre-CERT, awaiting antibiotic recommendations by ID, he is MSSA with Acinetobacter may be able to just managed with Levaquin #2. Severe peripheral vascular disease: Strongly encourage continued tobacco cessation, continue Plavix therapy, following with Dr. Beatty status post previous right lower extremity intervention possibly to posterior tibial artery 06/2024, CT right lower extremity with runoff with diffuse subcutaneous edema without sclerosis, CTA abdomen and pelvis with runoff with significant atherosclerotic irregularity arterial supply to the bilateral lower extremities, distal occlusion right superficial femoral and popliteal arteries with distal flow reestablished above the trifurcation, intact bilateral runoff to the ankles, unfortunately was unable to tolerate EMILE/PVR assessments, continue gabapentin regimen however may consider titration as needed, continue Tylenol, as needed as needed morphine and oxycodone, vascular surgery consulted for podiatry request. 08/18/2024 vascular surgery evaluation with studies and exam stable with sufficient perfusion to expect that he will, recommended high-dose statin which was added and adjusted for patient age. #3. Hyponatremia, suspected mild hypovolemia: Admission sodium 135, chloride 107, suspected likely mild hypovolemia, judiciously hydrated, repeat 08/23/2024 sodium 138. #4. Chronic Kidney Disease initially suspected stage II; however, current trending RULING OUT stage II disease with GFR now > 90 suspected, possibly stage II based on previous GFR trending although has vacillated GFR: Admission BUN/Cr 16/1.03, GFR 74, baseline renal function primarily 0.8-1.0, 08/23/2024 BUN/creatinine 14/0.79, GFR 100. #5. Severe protein calorie malnutrition: Evidenced by habitus, obvious muscle and fat loss, nutrition consulted, dietary supplements per their discretion. #6. Suspected underlying COPD: Not on the regimen, no formal diagnosis but highly suspected based on exam, tobacco use history and previous imaging, continue as needed albuterol, encourage head of bed and I-S #7. Chronic macrocytic anemia: Admission hemoglobin 12.7, MCV 101.1, baseline hemoglobin more recently has primarily been 12 but previous to this had been 14- 15 range, 08/23/2024 hemoglobin 10.6, MCV 100.3, continue to trend. #8. Tobacco Abuse: Encouraged cessation, inpatient consultation per RT, NR if desired. DVT: Lovenox Charges/Coding Visit Charges Inpatient E&M: 71853 Subs Hosp L2
--- NOTE | 2024-08-25 11:45 | CASEMGMT ---
Discharge Planning Updates sent to Lev Casanova with note to submit for precert. Maria E Maciel DC Planning Asst.
--- NOTE | 2024-08-25 12:04 | CASEMGMT ---
Social Work SW completed PAS/RR in the [employer] system, no further review needed. Precert started with Lev Casanova. SW attempted to tell pt, he is sleeping soundly. BRIAN Graham
[2024-08-25] MEDS: Vancomycin IV 500 MG/100 ML BAG 100 MG IV ×2 (12:51→23:58)
--- NOTE | 2024-08-25 13:26 | CASEMGMT ---
Addendum entered by Jeanna Barnett 08/25/24 16:18: Social Work Green sheet placed on chart in event precert is attained after SW leaves for the day. Green sheet is on the chart. SW did attempt to let pt know, however he is asleep at present. SW will update RN. If precert would be attained today, pt would likely not go to SNF until tomorrow due to bed availability at [facility]. BRIAN Graham Original Note: Social Work SW let pt know that [facility] accepted him and we are just waiting for the insurance authorization, we will let him know as soon as we hear back from insurance. Pt states understanding. BRIAN Graham
--- NOTE | 2024-08-25 13:58 | PCM.PN.ID ---
ID ID: Route of nutrition/ use of supplements: [] Nutritional Intake: [] IV Site: [] Pruitt Catheter: [] Patient overall clinically stable. No fevers. Hospital course and operative note reviewed. Microbiology data also reviewed. Currently on parenteral antibiotic therapy to form vancomycin plus levofloxacin. On exam he is alert and oriented does not appear toxic vital signs are stable and remains euthermic heart exam S1-S2 abdomen soft right leg dressings are in place Assessment & Plan Assessment/Plan (1) Ulcer of right leg: PLAN: Okay to go to the facility on oral antibiotics in the form of doxycycline 100 mg twice a day plus levofloxacin 500 mg daily both agents for 10 more days.
[2024-08-25 14:00] VITALS: BP 126/76; PULSE 72; RESP 16; TEMP 36.6; O2SAT 97
--- NOTE | 2024-08-25 15:03 | CASEMGMT ---
Discharge Planning Lev Casanova sent unit phone number to call when precert is obtained. Green sheet placed in pts chart. Maria E Maciel DC Planning Asst.
--- NOTE | 2024-08-25 16:12 | PCM.PN.SRG ---
Subjective Subjective Patient was seen napping in his bed, awoke easily. Reports he is feeling a little bit better each day. Still has tenderness around the wounds but improving. He is awaiting placement to SNF. Objective Data Objective Data Vital Signs: Vital Signs Temp Pulse Resp BP Pulse Ox O2 Del Method 97.8 F 72 16 126/76 H 97 Room Air 08/25/24 14:00 08/25/24 14:00 08/25/24 14:00 08/25/24 14:00 08/25/24 14:00 08/25/24 14:00 Oxygen Delivery Method Room Air Weight: 159 lb 13.362 oz Body Mass Index (BMI) 24.3 Intake & Output: Intake and Output for Last 24 Hours 08/23/24 08/24/24 08/25/24 23:59 23:59 23:59 Intake Total 2680 / 2680 1430 / 1430 1500 / 1500 Output Total 2250 / 2250 2500 / 2500 1950 / 1950 Balance 430 / 430 -1070 / -1070 -450 / -450 Medical Nutrition Assessment Dietitian: Malnutrition Criteria Met Start: 08/17/24 14:01 Freq: Status: Active Protocol: Document 08/17/24 14:01 SLA (Rec: 08/17/24 14:01 SLA [email or web address]) Nutrition Malnutrition Evidence of Malnutrition Exists Yes Malnutrition (severe): Acute Illness/Injury Evidenced By Suboptimal Energy Intake ( Severe),Weight Loss (Severe) Intake Problem Increased Nutrient Needs (specify) Etiology related to skin status Signs/Symptoms as evidenced by RLE wound w/ cellulitis Status Active Problem Clinical Problem Acute Disease or Injury Related Malnutrition Etiology related to acute illness and inadequate energy intake Signs/Symptoms as evidenced by 6% unintended wt loss x 1 mo and po intake meeting <75% of est nutritional needs x 2 wks Status Active Problem Recommendation Dietitian Recommendations/Changes Will liberalize diet to regular d/t signs and symptoms of malnutrition Will continue 120 ml ensure plus high protein tid w/ medpass Will order tracy bid w/ meals to help w/ wound healing Rec consider appetite stimulant if continued poor po intake. Lab / Micro Data 08/25/24 06:49 08/25/24 06:49 Labs: Laboratory Results - last 24 hr 08/25/24 06:49: WBC 4.9, RBC 3.51 L, Hgb 11.7 L, Hct 35.5 L, MCV 101.1 H, MCH 33.3 H, MCHC 33.0, RDW Std Deviation 55.0 H, RDW Coeff of Johanna 14.9 H, Plt Count 304, MPV 9.0, Immature Gran % (Auto) 1.200 H, Neut % (Auto) 62.8, Lymph % (Auto) 18.1 L, [place] % (Auto) 14.0 H, Eos % (Auto) 2.9, Baso % (Auto) 1.0, Absolute Neuts (auto) 3.1, Absolute Lymphs (auto) 0.88, Nucleated RBC % 0, Sodium 137, Potassium 3.9, Chloride 104, Carbon Dioxide 28.0, Anion Gap 5, BUN 20 H, Creatinine 0.81, Estim Creat Clear Calc 70.37, Est GFR (MDRD) Af Amer 117, Est GFR (MDRD) Non-Af 97, BUN/Creatinine Ratio 24.6 H, Glucose 84, Calcium 9.4, Total Bilirubin 0.30, AST 15, ALT 16, Alkaline Phosphatase 26 L, Total Protein 6.2 L, Albumin 2.7 L, Globulin 3.5, Albumin/Globulin Ratio 0.8 L Micro: Microbiology 08/17/24 08:25 Blood Culture (Wb) - Right Hand Blood Culture - Final No growth in 5 days. 08/17/24 08:25 Blood Culture (Wb) - Anticubital Left Blood Culture - Final No growth in 5 days. 08/17/24 18:25 Wound - Leg Gram Stain - Final 08/17/24 18:25 Wound - Leg Wound Culture - Final Staphylococcus aureus Acinetobacter baumannii Physical Exam Const oriented x3 and no apparent distress Resp normal respiratory effort Cardio regular rate and regular rhythm Extremity Extremity Narrative: R lower leg and foot with dressings in place, C/D/I. Minimally displaced for vascular exam, pedal signals are multiphasic. Assessment & Plan Assessment/Plan (1) Peripheral vascular disease: PLAN: He had operative debridement with Dr. Price on 08/21, he was noted to have adequate bleeding; Dr. Price felt the wounds were also most consistent with venous etiology. He did place skin substitute grafts following debridement. Would consider further venous workup to evaluate for potential perforators on an outpatient basis when dressings can be fully removed for ultrasound. He reports he already had scheduled follow-up with Dr. Beatty following his recent angiogram, he thinks this is scheduled for 08/31, I advise he keep this appointment. We are available as needed. Charges/Coding Visit Charges Inpatient E&M: 20728 Subs Hosp L1
[2024-08-25 21:31] VITALS: BP 116/65; PULSE 65; RESP 16; TEMP 36.4; O2SAT 96
[2024-08-25] MEDS: Atorvastatin Calcium 40 MG Tablet PO (21:32)
[2024-08-25 23:06] LABS: Vancomycin, Trough Level 12.3 ug/mL (5.0-15.0)
[2024-08-26] MEDS: oxyCODONE 5 MG Tablet 10 MG PO ×4 (00:07→21:23)
--- NOTE | 2024-08-26 02:02 | PCM.RX.CS ---
Consult Antibiotic Management Pharmacy has been consulted to manage selected antibiotic: Vancomycin Type of Intervention Type of Consult: Follow-up Labs Labs: Sodium 137 mmol/L (136-145) 08/25/24 06:49 Potassium 3.9 mmol/L (3.5-5.1) 08/25/24 06:49 Chloride 104 mmol/L (98-107) 08/25/24 06:49 Carbon Dioxide 28.0 mmol/L (21.0-32.0) 08/25/24 06:49 Anion Gap 5 (5-15) 08/25/24 06:49 BUN 20 mg/dL (7-18) H 08/25/24 06:49 Creatinine 0.81 mg/dL (0.70-1.30) 08/25/24 06:49 Est GFR (MDRD) Af Amer 117 mL/min (>60) 08/25/24 06:49 Est GFR (MDRD) Non-Af 97 mL/min (>60) 08/25/24 06:49 BUN/Creatinine Ratio 24.6 RATIO (10-20) H 08/25/24 06:49 Glucose 84 mg/dL (74-106) 08/25/24 06:49 Vancomycin Trough 12.3 ug/mL (5.0-15.0) 08/25/24 22:34 Random Vancomycin 12.8 ug/mL (0.0-15.0) 08/24/24 09:20 Microbiology Microbiology: Microbiology 08/17/24 08:25 Blood Culture (Wb) - Right Hand Blood Culture - Final No growth in 5 days. 08/17/24 08:25 Blood Culture (Wb) - Anticubital Left Blood Culture - Final No growth in 5 days. 08/17/24 18:25 Wound - Leg Gram Stain - Final 08/17/24 18:25 Wound - Leg Wound Culture - Final Staphylococcus aureus Acinetobacter baumannii Pharmacy Plan for Drug Dosing Pharmacy Plan for Drug Dosing: Pharmacy Service will continue to monitor and adjust dosing as required. TROUGH 12.3 @ 9.5 HOURS (GOAL 10-15) NO CHANGES, FOLLOW UP TROUGH IN 2 DAYS Follow-Up Labs Follow-Up Labs: Trough: Vancomycin Date/Time Labs Ordered Labs to be done on [date and time ordered]: 08/27 @ 3910
[2024-08-26 03:51] VITALS: BP 134/70; PULSE 89; RESP 16; TEMP 36.6; O2SAT 94
[2024-08-26] MEDS: Acetaminophen 500 MG Tablet 1000 MG PO ×3 (04:10→21:23)
[2024-08-26] MEDS: Clopidogrel Bisulfate 75 MG Tablet PO (08:56)
[2024-08-26] MEDS: Gabapentin 100 MG Capsule 200 MG PO ×3 (08:57→16:26)
[2024-08-26] MEDS: Enoxaparin 40 MG/0.4 ML Syringe SC (08:58)
[2024-08-26] MEDS: levoFLOXacin IV 750 MG/150 ML BAG 100 MG IV (08:58)
[2024-08-26] MEDS: Menthol/Lanolin/Calamine/Znox 113 GM Tube 1 APPLIC TOPICAL ×2 (08:59→21:25)
[2024-08-26] MEDS: Ensure Plus High Protein 120 ML LIQUID PO ×3 (08:59→16:26)
[2024-08-26 09:20] VITALS: BP 114/70; PULSE 77; RESP 17; TEMP 36.6; O2SAT 96
--- NOTE | 2024-08-26 09:51 | PN.HOSP_ITS ---
Subjective Subjective Doing well, no issues overnight awaiting pre-CERT Objective Data Objective Data Vital Signs: Vital Signs Temp Pulse Resp BP Pulse Ox O2 Del Method 97.9 F 77 17 114/70 96 Room Air 08/26/24 09:20 08/26/24 09:20 08/26/24 09:20 08/26/24 09:20 08/26/24 09:20 08/26/24 09:20 Oxygen Delivery Method Room Air Weight: 159 lb 13.362 oz Body Mass Index (BMI) 24.3 Intake & Output: Intake and Output for Last 24 Hours 08/25/24 08/26/24 08/27/24 03:59 03:59 03:59 Intake Total 1530 / 1530 2100 / 2100 480 / 480 Output Total 2500 / 2500 2900 / 2900 950 / 950 Balance -970 / -970 -800 / -800 -470 / -470 Medical Nutrition Assessment Dietitian: Malnutrition Criteria Met Start: 08/17/24 14:01 Freq: Status: Active Protocol: Document 08/17/24 14:01 SLA (Rec: 08/17/24 14:01 SLA [email or web address]) Nutrition Malnutrition Evidence of Malnutrition Exists Yes Malnutrition (severe): Acute Illness/Injury Evidenced By Suboptimal Energy Intake ( Severe),Weight Loss (Severe) Intake Problem Increased Nutrient Needs (specify) Etiology related to skin status Signs/Symptoms as evidenced by RLE wound w/ cellulitis Status Active Problem Clinical Problem Acute Disease or Injury Related Malnutrition Etiology related to acute illness and inadequate energy intake Signs/Symptoms as evidenced by 6% unintended wt loss x 1 mo and po intake meeting <75% of est nutritional needs x 2 wks Status Active Problem Recommendation Dietitian Recommendations/Changes Will liberalize diet to regular d/t signs and symptoms of malnutrition Will continue 120 ml ensure plus high protein tid w/ medpass Will order tracy bid w/ meals to help w/ wound healing Rec consider appetite stimulant if continued poor po intake. Lab / Micro Data 08/25/24 06:49 08/25/24 06:49 Labs: Laboratory Results - last 24 hr 08/25/24 22:34: Vancomycin Trough 12.3 Micro: Microbiology 08/17/24 08:25 Blood Culture (Wb) - Right Hand Blood Culture - Final No growth in 5 days. 08/17/24 08:25 Blood Culture (Wb) - Anticubital Left Blood Culture - Final No growth in 5 days. 08/17/24 18:25 Wound - Leg Gram Stain - Final 08/17/24 18:25 Wound - Leg Wound Culture - Final Staphylococcus aureus Acinetobacter baumannii Physical Exam Narrative General: Alert, Oriented x3, Cooperative, No apparent distress HEENT: Atraumatic, PERRLA, EOMI, Normocephalic Oral: Moist Mucosa Neck: Supple, No JVD Lungs: Clear to auscultation, Normal air movement, No rhonchi, No wheeze, No rales Cardiovascular: Regular rate, Regular Rhythm, Normal S1, Normal S2, No murmurs Abdomen: Soft, Non Tender, Non-Distended, No Hepato-splenomegaly Extremities: No edema, Capillary Refill Less than 3 Seconds Skin: Chronic bilateral venous stasis changes lower extremities, right lower extremity is wrapped Musculoskeletal: No Tenderness to Palpation of Joints or Extremities Neurological: No focal neurological deficits, Motor Exam 5/5 strength throughout, Sensory exam intact to light touch and pain Psych/Mental Status: Normal Affect, Appropriate Assessment & Plan Assessment/Plan (1) Cellulitis of right lower extremity: PLAN: Plan #1. Right lower extremity cellulitis with vascular appearing MSSA and AcB wounds with associated mild lactic acidosis: Admitted to PCU, initiated and continued on IV Levaquin and vancomycin given previous wounds, blood cultures pending, wound RN consulted, podiatry consulted, CT right lower extremity with runoff with diffuse subcutaneous edema without sclerosis, CTA abdomen and pelvis with runoff with significant atherosclerotic irregularity arterial supply to the bilateral lower extremities, distal occlusion right superficial femoral and popliteal arteries with distal flow reestablished above the trifurcation, intact bilateral runoff to the ankles, unfortunately was unable to tolerate EMILE/PVR assessments, admission lactic acid initially 2.5 with improvement to 1.7 following hydration. Cultures with MSSA and Acetobacter. Vascular surgery evaluation 08/18/2024 with belief that studies and exam stable with sufficient perfusion to expect to heal with recommended continued follow-up outpatient as well as initiation of high-dose statin which was initiated. Infectious disease following, maintain on empiric Vanco and Levaquin per ID management. Podiatry consulted and following with planned operative intervention. 08/18/24 ID evaluation with recommended continued IV levaquin and vanc based on prior Cx at this time. 08/19/24 increased pain to the right lower extremity with increase of his gabapentin and alteration of his oral and IV narcotic therapy. 08/20/2020 for planned surgical intervention unfortunately delayed with the OR 08/21/2024 with debridement ulceration including subcutaneous tissue with preparation skin graft site, application bio Parmar graft to the right leg per Dr. Price. 08/23/2020 for dressing takedown per podiatry direction by nursing staff. Continue dressing changes per podiatry discretion and possibly wound care per their discretion also. 08/23/2024 waiting for finalization of operative cultures in addition to repeat assessment per infectious disease for discharge planning. Current PT/OT assessments with recommended ongoing therapies, will need to be clarified but at this time from review of notes may need skilled placement. 08/24/2024: Continue with Levaquin and Vanco, will likely need SNF placement on discharge 08/25/2024: Awaiting pre-CERT, awaiting antibiotic recommendations by ID, he is MSSA with Acinetobacter may be able to just managed with Levaquin 08/26/2024: Awaiting pre-CERT, have oral antibiotics from ID for discharge #2. Severe peripheral vascular disease: Strongly encourage continued tobacco cessation, continue Plavix therapy, following with Dr. Beatty status post previous right lower extremity intervention possibly to posterior tibial artery 06/2024, CT right lower extremity with runoff with diffuse subcutaneous edema without sclerosis, CTA abdomen and pelvis with runoff with significant atherosclerotic irregularity arterial supply to the bilateral lower extremities, distal occlusion right superficial femoral and popliteal arteries with distal flow reestablished above the trifurcation, intact bilateral runoff to the ankles, unfortunately was unable to tolerate EMILE/PVR assessments, continue gabapentin regimen however may consider titration as needed, continue Tylenol, as needed as needed morphine and oxycodone, vascular surgery consulted for podiatry request. 08/18/2024 vascular surgery evaluation with studies and exam stable with sufficient perfusion to expect that he will, recommended high-dose statin which was added and adjusted for patient age. #3. Hyponatremia, suspected mild hypovolemia: Admission sodium 135, chloride 107, suspected likely mild hypovolemia, judiciously hydrated, repeat 08/23/2024 sodium 138. #4. Chronic Kidney Disease initially suspected stage II; however, current trending RULING OUT stage II disease with GFR now > 90 suspected, possibly stage II based on previous GFR trending although has vacillated GFR: Admission BUN/Cr 16/1.03, GFR 74, baseline renal function primarily 0.8-1.0, 08/23/2024 BUN/creatinine 14/0.79, GFR 100. #5. Severe protein calorie malnutrition: Evidenced by habitus, obvious muscle and fat loss, nutrition consulted, dietary supplements per their discretion. #6. Suspected underlying COPD: Not on the regimen, no formal diagnosis but highly suspected based on exam, tobacco use history and previous imaging, continue as needed albuterol, encourage head of bed and I-S #7. Chronic macrocytic anemia: Admission hemoglobin 12.7, MCV 101.1, baseline hemoglobin more recently has primarily been 12 but previous to this had been 14- 15 range, 08/23/2024 hemoglobin 10.6, MCV 100.3, continue to trend. #8. Tobacco Abuse: Encouraged cessation, inpatient consultation per RT, NR if desired. DVT: Lovenox Charges/Coding Visit Charges Inpatient E&M: 98238 Subs Hosp L1
--- NOTE | 2024-08-26 09:52 | PN.SURG_ITS ---
Subjective Subjective Patient status post debridement I&D right lower leg with grafting now he is postop 4 days postop doing fine at this point his pain seems to be better though at this point he still on IV pain meds at some point this needs to be discontinued in order for him to be discharged. They are waiting for ECF placement. He was laying comfortably in bed much less pain than before. Objective Data Objective Data Right lower leg looks dramatically better than it did before there is decreased edema skin is almost normal at this point there is actually some healing of the wounds medially dorsal foot at this point the rest the lower leg has Steri- Strips intact Adaptic and wounds approximately are almost completely resolved the only main ulceration is the lateral ankle which was the largest ulceration still with fibrotic slough. Today we applied and changed the dressing with Adaptic ABD will add Kaltostat I do recommend the patient to get split-thickness skin graft on his right lower leg at some point postoperatively. An outpatient. Vital Signs: Vital Signs Temp Pulse Resp BP Pulse Ox O2 Del Method 97.9 F 77 17 114/70 96 Room Air 08/26/24 09:20 08/26/24 09:20 08/26/24 09:20 08/26/24 09:20 08/26/24 09:20 08/26/24 09:20 Oxygen Delivery Method Room Air Weight: 72.5 kg Body Mass Index (BMI) 24.3 Intake & Output: Intake and Output for Last 24 Hours 08/24/24 08/25/24 08/26/24 23:59 23:59 23:59 Intake Total 1430 / 1430 1500 / 2100 1180 / 1180 Output Total 2500 / 2500 1950 / 2900 1900 / 1900 Balance -1070 / -1070 -450 / -800 -720 / -720 Medical Nutrition Assessment Dietitian: Malnutrition Criteria Met Start: 08/17/24 14:01 Freq: Status: Active Protocol: Document 08/17/24 14:01 FRED (Rec: 08/17/24 14:01 FRED [email or web address]) Nutrition Malnutrition Evidence of Malnutrition Exists Yes Malnutrition (severe): Acute Illness/Injury Evidenced By Suboptimal Energy Intake ( Severe),Weight Loss (Severe) Intake Problem Increased Nutrient Needs (specify) Etiology related to skin status Signs/Symptoms as evidenced by RLE wound w/ cellulitis Status Active Problem Clinical Problem Acute Disease or Injury Related Malnutrition Etiology related to acute illness and inadequate energy intake Signs/Symptoms as evidenced by 6% unintended wt loss x 1 mo and po intake meeting <75% of est nutritional needs x 2 wks Status Active Problem Recommendation Dietitian Recommendations/Changes Will liberalize diet to regular d/t signs and symptoms of malnutrition Will continue 120 ml ensure plus high protein tid w/ medpass Will order tracy bid w/ meals to help w/ wound healing Rec consider appetite stimulant if continued poor po intake. Lab / Micro Data 08/25/24 06:49 08/25/24 06:49 Labs: Laboratory Results - last 24 hr 08/25/24 22:34: Vancomycin Trough 12.3 Micro: Microbiology 08/17/24 08:25 Blood Culture (Wb) - Right Hand Blood Culture - Final No growth in 5 days. 08/17/24 08:25 Blood Culture (Wb) - Anticubital Left Blood Culture - Final No growth in 5 days. 08/17/24 18:25 Wound - Leg Gram Stain - Final 08/17/24 18:25 Wound - Leg Wound Culture - Final Staphylococcus aureus Acinetobacter baumannii Physical Exam Const alert, oriented x3, no apparent distress, average body habitus, no limitations, healthy appearing and well nourished HEENT normocephalic, head/scalp atraumatic, hearing grossly normal bilaterally, external ears normal, EAC's normal, TM's normal bilaterally, external nose normal, nasal mucous membranes and turbinates normal, moist oral mucous membranes, oropharynx normal, dentition normal and gingiva normal Assessment & Plan Assessment/Plan (1) Cellulitis of both lower extremities: (2) Ulcer of right leg: PLAN: Patient doing well postoperatively pain decreasing hopefully to his movement to oral pain medication at this point his legs look good he had no problems doing the dressing change drastically better than when I first met him in which I could even touch his leg at this point is doing well I think that these are all venous wounds and he should heal up with proper wound care and compression. And then needs to continue this when he is outpatient. (3) Peripheral vascular disease: PLAN: No need for further vascular follow-up (4) Leg edema: (5) Tobacco abuse: PLAN: Plan Patient scheduled to move to [facility] that point the patient should be seen for rehab dressing orders follow-up with him outpatient may need split-thickness skin graft lateral leg if it continues to be slow healing.
[2024-08-26] MEDS: Vancomycin IV 500 MG/100 ML BAG 100 MG IV ×2 (11:47→23:05)
[2024-08-26 15:20] VITALS: BP 95/60; PULSE 68; RESP 16; TEMP 36.7; O2SAT 96
[2024-08-26 21:21] VITALS: BP 119/73; PULSE 65; RESP 16; TEMP 36.6; O2SAT 98
[2024-08-26] MEDS: MELATONIN 3 MG TABLET PO (21:23)
[2024-08-26] MEDS: Atorvastatin Calcium 40 MG Tablet PO (21:23)
[2024-08-27 04:14] VITALS: BP 128/79; PULSE 60; RESP 16; TEMP 36.6; O2SAT 97
[2024-08-27] MEDS: oxyCODONE 5 MG Tablet 10 MG PO (04:17)
[2024-08-27] MEDS: Acetaminophen 500 MG Tablet 1000 MG PO (05:13)
[2024-08-27] MEDS: Ensure Plus High Protein 120 ML LIQUID PO (07:52)
[2024-08-27] MEDS: Enoxaparin 40 MG/0.4 ML Syringe SC (07:53)
[2024-08-27] MEDS: Clopidogrel Bisulfate 75 MG Tablet PO (07:53)
[2024-08-27] MEDS: Gabapentin 100 MG Capsule 200 MG PO (07:53)
[2024-08-27] MEDS: Menthol/Lanolin/Calamine/Znox 113 GM Tube 1 APPLIC TOPICAL (07:54)
[2024-08-27 07:57] LABS: Absolute Lymphocyte Count 0.94 X10^3/uL (0.83-4.51); Absolute Neutrophil Count 3.3 X10^3/uL (2.0-7.7); Basophil# 0.08 X10^3/uL; Basophil% 1.5 % (0-1); Eosinophil# 0.21 X10^3/uL; Hemoglobin 11.9 g/dL (13.0-16.5); Lymphocyte # 0.94 X10^3/ul (0.83-4.51); Lymphocyte % 17.9 % (19-41); Mean Corp Hgb Conc 32.2 g/dL (32-36); Mean Corpuscular Hgb 32.8 pg (27.0-32.0); Mean Corpuscular Volume 101.9 fL (80-94); Mean Platelet Vol. 9.6 fl (6.2-12.0); Monocyte# 0.62 X10^3/uL; Monocyte% 11.8 % (0-10); NRBC Flagged by Analyzer 0 % (0-5); Neutrophil # 3.31 X10^3/uL (2.7-7.7); Neutrophil % 63.3 % (47-70); Platelet Count 315 K/mm3 (150-450); RBC Distribution Width SD 55.8 fl (35.1-43.9); Red Blood Count 3.63 M/mm3 (4.6-6.2); White Blood Count 5.2 K/mm3 (4.4-11.0)
--- NOTE | 2024-08-27 07:57 | CASEMGMT ---
Discharge Planning Lev Casanova has obtained auth to admit. Maria E Maceil DC Planning Asst.
[2024-08-27 08:00] VITALS: BP 99/74; PULSE 86; RESP 18; TEMP 36.4; O2SAT 97
[2024-08-27 08:04] LABS: Anion Gap 6 (5-15); BUN 20 mg/dL (7-18); BUN/Creat Ratio 22.1 RATIO (10-20); Calcium,Total 9.2 mg/dL (8.5-10.1); Chloride 104 mmol/L (98-107); EST Glomerular Filtration Rate 86 mL/min (>60); Est Glom Filt Rate - Afr Amer 104 mL/min (>60); Estimated Creatinine Clearance 63.33 ml/min; Glucose 87 mg/dL (74-106); Potassium 3.9 mmol/L (3.5-5.1); Sodium Level 137 mmol/L (136-145)
--- NOTE | 2024-08-27 08:31 | TREXTCAR_ITS ---
Diet Diet Order/Speech Therapy: 08/21/24 20:22 Diet: Regular - General Type of Dietary Supplement:: Zohaib B&D Diet Comments: prefers orange Routine Orders/Code Status Routine Lab Work: CBC and BMP Code Status: DNRCC-A DC O2, CPAP, BIPAP needs Home O2 Discharge instructions: No Wound(s) right leg: Wound Type: scattered venous stasis ulcers Dressing Change: Adaptic R Elbow: Wound Type: Abrasion Therapies Physical Therapy: Eval and Treat Occupational Therapy: Eval and Treat Problem/Diagnosis (1) Cellulitis of both lower extremities: Status: Acute Code(s): L03.115 - Cellulitis of right lower limb; L03.116 - Cellulitis of left lower limb (2) Ulcer of right leg: Status: Acute Code(s): L97.919 - Non-pressure chronic ulcer of unspecified part of right lower leg with unspecified severity (3) Peripheral vascular disease: Status: Acute Code(s): I73.9 - Peripheral vascular disease, unspecified (4) Leg edema: Status: Acute Code(s): R60.0 - Localized edema (5) Tobacco abuse: Status: Acute Code(s): Z72.0 - Tobacco use (6) Cellulitis of right lower extremity: Status: Acute Code(s): L03.115 - Cellulitis of right lower limb Plan #1. Right lower extremity cellulitis with vascular appearing MSSA and AcB wounds with associated mild lactic acidosis: Admitted to PCU, initiated and continued on IV Levaquin and vancomycin given previous wounds, blood cultures pending, wound RN consulted, podiatry consulted, CT right lower extremity with runoff with diffuse subcutaneous edema without sclerosis, CTA abdomen and pelvis with runoff with significant atherosclerotic irregularity arterial supply to the bilateral lower extremities, distal occlusion right superficial femoral and popliteal arteries with distal flow reestablished above the trifurcation, intact bilateral runoff to the ankles, unfortunately was unable to tolerate EMILE/PVR assessments, admission lactic acid initially 2.5 with improvement to 1.7 following hydration. Cultures with MSSA and Acetobacter. Vascular surgery evaluation 08/18/2024 with belief that studies and exam stable with sufficient perfusion to expect to heal with recommended continued follow-up outpatient as well as initiation of high-dose statin which was initiated. Infectious disease following, maintain on empiric Vanco and Levaquin per ID management. Podiatry consulted and following with planned operative intervention. 08/18/24 ID evaluation with recommended continued IV levaquin and vanc based on prior Cx at this time. 08/19/24 increased pain to the right lower extremity with increase of his gabapentin and alteration of his oral and IV narcotic therapy. 08/20/2020 for planned surgical intervention unfortunately delayed with the OR 08/21/2024 with debridement ulceration including subcutaneous tissue with preparation skin graft site, application bio Parmar graft to the right leg per Dr. Price. 08/23/2020 for dressing takedown per podiatry direction by nursing staff. Continue dressing changes per podiatry discretion and possibly wound care per their discretion also. 08/23/2024 waiting for finalization of operative cultures in addition to repeat assessment per infectious disease for discharge planning. Current PT/OT assessments with recommended ongoing therapies, will need to be clarified but at this time from review of notes may need skilled placement. 08/24/2024: Continue with Levaquin and Vanco, will likely need SNF placement on discharge 08/25/2024: Awaiting pre-CERT, awaiting antibiotic recommendations by ID, he is MSSA with Acinetobacter may be able to just managed with Levaquin 08/26/2024: Awaiting pre-CERT, have oral antibiotics from ID for discharge #2. Severe peripheral vascular disease: Strongly encourage continued tobacco cessation, continue Plavix therapy, following with Dr. Beatty status post pr evious right lower extremity intervention possibly to posterior tibial artery 06/2024, CT right lower extremity with runoff with diffuse subcutaneous edema without sclerosis, CTA abdomen and pelvis with runoff with significant atherosclerotic irregularity arterial supply to the bilateral lower extremities, distal occlusion right superficial femoral and popliteal arteries with distal flow reestablished above the trifurcation, intact bilateral runoff to the ankles, unfortunately was unable to tolerate EMILE/PVR assessments, continue gabapentin regimen however may consider titration as needed, continue Tylenol, as needed as needed morphine and oxycodone, vascular surgery consulted for podiatry request. 08/18/2024 vascular surgery evaluation with studies and exam stable with sufficient perfusion to expect that he will, recommended high-dose statin which was added and adjusted for patient age. #3. Hyponatremia, suspected mild hypovolemia: Admission sodium 135, chloride 107, suspected likely mild hypovolemia, judiciously hydrated, repeat 08/23/2024 sodium 138. #4. Chronic Kidney Disease initially suspected stage II; however, current trending RULING OUT stage II disease with GFR now > 90 suspected, possibly stage II based on previous GFR trending although has vacillated GFR: Admission BUN/Cr 16/1.03, GFR 74, baseline renal function primarily 0.8-1.0, 08/23/2024 BUN/creatinine 14/0.79, GFR 100. #5. Severe protein calorie malnutrition: Evidenced by habitus, obvious muscle and fat loss, nutrition consulted, dietary supplements per their discretion. #6. Suspected underlying COPD: Not on the regimen, no formal diagnosis but highly suspected based on exam, tobacco use history and previous imaging, continue as needed albuterol, encourage head of bed and I-S #7. Chronic macrocytic anemia: Admission hemoglobin 12.7, MCV 101.1, baseline hemoglobin more recently has primarily been 12 but previous to this had been 14- 15 range, 08/23/2024 hemoglobin 10.6, MCV 100.3, continue to trend. #8. Tobacco Abuse: Encouraged cessation, inpatient consultation per RT, NR if desired. DVT: Lovenox Allergies/Procedures Done in Hospital Allergies Penicillins Allergy (Verified 08/17/24 08:01) Anaphylaxis Procedures: - (1. Debridement of ulceration into including subcutaneous tissue and situated prepare for skin graft prep site less than 100 cm? 2. Application of bio Parmar graft right lower leg for total of 29 cm of graft material all used 100% were used none was wasted 3. Application multilayer compression wr) Type of Care/Length of Stay Estimated LOS: Convalescent Care Less Than 30 days Type of Care Needed: Skilled Rehab Potential: Good Prognosis: Good Additional Orders/Day of Discharge Day of Discharge: 08/27/24 Dietary and Speech Recommendations Dietitian Recommendations/Changes: Continue regular diet,120 ml ensure plus high protein TID with medpass and zohaib BID with breakfast and dinner. Will monitor weight, as available. Reviewed and approved by Danielle Abad RD, LD. Discharge Plan Admission Admit Date/Time: 08/17/24 09:57 Attending Provider: Rolando Swan Primary Care Provider: Reynold Hernandez Consulting Providers: Caterina Parrish; Terry Suárez; Rajinder Price; Richard Bender; Angie Silva Discharge Orders/Prescriptions Prescriptions: New atorvastatin 40 mg Tablet 40 mg PO QHS Qty: 0 0RF sennosides-docusate sodium [Stimulant Laxative Plus] 8.6-50 mg Tablet 2 tab PO BID PRN PRN (Reason: Constipation) Qty: 0 0RF oxycodone 5 mg Tablet 5 mg PO Q4H PRN PRN (Reason: Pain Score 4-10) 3 Days Qty: 10 0RF doxycycline hyclate 100 mg capsule 100 mg PO BID Qty: 20 0RF levofloxacin 500 mg tablet 500 mg PO DAILY Qty: 10 0RF Continued clopidogrel [Plavix] 75 mg tablet 75 mg PO DAILY acetaminophen 500 mg capsule 1,000 mg PO Q6H PRN (Reason: fever or pain) Referrals / Follow Up: Rajinder Price MD [Med Staff - Active Staff] - Within 2 Weeks Дмитрий Beatty MD [Med Staff - Active Staff] - 08/31/24 Reynold Hernandez MD [Primary Care Provider] - Disposition Disposition (needs filled in before D/C Order can be placed): Residential Facility
--- NOTE | 2024-08-27 09:37 | PCM.DC.SUM ---
Providers Date of Admission: 08/17/24 Primary Care Physician: Dr. Reynold Hernandez MD Consultations 08/17/24 11:13 Consult: Onc/Wound/windshield installer Routine Comment: Consult: Podiatry Routine Consulting Provider: Rajinder Price Reason for Consult: R LE wound EMERGENT Consult: No MD Notified: Yes Date Notified: 08/17/24 Time Notified: 10:02 Method of Notification: Text 08/18/24 08:02 Consult: Vascular Surgery Routine Consulting Provider: Richard Bender Reason for Consult: RLE wounds w/ vascular disease EMERGENT Consult: No MD Notified: Yes Date Notified: 08/18/24 Time Notified: 08:02 Method of Notification: Text 08/18/24 08:10 Consult: Infectious Disease Routine Consulting Provider: Terry Suárez Reason for Consult: RLE cellulitis, infected suspected vascular wounds EMERGENT Consult: No MD Notified: Yes Date Notified: 08/18/24 Time Notified: 08:24 Method of Notification: Text Reason For Visit: R LE WOUND/CELLULITIS Diagnosis Discharge Diagnosis (1) Cellulitis of both lower extremities: Status: Acute Code(s): L03.115 - Cellulitis of right lower limb; L03.116 - Cellulitis of left lower limb (2) Ulcer of right leg: Status: Acute Code(s): L97.919 - Non-pressure chronic ulcer of unspecified part of right lower leg with unspecified severity (3) Peripheral vascular disease: Status: Acute Code(s): I73.9 - Peripheral vascular disease, unspecified (4) Leg edema: Status: Acute Code(s): R60.0 - Localized edema (5) Tobacco abuse: Status: Acute Code(s): Z72.0 - Tobacco use (6) Cellulitis of right lower extremity: Status: Acute Code(s): L03.115 - Cellulitis of right lower limb Medications at Discharge Home Medications clopidogrel 75 mg tablet (Plavix) 75 mg PO DAILY 11/06/21 acetaminophen 500 mg capsule 1,000 mg PO Q6H PRN fever or pain 08/17/24 atorvastatin 40 mg tablet 40 mg PO QHS #0 tabs 08/27/24 doxycycline hyclate 100 mg capsule 100 mg PO BID #20 caps 08/27/24 levofloxacin 500 mg tablet 500 mg PO DAILY #10 tabs 08/27/24 oxycodone 5 mg tablet 5 mg PO Q4H PRN PRN Pain Score 4-10 3 days #10 tabs 08/27/24 sennosides 8.6 mg-docusate sodium 50 mg tablet (Stimulant Laxative Plus) 2 tab PO BID PRN PRN Constipation #0 tabs 08/27/24 Hospital Course Operations - ( 1. Debridement of ulceration into including subcutaneous tissue and situated prepare for skin graft prep site less than 100 cm? 2. Application of bio Parmar graft right lower leg for total of 29 cm of graft material all used 100% were used none was wasted 3. Application multilayer compression w) Procedures None Summary of Care Provided Minutes Spent on Discharge: 37 Hospital Course: Per HPI: BROOKE REYNOLDS, is a 78 M who presented to the emergency department at [facility] on 08/17/2024 with weeping wounds in his right leg, redness and pain that has been ongoing for about 3 days now. He has a history of lower extremity vascular disease and reports he had previous intervention with Dr. Beatty in June 2020 for to what sounds like the posterior tibial artery. He states in the last 3 days the pain in his legs has significantly worsened as has the redness and he started to have some draining. The pain is quite intense and hypersensitive to the touch. He has had no fever or chills but has had some intermittent nausea and vomiting. Denies any chest pain or shortness of breath. He does get intermittent calf pain with walking but is not quite clear how long he can walk until he gets pain. He was just admitted here about 20 days ago with similar symptoms and was discharged home on antibiotics with 1 week of linezolid and Levaquin. He stated that symptoms did improve but then worsened again after he completed antibiotics. He still smokes cigarettes about 1 pack/day. Vital signs on presentation demonstrates a temperature of 98, heart rate 60, respiratory rate 16, blood pressure 147/81 and pulse ox was 92% on room air. CBC showed a normal white count however he did have a significant left shift with an 80.1% neutrophilia. Mild anemia with a hemoglobin of 12.7 which appears to be stable when compared. This is macrocytic. Coags were normal. Chemistry panel was overtly unremarkable. Initial lactate was 2.5 but resolved quickly with 1 L of IV fluids with a repeat lactate of 1.7. Liver functions were unremarkable. Blood cultures were obtained in the emergency department prior to antibiotics being initiated and I obtained a CT of the lower extremity rule out any deep abscesses given recurrence. CT of the lower extremity showed subcutaneous edema that was diffuse and atherosclerosis with no evidence of deep infection. Hospital Course: #1. Right lower extremity cellulitis with vascular appearing MSSA and AcB wounds with associated mild lactic acidosis: Admitted to PCU, initiated and continued on IV Levaquin and vancomycin given previous wounds, blood cultures pending, wound RN consulted, podiatry consulted, CT right lower extremity with runoff with diffuse subcutaneous edema without sclerosis, CTA abdomen and pelvis with runoff with significant atherosclerotic irregularity arterial supply to the bilateral lower extremities, distal occlusion right superficial femoral and popliteal arteries with distal flow reestablished above the trifurcation, intact bilateral runoff to the ankles, unfortunately was unable to tolerate EMILE/PVR assessments, admission lactic acid initially 2.5 with improvement to 1.7 following hydration. Cultures with MSSA and Acetobacter. Vascular surgery evaluation 08/18/2024 with belief that studies and exam stable with sufficient perfusion to expect to heal with recommended continued follow-up outpatient as well as initiation of high-dose statin which was initiated. Infectious disease following, maintain on empiric Vanco and Levaquin per ID management. Podiatry consulted and following with planned operative intervention. 08/18/24 ID evaluation with recommended continued IV levaquin and vanc based on prior Cx at this time. 08/19/24 increased pain to the right lower extremity with increase of his gabapentin and alteration of his oral and IV narcotic therapy. 08/20/2020 for planned surgical intervention unfortunately delayed with the OR 08/21/2024 with debridement ulceration including subcutaneous tissue with preparation skin graft site, application bio Parmar graft to the right leg per Dr. Price. 08/23/2020 for dressing takedown per podiatry direction by nursing staff. Continue dressing changes per podiatry discretion and possibly wound care per their discretion also. 08/23/2024 waiting for finalization of operative cultures in addition to repeat assessment per infectious disease for discharge planning. Current PT/OT assessments with recommended ongoing therapies, will need to be clarified but at this time from review of notes may need skilled placement. 08/24/2024: Continue with Levaquin and Vanco, will likely need SNF placement on discharge 08/25/2024: Awaiting pre-CERT, awaiting antibiotic recommendations by ID, he is MSSA with Acinetobacter may be able to just managed with Levaquin 08/26/2024: Awaiting pre-CERT, have oral antibiotics from ID for discharge 08/27/2024: He received pre-CERT to go to SNF. I discussed with him the plan for discharge today he expressed understanding of the risk benefits going to the halfway and would like to go today. He will need to follow-up with podiatry in 2 weeks and he has an appointment with vascular surgery Dr. Дмитрий Beatty on 08/31/2024, would call to verify as the patient does seem a little bit unsure of the date. Will continue with Lipitor given his peripheral vascular disease and infectious disease recommends 10 more days of Levaquin and doxycycline #2. Severe peripheral vascular disease: Strongly encourage continued tobacco cessation, continue Plavix therapy, following with Dr. Beatty status post previous right lower extremity intervention possibly to posterior tibial artery 06/2024, CT right lower extremity with runoff with diffuse subcutaneous edema without sclerosis, CTA abdomen and pelvis with runoff with significant atherosclerotic irregularity arterial supply to the bilateral lower extremities, distal occlusion right superficial femoral and popliteal arteries with distal flow reestablished above the trifurcation, intact bilateral runoff to the ankles, unfortunately was unable to tolerate EMILE/PVR assessments, continue gabapentin regimen however may consider titration as needed, continue Tylenol, as needed as needed morphine and oxycodone, vascular surgery consulted for podiatry request. 08/18/2024 vascular surgery evaluation with studies and exam stable with sufficient perfusion to expect that he will, recommended high-dose statin which was added and adjusted for patient age. #3. Hyponatremia, suspected mild hypovolemia: Admission sodium 135, chloride 107, suspected likely mild hypovolemia, judiciously hydrated, repeat 08/23/2024 sodium 138. #4. Chronic Kidney Disease initially suspected stage II; however, current trending RULING OUT stage II disease with GFR now > 90 suspected, possibly stage II based on previous GFR trending although has vacillated GFR: Admission BUN/Cr 16/1.03, GFR 74, baseline renal function primarily 0.8-1.0, 08/23/2024 BUN/creatinine 14/0.79, GFR 100. #5. Severe protein calorie malnutrition: Evidenced by habitus, obvious muscle and fat loss, nutrition consulted, dietary supplements per their discretion. #6. Suspected underlying COPD: Not on the regimen, no formal diagnosis but highly suspected based on exam, tobacco use history and previous imaging, continue as needed albuterol, encourage head of bed and I-S #7. Chronic macrocytic anemia: Admission hemoglobin 12.7, MCV 101.1, baseline hemoglobin more recently has primarily been 12 but previous to this had been 14-15 range, 08/23/2024 hemoglobin 10.6, MCV 100.3, continue to trend. #8. Tobacco Abuse: Encouraged cessation, inpatient consultation per RT, NR if desired. Physical Exam Narrative General: Alert, Oriented x3, Cooperative, No apparent distress HEENT: Atraumatic, PERRLA, EOMI, Normocephalic Oral: Moist Mucosa Neck: Supple, No JVD Lungs: Clear to auscultation, Normal air movement, No rhonchi, No wheeze, No rales Cardiovascular: Regular rate, Regular Rhythm, Normal S1, Normal S2, No murmurs Abdomen: Soft, Non Tender, Non-Distended, No Hepato-splenomegaly Extremities: No edema, Capillary Refill Less than 3 Seconds Skin: Chronic bilateral venous stasis changes lower extremities, right lower extremity is wrapped Musculoskeletal: No Tenderness to Palpation of Joints or Extremities Neurological: No focal neurological deficits, Motor Exam 5/5 strength throughout, Sensory exam intact to light touch and pain Psych/Mental Status: Normal Affect, Appropriate Medical Records Data Medical Nutrition Assessment Dietitian: Malnutrition Criteria Met Start: 08/17/24 14:01 Freq: Status: Active Protocol: Document 08/17/24 14:01 FRED (Rec: 08/17/24 14:01 [facility] [id number]) Nutrition Malnutrition Evidence of Malnutrition Exists Yes Malnutrition (severe): Acute Illness/Injury Evidenced By Suboptimal Energy Intake ( Severe),Weight Loss (Severe) Intake Problem Increased Nutrient Needs (specify) Etiology related to skin status Signs/Symptoms as evidenced by RLE wound w/ cellulitis Status Active Problem Clinical Problem Acute Disease or Injury Related Malnutrition Etiology related to acute illness and inadequate energy intake Signs/Symptoms as evidenced by 6% unintended wt loss x 1 mo and po intake meeting <75% of est nutritional needs x 2 wks Status Active Problem Recommendation Dietitian Recommendations/Changes Will liberalize diet to regular d/t signs and symptoms of malnutrition Will continue 120 ml ensure plus high protein tid w/ medpass Will order tracy bid w/ meals to help w/ wound healing Rec consider appetite stimulant if continued poor po intake. Weight / BMI Weight Weight: 159 lb 13.362 oz Body Mass Index (BMI) 24.3 ABG / Lab / Microbiology Data 08/27/24 06:40 08/27/24 06:40 Laboratory: Laboratory Results - last 24 hr 08/27/24 06:40: WBC 5.2, RBC 3.63 L, Hgb 11.9 L, Hct 37.0 L, MCV 101.9 H, MCH 32.8 H, MCHC 32.2, RDW Std Deviation 55.8 H, RDW Coeff of Johanna 15.0 H, Plt Count 315, MPV 9.6, Immature Gran % (Auto) 1.500 H, Neut % (Auto) 63.3, Lymph % (Auto) 17.9 L, Ocean % (Auto) 11.8 H, Eos % (Auto) 4.0, Baso % (Auto) 1.5 H, Absolute Neuts (auto) 3.3, Absolute Lymphs (auto) 0.94, Nucleated RBC % 0, Sodium 137, Potassium 3.9, Chloride 104, Carbon Dioxide 28.0, Anion Gap 6, BUN 20 H, Creatinine 0.90, Estim Creat Clear Calc 63.33, Est GFR (MDRD) Af Amer 104, Est GFR (MDRD) Non-Af 86, BUN/Creatinine Ratio 22.1 H, Glucose 87, Calcium 9.2 Microbiology: Microbiology 08/17/24 08:25 Blood Culture (Wb) - Right Hand Blood Culture - Final No growth in 5 days. 08/17/24 08:25 Blood Culture (Wb) - Anticubital Left Blood Culture - Final No growth in 5 days. 08/17/24 18:25 Wound - Leg Gram Stain - Final 08/17/24 18:25 Wound - Leg Wound Culture - Final Staphylococcus aureus Acinetobacter baumannii D/C Instructions DC O2, CPAP, BIPAP Needs Home O2 Discharge instructions: No Meaningful Use Info Meaningful Use Meaningful Use Diagnoses (Choose all that apply): None applicable Ischemic Stroke Statin Dosing Therapy Reference: STATIN DOSE THERAPY REFERENCE: * Patients > 75 years receive moderate or high dose statin therapy. * Patients 75 years or YOUNGER should receive HIGH intensity statin dose unless contraindicated. You will be required to document reason for non-treatment if statin daily dose does not meet guidelines. HIGH DOSE STATIN THERAPY DAILY Atorvastatin > than or = to 40 mg Rosuvastatin > than or = to 20 mg Amlodipine + Atorvastatin > than or = to 2.5/40 mg Ezetimibe + Simvastatin 10/80 mg Simvastatin 80mg Discharge Plan Admission Admit Date/Time: 08/17/24 09:57 Attending Provider: Rolando Swan Primary Care Provider: Reynold Hernandez Consulting Providers: Caterina Parrish; Terry Suárez; Rajinder Price; Richard Bender; Angie Silva Discharge Orders/Prescriptions Prescriptions: New atorvastatin 40 mg Tablet 40 mg PO QHS Qty: 0 0RF sennosides-docusate sodium [Stimulant Laxative Plus] 8.6-50 mg Tablet 2 tab PO BID PRN PRN (Reason: Constipation) Qty: 0 0RF oxycodone 5 mg Tablet 5 mg PO Q4H PRN PRN (Reason: Pain Score 4-10) 3 Days Qty: 10 0RF doxycycline hyclate 100 mg capsule 100 mg PO BID Qty: 20 0RF levofloxacin 500 mg tablet 500 mg PO DAILY Qty: 10 0RF Continued clopidogrel [Plavix] 75 mg tablet 75 mg PO DAILY acetaminophen 500 mg capsule 1,000 mg PO Q6H PRN (Reason: fever or pain) Referrals / Follow Up: Rajinder Price MD [Med Staff - Active Staff] - Within 2 Weeks Дмитрий Beatty MD [Med Staff - Active Staff] - 08/31/24 Reynold Hernandez MD [Primary Care Provider] - Disposition Disposition (needs filled in before D/C Order can be placed): Assisted Facility Charges/Coding Visit Charges Inpatient E&M: 52574 Disch Hosp >30min
--- NOTE | 2024-08-27 09:53 | NURSING ---
Report called to Isela gutierrez [facility] Edilberto at [phone]. Pt getting picked up at 10:15am.
--- NOTE | 2024-08-27 09:58 | CASEMGMT ---
Discharge Planning Discharge orders, signed med, list, and transport time sent to [facility]. Pts family ([facility]) will transport around 10:15. Nursing and SW updated. Maria E Maciel DC Planning Asst.
== END 2024-08-27 10:27 | disposition skilled nursing facility (03) | DRG 264 ==
LOC: ED 09:59 → PCU 11:02
PROVIDERS: Family Medicine; Internal Medicine; Internal Medicine Infectious Disease; Podiatrist Foot & Ankle Surgery; Admitting Provider Internal Medicine; Emergency Provider Emergency Medicine; PCP Internal Medicine; Visit Provider Family Medicine
PROC: 0HRKXK3 Replacement of Right Lower Leg Skin with Nonautologous Tissue Substitute, Full Thickness, External Approach (ICD-10-PCS; principal; 2024-08-21 15:15)
DX: I70.238 Atherosclerosis of native arteries of right leg with ulceration of other part of lower leg (principal); E43 Unspecified severe protein-calorie malnutrition; L03.115 Cellulitis of right lower limb; E87.1 Hypo-osmolality and hyponatremia; L03.116 Cellulitis of left lower limb; Z66 Do not resuscitate; J44.9 Chronic obstructive pulmonary disease, unspecified; D53.9 Nutritional anemia, unspecified; Z95.820 Peripheral vascular angioplasty status with implants and grafts; L97.812 Non-pressure chronic ulcer of other part of right lower leg with fat layer exposed; L97.929 Non-pressure chronic ulcer of unspecified part of left lower leg with unspecified severity; I87.2 Venous insufficiency (chronic) (peripheral); E86.1 Hypovolemia; N18.2 Chronic kidney disease, stage 2 (mild); E87.6 Hypokalemia; F17.210 Nicotine dependence, cigarettes, uncomplicated; B95.61 Methicillin susceptible Staphylococcus aureus infection as the cause of diseases classified elsewhere; R60.0 Localized edema; Z68.24 Body mass index [BMI] 24.0-24.9, adult; Z79.02 Long term (current) use of antithrombotics/antiplatelets; Z79.899 Other long term (current) drug therapy; Z95.5 Presence of coronary angioplasty implant and graft; Z88.0 Allergy status to penicillin
CPT/HCPCS: 36415; 73700; 75635; 80048; 80053; 80202; 83605; 83735; 84100; 85025; 85610; 85730; 87040; 87070; 87077; 87186; 87205; 93005; 93970; 94668; 97110; 97116; 97162; 97166; 97530; 97535; 97802; 97803; 99284; Q9967; A4216; J2405

== ENCOUNTER → 2024-09-28 | Outpatient (CLI) | payer MEDICARE, SELFPAY ==
[2024-09-28 10:35] LABS: Absolute Lymphocyte Count 0.77 X10^3/uL (0.83-4.51); Absolute Neutrophil Count 4.9 X10^3/uL (2.0-7.7); Basophil# 0.06 X10^3/uL; Basophil% 0.9 % (0-1); Eosinophil# 0.11 X10^3/uL; Eosinophils% 1.7 % (0-5); Hematocrit 40.4 % (40-54); Hemoglobin 13.3 g/dL (13.0-16.5); Lymphocyte # 0.77 X10^3/ul (0.83-4.51); Lymphocyte % 12.1 % (19-41); Mean Corp Hgb Conc 32.9 g/dL (32-36); Mean Corpuscular Hgb 33.3 pg (27.0-32.0); Mean Platelet Vol. 9.4 fl (6.2-12.0); Monocyte# 0.46 X10^3/uL; Monocyte% 7.2 % (0-10); NRBC Flagged by Analyzer 0 % (0-5); Neutrophil # 4.94 X10^3/uL (2.7-7.7); Neutrophil % 77.6 % (47-70); Platelet Count 257 K/mm3 (150-450); RBC Distribution Width CV 15.2 % (11.6-14.6); RBC Distribution Width SD 57.2 fl (35.1-43.9); White Blood Count 6.4 K/mm3 (4.4-11.0)
[2024-09-28 12:31] LABS: AST(SGOT) 114 U/L (15-37); Alanine Aminotransfer ALT/SGPT 262 U/L (16-61); Albumin, Serum 3.5 g/dL (3.2-5.0); Alkaline Phosphatase 41 U/L (45-117); Anion Gap 3 (5-15); BUN 12 mg/dL (7-18); BUN/Creat Ratio 14.4 RATIO (10-20); Calcium,Total 9.4 mg/dL (8.5-10.1); Chloride 107 mmol/L (98-107); Creatinine, Serum 0.83 mg/dL (0.70-1.30); EST Glomerular Filtration Rate 94 mL/min (>60); Est Glom Filt Rate - Afr Amer 114 mL/min (>60); Globulin 3.6 g/dL (2.2-4.2); Glucose 95 mg/dL (74-106); Potassium 4.5 mmol/L (3.5-5.1); Protein, Total 7.1 g/dL (6.4-8.2); Sodium Level 136 mmol/L (136-145)
== END | disposition home or self-care (01) ==
LOC: BIMLAB 09:59
PROVIDERS: PCP Internal Medicine; Referring Provider Internal Medicine; Visit Provider Internal Medicine
DX: I73.9 Peripheral vascular disease, unspecified (principal); L97.919 Non-pressure chronic ulcer of unspecified part of right lower leg with unspecified severity
CPT/HCPCS: 36415; 80053; 85025

== ENCOUNTER → 2024-10-08 | Outpatient (CLI) | payer MEDICARE, SELFPAY ==
[2024-10-08 12:45] LABS: ALB/GLOB Ratio 0.8 RATIO (0.9-2.4); AST(SGOT) 24 U/L (15-37); Alanine Aminotransfer ALT/SGPT 39 U/L (16-61); Albumin, Serum 3.4 g/dL (3.2-5.0); Alkaline Phosphatase 38 U/L (45-117); Anion Gap 7 (5-15); BUN 8 mg/dL (7-18); BUN/Creat Ratio 10.3 RATIO (10-20); Chloride 106 mmol/L (98-107); Creatinine, Serum 0.78 mg/dL (0.70-1.30); EST Glomerular Filtration Rate 102 mL/min (>60); Est Glom Filt Rate - Afr Amer 123 mL/min (>60); Glucose 96 mg/dL (74-106); Potassium 4.5 mmol/L (3.5-5.1); Protein, Total 7.4 g/dL (6.4-8.2); Sodium Level 138 mmol/L (136-145)
[2024-10-09 04:07] LABS: GGTP 90 IU/L (0-65)
== END | disposition home or self-care (01) ==
LOC: BIMLAB 08:03
PROVIDERS: PCP Internal Medicine; Referring Provider Internal Medicine; Visit Provider Internal Medicine
DX: R74.8 Abnormal levels of other serum enzymes (principal)
CPT/HCPCS: 36415; 80053; 82977

== ENCOUNTER 2024-10-19 09:00 | Outpatient (RCR) | payer MEDICARE, SELFPAY ==
[2024-10-05 08:50] VITALS: BP 131/74; PULSE 97; RESP 16; TEMP 36.6; BMI 23.2
--- NOTE | 2024-10-05 11:03 | PCM.WC.HP ---
History of Present Illness Date of Service: 10/05/24 Chief Complaint: Right lower leg ulcers History of Wound: 79-year-old white male who is not the best historian. He was referred here by his PCP for right lower leg ulcers and cellulitis which started in April 2024. He has a history of PAD with recent stent to his right lower extremity placed by Dr. Beatty, vascular surgeon at [place], on 07/16/25. He has had a couple hospitalizations in July. He had surgery during his second hospitalization at [facility] on 08/21/[address] Price, podiatry, who performed: 1.Debridement of ulceration into including subcutaneous tissue and situated prepare for skin graft prep site less than 100 cm? 2. Application of bio Parmar graft right lower leg for total of 29 cm of graft material all used 100% were used none was wasted and 3. Application multilayer compression wrap right lower leg. He was transferred to [facility] for skilled care. He is now home and has home health. He recently saw his PCP who recommended he follow up at the wound center. Besides his significant PVD with chronic lower extremity ulcerations, he he has a history of tobacco abuse, which he continues to smoke. He is on Plavix. He states that he has multiple ulcers and edema on his right lower leg. His PCP has him using Santyl on the ulcers. He does have home health coming into his home to assist with his dressing changes. Today he complains of discomfort of his right lower leg ulcers and swelling. He denies fever, chills, nausea and vomiting. Progress of Wound: Multiple superficial ulcer on his right lower leg, ankle and foot. +3-+4 edema of lower extremities. He also has a significant amount of soughing skin on his right lower extremity. 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 Cellulitis of right leg Ulcer of right leg Leg wound, left Left leg cellulitis Dermatitis History of skin cancer Hx of blood clots Frequent infections Home Medications ?Medication ?Instructions ?Recorded ?Last Taken ?Type clopidogrel 75 mg tablet (Plavix) 75 mg PO DAILY 11/06/21 08/17/24 History acetaminophen 500 mg capsule 1,000 mg PO Q6H PRN fever or pain 08/17/24 08/17/24 History atorvastatin 40 mg tablet 40 mg PO QHS #0 tabs 08/27/24 Unknown Rx doxycycline hyclate 100 mg capsule 100 mg PO BID #20 caps 08/27/24 Unknown Rx levofloxacin 500 mg tablet 500 mg PO DAILY #10 tabs 08/27/24 Unknown Rx sennosides 8.6 mg-docusate sodium 2 tab PO BID PRN PRN Constipation 08/27/24 Unknown Rx 50 mg tablet (Stimulant Laxative #0 tabs Plus) collagenase clostridium histo. 250 1 applic topical QDAY Lower 09/28/24 Unknown Rx unit/gram topical ointment (Santyl) Extremity Ulcer #90 grams tramadol 50 mg tablet 50 mg PO QDAY PRN pain #20 tabs 09/28/24 Unknown Rx Allergy/AdvReac Type Severity Reaction Status Date / Time Penicillins Allergy Anaphylaxis Verified 09/28/24 08:49 Surgical History History of appendectomy Social History current occupational status: retired Smoking Status: Current every day smoker tobacco type: cigarettes alcohol intake: current alcohol intake frequency: a few times a month substance use type: does not use ROS Constitutional Constitutional: Reports frequent falls; Denies chills or fever(s) Eyes Eyes: Reports requires corrective lenses ENT HEENT: Reports none Cardiovascular Cardiovascular: Reports edema; Denies chest pain, dyspnea or nausea Respiratory/Chest Respiratory/Chest: Denies cough or dyspnea Gastrointestinal Gastrointestinal: Denies nausea or vomiting Genitourinary Genitourinary: Reports none Musculoskeletal Musculoskeletal: Reports difficulty walking and extremity pain Integumentary Integumentary: Reports skin ulcer Neurologic Neurologic: Reports frequent falls Psychiatric Psychiatric: Reports irritability Endocrine Endocrinology: Reports none Hematologic/Lymphatic Hematologic/Lymphatic: Reports none Vital Signs Vital Signs Vital Signs: 10/05/24 08:50 Temperature 97.9 F Temperature Source Temporal Pulse Rate 97 Respiratory Rate 16 Blood Pressure 131/74 H Blood Pressure Mean 93 Blood Pressure Source Monitor Blood Pressure Position Sitting Blood Pressure Location Right Arm Weight Weight: 153 lb Body Mass Index (BMI) 23.2 Physical Exam Const alert and oriented x3 HEENT normocephalic Head and Scalp: atraumatic Eyes General Eye: normal appearance of both eyes Resp normal respiratory effort Effort and Inspection: able to speak in complete sentences Auscultation: wheezes Cardio regular rate and regular rhythm Extremity full ROM and normal capillary refill Skin Wound Narrative: Multiple sloughing ulcers on his right dorsal foot, right medial ankle, right lateral ankle cluster, right posterior ankle, and right anterior leg. There is no significant erythema. There is sloughing, moist skin. He has +3 pitting edema. He choudhary not been wearing compression. Debridement Note Debridement Note Wound debrided: #1 medial ankle ulcer, #2 lateral ankle ulcer cluster, #5 posterior ankle Laterality: Right Wound Grade/Stage: Stage 2 Type of Debridement: Excisional debridement Anesthesia Used: 5% Lidocaine Gel Depth: Down to and including healthy tissue and in the subcutaneous layer Percentage of wound debrided: 100 Instrument Used: 3mm curette Tissue Removed: Non viable tissue and slough Severity: Fat Layer Exposed Amount of bleeding with debridement: Mild Bleeding Controlled with: Compression and gauze Post-Debridement Measurements and Additional Note: Post-Debridement Measurements/Treatment - Nurse 1 - General Ulcer Assessment Start: 10/05/24 08:50 Freq: Status: Active Protocol: AALIYAH Activity Type Activity Date Activity User E-sign Co-sign Detail Recorded Client Recorded Date Recorded By Document 10/05/24 08:50 KW [id number] 10/05/24 09:05 KW 10/05/24 08:50 - Today's Visit Information Type of service Initial Visit Arrival Mode Ambulatory Transfer Assistance None Patient Identification Verified (Name & Yes ) Patient Requires Transmission-Based No Precautions Height and Weight Height 5 ft 8 in Weight 153 lb Weight in Pounds 153.0 lbs Body Mass Index (BMI) 23.2 BMI Classification Normal Vital Signs Temperature (97.8 F-99.1 F) 97.9 F Temperature Source Temporal Pulse Rate (60-100) 97 Pulse Location Monitor Respiratory Rate (12-18) 16 Respiratory rate source Observation Blood Pressure (90/60-120/80) 131/74 H Blood Pressure Mean 93 Source Monitor Position Sitting Blood Pressure Location Right Arm History Since Last Visit- (Skip if this is Patient's initial visit) Have you changed medications since your No last visit? Any new allergies or adverse reactions No Had a fall/change in ADL's that may No increase risk of falls Signs or symptoms of abuse and/or No neglect since last visit Have you been in the hospital since your No last visit? Has dressing in place as prescribed Yes Has compression in place as prescribed N/A Has offloadiing in place as prescribed N/A Experienced any changes in pain level or No management Left Footwear Regular Shoe Right Footwear Regular Shoe Pain Scale: 0-10 Numeric Is Patient Pain Free? Yes WC - Nurse 1 - General Ulcer Measurement Start: 10/05/24 08:50 Freq: Status: Active Protocol: Activity Type Activity Date Activity User E-sign Co-sign Detail Recorded Client Recorded Date Recorded By Document 10/05/24 08:50 KW [id number] 10/05/24 09:05 KW 10/05/24 08:50 Wound Center Nurse 1 #4 right lateral foot -Current Size (cm) - Length 1.2 -Current Size (cm) - Width 0.4 -Current Size (cm) - Depth 0.2 -Total Square Cm 0.48 -Photo Taken Yes -Epithelialization Medium 34-66% -Exudate Amt Medium -Exudate Type Serosanguineous -Wound Margin Distinct, Outline Attached -Granulation Amt Medium (34-66%) -Granulation Quality Red -Necrosis Amt Medium (34-66%) -Necrotic Tissue Type Adherent Slough -Texture (Sharmin-wound Skin Appearance) Rash -Moisture (Sharmin-wound Skin Appearance) Weeping -Color (Sharmin-wound Skin Appearance) Assessed -Temperature (Sharmin-wound Skin No Abnormality Appearance) (Pt Warm) -Tenderness on Palpation (Sharmin-wound Yes Skin Appearance) -Ulcer Cleansing Soap and Water -Foul Odor after Cleansing No -Anesthetic Used 5% Lidocaine Gel #5 right posterior ankle -Current Size (cm) - Length 1.5 -Current Size (cm) - Width 1 -Current Size (cm) - Depth 0.2 -Total Square Cm 1.5 -Photo Taken Yes -Epithelialization Medium 34-66% -Exudate Amt Medium -Exudate Type Serosanguineous -Wound Margin Distinct, Outline Attached -Granulation Amt Medium (34-66%) -Slough/Fibrin Yes -Necrosis Amt Medium (34-66%) -Necrotic Tissue Type Adherent Slough -Texture (Sharmin-wound Skin Appearance) Assessed,Rash -Moisture (Sharmin-wound Skin Appearance) Assessed -Color (Sharmin-wound Skin Appearance) Assessed, Erythema -Temperature (Sharmin-wound Skin No Abnormality Appearance) (Pt Warm) -Tenderness on Palpation (Sharmin-wound No Skin Appearance) -Ulcer Cleansing Soap and Water -Foul Odor after Cleansing No -Anesthetic Used 5% Lidocaine Gel #4 Right dorsal foot -Combined with other wound No -Current Size (cm) - Length 1.2 -Current Size (cm) - Width 1.2 -Current Size (cm) - Depth 0.1 -Total Square Cm 1.44 -Photo Taken Yes -Exudate Amt Medium -Exudate Type Serosanguineous -Wound Margin Distinct, Outline Attached -Granulation Amt Medium (34-66%) -Slough/Fibrin Yes -Necrosis Amt Medium (34-66%) -Necrotic Tissue Type Adherent Slough -Texture (Sharmin-wound Skin Appearance) Assessed -Moisture (Sharmin-wound Skin Appearance) Weeping -Color (Sharmin-wound Skin Appearance) Assessed, Erythema -Temperature (Sharmin-wound Skin No Abnormality Appearance) (Pt Warm) -Tenderness on Palpation (Sharmin-wound Yes Skin Appearance) -Ulcer Cleansing Soap and Water -Foul Odor after Cleansing No -Anesthetic Used 5% Lidocaine Gel #3 right anterior leg -Current Size (cm) - Length 1.5 -Current Size (cm) - Width 0.5 -Current Size (cm) - Depth 0.3 -Total Square Cm 0.75 -Photo Taken Yes -Exudate Amt Medium -Exudate Type Serosanguineous -Wound Margin Distinct, Outline Attached -Granulation Amt Medium (34-66%) -Slough/Fibrin Yes -Necrosis Amt Medium (34-66%) -Texture (Sharmin-wound Skin Appearance) Assessed -Moisture (Sharmin-wound Skin Appearance) Assessed -Color (Sharmin-wound Skin Appearance) Assessed, Erythema -Temperature (Sharmin-wound Skin No Abnormality Appearance) (Pt Warm) -Tenderness on Palpation (Sharmin-wound Yes Skin Appearance) -Ulcer Cleansing Soap and Water -Foul Odor after Cleansing No -Anesthetic Used 5% Lidocaine Gel # 2 right lateral ankle cluster -Current Size (cm) - Length 10 -Current Size (cm) - Width 3 -Current Size (cm) - Depth 0.3 -Total Square Cm 30 -Exudate Amt Medium -Exudate Type Serosanguineous -Wound Margin Distinct, Outline Attached #1 R Med Ankle -Current Size (cm) - Length 5 -Current Size (cm) - Width 2 -Current Size (cm) - Depth 0.1 -Total Square Cm 10 -Exudate Amt Medium -Exudate Type Serosanguineous -Wound Margin Distinct, Outline Attached -Granulation Amt Medium (34-66%) -Slough/Fibrin Yes -Necrosis Amt Medium (34-66%) -Necrotic Tissue Type Adherent Slough -Texture (Sharmin-wound Skin Appearance) Assessed -Moisture (Sharmin-wound Skin Appearance) Assessed -Color (Sharmin-wound Skin Appearance) Assessed -Temperature (Sharmin-wound Skin No Abnormality Appearance) (Pt Warm) -Tenderness on Palpation (Sharmin-wound Yes Skin Appearance) WC - Nurse 2 - General Ulcer CM Notes Start: 10/05/24 08:50 Freq: Status: Active Protocol: Activity Type Activity Date Activity User E-sign Co-sign Detail Recorded Client Recorded Date Recorded By Document 10/05/24 09:16 KRISH [id number] 10/05/24 09:26 KRISH 10/05/24 09:16 Wound Center Nurse 2 #5 right posterior ankle -Time 09:22 -Correct Patient Yes -Correct Side, Site, Position Yes -Correct Procedure Yes -Procedure Performed Yes -Type of Procedure Debridement -Clinical Debridement Subcutaneous -Tissue Removed Subcutaneous -Post Debridement (cm) - Length 1.0 -Post Debridement (cm) - Width 1 -Post Debridement (cm) - Depth 0.2 -Total Square (Post) (cm) 1.0 -Area of Debridement (cm) - Length 1 -Area of Debridement (cm) - Width 1 -Total Square (Area) (cm) 1 -Tunneling No -Undermining/Tunneling No -Circular Undermining No -Wound/Ulcer Outcome Not Healed -Ulcer Cleansing Rinsed/ Irrigated with Saline -Foul Odor after Cleansing No -Bioengineered Tissue No -Bleeding Controlled with Pressure -Treatment Response Procedure Tolerated Well -Offloading No -Debridement - Subq, 1st 20sq cm No #4 Right dorsal foot -Time 09:22 -Correct Patient Yes -Correct Side, Site, Position Yes -Correct Procedure Yes -Procedure Performed Yes -Type of Procedure Debridement -Clinical Debridement Subcutaneous -Tissue Removed Subcutaneous -Post Debridement (cm) - Length 1.0 -Post Debridement (cm) - Width 0.8 -Post Debridement (cm) - Depth 0.2 -Total Square (Post) (cm) 0.80 -Area of Debridement (cm) - Length 1.0 -Area of Debridement (cm) - Width 0.8 -Total Square (Area) (cm) 0.80 -Tunneling No -Undermining/Tunneling No -Circular Undermining No -Wound/Ulcer Outcome Not Healed -Ulcer Cleansing Rinsed/ Irrigated with Saline -Foul Odor after Cleansing No -Bioengineered Tissue No -Bleeding Controlled with Pressure -Treatment Response Procedure Tolerated Well -Debridement - Subq, 1st 20sq cm No #3 right anterior leg -Time 09:23 -Correct Patient Yes -Correct Side, Site, Position Yes -Correct Procedure Yes -Procedure Performed Yes -Type of Procedure Debridement -Clinical Debridement Subcutaneous -Tissue Removed Subcutaneous -Post Debridement (cm) - Length 0.8 -Post Debridement (cm) - Width 0.8 -Post Debridement (cm) - Depth 0.1 -Total Square (Post) (cm) 0.64 -Area of Debridement (cm) - Length 0.8 -Area of Debridement (cm) - Width 0.8 -Total Square (Area) (cm) 0.64 -Tunneling No -Undermining/Tunneling No -Circular Undermining No -Wound/Ulcer Outcome Not Healed -Ulcer Cleansing Rinsed/ Irrigated with Saline -Foul Odor after Cleansing No -Bioengineered Tissue No -Bleeding Controlled with Pressure -Treatment Response Procedure Tolerated Well -Offloading No -Debridement - Subq, 1st 20sq cm No # 2 right lateral ankle cluster -Time 09:24 -Correct Patient Yes -Correct Side, Site, Position Yes -Correct Procedure Yes -Procedure Performed Yes -Type of Procedure Debridement -Clinical Debridement Subcutaneous -Tissue Removed Subcutaneous -Post Debridement (cm) - Length 5.5 -Post Debridement (cm) - Width 1.4 -Post Debridement (cm) - Depth 0.2 -Total Square (Post) (cm) 7.70 -Area of Debridement (cm) - Length 5.5 -Area of Debridement (cm) - Width 1.4 -Total Square (Area) (cm) 7.70 -Tunneling No -Undermining/Tunneling No -Circular Undermining No -Wound/Ulcer Outcome Not Healed -Ulcer Cleansing Rinsed/ Irrigated with Saline -Foul Odor after Cleansing No -Bioengineered Tissue No -Bleeding Controlled with Pressure -Treatment Response Procedure Tolerated Well -Offloading No -Debridement - Subq, 1st 20sq cm No #1 R Med Ankle -Time 09:24 -Correct Patient Yes -Correct Side, Site, Position Yes -Correct Procedure Yes -Procedure Performed Yes -Type of Procedure Debridement -Clinical Debridement Subcutaneous -Tissue Removed Subcutaneous -Post Debridement (cm) - Length 1.0 -Post Debridement (cm) - Width 1.0 -Post Debridement (cm) - Depth 0.2 -Total Square (Post) (cm) 1.00 -Area of Debridement (cm) - Length 1 -Area of Debridement (cm) - Width 1 -Total Square (Area) (cm) 1 -Tunneling No -Undermining/Tunneling No -Circular Undermining No -Wound/Ulcer Outcome Not Healed -Ulcer Cleansing Rinsed/ Irrigated with Saline -Foul Odor after Cleansing No -Bioengineered Tissue No -Bleeding Controlled with Pressure -Treatment Response Procedure Tolerated Well -Offloading No -Debridement - Subq, 1st 20sq cm Yes Pain Scale: 0-10 Numeric Is Patient Pain Free? Yes WC - Nurse 3 - General Ulcer D/C NN Start: 10/05/24 08:50 Freq: Status: Active Protocol: Activity Type Activity Date Activity User E-sign Co-sign Detail Recorded Client Recorded Date Recorded By Document 10/05/24 09:46 [facility] [id number] 10/05/24 09:48 [facility] 10/05/24 09:46 Wound Care Center Nurse 3 #5 right posterior ankle -Ulcer Cleansing Rinsed/ Irrigated with Saline -Foul Odor after Cleansing No -Primary Dressing Applied Promogran Carline Matter -Primary Dressing Covered/Secured with Dry Gauze & Roll Gauze, Secured with Tape -Promogran Carline Matter 2 #4 Right dorsal foot -Ulcer Cleansing Rinsed/ Irrigated with Saline -Foul Odor after Cleansing No -Primary Dressing Applied Promogran Carline Matter -Primary Dressing Covered/Secured with Dry Gauze & Roll Gauze, Secured with Tape -Promogran Carline Matter 1 #3 right anterior leg -Ulcer Cleansing Rinsed/ Irrigated with Saline -Foul Odor after Cleansing No -Primary Dressing Applied Promogran Carline Matter -Primary Dressing Covered/Secured with Dry Gauze & Roll Gauze, Secured with Tape -Promogran Carline Matter 1 # 2 right lateral ankle cluster -Ulcer Cleansing Rinsed/ Irrigated with Saline -Foul Odor after Cleansing No -Primary Dressing Applied Promogran Carline Matter -Primary Dressing Covered/Secured with Dry Gauze & Roll Gauze, Secured with Tape -Promogran Carline Matter 1 #1 R Med Ankle -Ulcer Cleansing Rinsed/ Irrigated with Saline -Foul Odor after Cleansing No -Primary Dressing Applied Promogran Carline Matter -Primary Dressing Covered/Secured with Dry Gauze & Roll Gauze, Secured with Tape -Promogran Carline Matter 1 Treatment Response Procedure Tolerated Well Pain Scale: 0-10 Numeric Is Patient Pain Free? Yes WC - Visit Discharge Discharge Condition Stable Ambulatory Status Ambulatory Transportation Private [facility] Facility Type Home Health Additional Wound Wound debrided: #3 anterior distal leg ulcer and #4 dorsal foot ulcer Laterality: Right Wound Grade/Stage: Stage 2 Type of Debridement: Excisional debridement Anesthesia Used: 5% Lidocaine Gel Depth: Down to and including healthy tissue and in the subcutaneous layer Percentage of wound debrided: 100 Instrument Used: 3mm curette Tissue Removed: Non viable tissue and slough Severity: Fat Layer Exposed Amount of bleeding with debridement: None Bleeding Controlled with: Pressure Patient tolerated procedure: Patient tolerated procedure well Charges/Coding Visit Charges Office Visits / Consults: 29525 OV L4 Est 30min (25 modifier) Procedures Integumentary [id number]: [id number] Beba subq tissue 20 sq cm/< Assessment/Plan Assessment/Plan (1) Chronic ulcer of right ankle: CODE(S): L97.319 - Non-pressure chronic ulcer of right ankle with unspecified severity QUALIFIERS: Non-pressure ulcer stage: with fat layer exposed Qualified Code(s): L97.312 - Non-pressure chronic ulcer of right ankle with fat layer exposed (2) Ulcer of right leg: CODE(S): L97.919 - Non-pressure chronic ulcer of unspecified part of right lower leg with unspecified severity QUALIFIERS: Non-pressure ulcer stage: with fat layer exposed Qualified Code(s): L97.912 - Non-pressure chronic ulcer of unspecified part of right lower leg with fat layer exposed (3) Ulcer of right foot with fat layer exposed: CODE(S): L97.512 - Non-pressure chronic ulcer of other part of right foot with fat layer exposed (4) Leg edema: CODE(S): R60.0 - Localized edema (5) Venous insufficiency of both lower extremities: CODE(S): I87.2 - Venous insufficiency (chronic) (peripheral) (6) Peripheral vascular disease: CODE(S): I73.9 - Peripheral vascular disease, unspecified (7) Peripheral vascular occlusive disease: CODE(S): I73.9 - Peripheral vascular disease, unspecified (8) Tobacco abuse: CODE(S): Z72.0 - Tobacco use (9) Debility: CODE(S): R53.81 - Other malaise PLAN: Plan Patient evaluated at the wound healing center. Wound care - Stop Santyl due to the amount of moisture he is experiencing on his ulcers. To all the ulcers (right medical ankle, right lateral ankle cluster, right posterior ankle ulcer, right dorsal foot ulcer and right anterior leg ulcer place Carline covered with gauze or ABD daily and as needed. Encouraged to wash lower extremities with soap and water at the time of the dressing changes. It is ok to remove dressings and get into the shower to wash lower extremities with soap and water. Will try to obtain records from Dr. Beatty, vascular surgeon. Will be conservative with compression and place single tubigrip for compression and to help hold dressings in place. Encouraged patient to elevate legs when sitting. Encouraged patient to stop smoking. He has home health to assist with dressing changes. Follow up one week. If develop any concerns, call or come in sooner. Greater than 35 minutes spent evaluating, educating and discussing plan of care and reviewing previous records.
--- NOTE | 2024-10-06 08:56 | WC ---
PHOTO 10/05/24 RIGHT MEDIAL ANKLE
--- NOTE | 2024-10-06 08:58 | WC ---
PHOTO 10/05/24 RIGHT LATERAL ANKLE CLUSTER
--- NOTE | 2024-10-06 08:59 | WC ---
PHOTO 10/05/24 RIGHT POST ANKLE
--- NOTE | 2024-10-06 09:00 | WC ---
PHOTO 10/05/24 RIGHT LATERAL LE
--- NOTE | 2024-10-06 09:01 | WC ---
PHOTO 10/05/24 RIGHT LATERAL FOOT
--- NOTE | 2024-10-06 09:02 | WC ---
PHOTO 10/05/24 RIGHT PLANTAR FOOT
[2024-10-12 08:39] VITALS: BP 145/88; PULSE 97; RESP 16; TEMP 36.4; BMI 23.2
--- NOTE | 2024-10-12 10:18 | PCM.WC.PN ---
History of Present Illness Date of Service: 10/12/24 Chief Complaint: Right lower leg ulcers History of Wound: 79-year-old white male who is not the best historian. He was referred here by his PCP for right lower leg ulcers and cellulitis which started in April 2024. He has a history of PAD with recent stent to his right lower extremity placed by Dr. Beatty, vascular surgeon at [facility], on 07/16/25. He has had a couple hospitalizations in July. He had surgery during his second hospitalization at [facility] on 08/21/[address] Price, podiatry, who performed: 1.Debridement of ulceration into including subcutaneous tissue and situated prepare for skin graft prep site less than 100 cm? 2. Application of bio Parmar graft right lower leg for total of 29 cm of graft material all used 100% were used none was wasted and 3. Application multilayer compression wrap right lower leg. He was transferred to [facility] for skilled care. He is now home and has home health. He recently saw his PCP who recommended he follow up at the wound center. Besides his significant PVD with chronic lower extremity ulcerations, he he has a history of tobacco abuse, which he continues to smoke. He is on Plavix. He states that he has multiple ulcers and edema on his right lower leg. His PCP has him using Santyl on the ulcers. He does have home health coming into his home to assist with his dressing changes. Today he complains of discomfort of his right lower leg ulcers and swelling. He denies fever, chills, nausea and vomiting. Progress of Wound: Multiple superficial ulcers on his right lower leg, ankle and foot. +3-+4 edema of lower extremities. His right lower leg is excoriated. He is having large amounts of drainage. He states that home health has been placing adaptic over his skin to prevent the dressings from sticking. With the amount of drainage that he is experiencing, I think that he has too much moisture on his skin. He has a new pressure area on his left hallux, it is superficial and pink, it was not debrided today. He continues to smoke, but he states he is cutting back. He continues to have pain in his legs that requires him to dangle them. He states he is sleeping in a recliner to help with elevation of his legs. Objective Data Objective Data Vital Signs: Vital Signs Temp Pulse Resp BP O2 Del Method 97.6 F L 97 16 145/88 H Room Air 10/12/24 08:39 10/12/24 08:39 10/12/24 08:39 10/12/24 08:39 10/12/24 08:39 Oxygen Delivery Method Room Air Weight: 153 lb Body Mass Index (BMI) 23.2 Charges/Coding Procedures Integumentary [id number]: [id number] Beba subq tissue 20 sq cm/< Debridement Note Debridement Note Wound debrided: #1medial ankle, #2lateral ankle cluster, #5 posterior ankle, #3anterior leg Laterality: Right Wound Grade/Stage: Stage 2 Type of Debridement: Excisional debridement Anesthesia Used: 5% Lidocaine Gel Depth: Down to and including healthy tissue and in the subcutaneous layer Percentage of wound debrided: 100 Instrument Used: 3mm curette Tissue Removed: Non viable tissue and slough Severity: Fat Layer Exposed Amount of bleeding with debridement: Mild Bleeding Controlled with: Compression and gauze Patient tolerated procedure: Patient tolerated procedure well Debridement Free Text: It is painful for patient to have any of his ulcers debrided. Post-Debridement Measurements and Additional Note: Post-Debridement Measurements/Treatment - Nurse 1 - General Ulcer Assessment Start: 10/05/24 08:50 Freq: Status: Active Protocol: AALIYAH Activity Type Activity Date Activity User E-sign Co-sign Detail Recorded Client Recorded Date Recorded By Document 10/05/24 08:50 [id number] 10/05/24 09:05 KW Document 10/12/24 08:39 [facility] [id number] 10/12/24 08:53 [facility] 10/05/24 10/12/24 08:50 08:39 - Today's Visit Information Type of service Initial Visit Follow-up Visit (Physician/MARK[employer] VENDOR ) Arrival Mode Ambulatory Ambulatory Transfer Assistance None None Patient Identification Verified (Name & Yes Yes ) Patient Requires Transmission-Based No No Precautions Height and Weight Height 5 ft 8 in Weight 153 lb Weight in Pounds 153.0 lbs Body Mass Index (BMI) 23.2 23.2 BMI Classification Normal Normal Vital Signs Temperature (97.8 F-99.1 F) 97.9 F 97.6 F L Temperature Source Temporal Temporal Pulse Rate (60-100) 97 97 Pulse Location Monitor Monitor Respiratory Rate (12-18) 16 16 Respiratory rate source Observation Observation Oxygen Delivery Method Room Air Blood Pressure (90/60-120/80) 131/74 H 145/88 H Blood Pressure Mean (mm Hg) 93 107 Source Monitor Monitor Position Sitting Sitting Blood Pressure Location Right Arm Left Arm History Since Last Visit- (Skip if this is Patient's initial visit) Have you changed medications since your No No last visit? Any new allergies or adverse reactions No No Had a fall/change in ADL's that may No No increase risk of falls Signs or symptoms of abuse and/or No No neglect since last visit Have you been in the hospital since your No No last visit? Has dressing in place as prescribed Yes Yes Has compression in place as prescribed N/A No Has offloadiing in place as prescribed N/A N/A Experienced any changes in pain level or No No management Left Footwear Regular Shoe Regular Shoe Right Footwear Regular Shoe Regular Shoe Pain Scale: 0-10 Numeric Is Patient Pain Free? Yes Yes WC - Nurse 1 - General Ulcer Measurement Start: 10/05/24 08:50 Freq: Status: Active Protocol: Activity Type Activity Date Activity User E-sign Co-sign Detail Recorded Client Recorded Date Recorded By Document 10/05/24 08:50 [id number] 10/05/24 09:05 KW Document 10/12/24 08:39 [facility] [id number] 10/12/24 08:53 [facility] 10/05/24 10/12/24 08:50 08:39 Wound Center Nurse 1 #4 right lateral foot -Current Size (cm) - Length 1.2 -Current Size (cm) - Width 0.4 -Current Size (cm) - Depth 0.2 -Total Square Cm 0.48 -Photo Taken Yes -Epithelialization Medium 34-66% -Exudate Amt Medium -Exudate Type Serosanguineous -Wound Margin Distinct, Outline Attached -Granulation Amt Medium (34-66%) -Granulation Quality Red -Necrosis Amt Medium (34-66%) -Necrotic Tissue Type Adherent Slough -Texture (Sharmin-wound Skin Appearance) Rash -Moisture (Sharmin-wound Skin Appearance) Weeping -Color (Sharmin-wound Skin Appearance) Assessed -Temperature (Sharmin-wound Skin No Abnormality Appearance) (Pt Warm) -Tenderness on Palpation (Sharmin-wound Yes Skin Appearance) -Ulcer Cleansing Soap and Water -Foul Odor after Cleansing No -Anesthetic Used 5% Lidocaine Gel #5 right posterior ankle -Combined with other wound No -Current Size (cm) - Length 1.5 2 -Current Size (cm) - Width 1 0.7 -Current Size (cm) - Depth 0.2 0.2 -Total Square Cm 1.5 1.4 -Photo Taken Yes -Epithelialization Medium 34-66% None Present -Tunneling No -Undermining/Tunneling No -Circular Undermining No -Exudate Amt Medium Large -Exudate Type Serosanguineous Serosanguineous -Wound Margin Distinct, Distinct, Outline Outline Attached Attached -Granulation Amt Medium (34-66%) None Present (0 %) -Slough/Fibrin Yes Yes -Necrosis Amt Medium (34-66%) Large (67-100%) -Necrotic Tissue Type Adherent Slough Adherent Slough -Texture (Sharmin-wound Skin Appearance) Assessed,Rash Assessed, Scarring -Moisture (Sharmin-wound Skin Appearance) Assessed Assessed, Maceration -Color (Sharmin-wound Skin Appearance) Assessed, Assessed, Erythema Erythema -Temperature (Sharmin-wound Skin No Abnormality No Abnormality Appearance) (Pt Warm) (Pt Warm) -Tenderness on Palpation (Sharmin-wound No No Skin Appearance) -Ulcer Cleansing Soap and Water Soap and Water -Foul Odor after Cleansing No No -Anesthetic Used 5% Lidocaine 5% Lidocaine Gel Gel #4 Right dorsal foot -Combined with other wound No No -Current Size (cm) - Length 1.2 1.4 -Current Size (cm) - Width 1.2 1.2 -Current Size (cm) - Depth 0.1 0.3 -Total Square Cm 1.44 1.68 -Photo Taken Yes -Epithelialization None Present -Tunneling No -Undermining/Tunneling No -Circular Undermining No -Exudate Amt Medium Large -Exudate Type Serosanguineous Serous -Wound Margin Distinct, Distinct, Outline Outline Attached Attached -Granulation Amt Medium (34-66%) Small (1-33%) -Granulation Quality Red -Slough/Fibrin Yes Yes -Necrosis Amt Medium (34-66%) Large (67-100%) -Necrotic Tissue Type Adherent Slough Adherent Slough -Texture (Sharmin-wound Skin Appearance) Assessed Assessed, Localized Edema ,Scarring -Moisture (Sharmin-wound Skin Appearance) Weeping Assessed, Maceration -Color (Sharmin-wound Skin Appearance) Assessed, Assessed, Erythema Erythema -Temperature (Sharmin-wound Skin No Abnormality No Abnormality Appearance) (Pt Warm) (Pt Warm) -Tenderness on Palpation (Sharmin-wound Yes No Skin Appearance) -Ulcer Cleansing Soap and Water Soap and Water -Foul Odor after Cleansing No No -Anesthetic Used 5% Lidocaine 5% Lidocaine Gel Gel #3 right anterior leg -Combined with other wound No -Current Size (cm) - Length 1.5 1.2 -Current Size (cm) - Width 0.5 0.5 -Current Size (cm) - Depth 0.3 0.2 -Total Square Cm 0.75 0.60 -Photo Taken Yes -Tunneling No -Undermining/Tunneling No -Circular Undermining No -Exudate Amt Medium Large -Exudate Type Serosanguineous Serous -Wound Margin Distinct, Distinct, Outline Outline Attached Attached -Granulation Amt Medium (34-66%) Small (1-33%) -Granulation Quality Benton -Slough/Fibrin Yes Yes -Necrosis Amt Medium (34-66%) Large (67-100%) -Necrotic Tissue Type Adherent Slough -Texture (Sharmin-wound Skin Appearance) Assessed Assessed, Scarring -Moisture (Sharmin-wound Skin Appearance) Assessed Assessed, Maceration -Color (Sharmin-wound Skin Appearance) Assessed, Assessed, Erythema Erythema -Temperature (Sharmin-wound Skin No Abnormality No Abnormality Appearance) (Pt Warm) (Pt Warm) -Tenderness on Palpation (Sharmin-wound Yes No Skin Appearance) -Ulcer Cleansing Soap and Water Soap and Water -Foul Odor after Cleansing No No -Anesthetic Used 5% Lidocaine 5% Lidocaine Gel Gel # 2 right lateral ankle cluster -Combined with other wound No -Current Size (cm) - Length 10 3.9 -Current Size (cm) - Width 3 3 -Current Size (cm) - Depth 0.3 0.2 -Total Square Cm 30 11.7 -Tunneling No -Undermining/Tunneling No -Circular Undermining No -Exudate Amt Medium Large -Exudate Type Serosanguineous Serous -Wound Margin Distinct, Distinct, Outline Outline Attached Attached -Granulation Amt Small (1-33%) -Granulation Quality Benton -Slough/Fibrin Yes -Necrosis Amt Large (67-100%) -Necrotic Tissue Type Adherent Slough -Texture (Sharmin-wound Skin Appearance) Assessed, Scarring -Moisture (Sharmin-wound Skin Appearance) Assessed, Maceration -Color (Sharmin-wound Skin Appearance) Assessed, Erythema -Temperature (Sharmin-wound Skin No Abnormality Appearance) (Pt Warm) -Tenderness on Palpation (Sharmin-wound No Skin Appearance) -Ulcer Cleansing Soap and Water -Foul Odor after Cleansing No -Anesthetic Used 5% Lidocaine Gel #1 R Med Ankle -Combined with other wound No -Current Size (cm) - Length 5 1.5 -Current Size (cm) - Width 2 2.2 -Current Size (cm) - Depth 0.1 0.1 -Total Square Cm 10 3.30 -Tunneling No -Undermining/Tunneling No -Circular Undermining No -Exudate Amt Medium Large -Exudate Type Serosanguineous Serous -Wound Margin Distinct, Distinct, Outline Outline Attached Attached -Granulation Amt Medium (34-66%) Small (1-33%) -Granulation Quality Benton -Slough/Fibrin Yes Yes -Necrosis Amt Medium (34-66%) Large (67-100%) -Necrotic Tissue Type Adherent Slough Adherent Slough -Texture (Sharmin-wound Skin Appearance) Assessed Assessed -Moisture (Sharmin-wound Skin Appearance) Assessed Assessed, Maceration -Color (Sharmin-wound Skin Appearance) Assessed Assessed, Erythema -Temperature (Sharmin-wound Skin No Abnormality No Abnormality Appearance) (Pt Warm) (Pt Warm) -Tenderness on Palpation (Sharmin-wound Yes No Skin Appearance) -Ulcer Cleansing Soap and Water -Foul Odor after Cleansing No -Anesthetic Used 5% Lidocaine Gel Lower Limb Edema Present Yes Right Calf (cm) 41.7 Right Ankle (cm) 25.7 - Nurse 2 - General Ulcer CM Notes Start: 10/05/24 08:50 Freq: Status: Active Protocol: Activity Type Activity Date Activity User E-sign Co-sign Detail Recorded Client Recorded Date Recorded By Document 10/05/24 09:16 KRISH [id number] 10/05/24 09:26 JF Document 10/12/24 09:07 KRISH [id number] 10/12/24 09:18 JF 10/05/24 10/12/24 09:16 09:07 Wound Center Nurse 2 #5 right posterior ankle -Time 09:22 09:07 -Correct Patient Yes Yes -Correct Side, Site, Position Yes Yes -Correct Procedure Yes Yes -Procedure Performed Yes Yes -Type of Procedure Debridement Debridement -Clinical Debridement Subcutaneous Subcutaneous -Tissue Removed Subcutaneous Subcutaneous -Post Debridement (cm) - Length 1.0 1.5 -Post Debridement (cm) - Width 1 0.6 -Post Debridement (cm) - Depth 0.2 0.2 -Total Square (Post) (cm) 1.0 0.90 -Area of Debridement (cm) - Length 1 1.5 -Area of Debridement (cm) - Width 1 0.6 -Total Square (Area) (cm) 1 0.90 -Tunneling No No -Undermining/Tunneling No No -Circular Undermining No No -Wound/Ulcer Outcome Not Healed Not Healed -Ulcer Cleansing Rinsed/ Rinsed/ Irrigated with Irrigated with Saline Saline -Foul Odor after Cleansing No No -Bioengineered Tissue No No -Bleeding Controlled with Pressure Pressure -Treatment Response Procedure Procedure Tolerated Well Tolerated Well -Offloading No No -Debridement - Subq, 1st 20sq cm No No #4 Right dorsal foot -Time 09: 09:07 -Correct Patient Yes Yes -Correct Side, Site, Position Yes Yes -Correct Procedure Yes Yes -Procedure Performed Yes Yes -Type of Procedure Debridement Debridement -Clinical Debridement Subcutaneous Subcutaneous -Tissue Removed Subcutaneous Subcutaneous -Post Debridement (cm) - Length 1.0 1.7 -Post Debridement (cm) - Width 0.8 1.2 -Post Debridement (cm) - Depth 0.2 0.2 -Total Square (Post) (cm) 0.80 2.04 -Area of Debridement (cm) - Length 1.0 1.7 -Area of Debridement (cm) - Width 0.8 1.2 -Total Square (Area) (cm) 0.80 2.04 -Tunneling No No -Undermining/Tunneling No No -Circular Undermining No No -Wound/Ulcer Outcome Not Healed Not Healed -Ulcer Cleansing Rinsed/ Rinsed/ Irrigated with Irrigated with Saline Saline -Foul Odor after Cleansing No No -Bioengineered Tissue No No -Bleeding Controlled with Pressure Pressure -Treatment Response Procedure Procedure Tolerated Well Tolerated Well -Offloading No -Debridement - Subq, 1st 20sq cm No No #3 right anterior leg -Time 09: 09:08 -Correct Patient Yes Yes -Correct Side, Site, Position Yes Yes -Correct Procedure Yes Yes -Procedure Performed Yes Yes -Type of Procedure Debridement Debridement -Clinical Debridement Subcutaneous Subcutaneous -Tissue Removed Subcutaneous Subcutaneous -Post Debridement (cm) - Length 0.8 1.0 -Post Debridement (cm) - Width 0.8 1.6 -Post Debridement (cm) - Depth 0.1 0.1 -Total Square (Post) (cm) 0.64 1.60 -Area of Debridement (cm) - Length 0.8 1.0 -Area of Debridement (cm) - Width 0.8 1.6 -Total Square (Area) (cm) 0.64 1.60 -Tunneling No No -Undermining/Tunneling No No -Circular Undermining No No -Wound/Ulcer Outcome Not Healed Not Healed -Ulcer Cleansing Rinsed/ Rinsed/ Irrigated with Irrigated with Saline Saline -Foul Odor after Cleansing No No -Bioengineered Tissue No No -Bleeding Controlled with Pressure Pressure -Treatment Response Procedure Procedure Tolerated Well Tolerated Well -Offloading No No -Debridement - Subq, 1st 20sq cm No No # 2 right lateral ankle cluster -Time 09: 09:08 -Correct Patient Yes Yes -Correct Side, Site, Position Yes Yes -Correct Procedure Yes Yes -Procedure Performed Yes Yes -Type of Procedure Debridement Debridement -Clinical Debridement Subcutaneous Subcutaneous -Tissue Removed Subcutaneous Subcutaneous -Post Debridement (cm) - Length 5.5 3 -Post Debridement (cm) - Width 1.4 3 -Post Debridement (cm) - Depth 0.2 0.1 -Total Square (Post) (cm) 7.70 9 -Area of Debridement (cm) - Length 5.5 3 -Area of Debridement (cm) - Width 1.4 3 -Total Square (Area) (cm) 7.70 9 -Tunneling No No -Undermining/Tunneling No No -Circular Undermining No No -Wound/Ulcer Outcome Not Healed Not Healed -Ulcer Cleansing Rinsed/ Rinsed/ Irrigated with Irrigated with Saline Saline -Foul Odor after Cleansing No No -Bioengineered Tissue No No -Bleeding Controlled with Pressure Pressure -Treatment Response Procedure Procedure Tolerated Well Tolerated Well -Offloading No No -Debridement - Subq, 1st 20sq cm No No #1 R Med Ankle -Time 09: 09:09 -Correct Patient Yes Yes -Correct Side, Site, Position Yes Yes -Correct Procedure Yes Yes -Procedure Performed Yes Yes -Type of Procedure Debridement Debridement -Clinical Debridement Subcutaneous Subcutaneous -Tissue Removed Subcutaneous Subcutaneous -Post Debridement (cm) - Length 1.0 1.3 -Post Debridement (cm) - Width 1.0 2.1 -Post Debridement (cm) - Depth 0.2 0.1 -Total Square (Post) (cm) 1.00 2.73 -Area of Debridement (cm) - Length 1 1.3 -Area of Debridement (cm) - Width 1 2.1 -Total Square (Area) (cm) 1 2.73 -Tunneling No No -Undermining/Tunneling No No -Circular Undermining No No -Wound/Ulcer Outcome Not Healed Not Healed -Ulcer Cleansing Rinsed/ Rinsed/ Irrigated with Irrigated with Saline Saline -Foul Odor after Cleansing No No -Bioengineered Tissue No No -Bleeding Controlled with Pressure Pressure -Treatment Response Procedure Procedure Tolerated Well Tolerated Well -Offloading No No -Debridement - Subq, 1st 20sq cm Yes Yes Pain Scale: 0-10 Numeric Is Patient Pain Free? Yes Yes - Nurse 3 - General Ulcer D/C NN Start: 10/05/24 08:50 Freq: Status: Active Protocol: Activity Type Activity Date Activity User E-sign Co-sign Detail Recorded Client Recorded Date Recorded By Document 10/05/24 09:46 [facility] [id number] 10/05/24 09:48 BM Document 10/12/24 09:29 DL [id number] 10/12/24 09:39 DL 10/05/24 10/12/24 09:46 09:29 Wound Care Center Nurse 3 #5 right posterior ankle -Ulcer Cleansing Rinsed/ Soap and Water Irrigated with Saline -Foul Odor after Cleansing No No -Primary Dressing Applied Promogran Promogran Edson Matter Edson Matter -Primary Dressing Covered/Secured with Dry Gauze & Dry Gauze & Roll Gauze, Roll Gauze, Secured with Secured with Tape Tape -Promogran Edson Matter 2 1 #4 Right dorsal foot -Ulcer Cleansing Rinsed/ Rinsed/ Irrigated with Irrigated with Saline Saline -Foul Odor after Cleansing No No -Primary Dressing Applied Promogran Edson Matter -Other Dressing Edson today -Primary Dressing Covered/Secured with Dry Gauze & Dry Gauze & Roll Gauze, Roll Gauze, Secured with Secured with Tape Tape -Promogran Edson Matter 1 #3 right anterior leg -Ulcer Cleansing Rinsed/ Soap and Water Irrigated with Saline -Foul Odor after Cleansing No No -Primary Dressing Applied Promogran Optilok 6.5x10, Edson Matter Promogran Edson Matter -Primary Dressing Covered/Secured with Dry Gauze & Dry Gauze & Roll Gauze, Roll Gauze, Secured with Secured with Tape Tape -Optilok 6.5x10 1 -Promogran Edson Matter 1 1 # 2 right lateral ankle cluster -Ulcer Cleansing Rinsed/ Soap and Water Irrigated with Saline -Foul Odor after Cleansing No No -Primary Dressing Applied Promogran Edson Matter -Other Dressing Edson/ Superabsorber -Primary Dressing Covered/Secured with Dry Gauze & Roll Gauze, Secured with Tape -Promogran Edson Matter 1 #1 R Med Ankle -Ulcer Cleansing Rinsed/ Soap and Water Irrigated with Saline -Foul Odor after Cleansing No No -Primary Dressing Applied Promogran Edson Matter -Other Dressing edson/ superabsorber -Primary Dressing Covered/Secured with Dry Gauze & Roll Gauze, Secured with Tape -Promogran Edson Matter 1 -Wound Comment(s) Pad and protect 1st met on L foot with Border foam 4x4 Left -Compression Wrap Molina Wrap -Tubular Bandage Single Layer -Size of Tubigrip Used Size F -Size F ($) 1 Right -Compression Wrap Molina Wrap -Tubular Bandage Single Layer -Size of Tubigrip Used Size F -Size F ($) 1 Treatment Response Procedure Tolerated Well Pain Scale: 0-10 Numeric Is Patient Pain Free? Yes Yes WC - Visit Discharge Discharge Condition Stable Stable Ambulatory Status Ambulatory Ambulatory Transportation Private Auto Private [facility] Facility Type Home Health Home Health Orders Sent Yes Additional Wound Wound debrided: #4 dorsal foot ulcer Laterality: Right Wound Grade/Stage: Stage 3 Type of Debridement: Excisional debridement Anesthesia Used: 5% Lidocaine Gel Depth: Down to and including healthy tissue and in the subcutaneous layer Percentage of wound debrided: 100 Instrument Used: 3mm curette Tissue Removed: Non viable tissue and slough Severity: Fat Layer Exposed Amount of bleeding with debridement: None Bleeding Controlled with: Pressure Patient tolerated procedure: Patient tolerated procedure well Assessment/Plan Assessment/Plan (1) Chronic ulcer of right ankle: CODE(S): L97.319 - Non-pressure chronic ulcer of right ankle with unspecified severity QUALIFIERS: Non-pressure ulcer stage: with fat layer exposed Qualified Code(s): L97.312 - Non-pressure chronic ulcer of right ankle with fat layer exposed (2) Ulcer of right leg: CODE(S): L97.919 - Non-pressure chronic ulcer of unspecified part of right lower leg with unspecified severity QUALIFIERS: Non-pressure ulcer stage: with fat layer exposed Qualified Code(s): L97.912 - Non-pressure chronic ulcer of unspecified part of right lower leg with fat layer exposed (3) Ulcer of right foot with fat layer exposed: CODE(S): L97.512 - Non-pressure chronic ulcer of other part of right foot with fat layer exposed (4) Leg edema: CODE(S): R60.0 - Localized edema (5) Venous insufficiency of both lower extremities: CODE(S): I87.2 - Venous insufficiency (chronic) (peripheral) (6) Peripheral vascular disease: CODE(S): I73.9 - Peripheral vascular disease, unspecified (7) Peripheral vascular occlusive disease: CODE(S): I73.9 - Peripheral vascular disease, unspecified (8) Tobacco abuse: CODE(S): Z72.0 - Tobacco use (9) Debility: CODE(S): R53.81 - Other malaise PLAN: Plan Patient evaluated at the wound healing center. Wound care - To the right medical ankle, right lateral ankle cluster, right posterior ankle ulcer, and right anterior leg ulcer place Promogran covered with gauze or ABD daily and as needed. To the right dorsal foot ulcer place Santyl nickel thick covered with moistened gauze and top with ABD daily. Encouraged to wash lower extremities with soap and water at the time of the dressing changes. It is ok to remove dressings and get into the shower to wash lower extremities with soap and water. Obtained records from Dr. Beatty, vascular surgeon. Some of them are very difficult to read. After speaking with patient, he states that it would be easier to see a doctor here in [place]. I will refer him to Dr. Bender, vascular surgeon to be evaluated. He has seen Dr. Bender when he was hospitalized in the past. Will be conservative with compression and place single tubigrip for compression and MOLINA wrap. Encouraged patient to elevate legs when sitting. Encouraged him to sleep in a bed not a chair. Also encouraged him to lay flat a couple times through the day to help with swelling. Encouraged patient to stop smoking. He has home health to assist with dressing changes. Follow up one week. If develop any concerns, call or come in sooner.
[2024-10-19 08:43] VITALS: BP 161/83; PULSE 90; RESP 18; TEMP 36.3; BMI 23.2
--- NOTE | 2024-10-19 12:46 | PN.PCM_ITS ---
History of Present Illness Date of Service: 10/19/24 Chief Complaint: Right lower leg ulcers History of Wound: 79-year-old white male who is not the best historian. He was referred here by his PCP for right lower leg ulcers and cellulitis which started in April 2024. He has a history of PAD with recent stent to his right lower extremity placed by Dr. Beatty, vascular surgeon at [place], on 07/16/25. He has had a couple hospitalizations in July. He had surgery during his second hospitalization at [facility] on 08/21/[address] Price, podiatry, who performed: 1.Debridement of ulceration into including subcutaneous tissue and situated prepare for skin graft prep site less than 100 cm? 2. Application of bio Parmar graft right lower leg for total of 29 cm of graft material all used 100% were used none was wasted and 3. Application multilayer compression wrap right lower leg. He was transferred to [facility] for skilled care. He is now home and has home health. He recently saw his PCP who recommended he follow up at the wound center. Besides his significant PVD with chronic lower extremity ulcerations, he he has a history of tobacco abuse, which he continues to smoke. He is on Plavix. He states that he has multiple ulcers and edema on his right lower leg. His PCP has him using Santyl on the ulcers. He does have home health coming into his home to assist with his dressing changes. Today he complains of discomfort of his right lower leg ulcers and swelling. He denies fever, chills, nausea and vomiting. Progress of Wound: Multiple superficial ulcers on his right lower leg, ankle and foot. +3 edema of lower extremities. His right lower leg is less excoriated. He is still experiencing drainage. His ulcers are all very painful to palpation. The pressure area at the base of his left medial great toe is now an ulcer. He continues to smoke. He continues to sleep in a recliner and has he dangles his legs due to discomfort. Objective Data Objective Data Vital Signs: Vital Signs Temp Pulse Resp BP O2 Del Method 97.4 F L 90 18 161/83 H Room Air 10/19/24 08:43 10/19/24 08:43 10/19/24 08:43 10/19/24 08:43 10/12/24 08:39 Oxygen Delivery Method Room Air Weight: 153 lb Body Mass Index (BMI) 23.2 Charges/Coding Procedures Integumentary [id number]: [id number] Beba subq tissue 20 sq cm/< Add On Codes: 28002 Beba subq tissue add-on Debridement Note Debridement Note Wound debrided: #1medial ankle, #2lateral ankle cluster, #5 posterior ankle, #3anterior leg Laterality: Right Wound Grade/Stage: Stage 2 Type of Debridement: Excisional debridement Anesthesia Used: 5% Lidocaine Gel Depth: Down to and including healthy tissue and in the subcutaneous layer Percentage of wound debrided: 100 Instrument Used: 3mm curette Tissue Removed: Non viable tissue and slough Severity: Fat Layer Exposed Amount of bleeding with debridement: Mild Bleeding Controlled with: Compression and gauze Patient tolerated procedure: Patient tolerated procedure well Debridement Free Text: It is painful for patient to have any of his ulcers debrided. Post-Debridement Measurements and Additional Note: Post-Debridement Measurements/Treatment - Nurse 1 - General Ulcer Assessment Start: 10/05/24 08:50 Freq: Status: Active Protocol: AALIYAH Activity Type Activity Date Activity User E-sign Co-sign Detail Recorded Client Recorded Date Recorded By Document 10/05/24 08:50 KW [id number] 10/05/24 09:05 KW Document 10/12/24 08:39 BMF [id number] 10/12/24 08:53 BMF Document 10/19/24 08:43 DL [id number] 10/19/24 08:54 DL 10/05/24 10/12/24 10/19/24 08:50 08:39 08:43 - Today's Visit Information Type of service Initial Visit Follow-up Visit Follow-up Visit (Physician/CHYRON OPERATOR (Physician/CHYRON OPERATOR ) ) Arrival Mode Ambulatory Ambulatory Ambulatory Transfer Assistance None None None Patient Identification Verified (Name & Yes Yes Yes ) Patient Requires Transmission-Based No No No Precautions Height and Weight Height 5 ft 8 in Weight 153 lb Weight in Pounds 153.0 lbs Body Mass Index (BMI) 23.2 23.2 23.2 BMI Classification Normal Normal Normal Vital Signs Temperature (97.8 F-99.1 F) 97.9 F 97.6 F L 97.4 F L Temperature Source Temporal Temporal Temporal Pulse Rate (60-100) 97 97 90 Pulse Location Monitor Monitor Monitor Respiratory Rate (12-18) 16 16 18 Respiratory rate source Observation Observation Observation Oxygen Delivery Method Room Air Blood Pressure (90/60-120/80) 131/74 H 145/88 H 161/83 H Blood Pressure Mean (mm Hg) 93 107 109 Source Monitor Monitor Monitor Position Sitting Sitting Blood Pressure Location Right Arm Left Arm History Since Last Visit- (Skip if this is Patient's initial visit) Have you changed medications since your No No No last visit? Any new allergies or adverse reactions No No No Had a fall/change in ADL's that may No No No increase risk of falls Signs or symptoms of abuse and/or No No No neglect since last visit Have you been in the hospital since your No No No last visit? Has dressing in place as prescribed Yes Yes Yes Has compression in place as prescribed N/A No No Has offloadiing in place as prescribed N/A N/A Yes Experienced any changes in pain level or No No No management Left Footwear Regular Shoe Regular Shoe Right Footwear Regular Shoe Regular Shoe Pain Scale: 0-10 Numeric Is Patient Pain Free? Yes Yes Yes WC - Nurse 1 - General Ulcer Measurement Start: 10/05/24 08:50 Freq: Status: Active Protocol: Activity Type Activity Date Activity User E-sign Co-sign Detail Recorded Client Recorded Date Recorded By Document 10/05/24 08:50 KW [id number] 10/05/24 09:05 KW Document 10/12/24 08:39 [facility] [id number] 10/12/24 08:53 BM Document 10/19/24 08:43 DL [id number] 10/19/24 08:54 DL 10/05/24 10/12/24 10/19/24 08:50 08:39 08:43 Wound Center Nurse 1 #4 right lateral foot -Current Size (cm) - Length 1.2 -Current Size (cm) - Width 0.4 -Current Size (cm) - Depth 0.2 -Total Square Cm 0.48 -Photo Taken Yes -Epithelialization Medium 34-66% -Exudate Amt Medium -Exudate Type Serosanguineous -Wound Margin Distinct, Outline Attached -Granulation Amt Medium (34-66%) -Granulation Quality Red -Necrosis Amt Medium (34-66%) -Necrotic Tissue Type Adherent Slough -Texture (Sharmin-wound Skin Appearance) Rash -Moisture (Sharmin-wound Skin Appearance) Weeping -Color (Sharmin-wound Skin Appearance) Assessed -Temperature (Sharmin-wound Skin No Abnormality Appearance) (Pt Warm) -Tenderness on Palpation (Sharmin-wound Yes Skin Appearance) -Ulcer Cleansing Soap and Water -Foul Odor after Cleansing No -Anesthetic Used 5% Lidocaine Gel #6 L Met Head -Current Size (cm) - Length 0.7 -Current Size (cm) - Width 0.8 -Current Size (cm) - Depth 0.1 -Total Square Cm 0.56 -Photo Taken Yes -Exudate Amt Medium -Exudate Type Serosanguineous -Wound Margin Distinct, Outline Attached -Granulation Amt None Present (0 %) -Slough/Fibrin Yes -Necrosis Amt Large (67-100%) -Necrotic Tissue Type Adherent Slough -Structure Exposed N/A -Texture (Sharmin-wound Skin Appearance) Excoriation, Scarring -Moisture (Sharmin-wound Skin Appearance) Weeping -Color (Sharmin-wound Skin Appearance) Hemosiderin Staining -Temperature (Sharmin-wound Skin No Abnormality Appearance) (Pt Warm) -Tenderness on Palpation (Sharmin-wound No Skin Appearance) -Ulcer Cleansing Soap and Water -Foul Odor after Cleansing No -Anesthetic Used 5% Lidocaine Gel #5 right posterior ankle -Combined with other wound No -Current Size (cm) - Length 1.5 2 1.5 -Current Size (cm) - Width 1 0.7 0.5 -Current Size (cm) - Depth 0.2 0.2 0.2 -Total Square Cm 1.5 1.4 0.75 -Photo Taken Yes Yes -Epithelialization Medium 34-66% None Present -Tunneling No -Undermining/Tunneling No -Circular Undermining No -Exudate Amt Medium Large Medium -Exudate Type Serosanguineous Serosanguineous Serosanguineous -Wound Margin Distinct, Distinct, Distinct, Outline Outline Outline Attached Attached Attached -Granulation Amt Medium (34-66%) None Present (0 None Present (0 %) %) -Slough/Fibrin Yes Yes Yes -Necrosis Amt Medium (34-66%) Large (67-100%) Large (67-100%) -Necrotic Tissue Type Adherent Slough Adherent Slough Adherent Slough -Structure Exposed N/A -Texture (Sharmin-wound Skin Appearance) Assessed,Rash Assessed, Excoriation, Scarring Scarring -Moisture (Sharmin-wound Skin Appearance) Assessed Assessed, Weeping Maceration -Color (Sharmin-wound Skin Appearance) Assessed, Assessed, Hemosiderin Erythema Erythema Staining -Temperature (Sharmin-wound Skin No Abnormality No Abnormality No Abnormality Appearance) (Pt Warm) (Pt Warm) (Pt Warm) -Tenderness on Palpation (Sharmin-wound No No No Skin Appearance) -Ulcer Cleansing Soap and Water Soap and Water Not Cleansed -Foul Odor after Cleansing No No No -Anesthetic Used 5% Lidocaine 5% Lidocaine 5% Lidocaine Gel Gel Gel #4 Right dorsal foot -Combined with other wound No No -Current Size (cm) - Length 1.2 1.4 1.5 -Current Size (cm) - Width 1.2 1.2 1.4 -Current Size (cm) - Depth 0.1 0.3 0.3 -Total Square Cm 1.44 1.68 2.10 -Photo Taken Yes -Epithelialization None Present -Tunneling No -Undermining/Tunneling No -Circular Undermining No -Exudate Amt Medium Large Medium -Exudate Type Serosanguineous Serous Serosanguineous -Wound Margin Distinct, Distinct, Distinct, Outline Outline Outline Attached Attached Attached -Granulation Amt Medium (34-66%) Small (1-33%) None Present (0 %) -Granulation Quality Red -Slough/Fibrin Yes Yes -Necrosis Amt Medium (34-66%) Large (67-100%) Large (67-100%) -Necrotic Tissue Type Adherent Slough Adherent Slough Adherent Slough -Structure Exposed N/A -Texture (Sharmin-wound Skin Appearance) Assessed Assessed, Excoriation, Localized Edema Scarring ,Scarring -Moisture (Sharmin-wound Skin Appearance) Weeping Assessed, Weeping Maceration -Color (Sharmin-wound Skin Appearance) Assessed, Assessed, Hemosiderin Erythema Erythema Staining -Temperature (Sharmin-wound Skin No Abnormality No Abnormality No Abnormality Appearance) (Pt Warm) (Pt Warm) (Pt Warm) -Tenderness on Palpation (Sharmin-wound Yes No Skin Appearance) -Ulcer Cleansing Soap and Water Soap and Water Soap and Water -Foul Odor after Cleansing No No No -Anesthetic Used 5% Lidocaine 5% Lidocaine 5% Lidocaine Gel Gel Gel #3 right anterior leg -Combined with other wound No -Current Size (cm) - Length 1.5 1.2 1 -Current Size (cm) - Width 0.5 0.5 0.5 -Current Size (cm) - Depth 0.3 0.2 0.2 -Total Square Cm 0.75 0.60 0.5 -Photo Taken Yes -Tunneling No -Undermining/Tunneling No -Circular Undermining No -Exudate Amt Medium Large Medium -Exudate Type Serosanguineous Serous Serosanguineous -Wound Margin Distinct, Distinct, Distinct, Outline Outline Outline Attached Attached Attached -Granulation Amt Medium (34-66%) Small (1-33%) None Present (0 %) -Granulation Quality [place] -Slough/Fibrin Yes Yes Yes -Necrosis Amt Medium (34-66%) Large (67-100%) Large (67-100%) -Necrotic Tissue Type Adherent Slough Adherent Slough -Structure Exposed N/A -Texture (Sharmin-wound Skin Appearance) Assessed Assessed, Excoriation, Scarring Scarring -Moisture (Sharmin-wound Skin Appearance) Assessed Assessed, Weeping Maceration -Color (Sharmin-wound Skin Appearance) Assessed, Assessed, Hemosiderin Erythema Erythema Staining -Temperature (Sharmin-wound Skin No Abnormality No Abnormality No Abnormality Appearance) (Pt Warm) (Pt Warm) (Pt Warm) -Tenderness on Palpation (Sharmin-wound Yes No No Skin Appearance) -Ulcer Cleansing Soap and Water Soap and Water Soap and Water -Foul Odor after Cleansing No No No -Anesthetic Used 5% Lidocaine 5% Lidocaine 5% Lidocaine Gel Gel Gel # 2 right lateral ankle cluster -Combined with other wound No -Current Size (cm) - Length 10 3.9 4.5 -Current Size (cm) - Width 3 3 3 -Current Size (cm) - Depth 0.3 0.2 0.2 -Total Square Cm 30 11.7 13.5 -Tunneling No -Undermining/Tunneling No -Circular Undermining No -Exudate Amt Medium Large Medium -Exudate Type Serosanguineous Serous Serosanguineous -Wound Margin Distinct, Distinct, Distinct, Outline Outline Outline Attached Attached Attached -Granulation Amt Small (1-33%) None Present (0 %) -Granulation Quality [place] -Slough/Fibrin Yes -Necrosis Amt Large (67-100%) Large (67-100%) -Necrotic Tissue Type Adherent Slough Adherent Slough -Structure Exposed N/A -Texture (Sharmin-wound Skin Appearance) Assessed, Scarring Scarring -Moisture (Sharmin-wound Skin Appearance) Assessed, Weeping Maceration -Color (Sharmin-wound Skin Appearance) Assessed, Hemosiderin Erythema Staining -Temperature (Sharmin-wound Skin No Abnormality No Abnormality Appearance) (Pt Warm) (Pt Warm) -Tenderness on Palpation (Sharmin-wound No Skin Appearance) -Ulcer Cleansing Soap and Water Soap and Water -Foul Odor after Cleansing No No -Anesthetic Used 5% Lidocaine 5% Lidocaine Gel Gel #1 R Med Ankle -Combined with other wound No -Current Size (cm) - Length 5 1.5 1.6 -Current Size (cm) - Width 2 2.2 2 -Current Size (cm) - Depth 0.1 0.1 0.1 -Total Square Cm 10 3.30 3.2 -Photo Taken Yes -Tunneling No -Undermining/Tunneling No -Circular Undermining No -Exudate Amt Medium Large Medium -Exudate Type Serosanguineous Serous Serosanguineous -Wound Margin Distinct, Distinct, Distinct, Outline Outline Outline Attached Attached Attached -Granulation Amt Medium (34-66%) Small (1-33%) None Present (0 %) -Granulation Quality [place] -Slough/Fibrin Yes Yes -Necrosis Amt Medium (34-66%) Large (67-100%) Large (67-100%) -Necrotic Tissue Type Adherent Slough Adherent Slough Adherent Slough -Structure Exposed N/A -Texture (Sharmin-wound Skin Appearance) Assessed Assessed Excoriation, Scarring -Moisture (Sharmin-wound Skin Appearance) Assessed Assessed, Weeping Maceration -Color (Sharmin-wound Skin Appearance) Assessed Assessed, Hemosiderin Erythema Staining -Temperature (Sharmin-wound Skin No Abnormality No Abnormality No Abnormality Appearance) (Pt Warm) (Pt Warm) (Pt Warm) -Tenderness on Palpation (Sharmin-wound Yes No Skin Appearance) -Ulcer Cleansing Soap and Water Soap and Water -Foul Odor after Cleansing No No -Anesthetic Used 5% Lidocaine 5% Lidocaine Gel Gel Lower Limb Edema Present Yes Right Calf (cm) 41.7 41 Right Ankle (cm) 25.7 26.5 Left Calf (cm) 40.2 Left Ankle (cm) 25 WC - Nurse 2 - General Ulcer CM Notes Start: 10/05/24 08:50 Freq: Status: Active Protocol: Activity Type Activity Date Activity User E-sign Co-sign Detail Recorded Client Recorded Date Recorded By Document 10/05/24 09:16 [id number] 10/05/24 09:26 JF Document 10/12/24 09:07 [id number] 10/12/24 09:18 JF Document 10/19/24 09:24 [id number] 10/19/24 09:34 JF 10/05/24 10/12/24 10/19/24 09:16 09:07 09:24 Wound Center Nurse 2 #6 L Met Head -Time 09:25 -Correct Patient Yes -Correct Side, Site, Position Yes -Correct Procedure Yes -Procedure Performed Yes -Type of Procedure Debridement -Clinical Debridement Subcutaneous -Tissue Removed Subcutaneous -Post Debridement (cm) - Length 0.7 -Post Debridement (cm) - Width 0.9 -Post Debridement (cm) - Depth 0.1 -Total Square (Post) (cm) 0.63 -Area of Debridement (cm) - Length 0.7 -Area of Debridement (cm) - Width 0.9 -Total Square (Area) (cm) 0.63 -Tunneling No -Undermining/Tunneling No -Circular Undermining No -Wound/Ulcer Outcome Not Healed -Ulcer Cleansing Rinsed/ Irrigated with Saline -Foul Odor after Cleansing No -Bioengineered Tissue No -Bleeding Controlled with Pressure -Treatment Response Procedure Tolerated Well -Offloading No -Debridement - Subq, 1st 20sq cm No #5 right posterior ankle -Time 09:22 09:07 09:27 -Correct Patient Yes Yes Yes -Correct Side, Site, Position Yes Yes Yes -Correct Procedure Yes Yes Yes -Procedure Performed Yes Yes Yes -Type of Procedure Debridement Debridement Debridement -Clinical Debridement Subcutaneous Subcutaneous Subcutaneous -Tissue Removed Subcutaneous Subcutaneous Subcutaneous -Post Debridement (cm) - Length 1.0 1.5 1.5 -Post Debridement (cm) - Width 1 0.6 1.0 -Post Debridement (cm) - Depth 0.2 0.2 0.2 -Total Square (Post) (cm) 1.0 0.90 1.50 -Area of Debridement (cm) - Length 1 1.5 1.5 -Area of Debridement (cm) - Width 1 0.6 1.0 -Total Square (Area) (cm) 1 0.90 1.50 -Tunneling No No No -Undermining/Tunneling No No No -Circular Undermining No No No -Wound/Ulcer Outcome Not Healed Not Healed Not Healed -Ulcer Cleansing Rinsed/ Rinsed/ Rinsed/ Irrigated with Irrigated with Irrigated with Saline Saline Saline -Foul Odor after Cleansing No No No -Bioengineered Tissue No No No -Bleeding Controlled with Pressure Pressure Pressure -Treatment Response Procedure Procedure Procedure Tolerated Well Tolerated Well Tolerated Well -Offloading No No No -Debridement - Subq, 1st 20sq cm No No No #4 Right dorsal foot -Time 09:22 09:07 09:27 -Correct Patient Yes Yes Yes -Correct Side, Site, Position Yes Yes Yes -Correct Procedure Yes Yes Yes -Procedure Performed Yes Yes Yes -Type of Procedure Debridement Debridement Debridement -Clinical Debridement Subcutaneous Subcutaneous Subcutaneous -Tissue Removed Subcutaneous Subcutaneous Subcutaneous -Post Debridement (cm) - Length 1.0 1.7 1.5 -Post Debridement (cm) - Width 0.8 1.2 1.0 -Post Debridement (cm) - Depth 0.2 0.2 0.2 -Total Square (Post) (cm) 0.80 2.04 1.50 -Area of Debridement (cm) - Length 1.0 1.7 1.5 -Area of Debridement (cm) - Width 0.8 1.2 1.0 -Total Square (Area) (cm) 0.80 2.04 1.50 -Tunneling No No No -Undermining/Tunneling No No No -Circular Undermining No No No -Wound/Ulcer Outcome Not Healed Not Healed Not Healed -Ulcer Cleansing Rinsed/ Rinsed/ Rinsed/ Irrigated with Irrigated with Irrigated with Saline Saline Saline -Foul Odor after Cleansing No No No -Bioengineered Tissue No No No -Bleeding Controlled with Pressure Pressure Pressure -Treatment Response Procedure Procedure Procedure Tolerated Well Tolerated Well Tolerated Well -Offloading No No -Debridement - Subq, 1st 20sq cm No No No #3 right anterior leg -Time 09:23 09:08 09:28 -Correct Patient Yes Yes Yes -Correct Side, Site, Position Yes Yes Yes -Correct Procedure Yes Yes Yes -Procedure Performed Yes Yes Yes -Type of Procedure Debridement Debridement Debridement -Clinical Debridement Subcutaneous Subcutaneous Subcutaneous -Tissue Removed Subcutaneous Subcutaneous Subcutaneous -Post Debridement (cm) - Length 0.8 1.0 1.0 -Post Debridement (cm) - Width 0.8 1.6 0.7 -Post Debridement (cm) - Depth 0.1 0.1 0.1 -Total Square (Post) (cm) 0.64 1.60 0.70 -Area of Debridement (cm) - Length 0.8 1.0 1.0 -Area of Debridement (cm) - Width 0.8 1.6 0.7 -Total Square (Area) (cm) 0.64 1.60 0.70 -Tunneling No No No -Undermining/Tunneling No No No -Circular Undermining No No No -Wound/Ulcer Outcome Not Healed Not Healed Not Healed -Ulcer Cleansing Rinsed/ Rinsed/ Rinsed/ Irrigated with Irrigated with Irrigated with Saline Saline Saline -Foul Odor after Cleansing No No No -Bioengineered Tissue No No No -Bleeding Controlled with Pressure Pressure Pressure -Treatment Response Procedure Procedure Procedure Tolerated Well Tolerated Well Tolerated Well -Offloading No No No -Debridement - Subq, 1st 20sq cm No No No # 2 right lateral ankle cluster -Time 09:24 09:08 09:28 -Correct Patient Yes Yes Yes -Correct Side, Site, Position Yes Yes Yes -Correct Procedure Yes Yes Yes -Procedure Performed Yes Yes Yes -Type of Procedure Debridement Debridement Debridement -Clinical Debridement Subcutaneous Subcutaneous Subcutaneous -Tissue Removed Subcutaneous Subcutaneous Subcutaneous -Post Debridement (cm) - Length 5.5 3 4.6 -Post Debridement (cm) - Width 1.4 3 3.0 -Post Debridement (cm) - Depth 0.2 0.1 0.2 -Total Square (Post) (cm) 7.70 9 13.80 -Area of Debridement (cm) - Length 5.5 3 4.6 -Area of Debridement (cm) - Width 1.4 3 3 -Total Square (Area) (cm) 7.70 9 13.8 -Tunneling No No No -Undermining/Tunneling No No No -Circular Undermining No No No -Wound/Ulcer Outcome Not Healed Not Healed Not Healed -Ulcer Cleansing Rinsed/ Rinsed/ Rinsed/ Irrigated with Irrigated with Irrigated with Saline Saline Saline -Foul Odor after Cleansing No No No -Bioengineered Tissue No No No -Bleeding Controlled with Pressure Pressure Pressure -Treatment Response Procedure Procedure Procedure Tolerated Well Tolerated Well Tolerated Well -Offloading No No No -Debridement - Subq, 1st 20sq cm No No No #1 R Med Ankle -Time 09:24 09:09 09:29 -Correct Patient Yes Yes Yes -Correct Side, Site, Position Yes Yes Yes -Correct Procedure Yes Yes Yes -Procedure Performed Yes Yes Yes -Type of Procedure Debridement Debridement Debridement -Clinical Debridement Subcutaneous Subcutaneous Subcutaneous -Tissue Removed Subcutaneous Subcutaneous Subcutaneous -Post Debridement (cm) - Length 1.0 1.3 1.2 -Post Debridement (cm) - Width 1.0 2.1 2.0 -Post Debridement (cm) - Depth 0.2 0.1 0.2 -Total Square (Post) (cm) 1.00 2.73 2.40 -Area of Debridement (cm) - Length 1 1.3 1.2 -Area of Debridement (cm) - Width 1 2.1 2.0 -Total Square (Area) (cm) 1 2.73 2.40 -Tunneling No No No -Undermining/Tunneling No No No -Circular Undermining No No No -Wound/Ulcer Outcome Not Healed Not Healed Not Healed -Ulcer Cleansing Rinsed/ Rinsed/ Rinsed/ Irrigated with Irrigated with Irrigated with Saline Saline Saline -Foul Odor after Cleansing No No No -Bioengineered Tissue No No No -Bleeding Controlled with Pressure Pressure Pressure -Treatment Response Procedure Procedure Procedure Tolerated Well Tolerated Well Tolerated Well -Offloading No No No -Debridement - Subq, 1st 20sq cm Yes Yes Yes -Debridement, SubQ, ea addt'l 20sq cm 1 or part thereof Pain Scale: 0-10 Numeric Is Patient Pain Free? Yes Yes Yes WC - Nurse 3 - General Ulcer D/C NN Start: 10/05/24 08:50 Freq: Status: Active Protocol: Activity Type Activity Date Activity User E-sign Co-sign Detail Recorded Client Recorded Date Recorded By Document 10/05/24 09:46 [facility] [id number] 10/05/24 09:48 BMF Document 10/12/24 09:29 DL [id number] 10/12/24 09:39 DL Document 10/19/24 09:45 [facility] [id number] 10/19/24 09:47 [facility] 10/05/24 10/12/24 10/19/24 09:46 09:29 09:45 Wound Care Center Nurse 3 #5 right posterior ankle -Ulcer Cleansing Rinsed/ Soap and Water Irrigated with Saline -Foul Odor after Cleansing No No -Primary Dressing Applied Promogran Promogran Edson Matter Edson Matter -Primary Dressing Covered/Secured with Dry Gauze & Dry Gauze & Roll Gauze, Roll Gauze, Secured with Secured with Tape Tape -Promogran Edson Matter 2 1 #4 Right dorsal foot -Ulcer Cleansing Rinsed/ Rinsed/ Irrigated with Irrigated with Saline Saline -Foul Odor after Cleansing No No -Primary Dressing Applied Promogran Edson Matter -Other Dressing Edson today -Primary Dressing Covered/Secured with Dry Gauze & Dry Gauze & Roll Gauze, Roll Gauze, Secured with Secured with Tape Tape -Promogran Edson Matter 1 #3 right anterior leg -Ulcer Cleansing Rinsed/ Soap and Water Irrigated with Saline -Foul Odor after Cleansing No No -Primary Dressing Applied Promogran Optilok 6.5x10, Edson Matter Promogran Edson Matter -Primary Dressing Covered/Secured with Dry Gauze & Dry Gauze & Roll Gauze, Roll Gauze, Secured with Secured with Tape Tape -Optilok 6.5x10 1 -Promogran Edson Matter 1 1 # 2 right lateral ankle cluster -Ulcer Cleansing Rinsed/ Soap and Water Irrigated with Saline -Foul Odor after Cleansing No No -Primary Dressing Applied Promogran Edson Matter -Other Dressing Edson/ Superabsorber -Primary Dressing Covered/Secured with Dry Gauze & Roll Gauze, Secured with Tape -Promogran Edson Matter 1 #1 R Med Ankle -Ulcer Cleansing Rinsed/ Soap and Water Irrigated with Saline -Foul Odor after Cleansing No No -Primary Dressing Applied Promogran Edson Matter -Other Dressing edson/ superabsorber -Primary Dressing Covered/Secured with Dry Gauze & Roll Gauze, Secured with Tape -Promogran Edson Matter 1 -Wound Comment(s) Pad and protect 1st met on L foot with Border foam 4x4 Left -Compression Wrap [place] Wrap -Tubular Bandage Single Layer -Size of Tubigrip Used Size F -Size F ($) 1 Right -Compression Wrap [place] Wrap -Tubular Bandage Single Layer -Size of Tubigrip Used Size F -Size F ($) 1 Treatment Response Procedure Tolerated Well Pain Scale: 0-10 Numeric Is Patient Pain Free? Yes Yes Yes WC - Visit Discharge Discharge Condition Stable Stable Stable Ambulatory Status Ambulatory Ambulatory Ambulatory Transportation Private Auto Private Auto Private Auto Facility Type Home Health Home Health Home Health Orders Sent Yes #6 L Met Head -Ulcer Cleansing Rinsed/ Irrigated with Saline -Foul Odor after Cleansing No -Other Dressing hydrogel -Primary Dressing Covered/Secured with Dry Gauze & Roll Gauze, Secured with Tape #5 right posterior ankle -Ulcer Cleansing Rinsed/ Irrigated with Saline -Foul Odor after Cleansing No -Primary Dressing Applied Promogran Edson Matter -Primary Dressing Covered/Secured with Dry Gauze & Roll Gauze, Secured with Tape -Promogran Edson Matter 1 #4 Right dorsal foot -Ulcer Cleansing Rinsed/ Irrigated with Saline -Foul Odor after Cleansing No -Other Dressing hydrogel -Primary Dressing Covered/Secured with Dry Gauze & Roll Gauze, Secured with Tape #3 right anterior leg -Ulcer Cleansing Rinsed/ Irrigated with Saline -Foul Odor after Cleansing No -Primary Dressing Applied Promogran Edson Matter -Primary Dressing Covered/Secured with Dry Gauze & Roll Gauze, Secured with Tape -Promogran Edson Matter 0 # 2 right lateral ankle cluster -Ulcer Cleansing Rinsed/ Irrigated with Saline -Foul Odor after Cleansing No -Primary Dressing Applied Promogran Edson Matter -Primary Dressing Covered/Secured with Dry Gauze & Roll Gauze, Secured with Tape -Promogran Edson Matter 0 #1 R Med Ankle -Ulcer Cleansing Rinsed/ Irrigated with Saline -Foul Odor after Cleansing No -Primary Dressing Applied Promogran Edson Matter -Primary Dressing Covered/Secured with Dry Gauze & Roll Gauze, Secured with Tape -Promogran Edson Matter 0 ble -Tubular Bandage Single Layer -Size of Tubigrip Used Size E -Size E ($) 2 Treatment Response Procedure Tolerated Well Additional Wound Wound debrided: #4 dorsal foot ulcer Laterality: Right Wound Grade/Stage: Stage 3 Type of Debridement: Excisional debridement Anesthesia Used: 5% Lidocaine Gel Depth: Down to and including healthy tissue and in the subcutaneous layer Percentage of wound debrided: 100 Instrument Used: 3mm curette Tissue Removed: Non viable tissue and slough Severity: Fat Layer Exposed Amount of bleeding with debridement: None Bleeding Controlled with: Pressure Patient tolerated procedure: Patient tolerated procedure well Additional Wound Wound debrided: #6 medial foot base of great toe Laterality: Left Wound Grade/Stage: 2 Type of Debridement: Excisional debridement Anesthesia Used: 5% Lidocaine Gel Depth: Down to and including healthy tissue and in the subcutaneous layer Percentage of wound debrided: 100 Instrument Used: 3mm curette Tissue Removed: Non viable tissue and slough Severity: Fat Layer Exposed Amount of bleeding with debridement: Mild Bleeding Controlled with: Compression and gauze Patient tolerated procedure: Patient tolerated procedure well Assessment/Plan Assessment/Plan (1) Chronic ulcer of right ankle: CODE(S): L97.319 - Non-pressure chronic ulcer of right ankle with unspecified severity QUALIFIERS: Non-pressure ulcer stage: with fat layer exposed Qualified Code(s): L97.312 - Non-pressure chronic ulcer of right ankle with fat layer exposed (2) Ulcer of right leg: CODE(S): L97.919 - Non-pressure chronic ulcer of unspecified part of right lower leg with unspecified severity QUALIFIERS: Non-pressure ulcer stage: with fat layer exposed Qualified Code(s): L97.912 - Non-pressure chronic ulcer of unspecified part of right lower leg with fat layer exposed (3) Ulcer of right foot with fat layer exposed: CODE(S): L97.512 - Non-pressure chronic ulcer of other part of right foot with fat layer exposed (4) Leg edema: CODE(S): R60.0 - Localized edema (5) Venous insufficiency of both lower extremities: CODE(S): I87.2 - Venous insufficiency (chronic) (peripheral) (6) Peripheral vascular disease: CODE(S): I73.9 - Peripheral vascular disease, unspecified (7) Peripheral vascular occlusive disease: CODE(S): I73.9 - Peripheral vascular disease, unspecified (8) Tobacco abuse: CODE(S): Z72.0 - Tobacco use (9) Debility: CODE(S): R53.81 - Other malaise (10) Ulcer of left foot with fat layer exposed: CODE(S): L97.522 - Non-pressure chronic ulcer of other part of left foot with fat layer exposed PLAN: Plan Patient evaluated at the wound healing center. Wound care - To the right medial ankle, right lateral ankle cluster, right posterior ankle ulcer, and right anterior leg ulcer place Promogran covered with gauze or ABD daily and as needed. To the right dorsal foot ulcer and left medial base of toe ulcer place Santyl nickel thick covered with moistened gauze and top with ABD daily. Encouraged to wash lower extremities with soap and water at the time of the dressing changes. It is ok to remove dressings and get into the shower to wash lower extremities with soap and water. A wound culture was obtained today of right lower extremity ulcers.? A positive culture will necessitate antibiotic therapy. Referred him to Dr. Bender, vascular surgeon to be evaluated. He has seen Dr. Bender when he was hospitalized in the past. Will be conservative with compression and place single tubigrip for compression and MOLINA wrap. Encouraged patient to elevate legs when sitting. Encouraged him to sleep in a bed not a chair. Also encouraged him to lay flat a couple times through the day to help with swelling. Encouraged patient to stop smoking. He has home health to assist with dressing changes. Follow up one week with either myself or podiatry. If develop any concerns, call or come in sooner.
--- NOTE | 2024-10-20 09:53 | WC ---
PHOTO 10/19/24 LEFT MET
== END 2024-10-23 23:59 | disposition home or self-care (01) ==
LOC: WC 09:00
PROVIDERS: PCP Internal Medicine; Referring Provider Internal Medicine; Visit Provider Nurse Practitioner Family
DX: L97.312 Non-pressure chronic ulcer of right ankle with fat layer exposed (principal); L97.812 Non-pressure chronic ulcer of other part of right lower leg with fat layer exposed; L97.522 Non-pressure chronic ulcer of other part of left foot with fat layer exposed; I73.9 Peripheral vascular disease, unspecified; I87.2 Venous insufficiency (chronic) (peripheral); R60.0 Localized edema; M79.604 Pain in right leg; M79.605 Pain in left leg; G89.29 Other chronic pain; R53.81 Other malaise; R29.6 Repeated falls; F17.210 Nicotine dependence, cigarettes, uncomplicated; Z79.02 Long term (current) use of antithrombotics/antiplatelets; Z79.899 Other long term (current) drug therapy
CPT/HCPCS: 11042; 11045; 87070; 87075; 87077; 87186; 87205; 99214; G0463

== ENCOUNTER 2024-11-03 08:30 | Outpatient (RCR) | payer MEDICARE, SELFPAY ==
[2024-10-24 00:17] VITALS: BP 161/83; PULSE 90; RESP 18; TEMP 36.3; BMI 23.2
[2024-10-27 08:52] VITALS: BP 165/67; PULSE 102; RESP 18; TEMP 36.1; BMI 23.2
--- NOTE | 2024-10-27 09:26 | PCM.WC.HP ---
History of Present Illness Date of Service: 10/27/24 Chief Complaint: Right lower leg ulcers History of Wound: Chronic Right leg Ulceration in setting of PAD Progress of Wound: Patient presents today for ulcerations to his right leg with cellulitis to right lower extremity. Patient on oral antibiotics for right lower extremity cellulitis. Patient has history of peripheral arterial disease with ABIs 0.62 in May 2024. Patient reports that he had stents placed by Dr. Beatty in July 2024. Since that time patient has noted continued nonhealing to right lower extremity ulcerations with edema erythema and warmth to site. Patient denies any constitutional symptoms today. Patient's been dressing sites with Santyl. Patient's been using Tubigrip for compression. Patient has no other complaints. 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 Cellulitis of right leg Ulcer of right leg Leg wound, left Left leg cellulitis Dermatitis History of skin cancer Hx of blood clots Frequent infections Home Medications ?Medication ?Instructions ?Recorded ?Last Taken ?Type clopidogrel 75 mg tablet (Plavix) 75 mg PO DAILY 11/06/21 08/17/24 History acetaminophen 500 mg capsule 1,000 mg PO Q6H PRN fever or pain 08/17/24 08/17/24 History atorvastatin 40 mg tablet 40 mg PO QHS #0 tabs 08/27/24 Unknown Rx doxycycline hyclate 100 mg capsule 100 mg PO BID #20 caps 08/27/24 Unknown Rx levofloxacin 500 mg tablet 500 mg PO DAILY #10 tabs 08/27/24 Unknown Rx sennosides 8.6 mg-docusate sodium 2 tab PO BID PRN PRN Constipation 08/27/24 Unknown Rx 50 mg tablet (Stimulant Laxative #0 tabs Plus) collagenase clostridium histo. 250 1 applic topical QDAY Lower 09/28/24 Unknown Rx unit/gram topical ointment (Santyl) Extremity Ulcer #90 grams tramadol 50 mg tablet 50 mg PO QDAY PRN pain #20 tabs 09/28/24 Unknown Rx metronidazole 500 mg tablet 500 mg PO TID 10 days #30 tabs 10/26/24 Unknown Rx sulfamethoxazole 800 1 tab PO Q12H 10 days #20 tabs 10/26/24 Unknown Rx mg-trimethoprim 160 mg tablet (Bactrim DS) Allergy/AdvReac Type Severity Reaction Status Date / Time Penicillins Allergy Anaphylaxis Verified 09/28/24 08:49 Surgical History (Reviewed 10/09/24 @ 21:48 by Lucie Ramirez AUTO BODY REPAIR ESTIMATOR, AUTO BODY REPAIR ESTIMATOR-C) History of appendectomy Social History current occupational status: retired Smoking Status: Current every day smoker tobacco type: cigarettes alcohol intake: current alcohol intake frequency: a few times a month substance use type: does not use Vital Signs Vital Signs Vital Signs: 10/27/24 08:52 Temperature 97 F L Temperature Source Temporal Pulse Rate 102 H Respiratory Rate 18 Blood Pressure 165/67 H Blood Pressure Mean 99 Blood Pressure Source Monitor Blood Pressure Position Semi-Fowlers Blood Pressure Location Left Arm Weight Weight: 69.4 kg Body Mass Index (BMI) 23.2 Physical Exam Narrative Vascular: +2 pitting edema noted to right foot SHARMIN malleoli region in the leg. Dorsalis pedis and posterior tibial pulses barely palpable to right foot. 2 out of 4 to left foot. Atrophic skin changes noted bilaterally. Neurologic: Light touch protective sensation intact to bilateral feet and legs. Dermatologic: Full-thickness ulceration noted to the dorsal lateral right foot. Dorsal medial first MPJ on the left foot. And scattered throughout the right lower extremity. These wounds demonstrate a nonviable fibrotic bed. Periwound erythema edema and warmth noted. Moderate serous drainage noted. Musculoskeletal: No pain with calf squeeze bilaterally. Muscular strength full to bilateral lower extremity compartments. Const alert and oriented x3 Debridement Note Debridement Note Post-Debridement Measurements and Additional Note: Post-Debridement Measurements/Treatment - Nurse 1 - General Ulcer Assessment Start: 10/27/24 08:52 Freq: Status: Active Protocol: AALIYAH Activity Type Activity Date Activity User E-sign Co-sign Detail Recorded Client Recorded Date Recorded By Document 10/27/24 08:52 ALESIA [id number] 10/27/24 09:03 KW 10/27/24 08:52 - Today's Visit Information Type of service Follow-up Visit (Physician/PRIVATE EQUITY ANALYST ) Arrival Mode Ambulatory Transfer Assistance None Patient Identification Verified (Name & Yes ) Patient Requires Transmission-Based No Precautions Height and Weight Body Mass Index (BMI) 23.2 BMI Classification Normal Vital Signs Temperature (97.8 F-99.1 F) 97 F L Temperature Source Temporal Pulse Rate (60-100) 102 H Pulse Location Monitor Respiratory Rate (12-18) 18 Respiratory rate source Observation Blood Pressure (90/60-120/80) 165/67 H Blood Pressure Mean 99 Source Monitor Position Semi-Fowlers Blood Pressure Location Left Arm History Since Last Visit- (Skip if this is Patient's initial visit) Have you changed medications since your No last visit? Any new allergies or adverse reactions No Had a fall/change in ADL's that may No increase risk of falls Signs or symptoms of abuse and/or No neglect since last visit Have you been in the hospital since your No last visit? Has dressing in place as prescribed Yes Has compression in place as prescribed Yes Has offloadiing in place as prescribed N/A Experienced any changes in pain level or No management Left Footwear Regular Shoe Right Footwear Regular Shoe Pain Scale: 0-10 Numeric Is Patient Pain Free? Yes RLE -Description Sharp,Burning, Aching -Intensity 3 -Duration (hours) Acute -Pain Behavior Irritability, Withdrawal from Touch -Pain Aggravating Factors ADL's -Alleviating Factors/Interventions Medication,None -Effectiveness of Alleviating Factor/ Moderately Intervention effective WC - Nurse 1 - General Ulcer Measurement Start: 10/27/24 08:52 Freq: Status: Active Protocol: Activity Type Activity Date Activity User E-sign Co-sign Detail Recorded Client Recorded Date Recorded By Document 10/27/24 08:52 [id number] 10/27/24 09:03 KW 10/27/24 08:52 Wound Center Nurse 1 #6 L Met Head -Combined with other wound No -Current Size (cm) - Length 0.3 -Current Size (cm) - Width 0.5 -Current Size (cm) - Depth 0.1 -Total Square Cm 0.15 -Tunneling No -Undermining/Tunneling No -Circular Undermining No -Exudate Amt Medium -Exudate Type Serosanguineous -Wound Margin Distinct, Outline Attached -Granulation Amt Medium (34-66%) -Granulation Quality Stowell -Slough/Fibrin Yes -Necrosis Amt Small (1-33%) -Necrotic Tissue Type Adherent Slough -Structure Exposed N/A -Texture (Sharmin-wound Skin Appearance) Assessed -Moisture (Sharmin-wound Skin Appearance) Assessed -Color (Sharmin-wound Skin Appearance) Assessed -Temperature (Sharmin-wound Skin No Abnormality Appearance) (Pt Warm) -Tenderness on Palpation (Sharmin-wound No Skin Appearance) -Ulcer Cleansing Wound Cleanser -Foul Odor after Cleansing No -Anesthetic Used 4% Lidocaine Solution #5 right posterior ankle -Combined with other wound No -Current Size (cm) - Length 1.5 -Current Size (cm) - Width 0.5 -Current Size (cm) - Depth 0.2 -Total Square Cm 0.75 -Tunneling No -Undermining/Tunneling No -Circular Undermining No -Exudate Amt Medium -Exudate Type Serosanguineous -Wound Margin Distinct, Outline Attached -Granulation Amt Medium (34-66%) -Granulation Quality Stowell -Slough/Fibrin Yes -Necrosis Amt Medium (34-66%) -Necrotic Tissue Type Adherent Slough -Structure Exposed N/A -Texture (Sharmin-wound Skin Appearance) Assessed -Moisture (Sharmin-wound Skin Appearance) Weeping -Color (Sharmin-wound Skin Appearance) Assessed -Temperature (Sharmin-wound Skin No Abnormality Appearance) (Pt Warm) -Tenderness on Palpation (Sharmin-wound No Skin Appearance) -Ulcer Cleansing Wound Cleanser -Foul Odor after Cleansing No -Anesthetic Used 4% Lidocaine Solution #4 Right dorsal foot -Combined with other wound No -Current Size (cm) - Length 1.3 -Current Size (cm) - Width 1.6 -Current Size (cm) - Depth 0.4 -Total Square Cm 2.08 -Tunneling No -Undermining/Tunneling No -Circular Undermining No -Exudate Amt Medium -Exudate Type Serosanguineous -Wound Margin Distinct, Outline Attached -Granulation Amt Medium (34-66%) -Granulation Quality Stowell -Slough/Fibrin Yes -Necrosis Amt Medium (34-66%) -Necrotic Tissue Type Adherent Slough -Structure Exposed N/A -Texture (Sharmin-wound Skin Appearance) Assessed -Moisture (Sharmin-wound Skin Appearance) Assessed, Weeping -Color (Sharmin-wound Skin Appearance) Assessed -Temperature (Sharmin-wound Skin No Abnormality Appearance) (Pt Warm) -Tenderness on Palpation (Sharmin-wound No Skin Appearance) -Ulcer Cleansing Wound Cleanser -Foul Odor after Cleansing No -Anesthetic Used 4% Lidocaine Solution #3 right anterior leg -Combined with other wound No -Current Size (cm) - Length 1 -Current Size (cm) - Width 0.5 -Current Size (cm) - Depth 0.2 -Total Square Cm 0.5 -Tunneling No -Undermining/Tunneling No -Circular Undermining No -Exudate Amt Large -Exudate Type Serosanguineous -Wound Margin Distinct, Outline Attached -Granulation Amt Medium (34-66%) -Granulation Quality Stowell -Slough/Fibrin Yes -Necrosis Amt Medium (34-66%) -Necrotic Tissue Type Adherent Slough -Structure Exposed N/A -Texture (Sharmin-wound Skin Appearance) Assessed -Moisture (Sharmin-wound Skin Appearance) Weeping -Color (Sharmin-wound Skin Appearance) Hemosiderin Staining -Temperature (Sharmin-wound Skin No Abnormality Appearance) (Pt Warm) -Tenderness on Palpation (Sharmin-wound No Skin Appearance) -Ulcer Cleansing Wound Cleanser -Foul Odor after Cleansing No -Anesthetic Used 4% Lidocaine Solution # 2 right lateral ankle cluster -Combined with other wound No -Current Size (cm) - Length 5 -Current Size (cm) - Width 2.7 -Current Size (cm) - Depth 0.2 -Total Square Cm 13.5 -Tunneling No -Undermining/Tunneling No -Circular Undermining No -Exudate Amt Medium -Exudate Type Serosanguineous -Wound Margin Distinct, Outline Attached -Granulation Amt Medium (34-66%) -Granulation Quality Stowell -Slough/Fibrin Yes -Necrosis Amt Medium (34-66%) -Necrotic Tissue Type Adherent Slough -Structure Exposed N/A -Texture (Sharmin-wound Skin Appearance) Assessed -Moisture (Sharmin-wound Skin Appearance) Weeping -Color (Sharmin-wound Skin Appearance) Assessed -Temperature (Sharmin-wound Skin No Abnormality Appearance) (Pt Warm) -Tenderness on Palpation (Sharmin-wound No Skin Appearance) -Ulcer Cleansing Wound Cleanser -Foul Odor after Cleansing No -Anesthetic Used 4% Lidocaine Solution #1 R Med Ankle -Combined with other wound No -Current Size (cm) - Length 1 -Current Size (cm) - Width 2 -Current Size (cm) - Depth 0.1 -Total Square Cm 2 -Tunneling No -Undermining/Tunneling No -Circular Undermining No -Exudate Amt Medium -Exudate Type Serosanguineous -Wound Margin Distinct, Outline Attached -Granulation Amt Medium (34-66%) -Granulation Quality Stowell -Slough/Fibrin Yes -Necrosis Amt Medium (34-66%) -Necrotic Tissue Type Adherent Slough -Structure Exposed N/A -Texture (Sharmin-wound Skin Appearance) Assessed -Moisture (Sharmin-wound Skin Appearance) Weeping -Color (Sharmin-wound Skin Appearance) Assessed -Temperature (Sharmin-wound Skin No Abnormality Appearance) (Pt Warm) -Tenderness on Palpation (Sharmin-wound No Skin Appearance) -Ulcer Cleansing Wound Cleanser -Foul Odor after Cleansing No -Anesthetic Used 4% Lidocaine Solution Lower Limb Edema Present Yes Point of measurement (cm from the medial 41.5 instep) Point of Measurement (cm from the medial 25.7 instep) Left Calf (cm) 35 Left Ankle (cm) 25.5 WC - Nurse 2 - General Ulcer CM Notes Start: 10/27/24 08:52 Freq: Status: Active Protocol: Activity Type Activity Date Activity User E-sign Co-sign Detail Recorded Client Recorded Date Recorded By Document 10/27/24 09:23 DS [id number] 10/27/24 09:25 DS 10/27/24 09:23 Wound Center Nurse 2 #6 L Met Head -Time 09:24 -Correct Patient Yes -Procedure Performed No -Wound/Ulcer Outcome Not Healed #5 right posterior ankle -Time 09:24 -Correct Patient Yes -Procedure Performed No -Wound/Ulcer Outcome Not Healed #4 Right dorsal foot -Time 09:24 -Correct Patient Yes -Procedure Performed No -Wound/Ulcer Outcome Not Healed #3 right anterior leg -Time 09:24 -Correct Patient Yes -Procedure Performed No -Wound/Ulcer Outcome Not Healed # 2 right lateral ankle cluster -Time 09:24 -Correct Patient Yes -Procedure Performed No -Wound/Ulcer Outcome Not Healed #1 R Med Ankle -Time 09:24 -Correct Patient Yes -Procedure Performed No -Wound/Ulcer Outcome Not Healed Pain Scale: 0-10 Numeric Is Patient Pain Free? Yes Assessment/Plan Assessment/Plan (1) Other specified peripheral vascular diseases: CODE(S): I73.89 - Other specified peripheral vascular diseases PLAN: Exam performed. Arterial studies reviewed with patient. Demonstrate ABIs 0.6 to right lower extremity. Wounds are bilateral lower extremity appear ischemic. However patient notes that he had revascularization in July 2024. Will request this note to help determine vascular status of right lower extremity before proceeding with aggressive compression and drip debridement. Patient's cultures were reviewed demonstrate Staph aureus, MSSA, Acinetobacter Genevieve I, anaerobes. Patient on oral antibiotics per Lou Ramirez. Patient will continue daily use of Santyl dressing for enzymatic debridement dry sterile dressing and Tubigrip for compression. Patient was educated signs symptoms of infection if patient develops any constitutional symptoms or worsening of his infection will present to the ER. Patient will follow-up in 1 week at which time we will present a detailed plan for right lower extremity wound healing. (2) Non-pressure chronic ulcer of right calf with fat layer exposed: CODE(S): L97.212 - Non-pressure chronic ulcer of right calf with fat layer exposed (3) Non-pressure chronic ulcer of other part of right foot with fat layer exposed: CODE(S): L97.512 - Non-pressure chronic ulcer of other part of right foot with fat layer exposed (4) Non-pressure chronic ulcer of other part of left foot with fat layer exposed: CODE(S): L97.522 - Non-pressure chronic ulcer of other part of left foot with fat layer exposed
[2024-11-03 08:34] VITALS: BP 144/79; PULSE 106; RESP 18; TEMP 36.2; BMI 23.2
--- NOTE | 2024-11-03 09:03 | PCM.WC.PN ---
History of Present Illness Date of Service: 11/03/24 Chief Complaint: Right lower leg ulcers History of Wound: Chronic Right leg Ulceration in setting of PAD Progress of Wound: Patient presents today for ulcerations to his right leg with cellulitis to right lower extremity. Patient on oral antibiotics for right lower extremity cellulitis. Patient has history of peripheral arterial disease with ABIs 0.62 in May 2024. Patient reports that he had stents placed by Dr. Beatty in July 2024. Since that time patient has noted continued nonhealing to right lower extremity ulcerations with edema erythema and warmth to site. Patient denies any constitutional symptoms today. Patient's been dressing sites with Santyl. Patient's been using Tubigrip for compression. Patient has no other complaints. Objective Data Objective Data Vital Signs: Vital Signs Temp Pulse Resp BP 97.2 F L 106 H 18 144/79 H 11/03/24 08:34 11/03/24 08:34 11/03/24 08:34 11/03/24 08:34 Weight: 69.4 kg Body Mass Index (BMI) 23.2 Debridement Note Debridement Note Post-Debridement Measurements and Additional Note: Post-Debridement Measurements/Treatment - Nurse 1 - General Ulcer Assessment Start: 10/27/24 08:52 Freq: Status: Active Protocol: AALIYAH Activity Type Activity Date Activity User E-sign Co-sign Detail Recorded Client Recorded Date Recorded By Document 10/27/24 08:52 KW [id number] 10/27/24 09:03 KW Document 11/03/24 08:34 RB [id number] 11/03/24 08:49 RB 10/27/24 11/03/24 08:52 08:34 - Today's Visit Information Type of service Follow-up Visit Follow-up Visit (Physician/[employer] (Physician/[employer] ) ) Arrival Mode Ambulatory Ambulatory Transfer Assistance None None Patient Identification Verified (Name & Yes Yes ) Patient Requires Transmission-Based No No Precautions Height and Weight Body Mass Index (BMI) 23.2 23.2 BMI Classification Normal Normal Vital Signs Temperature (97.8 F-99.1 F) 97 F L 97.2 F L Temperature Source Temporal Temporal Pulse Rate (60-100) 102 H 106 H Pulse Location Monitor Monitor Respiratory Rate (12-18) 18 18 Respiratory rate source Observation Observation Blood Pressure (90/60-120/80) 165/67 H 144/79 H Blood Pressure Mean (mm Hg) 99 100 Source Monitor Monitor Position Semi-Fowlers Semi-Fowlers Blood Pressure Location Left Arm Left Arm History Since Last Visit- (Skip if this is Patient's initial visit) Have you changed medications since your No No last visit? Any new allergies or adverse reactions No No Had a fall/change in ADL's that may No No increase risk of falls Signs or symptoms of abuse and/or No No neglect since last visit Have you been in the hospital since your No No last visit? Has dressing in place as prescribed Yes Yes Has compression in place as prescribed Yes Yes Has offloadiing in place as prescribed N/A N/A Experienced any changes in pain level or No No management Left Footwear Regular Shoe Right Footwear Regular Shoe Pain Scale: 0-10 Numeric Is Patient Pain Free? Yes Yes RLE -Description Sharp,Burning, Aching -Intensity 3 -Duration (hours) Acute -Pain Behavior Irritability, Withdrawal from Touch -Pain Aggravating Factors ADL's -Alleviating Factors/Interventions Medication,None -Effectiveness of Alleviating Factor/ Moderately Intervention effective WC - Nurse 1 - General Ulcer Measurement Start: 10/27/24 08:52 Freq: Status: Active Protocol: Activity Type Activity Date Activity User E-sign Co-sign Detail Recorded Client Recorded Date Recorded By Document 10/27/24 08:52 KW [id number] 10/27/24 09:03 KW Document 11/03/24 08:34 RB [id number] 11/03/24 08:49 RB 10/27/24 11/03/24 08:52 08:34 Wound Center Nurse 1 #6 L Met Head -Combined with other wound No No -Current Size (cm) - Length 0.3 0.1 -Current Size (cm) - Width 0.5 0.1 -Current Size (cm) - Depth 0.1 0.1 -Total Square Cm 0.15 0.01 -Photo Taken Yes -Tunneling No No -Undermining/Tunneling No No -Circular Undermining No No -Exudate Amt Medium Medium -Exudate Type Serosanguineous Serosanguineous -Wound Margin Distinct, Distinct, Outline Outline Attached Attached -Granulation Amt Medium (34-66%) Medium (34-66%) -Granulation Quality [place] -Slough/Fibrin Yes Yes -Necrosis Amt Small (1-33%) Medium (34-66%) -Necrotic Tissue Type Adherent Slough Adherent Slough -Structure Exposed N/A N/A -Texture (Sharmin-wound Skin Appearance) Assessed Assessed -Moisture (Sharmin-wound Skin Appearance) Assessed Dry/Scaly -Color (Sharmin-wound Skin Appearance) Assessed No Abnormality -Temperature (Sharmin-wound Skin No Abnormality No Abnormality Appearance) (Pt Warm) (Pt Warm) -Tenderness on Palpation (Sharmin-wound No No Skin Appearance) -Ulcer Cleansing Wound Cleanser Wound Cleanser -Foul Odor after Cleansing No No -Anesthetic Used 4% Lidocaine 5% Lidocaine Solution Gel #5 right posterior ankle -Combined with other wound No No -Current Size (cm) - Length 1.5 1 -Current Size (cm) - Width 0.5 0.6 -Current Size (cm) - Depth 0.2 0.1 -Total Square Cm 0.75 0.6 -Photo Taken Yes -Tunneling No No -Undermining/Tunneling No No -Circular Undermining No No -Exudate Amt Medium Medium -Exudate Type Serosanguineous Serosanguineous -Wound Margin Distinct, Distinct, Outline Outline Attached Attached -Granulation Amt Medium (34-66%) Medium (34-66%) -Granulation Quality [place] -Slough/Fibrin Yes Yes -Necrosis Amt Medium (34-66%) Medium (34-66%) -Necrotic Tissue Type Adherent Slough Adherent Slough -Structure Exposed N/A N/A -Texture (Sharmin-wound Skin Appearance) Assessed Assessed -Moisture (Sharmin-wound Skin Appearance) Weeping Dry/Scaly -Color (Sharmin-wound Skin Appearance) Assessed Assessed -Temperature (Sharmin-wound Skin No Abnormality No Abnormality Appearance) (Pt Warm) (Pt Warm) -Tenderness on Palpation (Sharmin-wound No No Skin Appearance) -Ulcer Cleansing Wound Cleanser Wound Cleanser -Foul Odor after Cleansing No No -Anesthetic Used 4% Lidocaine 5% Lidocaine Solution Gel #4 Right dorsal foot -Combined with other wound No No -Current Size (cm) - Length 1.3 1.2 -Current Size (cm) - Width 1.6 0.9 -Current Size (cm) - Depth 0.4 0.2 -Total Square Cm 2.08 1.08 -Photo Taken Yes -Tunneling No No -Undermining/Tunneling No No -Circular Undermining No No -Exudate Amt Medium Medium -Exudate Type Serosanguineous Serosanguineous -Wound Margin Distinct, Distinct, Outline Outline Attached Attached -Granulation Amt Medium (34-66%) Medium (34-66%) -Granulation Quality [place] -Slough/Fibrin Yes Yes -Necrosis Amt Medium (34-66%) Medium (34-66%) -Necrotic Tissue Type Adherent Slough Adherent Slough -Structure Exposed N/A N/A -Texture (Sharmin-wound Skin Appearance) Assessed Assessed -Moisture (Sharmin-wound Skin Appearance) Assessed, Dry/Scaly Weeping -Color (Sharmin-wound Skin Appearance) Assessed Assessed -Temperature (Sharmin-wound Skin No Abnormality No Abnormality Appearance) (Pt Warm) (Pt Warm) -Tenderness on Palpation (Sharmin-wound No No Skin Appearance) -Ulcer Cleansing Wound Cleanser Wound Cleanser -Foul Odor after Cleansing No No -Anesthetic Used 4% Lidocaine 5% Lidocaine Solution Gel #3 right anterior leg -Combined with other wound No No -Current Size (cm) - Length 1 6.4 -Current Size (cm) - Width 0.5 0.7 -Current Size (cm) - Depth 0.2 0.1 -Total Square Cm 0.5 4.48 -Photo Taken Yes -Tunneling No No -Undermining/Tunneling No No -Circular Undermining No No -Exudate Amt Large Medium -Exudate Type Serosanguineous Serosanguineous -Wound Margin Distinct, Distinct, Outline Outline Attached Attached -Granulation Amt Medium (34-66%) Medium (34-66%) -Granulation Quality [place] -Slough/Fibrin Yes Yes -Necrosis Amt Medium (34-66%) Medium (34-66%) -Necrotic Tissue Type Adherent Slough Adherent Slough -Structure Exposed N/A N/A -Texture (Sharmin-wound Skin Appearance) Assessed Assessed -Moisture (Sharmin-wound Skin Appearance) Weeping Dry/Scaly -Color (Sharmin-wound Skin Appearance) Hemosiderin Assessed Staining -Temperature (Sharmin-wound Skin No Abnormality No Abnormality Appearance) (Pt Warm) (Pt Warm) -Tenderness on Palpation (Sharmin-wound No No Skin Appearance) -Ulcer Cleansing Wound Cleanser Wound Cleanser -Foul Odor after Cleansing No No -Anesthetic Used 4% Lidocaine 5% Lidocaine Solution Gel # 2 right lateral ankle cluster -Combined with other wound No No -Current Size (cm) - Length 5 0.6 -Current Size (cm) - Width 2.7 0.6 -Current Size (cm) - Depth 0.2 0.1 -Total Square Cm 13.5 0.36 -Photo Taken Yes -Tunneling No No -Undermining/Tunneling No No -Circular Undermining No No -Exudate Amt Medium Medium -Exudate Type Serosanguineous Serosanguineous -Wound Margin Distinct, Distinct, Outline Outline Attached Attached -Granulation Amt Medium (34-66%) Medium (34-66%) -Granulation Quality [place] -Slough/Fibrin Yes Yes -Necrosis Amt Medium (34-66%) Medium (34-66%) -Necrotic Tissue Type Adherent Slough Adherent Slough -Structure Exposed N/A N/A -Texture (Sharmin-wound Skin Appearance) Assessed Assessed -Moisture (Sharmin-wound Skin Appearance) Weeping Dry/Scaly -Color (Sharmin-wound Skin Appearance) Assessed Assessed -Temperature (Sharmin-wound Skin No Abnormality No Abnormality Appearance) (Pt Warm) (Pt Warm) -Tenderness on Palpation (Sharmin-wound No No Skin Appearance) -Ulcer Cleansing Wound Cleanser Wound Cleanser -Foul Odor after Cleansing No No -Anesthetic Used 4% Lidocaine 5% Lidocaine Solution Gel #1 R Med Ankle -Combined with other wound No No -Current Size (cm) - Length 1 0.1 -Current Size (cm) - Width 2 0.1 -Current Size (cm) - Depth 0.1 0.1 -Total Square Cm 2 0.01 -Photo Taken Yes -Tunneling No No -Undermining/Tunneling No No -Circular Undermining No No -Exudate Amt Medium Small -Exudate Type Serosanguineous Serosanguineous -Wound Margin Distinct, Distinct, Outline Outline Attached Attached -Granulation Amt Medium (34-66%) Medium (34-66%) -Granulation Quality [place] -Slough/Fibrin Yes Yes -Necrosis Amt Medium (34-66%) Medium (34-66%) -Necrotic Tissue Type Adherent Slough Adherent Slough -Structure Exposed N/A N/A -Texture (Sharmin-wound Skin Appearance) Assessed Assessed -Moisture (Sharmin-wound Skin Appearance) Weeping Dry/Scaly -Color (Sharmin-wound Skin Appearance) Assessed Assessed -Temperature (Sharmin-wound Skin No Abnormality No Abnormality Appearance) (Pt Warm) (Pt Warm) -Tenderness on Palpation (Sharmin-wound No No Skin Appearance) -Ulcer Cleansing Wound Cleanser Wound Cleanser -Foul Odor after Cleansing No No -Anesthetic Used 4% Lidocaine 5% Lidocaine Solution Gel Lower Limb Edema Present Yes Yes Right Calf (cm) 38 Point of measurement (cm from the medial 41.5 instep) Right Ankle (cm) 23.5 Point of Measurement (cm from the medial 25.7 instep) Left Calf (cm) 35 35 Left Ankle (cm) 25.5 24.6 WC - Nurse 2 - General Ulcer CM Notes Start: 10/27/24 08:52 Freq: Status: Active Protocol: Activity Type Activity Date Activity User E-sign Co-sign Detail Recorded Client Recorded Date Recorded By Document 10/27/24 09:23 DS [id number] 10/27/24 09:25 DS 10/27/24 09:23 Wound Center Nurse 2 #6 L Met Head -Time 09:24 -Correct Patient Yes -Procedure Performed No -Wound/Ulcer Outcome Not Healed #5 right posterior ankle -Time 09:24 -Correct Patient Yes -Procedure Performed No -Wound/Ulcer Outcome Not Healed #4 Right dorsal foot -Time 09:24 -Correct Patient Yes -Procedure Performed No -Wound/Ulcer Outcome Not Healed #3 right anterior leg -Time 09:24 -Correct Patient Yes -Procedure Performed No -Wound/Ulcer Outcome Not Healed # 2 right lateral ankle cluster -Time 09:24 -Correct Patient Yes -Procedure Performed No -Wound/Ulcer Outcome Not Healed #1 R Med Ankle -Time 09:24 -Correct Patient Yes -Procedure Performed No -Wound/Ulcer Outcome Not Healed Pain Scale: 0-10 Numeric Is Patient Pain Free? Yes WC - Nurse 3 - General Ulcer D/C NN Start: 10/27/24 08:52 Freq: Status: Active Protocol: Activity Type Activity Date Activity User E-sign Co-sign Detail Recorded Client Recorded Date Recorded By Document 10/27/24 09:37 ML [id number] 10/27/24 09:48 ML 10/27/24 09:37 Wound Care Center Nurse 3 #6 L Met Head -Ulcer Cleansing Rinsed/ Irrigated with Saline -Other Dressing santyl -Primary Dressing Covered/Secured with Dry Gauze, Secured with Tape #5 right posterior ankle -Ulcer Cleansing Soap and Water -Promogran Carline Matter 1 #4 Right dorsal foot -Ulcer Cleansing Soap and Water -Other Dressing santyl -Primary Dressing Covered/Secured with Dry Gauze #3 right anterior leg -Ulcer Cleansing Rinsed/ Irrigated with Saline -Primary Dressing Applied Promogran Carline Matter -Primary Dressing Covered/Secured with Dry Gauze, Secured with Tape -Promogran Carline Matter 0 # 2 right lateral ankle cluster -Ulcer Cleansing Soap and Water -Primary Dressing Applied Promogran Carline Matter -Promogran Carline Matter 0 #1 R Med Ankle -Ulcer Cleansing Soap and Water -Primary Dressing Applied Promogran Carline Matter -Primary Dressing Covered/Secured with Dry Gauze, Secured with Tape -Promogran Carline Matter 0 Pain Scale: 0-10 Numeric Is Patient Pain Free? Yes Assessment/Plan Assessment/Plan (1) Other specified peripheral vascular diseases: CODE(S): I73.89 - Other specified peripheral vascular diseases PLAN: Exam performed. wounds improving today patient saw Dr. Beatty in June of 2024, noted if there is non-healing of wounds that patient would require fem-pop bypass - these notes were reviewed today patient is high risk for limb loss due to severe PAD and smoking history discussed smoking cessation no debridement due to patient refusal patient will perform daily santyl DSD and follow up in 3 weeks, if his wounds are worsened or unchanged will refer back to Dr. Beatty for bypass follow up in 3 weeks, observe for signs ofo infection/worsening - contact us or present to ED if this occurs (2) Non-pressure chronic ulcer of right calf with fat layer exposed: CODE(S): L97.212 - Non-pressure chronic ulcer of right calf with fat layer exposed (3) Non-pressure chronic ulcer of other part of right foot with fat layer exposed: CODE(S): L97.512 - Non-pressure chronic ulcer of other part of right foot with fat layer exposed (4) Non-pressure chronic ulcer of other part of left foot with fat layer exposed: CODE(S): L97.522 - Non-pressure chronic ulcer of other part of left foot with fat layer exposed
--- NOTE | 2024-11-05 09:43 | WC ---
PHOTO 11/03/24 LEFT MET HEAD
--- NOTE | 2024-11-05 09:48 | WC ---
PHOTO 11/03/24 RIGHT POST ANKLE
--- NOTE | 2024-11-05 09:52 | WC ---
PHOTO 11/03/24 RIGHT DORSAL FOOT
--- NOTE | 2024-11-05 09:58 | WC ---
PHOTO 11/03/24 RIGHT MED ANKLE
--- NOTE | 2024-11-05 10:02 | WC ---
PHOTO 11/03/24 RIGHT ANT LEG
== END 2024-11-23 23:59 | disposition home or self-care (01) ==
LOC: WC 08:30
PROVIDERS: PCP Internal Medicine; Referring Provider Internal Medicine; Visit Provider Podiatrist
DX: L97.512 Non-pressure chronic ulcer of other part of right foot with fat layer exposed (principal); L97.522 Non-pressure chronic ulcer of other part of left foot with fat layer exposed; L97.212 Non-pressure chronic ulcer of right calf with fat layer exposed; L03.115 Cellulitis of right lower limb; I73.89 Other specified peripheral vascular diseases; G89.29 Other chronic pain; F17.210 Nicotine dependence, cigarettes, uncomplicated; Z79.02 Long term (current) use of antithrombotics/antiplatelets; Z79.899 Other long term (current) drug therapy; Z95.820 Peripheral vascular angioplasty status with implants and grafts
CPT/HCPCS: 99213; 99214; G0463

== ENCOUNTER 2024-12-16 09:00 | Outpatient (RCR) | payer MEDICARE, SELFPAY ==
[2024-11-24 00:10] VITALS: BP 144/79; PULSE 106; RESP 18; TEMP 36.2; BMI 23.2
[2024-11-24 08:23] VITALS: BP 140/67; PULSE 80; RESP 18; TEMP 35.6; BMI 23.2
--- NOTE | 2024-11-24 09:58 | PCM.WC.PN ---
History of Present Illness Date of Service: 11/03/24 Chief Complaint: Right lower leg ulcers History of Wound: Chronic Right leg Ulceration in setting of PAD Progress of Wound: Patient presents today for ulcerations to his right leg with cellulitis to right lower extremity. Patient on oral antibiotics for right lower extremity cellulitis. Patient has history of peripheral arterial disease with ABIs 0.62 in May 2024. Patient reports that he had stents placed by Dr. Beatty in July 2024. Since that time patient has noted continued nonhealing to right lower extremity ulcerations with edema erythema and warmth to site. Patient denies any constitutional symptoms today. Patient's been dressing sites with Santyl. Patient's been using Tubigrip for compression. Patient has no other complaints. Objective Data Objective Data Vital Signs: Vital Signs Temp Pulse Resp BP O2 Del Method 96.0 F L 80 18 140/67 H Room Air 11/24/24 08:23 11/24/24 08:23 11/24/24 08:23 11/24/24 08:23 11/24/24 08:23 Oxygen Delivery Method Room Air Weight: 69.4 kg Body Mass Index (BMI) 23.2 Physical Exam Narrative Vascular: +2 pitting edema noted to right foot MARILYN malleoli region in the leg. Dorsalis pedis and posterior tibial pulses barely palpable to right foot. 2 out of 4 to left foot. Atrophic skin changes noted bilaterally. Neurologic: Light touch protective sensation intact to bilateral feet and legs. Dermatologic: Full-thickness ulceration noted to the dorsal lateral right foot. Dorsal medial first MPJ on the left foot. And scattered throughout the right lower extremity. These wounds demonstrate a nonviable fibrotic bed. Periwound erythema edema and warmth noted. Moderate serous drainage noted. Musculoskeletal: No pain with calf squeeze bilaterally. Muscular strength full to bilateral lower extremity compartments. Const alert and oriented x3 Debridement Note Debridement Note Post-Debridement Measurements and Additional Note: Post-Debridement Measurements/Treatment - Nurse 1 - General Ulcer Assessment Start: 11/24/24 08:23 Freq: Status: Active Protocol: ARIS.LOWEXT Activity Type Activity Date Activity User E-sign Co-sign Detail Recorded Client Recorded Date Recorded By Document 11/24/24 08:23 KW [id number] 11/24/24 08:31 KW 11/24/24 08:23 - Today's Visit Information Type of service Follow-up Visit (Physician/PROCESS CONTROL PROGRAMMER ) Arrival Mode Ambulatory Patient Identification Verified (Name & Yes ) Height and Weight Body Mass Index (BMI) 23.2 BMI Classification Normal Vital Signs Temperature (97.8 F-99.1 F) 96.0 F L Temperature Source Temporal Pulse Rate (60-100) 80 Pulse Location Monitor Respiratory Rate (12-18) 18 Respiratory rate source Ausculation Oxygen Delivery Method Room Air Blood Pressure (90/60-120/80) 140/67 H Blood Pressure Mean (mm Hg) 91 Source Monitor Position Semi-Fowlers Blood Pressure Location Left Arm History Since Last Visit- (Skip if this is Patient's initial visit) Have you changed medications since your No last visit? Any new allergies or adverse reactions No Had a fall/change in ADL's that may No increase risk of falls Signs or symptoms of abuse and/or No neglect since last visit Have you been in the hospital since your No last visit? Has dressing in place as prescribed Yes Has compression in place as prescribed Yes Has offloadiing in place as prescribed N/A Experienced any changes in pain level or No management Left Footwear Regular Shoe Right Footwear Regular Shoe Pain Scale: 0-10 Numeric Is Patient Pain Free? Yes WC - Nurse 1 - General Ulcer Measurement Start: 11/24/24 08:23 Freq: Status: Active Protocol: Activity Type Activity Date Activity User E-sign Co-sign Detail Recorded Client Recorded Date Recorded By Document 11/24/24 08:23 KW [id number] 11/24/24 08:31 KW 11/24/24 08:23 Wound Center Nurse 1 #6 L Met Head -Current Size (cm) - Length 0.1 -Current Size (cm) - Width 0.1 -Current Size (cm) - Depth 0.1 -Total Square Cm 0.01 -Date of Last Picture (Recall this 11/24/24 field) -Wound Margin Distinct, Outline Attached -Texture (Marilyn-wound Skin Appearance) Assessed -Moisture (Marilyn-wound Skin Appearance) Assessed -Color (Marilyn-wound Skin Appearance) Assessed -Temperature (Marilyn-wound Skin No Abnormality Appearance) (Pt Warm) -Tenderness on Palpation (Marilyn-wound No Skin Appearance) -Ulcer Cleansing Soap and Water -Foul Odor after Cleansing No #5 right posterior ankle -Current Size (cm) - Length 0.1 -Current Size (cm) - Width 0.1 -Current Size (cm) - Depth 0.1 -Total Square Cm 0.01 -Date of Last Picture (Recall this 11/24/24 field) -Wound Margin Distinct, Outline Attached -Texture (Marilyn-wound Skin Appearance) Assessed -Moisture (Marilyn-wound Skin Appearance) Assessed -Color (Marilyn-wound Skin Appearance) Assessed -Temperature (Marilyn-wound Skin No Abnormality Appearance) (Pt Warm) -Tenderness on Palpation (Marilyn-wound Yes Skin Appearance) -Ulcer Cleansing Soap and Water -Anesthetic Used 5% Lidocaine Gel #4 Right dorsal foot -Current Size (cm) - Length 1.4 -Current Size (cm) - Width 0.8 -Current Size (cm) - Depth 0.2 -Total Square Cm 1.12 -Exudate Amt Small -Exudate Type Serosanguineous -Wound Margin Distinct, Outline Attached -Granulation Amt Small (1-33%) -Granulation Quality [place] -Necrosis Amt Large (67-100%) -Necrotic Tissue Type Adherent Slough -Texture (Marilyn-wound Skin Appearance) Assessed -Moisture (Marilyn-wound Skin Appearance) Assessed -Color (Marilyn-wound Skin Appearance) Assessed -Temperature (Marilyn-wound Skin No Abnormality Appearance) (Pt Warm) -Tenderness on Palpation (Marilyn-wound No Skin Appearance) -Ulcer Cleansing Soap and Water -Foul Odor after Cleansing No -Anesthetic Used 5% Lidocaine Gel #3 right anterior leg -Current Size (cm) - Length 0.1 -Current Size (cm) - Width 0.1 -Current Size (cm) - Depth 0.1 -Total Square Cm 0.01 -Date of Last Picture (Recall this 11/24/24 field) -Wound Margin Distinct, Outline Attached -Necrosis Amt Large (67-100%) -Necrotic Tissue Type Adherent Slough -Texture (Marilyn-wound Skin Appearance) Assessed -Moisture (Marilyn-wound Skin Appearance) Assessed -Color (Marilyn-wound Skin Appearance) Assessed -Temperature (Marilyn-wound Skin No Abnormality Appearance) (Pt Warm) -Tenderness on Palpation (Marilyn-wound No Skin Appearance) -Ulcer Cleansing Soap and Water -Foul Odor after Cleansing No -Anesthetic Used 5% Lidocaine Gel # 2 right lateral ankle cluster -Current Size (cm) - Length 1.2 -Current Size (cm) - Width 0.8 -Current Size (cm) - Depth 0.2 -Total Square Cm 0.96 -Exudate Amt Small -Exudate Type Serosanguineous -Wound Margin Distinct, Outline Attached -Granulation Amt Small (1-33%) -Granulation Quality [place] -Necrosis Amt Large (67-100%) -Necrotic Tissue Type Adherent Slough -Texture (Marilyn-wound Skin Appearance) Assessed -Moisture (Marilyn-wound Skin Appearance) Assessed -Color (Marilyn-wound Skin Appearance) Assessed, Erythema -Temperature (Marilyn-wound Skin No Abnormality Appearance) (Pt Warm) -Tenderness on Palpation (Marilyn-wound No Skin Appearance) -Ulcer Cleansing Soap and Water -Foul Odor after Cleansing No -Anesthetic Used 5% Lidocaine Gel #1 R Med Ankle -Current Size (cm) - Length 0.1 -Current Size (cm) - Width 0.1 -Current Size (cm) - Depth 0 -Total Square Cm 0.01 -Date of Last Picture (Recall this 11/24/24 field) -Exudate Amt None Present -Texture (Marilyn-wound Skin Appearance) Assessed -Moisture (Marilyn-wound Skin Appearance) Assessed -Color (Marilyn-wound Skin Appearance) Assessed -Temperature (Marilyn-wound Skin No Abnormality Appearance) (Pt Warm) -Tenderness on Palpation (Marilyn-wound No Skin Appearance) -Ulcer Cleansing Rinsed/ Irrigated with Saline -Foul Odor after Cleansing No WC - Nurse 2 - General Ulcer CM Notes Start: 11/24/24 08:23 Freq: Status: Active Protocol: Activity Type Activity Date Activity User E-sign Co-sign Detail Recorded Client Recorded Date Recorded By Document 11/24/24 09:00 DS [id number] 11/24/24 09:03 DS 11/24/24 09:00 Wound Center Nurse 2 #6 L Met Head -Time 09:00 -Correct Patient Yes -Procedure Performed No -Wound/Ulcer Outcome Not Healed #5 right posterior ankle -Time 09:00 -Correct Patient Yes -Procedure Performed No -Wound/Ulcer Outcome Not Healed #4 Right dorsal foot -Time 09:00 -Correct Patient Yes -Procedure Performed No -Wound/Ulcer Outcome Not Healed #3 right anterior leg -Time 09:00 -Correct Patient Yes -Procedure Performed No -Wound/Ulcer Outcome Not Healed # 2 right lateral ankle cluster -Time 09:01 -Correct Patient Yes -Procedure Performed No -Wound/Ulcer Outcome Not Healed #1 R Med Ankle -Time 09:01 -Correct Patient Yes -Procedure Performed No -Wound/Ulcer Outcome Not Healed Pain Scale: 0-10 Numeric Is Patient Pain Free? Yes WC - Nurse 3 - General Ulcer D/C NN Start: 11/24/24 08:23 Freq: Status: Active Protocol: Activity Type Activity Date Activity User E-sign Co-sign Detail Recorded Client Recorded Date Recorded By Document 11/24/24 09:15 RB [id number] 11/24/24 09:17 RB 11/24/24 09:15 Wound Care Center Nurse 3 #6 L Met Head -Ulcer Cleansing Rinsed/ Irrigated with Saline -Other Dressing santyl to all ulcers -Primary Dressing Covered/Secured with Dry Gauze & Roll Gauze, Secured with Tape #5 right posterior ankle -Other Dressing santyl -Primary Dressing Covered/Secured with Dry Gauze & Roll Gauze, Secured with Tape #4 Right dorsal foot -Other Dressing santyl -Primary Dressing Covered/Secured with Dry Gauze & Roll Gauze, Secured with Tape #3 right anterior leg -Other Dressing santyl -Primary Dressing Covered/Secured with Dry Gauze & Roll Gauze, Secured with Tape # 2 right lateral ankle cluster -Other Dressing santyl -Primary Dressing Covered/Secured with Dry Gauze & Roll Gauze, Secured with Tape #1 R Med Ankle -Other Dressing santyl -Primary Dressing Covered/Secured with Dry Gauze & Roll Gauze, Secured with Tape BLE -Stockings Yes: pt own Treatment Response Procedure Tolerated Well Pain Scale: 0-10 Numeric Is Patient Pain Free? No RLE -Description Aching -Intensity 3 -Duration (hours) Acute -Pain Behavior Withdrawal from Touch -Pain Aggravating Factors Exercise/ Activity -Alleviating Factors/Interventions None WC - Visit Discharge Discharge Condition Stable Ambulatory Status Ambulatory Transportation Private Auto Medication Reconcilliation completed & No provided to patient/care provider Clinical Summary of Care Provided Yes Assessment/Plan Assessment/Plan (1) Other specified peripheral vascular diseases: CODE(S): I73.89 - Other specified peripheral vascular diseases PLAN: Exam performed. wounds improving today patient saw Dr. Beatty in June of 2024, noted if there is non-healing of wounds that patient would require fem-pop bypass - these notes were reviewed today patient is high risk for limb loss due to severe PAD and smoking history discussed smoking cessation no debridement due to patient refusal patient will perform daily santyl DSD and follow up in 3 weeks, if his wounds are worsened or unchanged will refer back to Dr. Beatty for bypass follow up in 3 weeks, observe for signs ofo infection/worsening - contact us or present to ED if this occurs Patient's been debriding right lower extremity ulcer debridement due to pain. I have concern that underlying ulcer etiology is from arterial disease. Patient has unspecified intervention from July 2024. Previous arterial studies and May 2024 demonstrate ABIs of the right lower extremity to be 0.62. I have reordered arterial studies to determine definitive arterial status. Patient will follow-up in 3 weeks if at that time his wounds are not improved with Santyl dressings will consider local anesthesia and debridement at that time. Patient seemed agreeable with that. (2) Non-pressure chronic ulcer of right calf with fat layer exposed: CODE(S): L97.212 - Non-pressure chronic ulcer of right calf with fat layer exposed (3) Non-pressure chronic ulcer of other part of right foot with fat layer exposed: CODE(S): L97.512 - Non-pressure chronic ulcer of other part of right foot with fat layer exposed (4) Non-pressure chronic ulcer of other part of left foot with fat layer exposed: CODE(S): L97.522 - Non-pressure chronic ulcer of other part of left foot with fat layer exposed
--- NOTE | 2024-11-25 11:23 | WC ---
PHOTO 11/24/24 LEFT MET HEAD
--- NOTE | 2024-11-25 11:37 | WC ---
PHOTO 11/24/24 RIGHT DORSAL
--- NOTE | 2024-11-25 11:59 | WC ---
PHOTO 11/24/24 RIGHT ANT. LEG
--- NOTE | 2024-11-25 12:01 | WC ---
PHOTO 11/24/24 RIGHT MET CORRALES
--- NOTE | 2024-11-25 12:06 | WC ---
PHOTO 11/24/24 RIGHT LATERAL ANKLE CLUSTER
--- NOTE | 2024-11-25 12:07 | WC ---
PHOTO 11/24/24 RIGHT POST ANKLE
[2024-12-02 12:48] VITALS: BP 161/76; PULSE 89; RESP 18; TEMP 36.3; BMI 23.2
--- NOTE | 2024-12-02 14:27 | PN.PCM_ITS ---
History of Present Illness Date of Service: 12/02/24 Chief Complaint: Chronic Right leg Ulceration in setting of PAD History of Wound: Patient presents today for ulcerations to his right leg with cellulitis to right lower extremity. Patient on oral antibiotics for right lower extremity cellulitis. Patient has history of peripheral arterial disease with ABIs 0.62 in May 2024. Patient reports that he had stents placed by Dr. Beatty in July 2024. Since that time patient has noted continued nonhealing to right lower extremity ulcerations with edema erythema and warmth to site. Patient denies any constitutional symptoms today. Patient's been dressing sites with Santyl. Patient's been using Tubigrip for compression. Patient has no other complaints. Progress of Wound: Patient last saw Dr. Castillo November 24, 2024. Patient comes in today with concern for infection in his right foot. He states that his right foot was very swollen yesterday and his toes were red. He states that his foot looks much better today. He continues to have painful ulcers on his right dorsal foot, right medial ankle, right lateral ankle and right posterior ankle. Dr. Castillo ordered arterial studies but the patient states he doesn't want to do them until his wounds are healed. He states that he has only been placing Santyl on the right dorsal foot and antibiotic ointment on the other ulcers. He does wear his tubigrip on his right leg and he states that he sleeps in a bed. Today his foot has +1 edema. His toes are pink, warm, capillary refill <3 seconds. Right pedal pulse +1 palp. Foot is warm and pink. No clinical signs of infection. His right lateral ankle ulcer cluster are now a single ulcer. The right posterior ulcer is smaller in size. Objective Data Objective Data Vital Signs: Vital Signs Temp Pulse Resp BP O2 Del Method 97.4 F L 89 18 161/76 H Room Air 12/02/24 12:48 12/02/24 12:48 12/02/24 12:48 12/02/24 12:48 12/02/24 12:48 Oxygen Delivery Method Room Air Weight: 153 lb Body Mass Index (BMI) 23.2 Charges/Coding Procedures Integumentary [id number]: [id number] Beba subq tissue 20 sq cm/< Debridement Note Debridement Note Wound debrided: Dorsal foot, medial ankle, lateral ankle, posterior ankle Laterality: Right Wound Grade/Stage: Stage III Type of Debridement: Excisional debridement Anesthesia Used: 5% Lidocaine Gel Depth: Down to and including healthy tissue and in the subcutaneous layer Percentage of wound debrided: 100 Instrument Used: 5mm curette Tissue Removed: Non viable tissue and slough Severity: Fat Layer Exposed Amount of bleeding with debridement: None Bleeding Controlled with: Compression and gauze Patient tolerated procedure: Patient tolerated procedure well Debridement Free Text: Light debridement to remove non viable tissue/slough. Post-Debridement Measurements and Additional Note: Post-Debridement Measurements/Treatment - Nurse 1 - General Ulcer Assessment Start: 11/24/24 08:23 Freq: Status: Active Protocol: [employer] Activity Type Activity Date Activity User E-sign Co-sign Detail Recorded Client Recorded Date Recorded By Document 11/24/24 08:23 KW [id number] 11/24/24 08:31 KW Document 12/02/24 12:48 KW [id number] 12/02/24 13:06 KW 11/24/24 12/02/24 08:23 12:48 - Today's Visit Information Type of service Follow-up Visit Follow-up Visit (Physician/HOME INSPECTOR (Physician/HOME INSPECTOR ) ) Arrival Mode Ambulatory Ambulatory Patient Identification Verified (Name & Yes Yes ) Height and Weight Body Mass Index (BMI) 23.2 23.2 BMI Classification Normal Normal Vital Signs Temperature (97.8 F-99.1 F) 96.0 F L 97.4 F L Temperature Source Temporal Temporal Pulse Rate (60-100) 80 89 Pulse Location Monitor Monitor Respiratory Rate (12-18) 18 18 Respiratory rate source Ausculation Observation Oxygen Delivery Method Room Air Room Air Blood Pressure (90/60-120/80) 140/67 H 161/76 H Blood Pressure Mean (mm Hg) 91 104 Source Monitor Monitor Position Semi-Fowlers Semi-Fowlers Blood Pressure Location Left Arm Left Arm History Since Last Visit- (Skip if this is Patient's initial visit) Have you changed medications since your No No last visit? Any new allergies or adverse reactions No No Had a fall/change in ADL's that may No No increase risk of falls Signs or symptoms of abuse and/or No No neglect since last visit Have you been in the hospital since your No No last visit? Has dressing in place as prescribed Yes Yes Has compression in place as prescribed Yes No Has offloadiing in place as prescribed N/A N/A Experienced any changes in pain level or No No management Left Footwear Regular Shoe Regular Shoe Right Footwear Regular Shoe Regular Shoe Pain Scale: 0-10 Numeric Is Patient Pain Free? Yes Yes WC - Nurse 1 - General Ulcer Measurement Start: 11/24/24 08:23 Freq: Status: Active Protocol: Activity Type Activity Date Activity User E-sign Co-sign Detail Recorded Client Recorded Date Recorded By Document 11/24/24 08:23 KW [id number] 11/24/24 08:31 KW Document 12/02/24 12:48 KW [id number] 12/02/24 13:06 KW 11/24/24 12/02/24 08:23 12:48 Wound Center Nurse 1 #6 L Met Head -Current Size (cm) - Length 0.1 -Current Size (cm) - Width 0.1 -Current Size (cm) - Depth 0.1 -Total Square Cm 0.01 -Date of Last Picture (Recall this 11/24/24 field) -Wound Margin Distinct, Outline Attached -Texture (Sharmin-wound Skin Appearance) Assessed -Moisture (Sharmin-wound Skin Appearance) Assessed -Color (Sharmin-wound Skin Appearance) Assessed -Temperature (Sharmin-wound Skin No Abnormality Appearance) (Pt Warm) -Tenderness on Palpation (Sharmin-wound No Skin Appearance) -Ulcer Cleansing Soap and Water -Foul Odor after Cleansing No #5 right posterior ankle -Current Size (cm) - Length 0.1 1 -Current Size (cm) - Width 0.1 0.4 -Current Size (cm) - Depth 0.1 0.1 -Total Square Cm 0.01 0.4 -Date of Last Picture (Recall this 11/24/24 12/02/24 field) -Exudate Amt Small -Exudate Type Serosanguineous -Wound Margin Distinct, Distinct, Outline Outline Attached Attached -Granulation Amt Small (1-33%) -Granulation Quality [place] -Necrosis Amt Large (67-100%) -Necrotic Tissue Type Adherent Slough -Texture (Sharmin-wound Skin Appearance) Assessed Assessed -Moisture (Sharmin-wound Skin Appearance) Assessed Assessed -Color (Sharmin-wound Skin Appearance) Assessed Assessed, Hemosiderin Staining -Temperature (Sharmin-wound Skin No Abnormality No Abnormality Appearance) (Pt Warm) (Pt Warm) -Tenderness on Palpation (Sharmin-wound Yes No Skin Appearance) -Ulcer Cleansing Soap and Water Soap and Water -Foul Odor after Cleansing No -Anesthetic Used 5% Lidocaine 5% Lidocaine Gel Gel #4 Right dorsal foot -Current Size (cm) - Length 1.4 1.1 -Current Size (cm) - Width 0.8 0.7 -Current Size (cm) - Depth 0.2 0.3 -Total Square Cm 1.12 0.77 -Date of Last Picture (Recall this 12/02/24 field) -Exudate Amt Small Small -Exudate Type Serosanguineous Serosanguineous -Wound Margin Distinct, Thickened Outline Attached -Granulation Amt Small (1-33%) None Present (0 %) -Granulation Quality [place] -Necrosis Amt Large (67-100%) Large (67-100%) -Necrotic Tissue Type Adherent Slough Adherent Slough -Texture (Sharmin-wound Skin Appearance) Assessed Assessed -Moisture (Sharmin-wound Skin Appearance) Assessed Assessed -Color (Sharmin-wound Skin Appearance) Assessed Assessed, Erythema -Temperature (Sharmin-wound Skin No Abnormality No Abnormality Appearance) (Pt Warm) (Pt Warm) -Tenderness on Palpation (Sharmin-wound No No Skin Appearance) -Ulcer Cleansing Soap and Water Soap and Water -Foul Odor after Cleansing No No -Anesthetic Used 5% Lidocaine 5% Lidocaine Gel Gel #3 right anterior leg -Current Size (cm) - Length 0.1 0.5 -Current Size (cm) - Width 0.1 0.5 -Current Size (cm) - Depth 0.1 0.1 -Total Square Cm 0.01 0.25 -Date of Last Picture (Recall this 11/24/24 12/02/24 field) -Exudate Amt Small -Exudate Type Serosanguineous -Wound Margin Distinct, Distinct, Outline Outline Attached Attached -Granulation Amt None Present (0 %) -Necrosis Amt Large (67-100%) Large (67-100%) -Necrotic Tissue Type Adherent Slough Adherent Slough -Texture (Sharmin-wound Skin Appearance) Assessed Assessed -Moisture (Sharmin-wound Skin Appearance) Assessed Assessed, Weeping -Color (Sharmin-wound Skin Appearance) Assessed Assessed, Erythema, Hemosiderin Staining -Temperature (Sharmin-wound Skin No Abnormality No Abnormality Appearance) (Pt Warm) (Pt Warm) -Tenderness on Palpation (Sharmin-wound No Skin Appearance) -Ulcer Cleansing Soap and Water Soap and Water -Foul Odor after Cleansing No No -Anesthetic Used 5% Lidocaine 5% Lidocaine Gel Gel # 2 right lateral ankle cluster -Current Size (cm) - Length 1.2 0.7 -Current Size (cm) - Width 0.8 0.5 -Current Size (cm) - Depth 0.2 0.1 -Total Square Cm 0.96 0.35 -Date of Last Picture (Recall this 12/02/24 field) -Exudate Amt Small Small -Exudate Type Serosanguineous Serosanguineous -Wound Margin Distinct, Thickened Outline Attached -Granulation Amt Small (1-33%) None Present (0 %) -Granulation Quality [place] -Necrosis Amt Large (67-100%) Large (67-100%) -Necrotic Tissue Type Adherent Slough Adherent Slough -Texture (Sharmin-wound Skin Appearance) Assessed Assessed -Moisture (Sharmin-wound Skin Appearance) Assessed Assessed -Color (Sharmin-wound Skin Appearance) Assessed, Assessed, Erythema Erythema, Hemosiderin Staining -Temperature (Sharmin-wound Skin No Abnormality No Abnormality Appearance) (Pt Warm) (Pt Warm) -Tenderness on Palpation (Sharmin-wound No No Skin Appearance) -Ulcer Cleansing Soap and Water Soap and Water -Foul Odor after Cleansing No No -Anesthetic Used 5% Lidocaine 5% Lidocaine Gel Gel #1 R Med Ankle -Current Size (cm) - Length 0.1 0.5 -Current Size (cm) - Width 0.1 0.3 -Current Size (cm) - Depth 0 0 -Total Square Cm 0.01 0.15 -Date of Last Picture (Recall this 11/24/24 12/02/24 field) -Exudate Amt None Present None Present -Granulation Amt None Present (0 %) -Necrosis Amt Large (67-100%) -Necrotic Tissue Type Adherent Slough -Texture (Sharmin-wound Skin Appearance) Assessed Assessed -Moisture (Sharmin-wound Skin Appearance) Assessed Assessed -Color (Sharmin-wound Skin Appearance) Assessed Assessed -Temperature (Sharmin-wound Skin No Abnormality No Abnormality Appearance) (Pt Warm) (Pt Warm) -Tenderness on Palpation (Sharmin-wound No No Skin Appearance) -Ulcer Cleansing Rinsed/ Soap and Water Irrigated with Saline -Foul Odor after Cleansing No No -Anesthetic Used 5% Lidocaine Gel Right Calf (cm) 39 Right Ankle (cm) 24.3 WC - Nurse 2 - General Ulcer CM Notes Start: 11/24/24 08:23 Freq: Status: Active Protocol: Activity Type Activity Date Activity User E-sign Co-sign Detail Recorded Client Recorded Date Recorded By Document 11/24/24 09:00 DS [id number] 11/24/24 09:03 DS Document 12/02/24 13:39 GM [id number] 12/02/24 13:49 GM 11/24/24 12/02/24 09:00 13:39 Wound Center Nurse 2 #6 L Met Head -Time 09:00 13:39 -Correct Patient Yes Yes -Correct Side, Site, Position Yes -Procedure Performed No -Wound/Ulcer Outcome Not Healed #5 right posterior ankle -Time 09:00 13:39 -Correct Patient Yes Yes -Correct Side, Site, Position Yes -Correct Procedure Yes -Procedure Performed No Yes -Type of Procedure Debridement -Clinical Debridement Subcutaneous -Tissue Removed Subcutaneous -Post Debridement (cm) - Length 0.9 -Post Debridement (cm) - Width 0.3 -Post Debridement (cm) - Depth 0.1 -Total Square (Post) (cm) 0.27 -Area of Debridement (cm) - Length 0.9 -Area of Debridement (cm) - Width 0.3 -Total Square (Area) (cm) 0.27 -Tunneling No -Undermining/Tunneling No -Circular Undermining No -Wound/Ulcer Outcome Not Healed Not Healed -Ulcer Cleansing Rinsed/ Irrigated with Saline -Foul Odor after Cleansing No -Bioengineered Tissue No -Bleeding Controlled with Pressure -Treatment Response Procedure Tolerated Well -Debridement - Subq, 1st 20sq cm No #4 Right dorsal foot -Time 09:00 13:39 -Correct Patient Yes Yes -Correct Side, Site, Position Yes -Correct Procedure Yes -Procedure Performed No Yes -Type of Procedure Debridement -Clinical Debridement Subcutaneous -Tissue Removed Subcutaneous -Post Debridement (cm) - Length 1.3 -Post Debridement (cm) - Width 1.0 -Post Debridement (cm) - Depth 0.3 -Total Square (Post) (cm) 1.30 -Area of Debridement (cm) - Length 1.3 -Area of Debridement (cm) - Width 1.0 -Total Square (Area) (cm) 1.30 -Tunneling No -Undermining/Tunneling No -Circular Undermining No -Wound/Ulcer Outcome Not Healed Not Healed -Ulcer Cleansing Rinsed/ Irrigated with Saline -Foul Odor after Cleansing No -Bioengineered Tissue No -Bleeding Controlled with Pressure -Treatment Response Procedure Tolerated Well -Debridement - Subq, 1st 20sq cm No #3 right anterior leg -Time 09:00 13:39 -Correct Patient Yes Yes -Correct Side, Site, Position Yes -Correct Procedure Yes -Procedure Performed No Yes -Type of Procedure Debridement -Clinical Debridement Subcutaneous -Tissue Removed Subcutaneous -Post Debridement (cm) - Length 0.7 -Post Debridement (cm) - Width 0.6 -Post Debridement (cm) - Depth 0.1 -Total Square (Post) (cm) 0.42 -Area of Debridement (cm) - Length 0.7 -Area of Debridement (cm) - Width 0.6 -Total Square (Area) (cm) 0.42 -Tunneling No -Undermining/Tunneling No -Circular Undermining No -Wound/Ulcer Outcome Not Healed Not Healed -Ulcer Cleansing Rinsed/ Irrigated with Saline -Foul Odor after Cleansing No -Bioengineered Tissue No -Bleeding Controlled with Pressure -Treatment Response Procedure Tolerated Well -Debridement - Subq, 1st 20sq cm No # 2 right lateral ankle cluster -Time 09:01 13:39 -Correct Patient Yes Yes -Correct Side, Site, Position Yes -Correct Procedure Yes -Procedure Performed No Yes -Type of Procedure Debridement -Clinical Debridement Subcutaneous -Tissue Removed Subcutaneous -Post Debridement (cm) - Length 1.0 -Post Debridement (cm) - Width 0.7 -Post Debridement (cm) - Depth 0.1 -Total Square (Post) (cm) 0.70 -Area of Debridement (cm) - Length 1.0 -Area of Debridement (cm) - Width 0.7 -Total Square (Area) (cm) 0.70 -Tunneling No -Undermining/Tunneling No -Circular Undermining No -Wound/Ulcer Outcome Not Healed Not Healed -Ulcer Cleansing Rinsed/ Irrigated with Saline -Foul Odor after Cleansing No -Bioengineered Tissue No -Bleeding Controlled with Pressure -Treatment Response Procedure Tolerated Well -Debridement - Subq, 1st 20sq cm Yes #1 R Med Ankle -Time 09:01 13:40 -Correct Patient Yes Yes -Correct Side, Site, Position Yes -Correct Procedure Yes -Procedure Performed No Yes -Type of Procedure Debridement -Clinical Debridement Subcutaneous -Tissue Removed Subcutaneous -Post Debridement (cm) - Length 0.5 -Post Debridement (cm) - Width 0.5 -Post Debridement (cm) - Depth 0.1 -Total Square (Post) (cm) 0.25 -Area of Debridement (cm) - Length 0.5 -Area of Debridement (cm) - Width 0.5 -Total Square (Area) (cm) 0.25 -Tunneling No -Undermining/Tunneling No -Circular Undermining No -Wound/Ulcer Outcome Not Healed Not Healed -Ulcer Cleansing Rinsed/ Irrigated with Saline -Foul Odor after Cleansing No -Bioengineered Tissue No -Bleeding Controlled with Pressure -Treatment Response Procedure Tolerated Well -Debridement - Subq, 1st 20sq cm Yes -Debridement - Muscle / Fascia, 1st No 20sq cm -Debridement - Bone, 1st 20sq cm No Pain Scale: 0-10 Numeric Is Patient Pain Free? Yes Yes WC - Nurse 3 - General Ulcer D/C NN Start: 11/24/24 08:23 Freq: Status: Active Protocol: Activity Type Activity Date Activity User E-sign Co-sign Detail Recorded Client Recorded Date Recorded By Document 11/24/24 09:15 RB [id number] 11/24/24 09:17 RB 11/24/24 09:15 Wound Care Center Nurse 3 #6 L Met Head -Ulcer Cleansing Rinsed/ Irrigated with Saline -Other Dressing santyl to all ulcers -Primary Dressing Covered/Secured with Dry Gauze & Roll Gauze, Secured with Tape #5 right posterior ankle -Other Dressing santyl -Primary Dressing Covered/Secured with Dry Gauze & Roll Gauze, Secured with Tape #4 Right dorsal foot -Other Dressing santyl -Primary Dressing Covered/Secured with Dry Gauze & Roll Gauze, Secured with Tape #3 right anterior leg -Other Dressing santyl -Primary Dressing Covered/Secured with Dry Gauze & Roll Gauze, Secured with Tape # 2 right lateral ankle cluster -Other Dressing santyl -Primary Dressing Covered/Secured with Dry Gauze & Roll Gauze, Secured with Tape #1 R Med Ankle -Other Dressing santyl -Primary Dressing Covered/Secured with Dry Gauze & Roll Gauze, Secured with Tape BLE -Stockings Yes: pt own Treatment Response Procedure Tolerated Well Pain Scale: 0-10 Numeric Is Patient Pain Free? No RLE -Description Aching -Intensity 3 -Duration (hours) Acute -Pain Behavior Withdrawal from Touch -Pain Aggravating Factors Exercise/ Activity -Alleviating Factors/Interventions None WC - Visit Discharge Discharge Condition Stable Ambulatory Status Ambulatory Transportation Private Auto Medication Reconcilliation completed & No provided to patient/care provider Clinical Summary of Care Provided Yes Assessment/Plan Assessment/Plan (1) Other specified peripheral vascular diseases: CODE(S): I73.89 - Other specified peripheral vascular diseases (2) Non-pressure chronic ulcer of right calf with fat layer exposed: CODE(S): L97.212 - Non-pressure chronic ulcer of right calf with fat layer exposed (3) Non-pressure chronic ulcer of other part of right foot with fat layer exposed: CODE(S): L97.512 - Non-pressure chronic ulcer of other part of right foot with fat layer exposed (4) Non-pressure chronic ulcer of other part of left foot with fat layer exposed: CODE(S): L97.522 - Non-pressure chronic ulcer of other part of left foot with fat layer exposed PLAN: Plan Patient evaluated at the wound healing center today. He clinically does not look like he has an infection. No need for antibiotics. Light debridement to remove the non viable tissue/slough covering ulcers. patient saw Dr. Beatty in June of 2024, noted if there is non-healing of wounds that patient would require fem-pop bypass - these notes were reviewed today patient is high risk for limb loss due to severe PAD and smoking history discussed smoking cessation Encouraged him to elevate his legs when sitting to prevent swelling. patient will perform daily santyl DSD and follow up with Dr. Castillo for his next visit that is already scheduled. Call or come in sooner or go to ED if develop signs of infection. If his wounds are worsened or unchanged will refer back to Dr. Beatty for bypass Dr Castillo's last noted stated concern that underlying ulcer etiology is from arterial disease. Patient has unspecified intervention from July 2024. Previous arterial studies and May 2024 demonstrate ABIs of the right lower extremity to be 0.62. He reordered arterial studies to determine definitive arterial status. Patient has not had his arterial studies because he was waiting for his ulcer to heal first. I explained that if he has arterial disease, they may not heal and that is why we need the studies done to evaluate his arterial status. Patient verbalized understanding and is now willing to have arterial studies scheduled.
--- NOTE | 2024-12-02 15:48 | WC ---
Lucie Ramirez LAYOUT DESIGNER transfers care of this patient over to Dr. Castillo as of 12/02/24
--- NOTE | 2024-12-03 11:08 | WC ---
PHOTO 12/02/24 RIGHT ANT LEG
--- NOTE | 2024-12-03 11:09 | WC ---
PHOTO 12/02/24 RIGHT DORSAL FOOT
--- NOTE | 2024-12-03 11:09 | WC ---
PHOTO 12/02/24 RIGHT LATERAL ANKLE
--- NOTE | 2024-12-03 11:10 | WC ---
PHOTO 12/02/24 RIGHT [facility] ANKLE
--- NOTE | 2024-12-03 11:10 | WC ---
PHOTO 12/02/24 RIGHT POST ANKLE
[2024-12-15 08:38] VITALS: BP 141/69; PULSE 81; RESP 18; TEMP 35.8; BMI 23.2
--- NOTE | 2024-12-15 10:31 | PN.PCM_ITS ---
History of Present Illness Date of Service: 12/15/24 Chief Complaint: Chronic Right leg Ulceration in setting of PAD History of Wound: Patient presents today for ulcerations to his right leg with cellulitis to right lower extremity. Patient on oral antibiotics for right lower extremity cellulitis. Patient has history of peripheral arterial disease with ABIs 0.62 in May 2024. Patient reports that he had stents placed by Dr. Beatty in July 2024. Since that time patient has noted continued nonhealing to right lower extremity ulcerations with edema erythema and warmth to site. Patient denies any constitutional symptoms today. Patient's been dressing sites with Santyl. Patient's been using Tubigrip for compression. Patient has no other complaints. Progress of Wound: Patient last saw Dr. Castillo November 24, 2024. Patient comes in today with concern for infection in his right foot. He states that his right foot was very swollen yesterday and his toes were red. He states that his foot looks much better today. He continues to have painful ulcers on his right dorsal foot, right medial ankle, right lateral ankle and right posterior ankle. Dr. Castillo ordered arterial studies but the patient states he doesn't want to do them until his wounds are healed. He states that he has only been placing Santyl on the right dorsal foot and antibiotic ointment on the other ulcers. He does wear his tubigrip on his right leg and he states that he sleeps in a bed. Today his foot has +1 edema. His toes are pink, warm, capillary refill <3 seconds. Right pedal pulse +1 palp. Foot is warm and pink. No clinical signs of infection. His right lateral ankle ulcer cluster are now a single ulcer. The right posterior ulcer is smaller in size. Objective Data Objective Data Vital Signs: Vital Signs Temp Pulse Resp BP O2 Del Method 96.4 F L 81 18 141/69 H Room Air 12/15/24 08:38 12/15/24 08:38 12/15/24 08:38 12/15/24 08:38 12/02/24 12:48 Oxygen Delivery Method Room Air Weight: 69.4 kg Body Mass Index (BMI) 23.2 Physical Exam Narrative Vascular: +2 pitting edema noted to right foot MARILYN malleoli region in the leg. Dorsalis pedis and posterior tibial pulses barely palpable to right foot. 2 out of 4 to left foot. Atrophic skin changes noted bilaterally. Neurologic: Light touch protective sensation intact to bilateral feet and legs. Dermatologic: Full-thickness ulceration noted to the dorsal lateral right foot. Dorsal medial first MPJ on the left foot. And scattered throughout the right lower extremity. These wounds demonstrate a nonviable fibrotic bed. Periwound erythema edema and warmth noted. Moderate serous drainage noted. Musculoskeletal: No pain with calf squeeze bilaterally. Muscular strength full to bilateral lower extremity compartments. Const alert and oriented x3 Debridement Note Debridement Note Post-Debridement Measurements and Additional Note: Post-Debridement Measurements/Treatment - Nurse 1 - General Ulcer Assessment Start: 11/24/24 08:23 Freq: Status: Active Protocol: .[facility]osse[facility]AS Activity Type Activity Date Activity User E-sign Co-sign Detail Recorded Client Recorded Date Recorded By Document 11/24/24 08:23 KW [id number] 11/24/24 08:31 KW Document 12/02/24 12:48 KW [id number] 12/02/24 13:06 KW Document 12/15/24 08:38 RB [id number] 12/15/24 08:47 RB 11/24/24 12/02/24 12/15/24 08:23 12:48 08:38 - Today's Visit Information Type of service Follow-up Visit Follow-up Visit Follow-up Visit (Physician/ELECTRONIC PREPRESS OPERATOR (Physician/ELECTRONIC PREPRESS OPERATOR (Physician/ELECTRONIC PREPRESS OPERATOR ) ) ) Arrival Mode Ambulatory Ambulatory Ambulatory Transfer Assistance None Patient Identification Verified (Name & Yes Yes Yes ) Patient Requires Transmission-Based No Precautions Height and Weight Body Mass Index (BMI) 23.2 23.2 23.2 BMI Classification Normal Normal Normal Vital Signs Temperature (97.8 F-99.1 F) 96.0 F L 97.4 F L 96.4 F L Temperature Source Temporal Temporal Temporal Pulse Rate (60-100) 80 89 81 Pulse Location Monitor Monitor Monitor Respiratory Rate (12-18) 18 18 18 Respiratory rate source Ausculation Observation Observation Oxygen Delivery Method Room Air Room Air Blood Pressure (90/60-120/80) 140/67 H 161/76 H 141/69 H Blood Pressure Mean (mm Hg) 91 104 93 Source Monitor Monitor Monitor Position Semi-Fowlers Semi-Fowlers Semi-Fowlers Blood Pressure Location Left Arm Left Arm Left Arm History Since Last Visit- (Skip if this is Patient's initial visit) Have you changed medications since your No No No last visit? Any new allergies or adverse reactions No No No Had a fall/change in ADL's that may No No No increase risk of falls Signs or symptoms of abuse and/or No No No neglect since last visit Have you been in the hospital since your No No No last visit? Has dressing in place as prescribed Yes Yes Yes Has compression in place as prescribed Yes No Yes Has offloadiing in place as prescribed N/A N/A N/A Experienced any changes in pain level or No No No management Left Footwear Regular Shoe Regular Shoe Right Footwear Regular Shoe Regular Shoe Pain Scale: 0-10 Numeric Is Patient Pain Free? Yes Yes Yes WC - Nurse 1 - General Ulcer Measurement Start: 11/24/24 08:23 Freq: Status: Active Protocol: Activity Type Activity Date Activity User E-sign Co-sign Detail Recorded Client Recorded Date Recorded By Document 11/24/24 08:23 KW [id number] 11/24/24 08:31 KW Document 12/02/24 12:48 KW [id number] 12/02/24 13:06 KW Document 12/15/24 08:38 RB [id number] 12/15/24 08:47 RB 11/24/24 12/02/24 12/15/24 08:23 12:48 08:38 Wound Center Nurse 1 #6 L Met Head -Current Size (cm) - Length 0.1 -Current Size (cm) - Width 0.1 -Current Size (cm) - Depth 0.1 -Total Square Cm 0.01 -Date of Last Picture (Recall this 11/24/24 field) -Wound Margin Distinct, Outline Attached -Texture (Marilyn-wound Skin Appearance) Assessed -Moisture (Marilyn-wound Skin Appearance) Assessed -Color (Marilyn-wound Skin Appearance) Assessed -Temperature (Marilyn-wound Skin No Abnormality Appearance) (Pt Warm) -Tenderness on Palpation (Marilyn-wound No Skin Appearance) -Ulcer Cleansing Soap and Water -Foul Odor after Cleansing No #5 right posterior ankle -Combined with other wound No -Current Size (cm) - Length 0.1 1 0.1 -Current Size (cm) - Width 0.1 0.4 0.1 -Current Size (cm) - Depth 0.1 0.1 0.1 -Total Square Cm 0.01 0.4 0.01 -Date of Last Picture (Recall this 11/24/24 12/02/24 field) -Photo Taken Yes -Tunneling No -Undermining/Tunneling No -Circular Undermining No -Exudate Amt Small Small -Exudate Type Serosanguineous Serosanguineous -Wound Margin Distinct, Distinct, Distinct, Outline Outline Outline Attached Attached Attached -Granulation Amt Small (1-33%) Large (67-100%) -Granulation Quality [place] -Slough/Fibrin Yes -Necrosis Amt Large (67-100%) Small (1-33%) -Necrotic Tissue Type Adherent Slough Adherent Slough -Structure Exposed N/A -Texture (Marilyn-wound Skin Appearance) Assessed Assessed Assessed -Moisture (Marilyn-wound Skin Appearance) Assessed Assessed Dry/Scaly -Color (Marilyn-wound Skin Appearance) Assessed Assessed, Assessed Hemosiderin Staining -Temperature (Marilyn-wound Skin No Abnormality No Abnormality No Abnormality Appearance) (Pt Warm) (Pt Warm) (Pt Warm) -Tenderness on Palpation (Marilyn-wound Yes No No Skin Appearance) -Ulcer Cleansing Soap and Water Soap and Water Wound Cleanser -Foul Odor after Cleansing No No -Anesthetic Used 5% Lidocaine 5% Lidocaine Gel Gel #3 right anterior leg -Combined with other wound No -Current Size (cm) - Length 0.1 0.5 0.1 -Current Size (cm) - Width 0.1 0.5 0.1 -Current Size (cm) - Depth 0.1 0.1 0.1 -Total Square Cm 0.01 0.25 0.01 -Date of Last Picture (Recall this 11/24/24 12/02/24 field) -Photo Taken Yes -Tunneling No -Undermining/Tunneling No -Circular Undermining No -Exudate Amt Small Small -Exudate Type Serosanguineous Serosanguineous -Wound Margin Distinct, Distinct, Distinct, Outline Outline Outline Attached Attached Attached -Granulation Amt None Present (0 Large (67-100%) %) -Granulation Quality [place] -Slough/Fibrin Yes -Necrosis Amt Large (67-100%) Large (67-100%) Small (1-33%) -Necrotic Tissue Type Adherent Slough Adherent Slough Adherent Slough -Structure Exposed N/A -Texture (Marilyn-wound Skin Appearance) Assessed Assessed Assessed -Moisture (Marilyn-wound Skin Appearance) Assessed Assessed, Assessed Weeping -Color (Marilyn-wound Skin Appearance) Assessed Assessed, Hemosiderin Erythema, Staining Hemosiderin Staining -Temperature (Marilyn-wound Skin No Abnormality No Abnormality No Abnormality Appearance) (Pt Warm) (Pt Warm) (Pt Warm) -Tenderness on Palpation (Marilyn-wound No No Skin Appearance) -Ulcer Cleansing Soap and Water Soap and Water Rinsed/ Irrigated with Saline -Foul Odor after Cleansing No No No -Anesthetic Used 5% Lidocaine 5% Lidocaine Gel Gel # 2 right lateral ankle cluster -Combined with other wound No -Current Size (cm) - Length 1.2 0.7 0.1 -Current Size (cm) - Width 0.8 0.5 0.1 -Current Size (cm) - Depth 0.2 0.1 0.1 -Total Square Cm 0.96 0.35 0.01 -Date of Last Picture (Recall this 12/02/24 field) -Photo Taken Yes -Tunneling No -Undermining/Tunneling No -Circular Undermining No -Exudate Amt Small Small Small -Exudate Type Serosanguineous Serosanguineous Serosanguineous -Wound Margin Distinct, Thickened Distinct, Outline Outline Attached Attached -Granulation Amt Small (1-33%) None Present (0 Medium (34-66%) %) -Granulation Quality [place] -Slough/Fibrin Yes -Necrosis Amt Large (67-100%) Large (67-100%) Small (1-33%) -Necrotic Tissue Type Adherent Slough Adherent Slough Adherent Slough -Structure Exposed N/A -Texture (Marilyn-wound Skin Appearance) Assessed Assessed Assessed -Moisture (Marilyn-wound Skin Appearance) Assessed Assessed Assessed -Color (Marilyn-wound Skin Appearance) Assessed, Assessed, Hemosiderin Erythema Erythema, Staining Hemosiderin Staining -Temperature (Marilyn-wound Skin No Abnormality No Abnormality No Abnormality Appearance) (Pt Warm) (Pt Warm) (Pt Warm) -Tenderness on Palpation (Marilyn-wound No No Skin Appearance) -Ulcer Cleansing Soap and Water Soap and Water Wound Cleanser -Foul Odor after Cleansing No No No -Anesthetic Used 5% Lidocaine 5% Lidocaine Gel Gel #1 R Med Ankle -Combined with other wound No -Current Size (cm) - Length 0.1 0.5 0.1 -Current Size (cm) - Width 0.1 0.3 0.1 -Current Size (cm) - Depth 0 0 0.1 -Total Square Cm 0.01 0.15 0.01 -Date of Last Picture (Recall this 11/24/24 12/02/24 field) -Photo Taken Yes -Tunneling No -Undermining/Tunneling No -Circular Undermining No -Exudate Amt None Present None Present Small -Exudate Type Serosanguineous -Wound Margin Distinct, Outline Attached -Granulation Amt None Present (0 Large (67-100%) %) -Granulation Quality [place] -Slough/Fibrin Yes -Necrosis Amt Large (67-100%) Small (1-33%) -Necrotic Tissue Type Adherent Slough Adherent Slough -Structure Exposed N/A -Texture (Marilyn-wound Skin Appearance) Assessed Assessed Assessed -Moisture (Marilyn-wound Skin Appearance) Assessed Assessed Assessed -Color (Marilyn-wound Skin Appearance) Assessed Assessed Hemosiderin Staining -Temperature (Marilyn-wound Skin No Abnormality No Abnormality No Abnormality Appearance) (Pt Warm) (Pt Warm) (Pt Warm) -Tenderness on Palpation (Marilyn-wound No No Skin Appearance) -Ulcer Cleansing Rinsed/ Soap and Water Rinsed/ Irrigated with Irrigated with Saline Saline -Foul Odor after Cleansing No No No -Anesthetic Used 5% Lidocaine Gel #4 Right dorsal foot -Combined with other wound No -Current Size (cm) - Length 1.4 1.1 0.9 -Current Size (cm) - Width 0.8 0.7 0.5 -Current Size (cm) - Depth 0.2 0.3 0.3 -Total Square Cm 1.12 0.77 0.45 -Date of Last Picture (Recall this 12/02/24 field) -Photo Taken Yes -Tunneling No -Undermining/Tunneling No -Circular Undermining No -Exudate Amt Small Small Medium -Exudate Type Serosanguineous Serosanguineous Serosanguineous -Wound Margin Distinct, Thickened Thickened & Outline Rolled Under Attached -Granulation Amt Small (1-33%) None Present (0 Medium (34-66%) %) -Granulation Quality [place] -Slough/Fibrin Yes -Necrosis Amt Large (67-100%) Large (67-100%) Small (1-33%) -Necrotic Tissue Type Adherent Slough Adherent Slough Adherent Slough -Structure Exposed N/A -Texture (Marilyn-wound Skin Appearance) Assessed Assessed -Moisture (Marilyn-wound Skin Appearance) Assessed Assessed Dry/Scaly -Color (Marilyn-wound Skin Appearance) Assessed Assessed, Hemosiderin Erythema Staining -Temperature (Marilyn-wound Skin No Abnormality No Abnormality No Abnormality Appearance) (Pt Warm) (Pt Warm) (Pt Warm) -Tenderness on Palpation (Marilyn-wound No No No Skin Appearance) -Ulcer Cleansing Soap and Water Soap and Water Wound Cleanser -Foul Odor after Cleansing No No No -Anesthetic Used 5% Lidocaine 5% Lidocaine 5% Lidocaine Gel Gel Gel Lower Limb Edema Present Yes Right Calf (cm) 39 36 Right Ankle (cm) 24.3 23.5 WC - Nurse 2 - General Ulcer CM Notes Start: 11/24/24 08:23 Freq: Status: Active Protocol: Activity Type Activity Date Activity User E-sign Co-sign Detail Recorded Client Recorded Date Recorded By Document 11/24/24 09:00 DS [id number] 11/24/24 09:03 DS Document 12/02/24 13:39 GM [id number] 12/02/24 13:49 GM Edit Result 12/02/24 13:39 GM (1) [id number] 12/09/24 07:40 GM Document 12/15/24 09:25 JF [id number] 12/15/24 09:27 JF (1) # 2 right lateral ankle cluster - Debridement - Subq, 1st 20sq cm Yes => No 11/24/24 12/02/24 12/15/24 09:00 13:39 09:25 Wound Center Nurse 2 #6 L Met Head -Time 09:00 13:39 -Correct Patient Yes Yes -Correct Side, Site, Position Yes -Procedure Performed No -Wound/Ulcer Outcome Not Healed #5 right posterior ankle -Time 09:00 13:39 -Correct Patient Yes Yes Yes -Correct Side, Site, Position Yes No -Correct Procedure Yes No -Procedure Performed No Yes No -Type of Procedure Debridement -Clinical Debridement Subcutaneous -Tissue Removed Subcutaneous -Post Debridement (cm) - Length 0.9 0 -Post Debridement (cm) - Width 0.3 0 -Post Debridement (cm) - Depth 0.1 0 -Total Square (Post) (cm) 0.27 0 -Area of Debridement (cm) - Length 0.9 0 -Area of Debridement (cm) - Width 0.3 0 -Total Square (Area) (cm) 0.27 0 -Tunneling No -Undermining/Tunneling No -Circular Undermining No -Wound/Ulcer Outcome Not Healed Not Healed Healed- Epithelialized -Ulcer Cleansing Rinsed/ Irrigated with Saline -Foul Odor after Cleansing No -Bioengineered Tissue No -Bleeding Controlled with Pressure -Treatment Response Procedure Tolerated Well -Debridement - Subq, 1st 20sq cm No #3 right anterior leg -Time 09:00 13:39 -Correct Patient Yes Yes Yes -Correct Side, Site, Position Yes No -Correct Procedure Yes No -Procedure Performed No Yes No -Type of Procedure Debridement -Clinical Debridement Subcutaneous -Tissue Removed Subcutaneous -Post Debridement (cm) - Length 0.7 0 -Post Debridement (cm) - Width 0.6 0 -Post Debridement (cm) - Depth 0.1 0 -Total Square (Post) (cm) 0.42 0 -Area of Debridement (cm) - Length 0.7 0 -Area of Debridement (cm) - Width 0.6 0 -Total Square (Area) (cm) 0.42 0 -Tunneling No -Undermining/Tunneling No -Circular Undermining No -Wound/Ulcer Outcome Not Healed Not Healed -Ulcer Cleansing Rinsed/ Irrigated with Saline -Foul Odor after Cleansing No -Bioengineered Tissue No -Bleeding Controlled with Pressure -Treatment Response Procedure Tolerated Well -Debridement - Subq, 1st 20sq cm No # 2 right lateral ankle cluster -Time 09:01 13:39 -Correct Patient Yes Yes Yes -Correct Side, Site, Position Yes No -Correct Procedure Yes No -Procedure Performed No Yes No -Type of Procedure Debridement -Clinical Debridement Subcutaneous -Tissue Removed Subcutaneous -Post Debridement (cm) - Length 1.0 0 -Post Debridement (cm) - Width 0.7 0 -Post Debridement (cm) - Depth 0.1 0 -Total Square (Post) (cm) 0.70 0 -Area of Debridement (cm) - Length 1.0 0 -Area of Debridement (cm) - Width 0.7 0 -Total Square (Area) (cm) 0.70 0 -Tunneling No -Undermining/Tunneling No -Circular Undermining No -Wound/Ulcer Outcome Not Healed Not Healed Healed- Epithelialized -Ulcer Cleansing Rinsed/ Irrigated with Saline -Foul Odor after Cleansing No -Bioengineered Tissue No -Bleeding Controlled with Pressure -Treatment Response Procedure Tolerated Well -Debridement - Subq, 1st 20sq cm No #1 R Med Ankle -Time 09:01 13:40 -Correct Patient Yes Yes Yes -Correct Side, Site, Position Yes No -Correct Procedure Yes No -Procedure Performed No Yes No -Type of Procedure Debridement -Clinical Debridement Subcutaneous -Tissue Removed Subcutaneous -Post Debridement (cm) - Length 0.5 0 -Post Debridement (cm) - Width 0.5 0 -Post Debridement (cm) - Depth 0.1 0 -Total Square (Post) (cm) 0.25 0 -Area of Debridement (cm) - Length 0.5 0 -Area of Debridement (cm) - Width 0.5 0 -Total Square (Area) (cm) 0.25 0 -Tunneling No -Undermining/Tunneling No -Circular Undermining No -Wound/Ulcer Outcome Not Healed Not Healed Healed- Epithelialized -Ulcer Cleansing Rinsed/ Irrigated with Saline -Foul Odor after Cleansing No -Bioengineered Tissue No -Bleeding Controlled with Pressure -Treatment Response Procedure Tolerated Well -Debridement - Subq, 1st 20sq cm Yes -Debridement - Muscle / Fascia, 1st No 20sq cm -Debridement - Bone, 1st 20sq cm No #4 Right dorsal foot -Time 09:00 13:39 09:25 -Correct Patient Yes Yes Yes -Correct Side, Site, Position Yes Yes -Correct Procedure Yes Yes -Procedure Performed No Yes Yes -Type of Procedure Debridement Debridement -Clinical Debridement Subcutaneous Subcutaneous -Tissue Removed Subcutaneous Subcutaneous -Post Debridement (cm) - Length 1.3 0.8 -Post Debridement (cm) - Width 1.0 0.4 -Post Debridement (cm) - Depth 0.3 0.2 -Total Square (Post) (cm) 1.30 0.32 -Area of Debridement (cm) - Length 1.3 0.8 -Area of Debridement (cm) - Width 1.0 0.4 -Total Square (Area) (cm) 1.30 0.32 -Tunneling No No -Undermining/Tunneling No No -Circular Undermining No No -Wound/Ulcer Outcome Not Healed Not Healed Not Healed -Ulcer Cleansing Rinsed/ Rinsed/ Irrigated with Irrigated with Saline Saline -Foul Odor after Cleansing No No -Bioengineered Tissue No No -Bleeding Controlled with Pressure Pressure -Treatment Response Procedure Procedure Tolerated Well Tolerated Well -Offloading No -Debridement - Subq, 1st 20sq cm No No Pain Scale: 0-10 Numeric Is Patient Pain Free? Yes Yes Yes WC - Nurse 3 - General Ulcer D/C NN Start: 11/24/24 08:23 Freq: Status: Active Protocol: Activity Type Activity Date Activity User E-sign Co-sign Detail Recorded Client Recorded Date Recorded By Document 11/24/24 09:15 RB [id number] 11/24/24 09:17 RB Document 12/02/24 13:10 DS [id number] 12/08/24 11:28 DS Document 12/15/24 09:52 RB [id number] 12/15/24 09:55 RB 11/24/24 12/02/24 12/15/24 09:15 13:10 09:52 Wound Care Center Nurse 3 #6 L Met Head -Ulcer Cleansing Rinsed/ Irrigated with Saline -Other Dressing santyl to all ulcers -Primary Dressing Covered/Secured with Dry Gauze & Roll Gauze, Secured with Tape #5 right posterior ankle -Other Dressing santyl santyl -Primary Dressing Covered/Secured with Dry Gauze & Roll Gauze, Secured with Tape -Other Covering moist gauze #3 right anterior leg -Other Dressing santyl santyl -Primary Dressing Covered/Secured with Dry Gauze & Roll Gauze, Secured with Tape -Other Covering moist gauze # 2 right lateral ankle cluster -Other Dressing santyl santyl -Primary Dressing Covered/Secured with Dry Gauze & Roll Gauze, Secured with Tape -Other Covering moist gauze #1 R Med Ankle -Other Dressing santyl SANTYL -Primary Dressing Covered/Secured with Dry Gauze & Other Roll Gauze, Secured with Tape -Other Covering moist gauze #4 Right dorsal foot -Ulcer Cleansing Rinsed/ Irrigated with Saline -Other Dressing santyl santyl santyl -Primary Dressing Covered/Secured with Dry Gauze & Dry Gauze, Roll Gauze, Secured with Secured with Tape Tape -Other Covering moist gauze BLE -Tubular Bandage Single Layer -Size of Tubigrip Used Size E -Size E ($) 1 -Stockings Yes: pt own Yes: single E pt own Treatment Response Procedure Procedure Tolerated Well Tolerated Well Pain Scale: 0-10 Numeric Is Patient Pain Free? No Yes Yes RLE -Description Aching -Intensity 3 -Duration (hours) Acute -Pain Behavior Withdrawal from Touch -Pain Aggravating Factors Exercise/ Activity -Alleviating Factors/Interventions None WC - Visit Discharge Discharge Condition Stable Stable Ambulatory Status Ambulatory Ambulatory Transportation Private Auto Private Auto Medication Reconcilliation completed & No No provided to patient/care provider Clinical Summary of Care Provided Yes Yes Assessment/Plan Assessment/Plan (1) Other specified peripheral vascular diseases: CODE(S): I73.89 - Other specified peripheral vascular diseases (2) Non-pressure chronic ulcer of right calf with fat layer exposed: CODE(S): L97.212 - Non-pressure chronic ulcer of right calf with fat layer exposed (3) Non-pressure chronic ulcer of other part of right foot with fat layer exposed: CODE(S): L97.512 - Non-pressure chronic ulcer of other part of right foot with fat layer exposed (4) Non-pressure chronic ulcer of other part of left foot with fat layer exposed: CODE(S): L97.522 - Non-pressure chronic ulcer of other part of left foot with fat layer exposed PLAN: Plan Exam performed Patient is ulceration to right lower extremity leg have healed. Improving right dorsal lateral foot ulceration. Patient has been using Santyl and will continue to do so. Patient has history of smoking peripheral arterial disease with intervention. Significant improvement noted to right dorsal foot wound today. Today right dorsal foot wound was debrided excisionally down to including level of subcutaneous tissue of all nonviable tissue using a 3 mm dermal curette. Topical anesthesia used. Hemostasis obtained with light compression. Patient tolerated procedure well. Pre and postdebridement measurements document nursing notes. Follow-up in 3 weeks.
--- NOTE | 2024-12-16 08:49 | ART_ITS ---
Reason For Study Reason For Study: HX PVD RLE Wound Procedure A bilateral lower extremity continuous wave Doppler with analog waveform analysis,segmental pressures,and ankle brachial indexes without exercise. Left Segmental Pressures Left brachial= 138mmHg. Left posterior tibial artery = 151mmHg. Left dorsalis pedis artery = 155mmHg. Left digit = >254 mmHg. The left posterior tibial artery waveforms are triphasic. The left dorsalis pedis waveforms are triphasic. Right Segmental Pressures Right brachial= 141mmHg. Right high thigh = 101mmHg. Right low thigh = 94mmHg. Right calf = 101mmHg. Right posterior tibial artery = 70mmHg. Right dorsalis pedis artery = 63mmHg. Right digit = >254 mmHg. The right posterior tibial artery waveforms are monophasic. The right dorsalis pedis waveforms are monophasic. Indices The right ankle brachial index by the posterior tibial artery is 0.50. The right ankle brachial index by the dorsalis pedis is 0.45. The right digital-brachial index is N/C. The left ankle brachial index by the posterior tibial artery is 1.07. The left ankle brachial index by the dorsalis pedis is 1.10. The left digital-brachial index is N/C. VL/Lower Ext Art Exam w/o Exercis Interpretation Summary Right EMILE 0.5, severe arterial insufficiency. Doppler/PVR waveforms and segment al waveforms reveal aorto-iliac, infrapopliteal disease. Left EMILE 1.1, normal. Doppler/PVR waveforms of the left leg normal at rest. Ordering Physician: Gavino Castillo Referring Physician: Reynold Hernandez Performed By: Sonny Bull RVT
--- NOTE | 2024-12-17 09:06 | WC ---
PHOTO 12/16/24 RIGHT POST ANKLE
--- NOTE | 2024-12-17 09:22 | WC ---
PHOTO 12/16/24 RIGHT MED
--- NOTE | 2024-12-17 09:24 | WC ---
PHOTO 12/15/24 RIGHT DORSAL FOOT
--- NOTE | 2024-12-17 09:26 | WC ---
PHOTO 12/15/24 RIGHT LATERAL ANKLE
== END 2024-12-23 23:59 | disposition home or self-care (01) ==
LOC: WC 09:00
PROVIDERS: PCP Internal Medicine; Referring Provider Internal Medicine; Visit Provider Podiatrist
DX: I73.89 Other specified peripheral vascular diseases (principal); L97.512 Non-pressure chronic ulcer of other part of right foot with fat layer exposed; L97.212 Non-pressure chronic ulcer of right calf with fat layer exposed; L97.522 Non-pressure chronic ulcer of other part of left foot with fat layer exposed; L97.312 Non-pressure chronic ulcer of right ankle with fat layer exposed; L03.115 Cellulitis of right lower limb
CPT/HCPCS: 11042; 93923; 99213; G0463

== ENCOUNTER 2025-01-19 08:30 | Outpatient (RCR) | payer MEDICARE, SELFPAY ==
[2025-01-05 08:20] VITALS: BP 129/77; PULSE 74; RESP 16; TEMP 36.1
--- NOTE | 2025-01-05 09:01 | PN.PCM_ITS ---
History of Present Illness Date of Service: 01/05/25 Chief Complaint: Chronic Right leg Ulceration in setting of PAD History of Wound: Patient presents today for ulcerations to his right leg with cellulitis to right lower extremity. Patient on oral antibiotics for right lower extremity cellulitis. Patient has history of peripheral arterial disease with ABIs 0.62 in May 2024. Patient reports that he had stents placed by Dr. Beatty in July 2024. Since that time patient has noted continued nonhealing to right lower extremity ulcerations with edema erythema and warmth to site. Patient denies any constitutional symptoms today. Patient's been dressing sites with Santyl. Patient's been using Tubigrip for compression. Patient has no other complaints. Progress of Wound: Patient last saw Dr. Castillo November 24, 2024. Patient comes in today with concern for infection in his right foot. He states that his right foot was very swollen yesterday and his toes were red. He states that his foot looks much better today. He continues to have painful ulcers on his right dorsal foot, right medial ankle, right lateral ankle and right posterior ankle. Dr. Castillo ordered arterial studies but the patient states he doesn't want to do them until his wounds are healed. He states that he has only been placing Santyl on the right dorsal foot and antibiotic ointment on the other ulcers. He does wear his tubigrip on his right leg and he states that he sleeps in a bed. Today his foot has +1 edema. His toes are pink, warm, capillary refill <3 seconds. Right pedal pulse +1 palp. Foot is warm and pink. No clinical signs of infection. His right lateral ankle ulcer cluster are now a single ulcer. The right posterior ulcer is smaller in size. Objective Data Objective Data Vital Signs: Vital Signs Temp Pulse Resp BP O2 Del Method 97.0 F L 74 16 129/77 H Room Air 01/05/25 08:20 01/05/25 08:20 01/05/25 08:20 01/05/25 08:20 01/05/25 08:20 Oxygen Delivery Method Room Air Physical Exam Narrative Vascular: +2 pitting edema noted to right foot MARILYN malleoli region in the leg. Dorsalis pedis and posterior tibial pulses barely palpable to right foot. 2 out of 4 to left foot. Atrophic skin changes noted bilaterally. Neurologic: Light touch protective sensation intact to bilateral feet and legs. Dermatologic: Full-thickness ulceration noted to the dorsal lateral right foot. Dorsal medial first MPJ on the left foot. And scattered throughout the right lower extremity. These wounds demonstrate a nonviable fibrotic bed. Periwound erythema edema and warmth noted. Moderate serous drainage noted. Musculoskeletal: No pain with calf squeeze bilaterally. Muscular strength full to bilateral lower extremity compartments. Const alert and oriented x3 Debridement Note Debridement Note Post-Debridement Measurements and Additional Note: Post-Debridement Measurements/Treatment WC - Nurse 1 - General Ulcer Assessment Start: 01/05/25 08:20 Freq: Status: Active Protocol: AALIYAH Activity Type Activity Date Activity User E-sign Co-sign Detail Recorded Client Recorded Date Recorded By Document 01/05/25 08:20 KW [id number] 01/05/25 08:24 KW 01/05/25 08:20 WC - Today's Visit Information Type of service Follow-up Visit (Physician/CERTIFIED SURGICAL TECH/FIRST ASSISTANT ) Arrival Mode Ambulatory Patient Identification Verified (Name & Yes ) Vital Signs Temperature (97.8 F-99.1 F) 97.0 F L Temperature Source Temporal Pulse Rate (60-100) 74 Pulse Location Monitor Respiratory Rate (12-18) 16 Respiratory rate source Observation Oxygen Delivery Method Room Air Blood Pressure (90/60-120/80) 129/77 H Blood Pressure Mean (mm Hg) 94 Source Monitor Position Sitting Blood Pressure Location Right Arm History Since Last Visit- (Skip if this is Patient's initial visit) Have you changed medications since your No last visit? Any new allergies or adverse reactions No Had a fall/change in ADL's that may No increase risk of falls Signs or symptoms of abuse and/or No neglect since last visit Have you been in the hospital since your No last visit? Has dressing in place as prescribed Yes Has compression in place as prescribed No Has offloadiing in place as prescribed N/A Experienced any changes in pain level or No management Left Footwear Regular Shoe Right Footwear Regular Shoe Pain Scale: 0-10 Numeric Is Patient Pain Free? Yes - Nurse 1 - General Ulcer Measurement Start: 01/05/25 08:20 Freq: Status: Active Protocol: Activity Type Activity Date Activity User E-sign Co-sign Detail Recorded Client Recorded Date Recorded By Document 01/05/25 08:20 KW [id number] 01/05/25 08:24 KW 01/05/25 08:20 Wound Center Nurse 1 #4 Right dorsal foot -Current Size (cm) - Length 1 -Current Size (cm) - Width 0.5 -Current Size (cm) - Depth 0.1 -Total Square Cm 0.5 -Date of Last Picture (Recall this 01/05/25 field) -Exudate Amt None Present -Wound Margin Distinct, Outline Attached -Granulation Amt None Present (0 %) -Necrosis Amt Large (67-100%) -Necrotic Tissue Type Eschar -Texture (Marilyn-wound Skin Appearance) Assessed -Moisture (Marilyn-wound Skin Appearance) Assessed -Color (Marilyn-wound Skin Appearance) Assessed, Erythema -Temperature (Marilyn-wound Skin No Abnormality Appearance) (Pt Warm) -Tenderness on Palpation (Marilyn-wound No Skin Appearance) -Ulcer Cleansing Rinsed/ Irrigated with Saline -Foul Odor after Cleansing No -Anesthetic Used 5% Lidocaine Gel -Wound Comment(s) scabbed WC - Nurse 2 - General Ulcer CM Notes Start: 01/05/25 08:20 Freq: Status: Active Protocol: Activity Type Activity Date Activity User E-sign Co-sign Detail Recorded Client Recorded Date Recorded By Document 01/05/25 08:46 [id number] 01/05/25 08:47 01/05/25 08:46 Wound Center Nurse 2 -Time 08:47 -Correct Patient Yes -Correct Side, Site, Position Yes -Correct Procedure Yes -Procedure Performed Yes -Type of Procedure Debridement -Clinical Debridement Subcutaneous -Tissue Removed Subcutaneous -Post Debridement (cm) - Length 1 -Post Debridement (cm) - Width 0.4 -Post Debridement (cm) - Depth 0.1 -Total Square (Post) (cm) 0.4 -Area of Debridement (cm) - Length 1 -Area of Debridement (cm) - Width 0.4 -Total Square (Area) (cm) 0.4 -Tunneling No -Undermining/Tunneling No -Circular Undermining No -Wound/Ulcer Outcome Not Healed -Ulcer Cleansing Rinsed/ Irrigated with Saline -Foul Odor after Cleansing No -Bioengineered Tissue No -Bleeding Controlled with Pressure -Treatment Response Procedure Tolerated Well -Offloading No -Debridement - Subq, 1st 20sq cm Yes Pain Scale: 0-10 Numeric Is Patient Pain Free? Yes WC - Nurse 3 - General Ulcer D/C NN Start: 01/05/25 08:20 Freq: Status: Active Protocol: Activity Type Activity Date Activity User E-sign Co-sign Detail Recorded Client Recorded Date Recorded By Document 01/05/25 08:48 KRISH [id number] 01/05/25 08:49 KRISH 01/05/25 08:48 Wound Care Center Nurse 3 #4 Right dorsal foot -Ulcer Cleansing Rinsed/ Irrigated with Saline -Foul Odor after Cleansing No -Other Dressing hydrogel -Primary Dressing Covered/Secured with Dry Gauze, Secured with Tape -Hydrogel 0 RLE -Tubular Bandage Single Layer -Size of Tubigrip Used Size E -Size E ($) 1 Pain Scale: 0-10 Numeric Is Patient Pain Free? Yes WC - Visit Discharge Discharge Condition Stable Ambulatory Status Ambulatory Transportation Private Auto Medication Reconcilliation completed & Yes provided to patient/care provider Clinical Summary of Care Provided Yes Assessment/Plan Assessment/Plan (1) Other specified peripheral vascular diseases: CODE(S): I73.89 - Other specified peripheral vascular diseases (2) Non-pressure chronic ulcer of right calf with fat layer exposed: CODE(S): L97.212 - Non-pressure chronic ulcer of right calf with fat layer exposed (3) Non-pressure chronic ulcer of other part of right foot with fat layer exposed: CODE(S): L97.512 - Non-pressure chronic ulcer of other part of right foot with fat layer exposed (4) Non-pressure chronic ulcer of other part of left foot with fat layer exposed: CODE(S): L97.522 - Non-pressure chronic ulcer of other part of left foot with fat layer exposed PLAN: Plan Exam performed Patient is ulceration to right lower extremity leg have healed. Improving right dorsal lateral foot ulceration. Patient has been using Santyl and will continue to do so. Patient has history of smoking peripheral arterial disease with intervention. Significant improvement noted to right dorsal foot wound today. Today right dorsal foot wound was debrided excisionally down to including level of subcutaneous tissue of all nonviable tissue using a 3 mm dermal curette. Topical anesthesia used. Hemostasis obtained with light compression. Patient tolerated procedure well. Pre and postdebridement measurements document nursing notes. Follow-up in 3 weeks.
--- NOTE | 2025-01-06 09:30 | WC ---
PHOTO 01/05/25 RIGHT DORSAL FOOT
[2025-01-19 08:34] VITALS: BP 129/81; PULSE 76; RESP 18; TEMP 36.1
--- NOTE | 2025-01-19 09:31 | PCM.WC.PN ---
History of Present Illness Date of Service: 01/19/25 Chief Complaint: Chronic Right leg Ulceration in setting of PAD History of Wound: Patient presents today for ulcerations to his right leg with cellulitis to right lower extremity. Patient on oral antibiotics for right lower extremity cellulitis. Patient has history of peripheral arterial disease with ABIs 0.62 in May 2024. Patient reports that he had stents placed by Dr. Beatty in July 2024. Since that time patient has noted continued nonhealing to right lower extremity ulcerations with edema erythema and warmth to site. Patient denies any constitutional symptoms today. Patient's been dressing sites with Santyl. Patient's been using Tubigrip for compression. Patient has no other complaints. Progress of Wound: Patient last saw Dr. Castillo November 24, 2024. Patient comes in today with concern for infection in his right foot. He states that his right foot was very swollen yesterday and his toes were red. He states that his foot looks much better today. He continues to have painful ulcers on his right dorsal foot, right medial ankle, right lateral ankle and right posterior ankle. Dr. Castillo ordered arterial studies but the patient states he doesn't want to do them until his wounds are healed. He states that he has only been placing Santyl on the right dorsal foot and antibiotic ointment on the other ulcers. He does wear his tubigrip on his right leg and he states that he sleeps in a bed. Today his foot has +1 edema. His toes are pink, warm, capillary refill <3 seconds. Right pedal pulse +1 palp. Foot is warm and pink. No clinical signs of infection. His right lateral ankle ulcer cluster are now a single ulcer. The right posterior ulcer is smaller in size. Objective Data Objective Data Vital Signs: Vital Signs Temp Pulse Resp BP O2 Del Method 97.0 F L 76 18 129/81 H Room Air 01/19/25 08:34 01/19/25 08:34 01/19/25 08:34 01/19/25 08:34 01/19/25 08:34 Oxygen Delivery Method Room Air Physical Exam Narrative Vascular: +2 pitting edema noted to right foot MARILYN malleoli region in the leg. Dorsalis pedis and posterior tibial pulses barely palpable to right foot. 2 out of 4 to left foot. Atrophic skin changes noted bilaterally. Neurologic: Light touch protective sensation intact to bilateral feet and legs. Dermatologic: Full-thickness ulceration noted to the dorsal lateral right foot. Dorsal medial first MPJ on the left foot. And scattered throughout the right lower extremity. These wounds demonstrate a nonviable fibrotic bed. Periwound erythema edema and warmth noted. Moderate serous drainage noted. Musculoskeletal: No pain with calf squeeze bilaterally. Muscular strength full to bilateral lower extremity compartments. Const alert and oriented x3 Debridement Note Debridement Note Post-Debridement Measurements and Additional Note: Post-Debridement Measurements/Treatment - Nurse 1 - General Ulcer Assessment Start: 01/05/25 08:20 Freq: Status: Active Protocol: WC.LOWEXT Activity Type Activity Date Activity User E-sign Co-sign Detail Recorded Client Recorded Date Recorded By Document 01/05/25 08:20 KW [id number] 01/05/25 08:24 KW Document 01/19/25 08:34 KW [id number] 01/19/25 08:37 KW 01/05/25 01/19/25 08:20 08:34 - Today's Visit Information Type of service Follow-up Visit Follow-up Visit (Physician/GOLF COURSE ASSISTANT (Physician/GOLF COURSE ASSISTANT ) ) Arrival Mode Ambulatory Ambulatory Patient Identification Verified (Name & Yes Yes ) Vital Signs Temperature (97.8 F-99.1 F) 97.0 F L 97.0 F L Temperature Source Temporal Temporal Pulse Rate (60-100) 74 76 Pulse Location Monitor Monitor Respiratory Rate (12-18) 16 18 Respiratory rate source Observation Observation Oxygen Delivery Method Room Air Room Air Blood Pressure (90/60-120/80) 129/77 H 129/81 H Blood Pressure Mean (mm Hg) 94 97 Source Monitor Position Sitting Blood Pressure Location Right Arm History Since Last Visit- (Skip if this is Patient's initial visit) Have you changed medications since your No No last visit? Any new allergies or adverse reactions No No Had a fall/change in ADL's that may No No increase risk of falls Signs or symptoms of abuse and/or No No neglect since last visit Have you been in the hospital since your No No last visit? Has dressing in place as prescribed Yes Yes Has compression in place as prescribed No Yes Has offloadiing in place as prescribed N/A N/A Experienced any changes in pain level or No No management Left Footwear Regular Shoe Regular Shoe Right Footwear Regular Shoe Regular Shoe Pain Scale: 0-10 Numeric Is Patient Pain Free? Yes Yes - Nurse 1 - General Ulcer Measurement Start: 01/05/25 08:20 Freq: Status: Active Protocol: Activity Type Activity Date Activity User E-sign Co-sign Detail Recorded Client Recorded Date Recorded By Document 01/05/25 08:20 KW [id number] 01/05/25 08:24 KW Document 01/19/25 08:34 KW [id number] 01/19/25 08:37 KW 01/05/25 01/19/25 08:20 08:34 Wound Center Nurse 1 #4 Right dorsal foot -Current Size (cm) - Length 1 0.1 -Current Size (cm) - Width 0.5 0.1 -Current Size (cm) - Depth 0.1 0 -Total Square Cm 0.5 0.01 -Date of Last Picture (Recall this 01/05/25 field) -Exudate Amt None Present None Present -Wound Margin Distinct, Distinct, Outline Outline Attached Attached -Granulation Amt None Present (0 Small (1-33%) %) -Granulation Quality [place] -Necrosis Amt Large (67-100%) Small (1-33%) -Necrotic Tissue Type Eschar Adherent Slough -Texture (Marilyn-wound Skin Appearance) Assessed Assessed -Moisture (Marilyn-wound Skin Appearance) Assessed Assessed -Color (Marilyn-wound Skin Appearance) Assessed, Assessed Erythema -Temperature (Marilyn-wound Skin No Abnormality No Abnormality Appearance) (Pt Warm) (Pt Warm) -Tenderness on Palpation (Marilyn-wound No No Skin Appearance) -Ulcer Cleansing Rinsed/ Rinsed/ Irrigated with Irrigated with Saline Saline -Foul Odor after Cleansing No No -Anesthetic Used 5% Lidocaine 5% Lidocaine Gel Gel -Wound Comment(s) scabbed Right Calf (cm) 35.7 Right Ankle (cm) 23.5 - Nurse 2 - General Ulcer CM Notes Start: 01/05/25 08:20 Freq: Status: Active Protocol: Activity Type Activity Date Activity User E-sign Co-sign Detail Recorded Client Recorded Date Recorded By Document 01/05/25 08:46 [id number] 01/05/25 08:47 Document 01/19/25 08:44 [id number] 01/19/25 08:44 01/05/25 01/19/25 08:46 08:44 Wound Center Nurse 2 #4 Right dorsal foot -Time 08:47 08:44 -Correct Patient Yes Yes -Correct Side, Site, Position Yes Yes -Correct Procedure Yes Yes -Procedure Performed Yes Yes -Type of Procedure Debridement Debridement -Clinical Debridement Subcutaneous Subcutaneous -Tissue Removed Subcutaneous Subcutaneous -Post Debridement (cm) - Length 1 1.0 -Post Debridement (cm) - Width 0.4 0.3 -Post Debridement (cm) - Depth 0.1 0.1 -Total Square (Post) (cm) 0.4 0.30 -Area of Debridement (cm) - Length 1 1.0 -Area of Debridement (cm) - Width 0.4 0.3 -Total Square (Area) (cm) 0.4 0.30 -Tunneling No No -Undermining/Tunneling No No -Circular Undermining No No -Wound/Ulcer Outcome Not Healed Not Healed -Ulcer Cleansing Rinsed/ Rinsed/ Irrigated with Irrigated with Saline Saline -Foul Odor after Cleansing No No -Bioengineered Tissue No No -Bleeding Controlled with Pressure Pressure -Treatment Response Procedure Procedure Tolerated Well Tolerated Well -Offloading No No -Debridement - Subq, 1st 20sq cm Yes Yes Pain Scale: 0-10 Numeric Is Patient Pain Free? Yes Yes - Nurse 3 - General Ulcer D/C NN Start: 01/05/25 08:20 Freq: Status: Active Protocol: Activity Type Activity Date Activity User E-sign Co-sign Detail Recorded Client Recorded Date Recorded By Document 01/05/25 08:48 [id number] 01/05/25 08:49 Document 01/19/25 08:51 KW [id number] 01/19/25 08:51 01/05/25 01/19/25 08:48 08:51 Wound Care Center Nurse 3 #4 Right dorsal foot -Ulcer Cleansing Rinsed/ Irrigated with Saline -Foul Odor after Cleansing No -Other Dressing hydrogel -Primary Dressing Covered/Secured with Dry Gauze, Dry Gauze, Secured with Secured with Tape Tape -Hydrogel 0 -Wound Comment(s) manuka honey or medihoney RLE -Tubular Bandage Single Layer -Size of Tubigrip Used Size E -Size E ($) 1 -Other pt own tubigrip size E Pain Scale: 0-10 Numeric Is Patient Pain Free? Yes Yes - Visit Discharge Discharge Condition Stable Stable Ambulatory Status Ambulatory Ambulatory Transportation Private Auto Private Auto Medication Reconcilliation completed & Yes No provided to patient/care provider Clinical Summary of Care Provided Yes Yes Assessment/Plan Assessment/Plan (1) Other specified peripheral vascular diseases: CODE(S): I73.89 - Other specified peripheral vascular diseases (2) Non-pressure chronic ulcer of right calf with fat layer exposed: CODE(S): L97.212 - Non-pressure chronic ulcer of right calf with fat layer exposed (3) Non-pressure chronic ulcer of other part of right foot with fat layer exposed: CODE(S): L97.512 - Non-pressure chronic ulcer of other part of right foot with fat layer exposed (4) Non-pressure chronic ulcer of other part of left foot with fat layer exposed: CODE(S): L97.522 - Non-pressure chronic ulcer of other part of left foot with fat layer exposed PLAN: Plan Exam performed Patient is ulceration to right lower extremity leg have healed. Improving right dorsal lateral foot ulceration. Patient has been using Santyl and will continue to do so. Patient has history of smoking peripheral arterial disease with intervention. Significant improvement noted to right dorsal foot wound today. Today right dorsal foot wound was debrided excisionally down to including level of subcutaneous tissue of all nonviable tissue using a 3 mm dermal curette. Topical anesthesia used. Hemostasis obtained with light compression. Patient tolerated procedure well. Pre and postdebridement measurements document nursing notes. Follow-up in 3 weeks.
== END 2025-01-23 23:59 | disposition home or self-care (01) ==
LOC: WC 08:30
PROVIDERS: PCP Internal Medicine; Referring Provider Internal Medicine; Visit Provider Podiatrist
DX: L97.212 Non-pressure chronic ulcer of right calf with fat layer exposed (principal); L97.522 Non-pressure chronic ulcer of other part of left foot with fat layer exposed; L97.512 Non-pressure chronic ulcer of other part of right foot with fat layer exposed; L03.115 Cellulitis of right lower limb; I73.89 Other specified peripheral vascular diseases; R60.0 Localized edema; Z79.02 Long term (current) use of antithrombotics/antiplatelets; Z79.899 Other long term (current) drug therapy; Z87.891 Personal history of nicotine dependence; Z95.820 Peripheral vascular angioplasty status with implants and grafts
CPT/HCPCS: 11042

== ENCOUNTER 2025-02-09 07:44 | Outpatient (RCR) | payer MEDICARE, SELFPAY ==
[2025-01-24 00:42] VITALS: BP 129/81; PULSE 76; RESP 18; TEMP 36.1
[2025-02-09 08:04] VITALS: BP 131/73; PULSE 66; RESP 16; TEMP 36.4
--- NOTE | 2025-02-09 09:59 | PCM.WC.PN ---
History of Present Illness Date of Service: 02/09/25 Chief Complaint: Chronic Right leg Ulceration in setting of PAD History of Wound: fol Progress of Wound: follow up on right foot wound 2/2 to chronic arterial disease. patient notes wound healing today and denies constitutionals, Objective Data Objective Data Vital Signs: Vital Signs Temp Pulse Resp BP O2 Del Method 97.5 F L 66 16 131/73 H Room Air 02/09/25 08:04 02/09/25 08:04 02/09/25 08:04 02/09/25 08:04 02/09/25 08:04 Oxygen Delivery Method Room Air Physical Exam Narrative Vascular: +2 pitting edema noted to right foot SHARMIN malleoli region in the leg. Dorsalis pedis and posterior tibial pulses barely palpable to right foot. 2 out of 4 to left foot. Atrophic skin changes noted bilaterally. Neurologic: Light touch protective sensation intact to bilateral feet and legs. Dermatologic: Full-thickness ulceration noted to the dorsal lateral right foot healed. Musculoskeletal: No pain with calf squeeze bilaterally. Muscular strength full to bilateral lower extremity compartments. 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 Any new allergies or adverse reactions No Had a fall/change in ADL's that may No increase risk of falls Signs or symptoms of abuse and/or No neglect since last visit Have you been in the hospital since your No last visit? Has dressing in place as prescribed Yes Has compression in place as prescribed Yes Has offloadiing in place as prescribed N/A Experienced any changes in pain level or No management Left Footwear Regular Shoe Right Footwear Regular Shoe Pain Scale: 0-10 Numeric Is Patient Pain Free? Yes WC - Nurse 1 - General Ulcer Measurement Start: 02/09/25 08:04 Freq: Status: Active Protocol: Activity Type Activity Date Activity User E-sign Co-sign Detail Recorded Client Recorded Date Recorded By Document 02/09/25 08:04 ALESIA [id number] 02/09/25 08:09 ALESIA 02/09/25 08:04 Wound Center Nurse 1 #4 Right dorsal foot -Current Size (cm) - Length 0.1 -Current Size (cm) - Width 0.1 -Current Size (cm) - Depth 0 -Total Square Cm 0.01 -Date of Last Picture (Recall this 02/09/25 field) -Exudate Amt None Present -Wound Margin Distinct, Outline Attached -Granulation Amt None Present (0 %) -Necrosis Amt Large (67-100%) -Necrotic Tissue Type Eschar -Texture (Sharmin-wound Skin Appearance) Assessed -Moisture (Sharmin-wound Skin Appearance) Assessed -Color (Sharmin-wound Skin Appearance) Assessed, Erythema -Temperature (Sharmin-wound Skin No Abnormality Appearance) (Pt Warm) -Tenderness on Palpation (Sharmin-wound No Skin Appearance) -Ulcer Cleansing Rinsed/ Irrigated with Saline -Foul Odor after Cleansing No -Anesthetic Used 5% Lidocaine Gel -Wound Comment(s) scabbed Right Calf (cm) 36 Right Ankle (cm) 24.5 - Nurse 2 - General Ulcer CM Notes Start: 02/09/25 08:04 Freq: Status: Active Protocol: Activity Type Activity Date Activity User E-sign Co-sign Detail Recorded Client Recorded Date Recorded By Document 02/09/25 08:37 KRISH [id number] 02/09/25 08:39 KRISH 02/09/25 08:37 Wound Center Nurse 2 #4 Right dorsal foot -Correct Patient Yes -Correct Side, Site, Position No -Correct Procedure No -Procedure Performed No -Post Debridement (cm) - Length 0 -Post Debridement (cm) - Width 0 -Post Debridement (cm) - Depth 0 -Total Square (Post) (cm) 0 -Area of Debridement (cm) - Length 0 -Area of Debridement (cm) - Width 0 -Total Square (Area) (cm) 0 -Wound/Ulcer Outcome Healed- Epithelialized Pain Scale: 0-10 Numeric Is Patient Pain Free? Yes WC - Nurse 3 - General Ulcer D/C NN Start: 02/09/25 08:04 Freq: Status: Active Protocol: Activity Type Activity Date Activity User E-sign Co-sign Detail Recorded Client Recorded Date Recorded By Document 02/09/25 08:39 [id number] 02/09/25 08:39 KRISH 02/09/25 08:39 Is Patient Pain Free? Yes WC - Visit Discharge Discharge Condition Stable Ambulatory Status Ambulatory Transportation Private Auto Medication Reconcilliation completed & Yes provided to patient/care provider Clinical Summary of Care Provided Yes Assessment/Plan Assessment/Plan (1) Other specified peripheral vascular diseases: CODE(S): I73.89 - Other specified peripheral vascular diseases (2) Non-pressure chronic ulcer of right calf with fat layer exposed: CODE(S): L97.212 - Non-pressure chronic ulcer of right calf with fat layer exposed (3) Non-pressure chronic ulcer of other part of right foot with fat layer exposed: CODE(S): L97.512 - Non-pressure chronic ulcer of other part of right foot with fat layer exposed (4) Non-pressure chronic ulcer of other part of left foot with fat layer exposed: CODE(S): L97.522 - Non-pressure chronic ulcer of other part of left foot with fat layer exposed PLAN: Plan Exam performed right foot wound healed recommended continue follow up with vascular surgery recommended smoking cessation and avoidance of cold exposure follow up in 1 month for at risk foot check
--- NOTE | 2025-02-10 08:32 | WC ---
PHOTO 02/09/25 RIGHT DORSAL FOOT
== END 2025-02-09 15:10 | disposition home or self-care (01) ==
LOC: WC 07:44
PROVIDERS: PCP Internal Medicine; Referring Provider Internal Medicine; Visit Provider Podiatrist
DX: Z09 Encounter for follow-up examination after completed treatment for conditions other than malignant neoplasm (principal); I73.89 Other specified peripheral vascular diseases; Z79.02 Long term (current) use of antithrombotics/antiplatelets; Z79.899 Other long term (current) drug therapy
CPT/HCPCS: 99213; G0463